=== PATIENT | female | born 1960 | race Caucasian/White ===

== ENCOUNTER → 2017-05-12 | Outpatient (CLI) | payer MEDICARE, OTHER ==
--- NOTE | 2017-05-12 16:13 | US ---
EXAMINATION TYPE: Ultrasound MSK left shoulder DATE OF EXAM: 05/12/2017 COMPARISON: No radiographic correlation available. CLINICAL HISTORY: 57-year-old female M25.512 PAIN IN LT SHOULDER,S46.002D INJURY MUSCLE,M54.2. ADDITIONAL HISTORY PROVIDED BY THE RESIDENTIAL COUNSELOR: left shoulder pain for years; patient fell on 01/16 a nd had xray at office--told she had humeral fracture and placed in sling. Patient unable to receive s teroid injections as is diabetic, limited ROM. TECHNIQUE: Multiple sonographic images of the left shoulder are obtained. FINDINGS: The soft tissues are heterogeneous and attenuating likely secondary to the patient's underlying arthr itis. There is marked thickening of the lung at biceps tendon at the junction of the intracapsular and extr acapsular portions with hypoechoic appearance. The heterogeneous appearance of the tendon limits asse ssment for any interstitial tear. Heterogeneity of the subscapularis tendon with the majority of the subscapularis tendon remaining int act. Mild degenerative joint space narrowing but with prominent capsular hypertrophy at the acromioclavicu lar joint. There is full-thickness retracted tear of the supraspinous tendon extending back to involve a signifi cant portion of the infraspinatus tendon as well. Some far posterior infraspinatus tendon fibers are visualized and intact. There is fluid and debris within the intervening gap with some fluid extending into the lateral delto id shell. The retracted stump is not identified with certainty. There appears to be moderate fatty infiltration of both supraspinatus and infraspinatus muscle bellie s. The posterior shoulder is very limited in assessment. IMPRESSION: 1. Findings suggest a near massive rotator cuff tear. Some far posterior infraspinatus tendon fibers appear to remain intact. 2. The majority of the subscapularis tendon appears intact. 3. Moderate fatty atrophy of both supraspinatus and infraspinatus muscle bellies. 4. Marked tendinosis of the long head biceps tendon.
== END | disposition home or self-care (01) ==
LOC: RADUSWWP 11:43
PROVIDERS: ATTEND Orthopaedic Surgery
DX: M62.512 Muscle wasting and atrophy, not elsewhere classified, left shoulder (principal); M67.814 Other specified disorders of tendon, left shoulder; M54.2 Cervicalgia

== ENCOUNTER 2018-02-09 18:46 | Inpatient (IN) | payer MEDICARE, OTHER ==
[2018-02-09] MEDS ORDERED: SODIUM CHLORIDE 0.9% 1,000 ML IV STA (19:13)
[2018-02-09 19:27] LABS: Basophils % (A) 0 %; Eosinophils # (A) 0.4 k/uL (0-0.7); Eosinophils % (A) 4 %; HGB 14.4 gm/dL (11.4-16.0); Lymphocytes # (A) 2.7 k/uL (1.0-4.8); Lymphocytes % (A) 28 %; MCH 26.9 pg (25.0-35.0); MCHC 33.6 g/dL (31.0-37.0); MCV 80.1 fL (80.0-100.0); Mean Platelet Volume 7.6; Monocytes # (A) 0.6 k/uL (0-1.0); Monocytes % (A) 6 %; Neutrophils # (A) 5.7 k/uL (1.3-7.7); Neutrophils % (A) 60 %; Platelet Count 299 k/uL (150-450); RBC 5.36 m/uL (3.80-5.40); RDW 15.9 % (11.5-15.5); WBC 9.6 k/uL (3.8-10.6)
[2018-02-09 19:38] LABS: Albumin 4.3 g/dL (3.5-5.0); Calcium 10.1 mg/dL (8.4-10.2); Magnesium 1.6 mg/dL (1.6-2.3); Potassium 4.6 mmol/L (3.5-5.1); Total Bilirubin 0.4 mg/dL (0.2-1.3)
[2018-02-09 19:42] LABS: Creatine Kinase 63 U/L (30-135)
--- NOTE | 2018-02-09 19:42 | XR ---
EXAMINATION TYPE: XR chest 2V DATE OF EXAM: 02/09/2018 COMPARISON: NONE HISTORY: Atrial fibrillation. Dysrhythmia. TECHNIQUE: Frontal and lateral views of the chest are obtained. FINDINGS: Heart and mediastinum are normal. Lungs are clear of infiltrate. There is no heart failure . There are chest leads. Diaphragm is normal. There is previous cardiac surgery. IMPRESSION: No active cardiopulmonary disease.
[2018-02-09 19:48] LABS: Partial Thromboplastin Time 22.2 sec (22.0-30.0); Prothrombin Time 9.6 sec (9.0-12.0)
[2018-02-09 19:54] LABS: Creatine Kinase MB 0.9 ng/mL (0.0-2.4); Troponin I <0.012 ng/mL (0.000-0.034)
--- NOTE | 2018-02-09 20:12 | ED ---
Chest Pain HPI - General Chief Complaint: Chest Pain Stated Complaint: Chest Pain-sent by closing agent Time Seen by Provider: 02/09/18 19:00 Source: patient, RN notes reviewed Mode of arrival: ambulatory Limitations: no limitations - History of Present Illness Initial Comments: This is a 58-year-old female history of atrial fibrillation was sent in today by her closing agent for admission she has been having recurrent of atrial fibrillation and has been symptomatic with shortness of breath dizziness palpitations intermittent elevation of the heart rate. She has been on medication for now failing to control it. She denies any overt chest tightness but she does have some palpitation symptoms. Of note she also has a history of a left breast lumpectomy for cancer. No fevers chills nausea vomiting sweats no cough no other modifying factors - Related Data Home Medications Medication Instructions Recorded Confirmed Acetaminophen-Codeine 300-30mg 1 tab PO Q6H PRN 02/09/18 02/09/18 [Tylenol #3] Albuterol Inhaler [Ventolin Hfa 2 puff INHALATION RT-Q6H PRN 02/09/18 02/09/18 Inhaler] Amiodarone HCl [Pacerone] 200 mg PO Q8H 02/09/18 02/09/18 Anastrozole [Arimidex] 1 mg PO DAILY 02/09/18 02/09/18 Aspirin EC [Ecotrin Low Dose] 81 mg PO DAILY 02/09/18 02/09/18 Atorvastatin [Lipitor] 80 mg PO HS 02/09/18 02/09/18 Carvedilol [Coreg] 25 mg PO BID 02/09/18 02/09/18 DULoxetine HCL [Cymbalta] 60 mg PO HS 02/09/18 02/09/18 Diltiazem Cd [Cardizem Cd] 240 mg PO BID 02/09/18 02/09/18 Doxepin [SINEquan] 10 mg PO HS 02/09/18 02/09/18 Insulin Aspart [NovoLOG 10 unit SQ AC-TID 02/09/18 02/09/18 (formulary)] Insulin Glargine,Hum.rec.anlog 70 units SQ HS 02/09/18 02/09/18 [Aiyana Saravia] Lisinopril [Prinivil] 10 mg PO DAILY 02/09/18 02/09/18 Nitroglycerin Sl Tabs [Nitrostat] 0.4 mg SUBLINGUAL Q5M PRN 02/09/18 02/09/18 Omeprazole 20 mg PO BID 02/09/18 02/09/18 Prochlorperazine [Compazine] 10 mg PO Q6H PRN 02/09/18 02/09/18 Rivaroxaban [Xarelto] 20 mg PO HS 02/09/18 02/09/18 Allergies Allergy/AdvReac Type Severity Reaction Status Date / Time ciprofloxacin [From Cipro] Allergy Anaphylaxis Verified 02/09/18 19:28 sulfamethoxazole Allergy Anaphylaxis Verified 02/09/18 19:28 [From Bactrim] trimethoprim [From Bactrim] Allergy Anaphylaxis Verified 02/09/18 19:28 gabapentin [From Neurontin] AdvReac Itching Verified 02/09/18 19:28 morphine [From MS Contin] AdvReac Hallucinati Verified 02/09/18 19:28 ons pegfilgrastim [From Neulasta] AdvReac Nausea & Verified 02/09/18 19:28 Vomiting Review of Systems ROS Statement: Those systems with pertinent positive or pertinent negative responses have been documented in the HPI. ROS Other: All systems not noted in ROS Statement are negative. EKG Findings - EKG Results: EKG: interpreted by STACEY (Atrial for ablation rate was 126 QRS 92 QT since QTC at 274/376 poor R-wave progression nonspecific ST configuration) Past Medical History Past Medical History: Atrial Fibrillation, Cancer, Chest Pain / Angina, Heart Failure, CVA/TIA, Diabetes Mellitus, Hyperlipidemia, Hypertension, Myocardial Infarction ([place]) History of Any Multi-Drug Resistant Organisms: C-DIFF, MRSA Date of last positivie culture/infection: 2012 MDRO Source:: MRSA in nose 2012 Past Surgical History: Coronary Bypass/CABG, Orthopedic Surgery Additional Past Surgical History / Comment(s): CABG 2008, stage 3 breast Ca, C- Diff in 2009 Past Psychological History: Depression Smoking Status: Former smoker Past Alcohol Use History: None Reported Past Drug Use History: Marijuana General Exam - General Exam Comments Initial Comments: Physical well-developed well-nourished awake alert oriented 3 female Limitations: no limitations General appearance: alert, in no apparent distress Head exam: Present: atraumatic, normocephalic, normal inspection Eye exam: Present: normal appearance, PERRL, EOMI. Absent: scleral icterus, conjunctival injection, periorbital swelling ENT exam: Present: normal exam, mucous membranes moist Neck exam: Present: normal inspection. Absent: tenderness, meningismus, lymphadenopathy Respiratory exam: Present: normal lung sounds bilaterally. Absent: respiratory distress, wheezes, rales, rhonchi, stridor Cardiovascular Exam: Present: tachycardia, irregular rhythm. Absent: systolic murmur, diastolic murmur, rubs, gallop, clicks GI/Abdominal exam: Present: soft, normal bowel sounds. Absent: distended, tenderness, guarding, rebound, rigid Extremities exam: Present: normal inspection, full ROM, normal capillary refill. Absent: tenderness, pedal edema, joint swelling, calf tenderness Back exam: Present: normal inspection Neurological exam: Present: alert, oriented X3, CN II-XII intact Psychiatric exam: Present: normal affect, normal mood Skin exam: Present: warm, dry, intact, normal color. Absent: rash Course Vital Signs 02/09/18 02/09/18 02/09/18 18:52 19:07 19:13 Temperature 98.7 F Pulse Rate 140 H 114 H Pulse Rate [ 117 H Chief Development Officer ] Respiratory 20 18 18 Rate Blood Pressure 122/88 150/90 O2 Sat by Pulse 95 97 Oximetry 02/09/18 02/09/18 02/09/18 19:20 20:33 21:06 Temperature Pulse Rate 101 H 109 H 92 Pulse Rate [ Chief Development Officer ] Respiratory 18 18 18 Rate Blood Pressure 170/74 144/71 137/82 O2 Sat by Pulse 98 96 96 Oximetry 02/09/18 02/09/18 21:44 23:03 Temperature 98.0 F Pulse Rate 100 102 H Pulse Rate [ Chief Development Officer ] Respiratory 18 18 Rate Blood Pressure 141/82 128/67 O2 Sat by Pulse 98 96 Oximetry Chest Pain MDM - MDM EKG shows atrial fibrillation is noted. X-rays are unremarkable. I did discuss findings the patient she'll be admitted patient was seen in the emergency department by Dr. Camara. He rates currently controlled. Disposition Clinical Impression: Rapid atrial fibrillation, Failure of outpatient treatment Disposition: ADMITTED IP TO THIS [facility] Condition: Stable Referrals: Channing Cronin MD [Primary Care Provider] - 1-2 days
[2018-02-09] MEDS ORDERED: KETOROLAC 30 MG/ML 1 ML VIAL IVP STA (21:01)
[2018-02-09] MEDS ORDERED: NITROGLYCERIN SL TABS 0.4 MG TAB SUBLINGUAL PRN (22:35)
[2018-02-09] MEDS ORDERED: PROCHLORPERAZINE 10 MG TAB PO PRN (22:35)
[2018-02-09] MEDS ORDERED: Acetaminophen-Codeine 300-30mg TAB PO PRN (22:35)
[2018-02-09] MEDS ORDERED: INSULIN DETEMIR 100 UNIT/ML 10 ML VIAL SQ SCH (22:45)
[2018-02-09] MEDS ORDERED: NALOXONE 0.4 MG/ML 1 ML VIAL IV PRN (23:07)
[2018-02-09] MEDS ORDERED: ALBUTEROL NEBULIZED 2.5 MG/3 ML INHALATION PRN (23:11)
[2018-02-09] MEDS ORDERED: SODIUM CHLORIDE 0.9% 1,000 ML IV SCH (23:15)
[2018-02-10 00:49] VITALS: BMI 32.5
[2018-02-10] MEDS: DULoxetine HCL 60 MG CAPSULE.DR PO SCH ×2 (00:51→20:17)
[2018-02-10] MEDS: AMIODARONE 200 MG TAB PO SCH ×4 (00:51→20:17)
[2018-02-10] MEDS: CARVEDILOL 12.5 MG TAB PO SCH ×3 (00:51→23:49)
[2018-02-10] MEDS: ATORVASTATIN 80 MG TAB PO SCH ×2 (00:51→20:17)
[2018-02-10] MEDS: DOXEPIN 10 MG CAP PO SCH ×2 (00:51→20:17)
[2018-02-10] MEDS: RIVAROXABAN 20 MG TAB PO SCH ×2 (00:52→20:17)
[2018-02-10] MEDS: PANTOPRAZOLE 40 MG TABLET PO SCH ×2 (00:52→06:20)
--- NOTE | 2018-02-10 03:10 | P.HPIM ---
History of Present Illness H&P Date: 02/09/18 Chief Complaint: Chest pain Patient is a 58-year-old female with known history of chronic atrial fibrillation, CVA/TIA, hypertension, diabetes type 2 and coronary artery disease with history of CABG, stage III breast cancer status post lumpectomy left and multiple other medical problems came to ER with complaints of chest discomfort and heart racing of fast. Patient has history of atrial fibrillation with difficult to control heart rate. Patient is currently on Coreg Cardizem and amiodarone. Patient has been having recurrent rapid ventricular rate. Patient supposed to follow with her marine resource economist for cardioversion. Today patient felt shortness breath dizziness and palpitations and heart racing of fast and has been asymptomatic which made her to come to the hospital. Patient was sent to Hospital by her marine resource economist. Otherwise no fever no chills. No nausea vomiting or diarrhea. EKG showed A. fib with RVR Blood sugar 383 Review of Systems Constitutional: Patient denies any fever or chills . No generalized weakness or weight loss. Abdomen: Patient denied nausea vomiting and diarrhea and abdominal pain. Cardiovascular: Patient denies any chest pain or short of breath . Patient does have palpitations. Respiratory: patient denied any cough is from production. No shortness of breath Neurologic: Patient denied any numbness or tingling headache. Musculoskeletal: Patient denies any complaints of joint swelling or deformity. Skin: Negative Psychiatric: Negative Endocrine: No heat or cold intolerance. No recent weight gain. Genitourinary: No dysuria or hematuria. All other 14 point ROS negative except the above Past Medical History Past Medical History: Atrial Fibrillation, Cancer, Chest Pain / Angina, Heart Failure, CVA/TIA, Diabetes Mellitus, Hyperlipidemia, Hypertension, Myocardial Infarction ([place]) History of Any Multi-Drug Resistant Organisms: C-DIFF, MRSA Date of last positivie culture/infection: 2012 MDRO Source:: MRSA in nose 2012 Past Surgical History: Coronary Bypass/CABG, Orthopedic Surgery Additional Past Surgical History / Comment(s): CABG 2008, stage 3 breast Ca, C- Diff in 2009 Past Psychological History: Depression Smoking Status: Former smoker Past Alcohol Use History: None Reported Past Drug Use History: Marijuana - Past Family History Father Family Medical History: Coronary Artery Disease (CAD), Diabetes Mellitus, Vascular Disorder Mother Family Medical History: Cancer, Diabetes Mellitus Medications and Allergies Home Medications Medication Instructions Recorded Confirmed Type Acetaminophen-Codeine 300-30mg 1 tab PO Q6H PRN 02/09/18 02/09/18 History [Tylenol #3] Albuterol Inhaler [Ventolin Hfa 2 puff INHALATION RT-Q6H PRN 02/09/18 02/09/18 History Inhaler] Amiodarone HCl [Pacerone] 200 mg PO Q8H 02/09/18 02/09/18 History Anastrozole [Arimidex] 1 mg PO DAILY 02/09/18 02/09/18 History Aspirin EC [Ecotrin Low Dose] 81 mg PO DAILY 02/09/18 02/09/18 History Atorvastatin [Lipitor] 80 mg PO HS 02/09/18 02/09/18 History Carvedilol [Coreg] 25 mg PO BID 02/09/18 02/09/18 History DULoxetine HCL [Cymbalta] 60 mg PO HS 02/09/18 02/09/18 History Diltiazem Cd [Cardizem Cd] 240 mg PO BID 02/09/18 02/09/18 History Doxepin [SINEquan] 10 mg PO HS 02/09/18 02/09/18 History Insulin Aspart [NovoLOG 10 unit SQ AC-TID 02/09/18 02/09/18 History (formulary)] Insulin Glargine,Hum.rec.anlog 70 units SQ HS 02/09/18 02/09/18 History [Toujeo Solostar] Lisinopril [Prinivil] 10 mg PO DAILY 02/09/18 02/09/18 History Nitroglycerin Sl Tabs [Nitrostat] 0.4 mg SUBLINGUAL Q5M PRN 02/09/18 02/09/18 History Omeprazole 20 mg PO BID 02/09/18 02/09/18 History Prochlorperazine [Compazine] 10 mg PO Q6H PRN 02/09/18 02/09/18 History Rivaroxaban [Xarelto] 20 mg PO HS 02/09/18 02/09/18 History Allergies Allergy/AdvReac Type Severity Reaction Status Date / Time ciprofloxacin [From Cipro] Allergy Anaphylaxis Verified 02/09/18 19:28 sulfamethoxazole Allergy Anaphylaxis Verified 02/09/18 19:28 [From Bactrim] trimethoprim [From Bactrim] Allergy Anaphylaxis Verified 02/09/18 19:28 gabapentin [From Neurontin] AdvReac Itching Verified 02/09/18 19:28 morphine [From MS Contin] AdvReac Hallucinati Verified 02/09/18 19:28 ons pegfilgrastim [From Neulasta] AdvReac Nausea & Verified 02/09/18 19:28 Vomiting Physical Exam Vitals: Vital Signs Temp Pulse Pulse Resp BP Pulse Ox 02/09/18 21:44 98.0 F 100 18 141/82 98 02/09/18 21:06 92 18 137/82 96 02/09/18 20:33 109 H 18 144/71 96 02/09/18 19:20 101 H 18 170/74 98 02/09/18 19:13 117 H 18 02/09/18 19:07 114 H 18 150/90 97 02/09/18 18:52 98.7 F 140 H 20 122/88 95 Intake and Output 02/09/18 02/09/18 02/09/18 06:59 14:59 22:59 Other: Weight 97.976 kg PHYSICAL EXAMINATION: Patient is lying in the bed comfortably, no acute distress, awake alert and oriented.. HEENT: Normocephalic. Neck is supple. Pupils reactive. Nostrils clear. Oral cavity is moist. Ears reveal no drainage. Neck reveals no JVD, carotid bruits, or thyromegaly. CHEST EXAMINATION: Trachea is central. Symmetrical expansion. Lung palma clear to auscultation and percussion. CARDIAC: Normal S1, S2 with no gallops. No murmurs . Irregularly irregular rhythm ABDOMEN: Soft. Bowel sounds normal. No organomegaly. No abdominal bruits. Extremities: reveal no edema. No clubbing or cyanosis Neurologically awake, alert, oriented x3 with well-coordinated movements. No focal deficits noted Skin: No rash or skin lesions. Psychiatric: Cooperative. Nonsuicidal Musculoskeletal: No joint swelling or deformity. Normal range of motion. Results CBC & Chem 7: 02/09/18 19:00 02/09/18 19:00 Labs: Abnormal Lab Results - Last 24 Hours (Table) 02/09/18 02/09/18 Range/Units 19:00 19:00 RDW 15.9 H (11.5-15.5) % Sodium 134 L (137-145) mmol/L BUN 18 H (7-17) mg/dL Glucose 383 H (74-99) mg/dL Assessment and Plan Assessment: Atrial fibrillation with rapid ventricular rate History of CVA/TIA, hypertension, diabetes type 2 coronary artery disease with history of CABG, stage III breast cancer status post lumpectomy left Hyperlipidemia History of [place] Anxiety and depression History of marijuana use Plan: Patient be started back on Coreg Cardizem and amiodarone. Continue with aspirin and statins. Cardiology has been consulted. Possible cardioversion tomorrow. We will continue the home medications and further recommendations based on the clinical course. Time with Patient: Greater than 30
[2018-02-10 06:11] LABS: Glucose,Whole Blood 171 mg/dL (75-99)
[2018-02-10] MEDS ORDERED: INSULIN DETEMIR 100 UNIT/ML 10 ML VIAL SQ SCH (06:13)
[2018-02-10] MEDS ORDERED: SODIUM CHLORIDE 0.9% 1,000 ML IV SCH (09:15)
[2018-02-10] MEDS: ASPIRIN 81 MG PO SCH (09:26)
[2018-02-10] MEDS: LISINOPRIL 10 MG TAB PO SCH (09:27)
[2018-02-10] MEDS: ANASTROZOLE 1 MG TAB PO SCH (09:27)
[2018-02-10] MEDS: DILTIAZEM CD 240 MG CAP.ER.24H PO SCH ×2 (09:27→23:52)
--- NOTE | 2018-02-10 09:29 | P.CRDCN ---
History of Present Illness Consult date: 02/10/18 Requesting physician: Vin Camara Consult reason: atrial fibrillation Chief complaint: Shortness of breath and palpitations History of present illness: This is a pleasant 58-year-old female with history of chronic persistent atrial fibrillation, prior ASD closure, coronary artery disease with prior bypass surgery and stent placements, hypertension, hyperlipidemia, history of blood clots for which she is on xarelto, she had been seen by Dr. Brunner in the office, has been placed on several medications and attempts to convert her from atrial fibrillation. She was actually scheduled on the of this month to undergo a JIMBO and elective cardioversion. Patient presents to the hospital on this occasion with symptoms of palpitations, dizziness, and shortness of breath. EKG on arrival here showed atrial fibrillation with a rapid ventricular response. Chest x-ray did not reveal any active cardiopulmonary disease. Blood pressure on arrival here 122/88 heart rate of 140, 95% on room air, temperature 98.7. White blood cell count 9.6, hemoglobin 14.4, platelet count 299. Sodium 134, potassium 4.6, BUN 18, creatinine 0.9. Mag level I.6, troponin 0.012. At the time of my examination this morning, patient denies any difficulty in breathing, no palpitations. She continues to be in atrial fibrillation heart rate in the 80s this morning. I did speak with Dr. Roberts this morning notified him patient was here, recommendation is to proceed with JIMBO and elective cardioversion today. 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 2012 Past Surgical History: Coronary Bypass/CABG, Orthopedic Surgery Additional Past Surgical History / Comment(s): CABG 2008, stage 3 breast Ca, C- Diff in 2009 Past Anesthesia/Blood Transfusion Reactions: No Reported Reaction Date of Last Stent Placement:: 2016 Past Psychological History: Depression Smoking Status: Former smoker Past Alcohol Use History: None Reported Past Drug Use History: Marijuana - Past Family History Father Family Medical History: Coronary Artery Disease (CAD), Diabetes Mellitus, Vascular Disorder Mother Family Medical History: Cancer, Diabetes Mellitus Medications and Allergies Home Medications Medication Instructions Recorded Confirmed Type Acetaminophen-Codeine 300-30mg 1 tab PO Q6H PRN 02/09/18 02/09/18 History [Tylenol #3] Albuterol Inhaler [Ventolin Hfa 2 puff INHALATION RT-Q6H PRN 02/09/18 02/09/18 History Inhaler] Amiodarone HCl [Pacerone] 200 mg PO Q8H 02/09/18 02/09/18 History Anastrozole [Arimidex] 1 mg PO DAILY 02/09/18 02/09/18 History Aspirin EC [Ecotrin Low Dose] 81 mg PO DAILY 02/09/18 02/09/18 History Atorvastatin [Lipitor] 80 mg PO HS 02/09/18 02/09/18 History Carvedilol [Coreg] 25 mg PO BID 02/09/18 02/09/18 History DULoxetine HCL [Cymbalta] 60 mg PO HS 02/09/18 02/09/18 History Diltiazem Cd [Cardizem Cd] 240 mg PO BID 02/09/18 02/09/18 History Doxepin [SINEquan] 10 mg PO HS 02/09/18 02/09/18 History Insulin Aspart [NovoLOG 10 unit SQ AC-TID 02/09/18 02/09/18 History (formulary)] Insulin Glargine,Hum.rec.anlog 70 units SQ HS 02/09/18 02/09/18 History [Touenriqueta Solostar] Lisinopril [Prinivil] 10 mg PO DAILY 02/09/18 02/09/18 History Nitroglycerin Sl Tabs [Nitrostat] 0.4 mg SUBLINGUAL Q5M PRN 02/09/18 02/09/18 History Omeprazole 20 mg PO BID 02/09/18 02/09/18 History Prochlorperazine [Compazine] 10 mg PO Q6H PRN 02/09/18 02/09/18 History Rivaroxaban [Xarelto] 20 mg PO HS 02/09/18 02/09/18 History Allergies Allergy/AdvReac Type Severity Reaction Status Date / Time ciprofloxacin [From Cipro] Allergy Anaphylaxis Verified 02/09/18 19:28 sulfamethoxazole Allergy Anaphylaxis Verified 02/09/18 19:28 [From Bactrim] trimethoprim [From Bactrim] Allergy Anaphylaxis Verified 02/09/18 19:28 gabapentin [From Neurontin] AdvReac Itching Verified 02/09/18 19:28 morphine [From MS Contin] AdvReac Hallucinati Verified 02/09/18 19:28 ons pegfilgrastim [From Neulasta] AdvReac Nausea & Verified 02/09/18 19:28 Vomiting Physical Exam Vitals: Vital Signs Temp Pulse Pulse Resp BP BP Pulse Ox 02/10/18 08:00 97.3 F L 103 H 16 137/74 95 02/10/18 04:00 95 18 111/68 92 L 02/09/18 23:31 98.0 F 02/09/18 23:30 97.3 F L 18 97 02/09/18 23:03 102 H 18 128/67 96 02/09/18 21:44 98.0 F 100 18 141/82 98 02/09/18 21:06 92 18 137/82 96 02/09/18 20:33 109 H 18 144/71 96 02/09/18 19:20 101 H 18 170/74 98 02/09/18 19:13 117 H 18 02/09/18 19:07 114 H 18 150/90 97 02/09/18 18:52 98.7 F 140 H 20 122/88 95 Intake and Output 02/09/18 02/10/18 02/10/18 22:59 06:59 14:59 Other: Voiding Method Toilet Toilet # Voids 1 Weight 97.976 kg 99.8 kg PHYSICAL EXAMINATION: HEENT: Head is atraumatic, normocephalic. Pupils equal, round. Neck is supple. There is no elevated jugular venous pressure. HEART EXAMINATION: Heart S1 and S2 irregularly irregular CHEST EXAMINATION: Lungs are clear to auscultation and precussion. No chest wall tenderness is noted on palpation or with deep breathing. ABDOMEN: Soft, nontender. Bowel sounds are heard. No organomegaly noted. EXTREMITIES: 2+ peripheral pulses with no evidence of peripheral edema and no calf tenderness noted. NEUROLOGIC patient is awake, alert and oriented -3. . Results 02/09/18 19:00 02/09/18 19:00 Cardiac Enzymes 02/09/18 02/09/18 Range/Units 19:00 19:00 AST 16 (14-36) U/L CK-MB (CK-2) 0.9 (0.0-2.4) ng/mL Troponin I <0.012 (0.000-0.034) ng/mL Coagulation 02/09/18 Range/Units 19:00 PT 9.6 (9.0-12.0) sec APTT 22.2 (22.0-30.0) sec CBC 02/09/18 Range/Units 19:00 WBC 9.6 (3.8-10.6) k/uL RBC 5.36 (3.80-5.40) m/uL Hgb 14.4 (11.4-16.0) gm/dL Hct 43.0 (34.0-46.0) % Plt Count 299 (150-450) k/uL Comprehensive Metabolic Panel 02/09/18 Range/Units 19:00 Sodium 134 L (137-145) mmol/L Potassium 4.6 (3.5-5.1) mmol/L Chloride 98 (98-107) mmol/L Carbon Dioxide 22 (22-30) mmol/L BUN 18 H (7-17) mg/dL Creatinine 0.96 (0.52-1.04) mg/dL Glucose 383 H (74-99) mg/dL Calcium 10.1 (8.4-10.2) mg/dL AST 16 (14-36) U/L ALT 19 (9-52) U/L Alkaline Phosphatase 93 (38-126) U/L Total Protein 7.0 (6.3-8.2) g/dL Albumin 4.3 (3.5-5.0) g/dL Current Medications Generic Name Dose Route Start Last Admin Trade Name Freq PRN Reason Stop Dose Admin Acetaminophen/Codeine Phosphate 1 each 02/09/18 22:35 Tylenol #3 PO Q6H PRN Pain Albuterol Sulfate 2.5 mg 02/09/18 23:11 Ventolin Nebulized INHALATION RT-Q6H PRN Shortness Of Breath Amiodarone HCl 200 mg 02/09/18 22:45 02/10/18 06:20 Cordarone PO 200 mg Q8H BRAD Administration Anastrozole 1 mg 02/10/18 09:00 Arimidex PO DAILY BRAD Aspirin 81 mg 02/10/18 09:00 Aspirin PO DAILY [facility] Atorvastatin Calcium 80 mg 02/09/18 22:45 02/10/18 00:51 Lipitor PO 80 mg HS [facility] Administration Carvedilol 25 mg 02/09/18 22:45 02/10/18 00:51 Coreg PO 25 mg BID BRAD Administration Diltiazem HCl 240 mg 02/10/18 09:00 Cardizem Cd PO BID [facility] Doxepin HCl 10 mg 02/09/18 22:45 02/10/18 00:51 Sinequan PO 10 mg HS [facility] Administration Duloxetine HCl 60 mg 02/09/18 22:45 02/10/18 00:51 Cymbalta PO 60 mg HS [facility] Administration Sodium Chloride 1,000 mls @ 50 mls/hr 02/09/18 19:13 02/09/18 19:20 Saline 0.9% IV 02/10/18 15:12 50 mls/hr .Q20H STA Administration Sodium Chloride 1,000 mls @ 20 mls/hr 02/10/18 09:15 Saline 0.9% IV .Q24H [facility] Insulin Aspart 10 unit 02/10/18 07:30 Novolog SQ AC-TID [facility] Insulin Detemir 70 unit 02/10/18 06:13 Levemir SQ [facility] Lisinopril 10 mg 02/10/18 09:00 Zestril PO DAILY [facility] Naloxone HCl 0.2 mg 02/09/18 23:07 Narcan IV Q2M PRN Opioid Reversal Nitroglycerin 0.4 mg 02/09/18 22:35 Nitrostat SUBLINGUAL Q5M PRN Chest Pain Pantoprazole Sodium 40 mg 02/09/18 22:45 02/10/18 06:20 Protonix PO 40 mg AC-BRKFST [facility] Administration Prochlorperazine Maleate 10 mg 02/09/18 22:35 Compazine PO Q6H PRN Nausea Rivaroxaban 20 mg 02/09/18 22:45 02/10/18 00:52 Xarelto PO 20 mg HS [facility] Administration Intake and Output 02/09/18 02/10/18 02/10/18 22:59 06:59 14:59 Other: Voiding Method Toilet Toilet # Voids 1 Weight 97.976 kg 99.8 kg 02/09/18 19:00 02/09/18 19:00 EKG Interpretations (text) EKG shows atrial fibrillation with rapid ventricular response Assessment and Plan Plan: Assessment and plan #1 atrial fibrillation with rapid ventricular response, chronic persistent. Patient was scheduled to undergo a JIMBO and cardioversion later this month. #2 history of percutaneous ASD closure #3 diabetes #4 hypertension #5 hyperlipidemia #6 diabetes #7 history of breast cancer #8 history of blood clots, on xarelto #9 prior TIA Plan We will keep the patient nothing by mouth at this time, the elective JIMBO and cardioversion which was scheduled later this month will be performed today. We will continue current medications including the Xarelto 20 mg daily. Replace magnesium. Further recommendations will be based on these findings and the patient's clinical course. DNP note has been reviewed, I agree with a documented findings and plan of care. Patient was seen and examined.
[2018-02-10] MEDS: MAGNESIUM SULFATE-D5W PMX 1 GM in DEXTROSE/WATER 1 100ML.BAG IVPB SCH ×2 (10:07→11:12)
[2018-02-10] MEDS: INSULIN ASPART 100 UNIT/ML 1 ML 10 ML VIAL SQ SCH ×3 (11:09→17:33)
[2018-02-10] MEDS ORDERED: PROPOFOL 10 MG/ML 20 ML VIAL IV ONE (11:45)
[2018-02-10] MEDS ORDERED: MIDAZOLAM 2 MG/2 ML VIAL ONE (11:45)
[2018-02-10] MEDS: BENZOCAINE SPRAY 1 CAN MUCOUS MEM ONE ×2 (11:45→11:48)
[2018-02-10] MEDS ORDERED: LACTATED RINGERS 1,000 ML IV ONE (11:50)
[2018-02-10] MEDS ORDERED: IV FLUID CONTINUATION 1,000 ML IV ONE ×2 (12:12)
--- NOTE | 2018-02-10 12:13 | P.PCN ---
Preoperative Diagnosis: Procedure Symptomatic atrial fibrillation, persistent History of ASD closure JIMBO performed by Dr. Lockwood. ASD closure device evaluated during the procedure. An intact fossa ovalis in the inferior aspect of the interatrial septum is noted and it is possible to pass at least an 8-Khmer sheath through this area without disturbing the ASD closure device Procedure Successful electrical cardioversion with a 360 J biphasic shock in the AP configuration to sinus rhythm Plan Continue anticoagulation Reduce amiodarone to 200 mg by mouth daily Reduce diltiazem to 240 mg once daily Twelve-lead ECG to evaluate the QT interval
--- NOTE | 2018-02-10 12:35 | ECHOT ---
TRANSESOPHAGEAL ECHOCARDIOGRAM This transesophageal echocardiogram was performed prior to cardioversion. Patient is status post ASD closure device. Patient was given intravenous sedation with propofol and Versed by nurse publishing specialist and transesophageal echocardiogram was performed without any complications. Left ventricular chamber is normal in size with normal left ventricular systolic function. Mitral and tricuspid valve morphology is normal. Left atrial appendage and left atrium there is a mild smoke but there is no definite evidence of any thrombus. Mild mitral regurgitation was noted. Interatrial septum is intact. Atrial septal closure device is in place. There is no evidence of a left-to- right shunt. Saline contrast study was done and there was no evidence of any [id number] shunt. FINAL IMPRESSION: 1. The atrial closure device is in place. 2. There is no evidence of any [id number] or [id number] shunt. 3. Mild smoke is noted in the left atrium and atrial appendage. There is no evidence of any thrombus. The left ventricular systolic function is normal. 4. Mild mitral regurgitation is noted. RECOMMENDATIONS: Proceed with the cardioversion. MMODL / IJN: [id number] /
[2018-02-10 13:15] LABS: Glucose,Whole Blood 166 mg/dL (75-99)
[2018-02-10 15:31] LABS: Hemoglobin A1C 10.5 % (4.0-6.0)
[2018-02-10 16:54] LABS: Glucose,Whole Blood 186 mg/dL (75-99)
[2018-02-10 21:29] LABS: Glucose,Whole Blood 290 mg/dL (75-99)
--- NOTE | 2018-02-10 21:51 | P.PN ---
Subjective Progress Note Date: 02/10/18 Principal diagnosis: A. fib with RVR status post cardioversion Patient is a 58-year-old female with known history of chronic atrial fibrillation, CVA/TIA, hypertension, diabetes type 2 and coronary artery disease with history of CABG, stage III breast cancer status post lumpectomy left and multiple other medical problems came to ER with complaints of chest discomfort and heart racing of fast. Patient has history of atrial fibrillation with difficult to control heart rate. Patient is currently on Coreg Cardizem and amiodarone. Patient has been having recurrent rapid ventricular rate. Patient supposed to follow with her pharmacists for cardioversion. Today patient felt shortness breath dizziness and palpitations and heart racing of fast and has been asymptomatic which made her to come to the hospital. Patient was sent to Hospital by her pharmacists. Otherwise no fever no chills. No nausea vomiting or diarrhea. EKG showed A. fib with RVR Blood sugar 383 02/10/2018 Patient underwent successful cardioversion and is currently in sinus rhythm. Patient says that she is feeling much better now. Denied any complaints of chest pain or worsening shortness of breath. No nausea vomiting or abdominal pain. No fever no chills. Reduced dose of Cardizem to 240 mg daily and amiodarone 200 mg daily. Continued on anticoagulation All other review of systems negative except the above Active Medications Generic Name Dose Route Start Last Admin Trade Name Freq PRN Reason Stop Dose Admin Acetaminophen/Codeine Phosphate 1 each 02/09/18 22:35 Tylenol #3 PO Q6H PRN Pain Albuterol Sulfate 2.5 mg 02/09/18 23:11 Ventolin Nebulized INHALATION RT-Q6H PRN Shortness Of Breath Amiodarone HCl 200 mg 02/09/18 22:45 02/10/18 20:17 Cordarone PO 200 mg Q8H BRAD Administration Anastrozole 1 mg 02/10/18 09:00 02/10/18 09:27 Arimidex PO 1 mg DAILY [facility] Administration Aspirin 81 mg 02/10/18 09:00 02/10/18 09:26 Aspirin PO 81 mg DAILY [facility] Administration Atorvastatin Calcium 80 mg 02/09/18 22:45 02/10/18 20:17 Lipitor PO 80 mg HS [facility]AD Administration Carvedilol 25 mg 02/09/18 22:45 02/10/18 09:27 Coreg PO 25 mg BID [facility] Administration Diltiazem HCl 240 mg 02/10/18 09:00 02/10/18 09:27 Cardizem Cd PO 240 mg BID [facility] Administration Doxepin HCl 10 mg 02/09/18 22:45 02/10/18 20:17 Sinequan PO 10 mg HS [facility] Administration Duloxetine HCl 60 mg 02/09/18 22:45 02/10/18 20:17 Cymbalta PO 60 mg HS [facility] Administration Sodium Chloride 1,000 mls @ 20 mls/hr 02/10/18 09:15 02/10/18 11:14 Saline 0.9% IV 20 mls/hr .Q24H [facility] Administration Insulin Aspart 10 unit 02/10/18 07:30 02/10/18 17:33 Novolog SQ 10 unit AC-TID [facility] Administration Insulin Detemir 70 unit 02/10/18 06:13 02/10/18 21:02 Levemir SQ 70 unit HS [facility] Administration Lisinopril 10 mg 02/10/18 09:00 02/10/18 09:27 Zestril PO 10 mg DAILY [facility] Administration Naloxone HCl 0.2 mg 02/09/18 23:07 Narcan IV Q2M PRN Opioid Reversal Nitroglycerin 0.4 mg 02/09/18 22:35 Nitrostat SUBLINGUAL Q5M PRN Chest Pain Pantoprazole Sodium 40 mg 02/09/18 22:45 02/10/18 06:20 Protonix PO 40 mg AC-BRKFST BRAD Administration Prochlorperazine Maleate 10 mg 02/09/18 22:35 Compazine PO Q6H PRN Nausea Rivaroxaban 20 mg 02/09/18 22:45 02/10/18 20:17 Xarelto PO 20 mg HS BRAD Administration Objective - Vital Signs Vital signs: Vital Signs Temp 97.6 F 02/10/18 15:15 Pulse 61 02/10/18 15:15 Resp 18 02/10/18 15:15 BP 98/50 02/10/18 15:15 Pulse Ox 95 02/10/18 15:15 Intake & Output 02/09/18 02/10/18 02/10/18 18:59 06:59 18:59 Intake Total 125 Balance 125 Weight 97.976 kg 99.8 kg 99.8 kg Intake: IV 125 Other: Voiding Method Toilet Toilet # Voids 1 1 - Exam PHYSICAL EXAMINATION: Patient is lying in the bed comfortably, no acute distress, awake alert and oriented.. HEENT: Normocephalic. Neck is supple. Pupils reactive. Nostrils clear. Oral cavity is moist. Ears reveal no drainage. Neck reveals no JVD, carotid bruits, or thyromegaly. CHEST EXAMINATION: Trachea is central. Symmetrical expansion. Lung palma clear to auscultation and percussion. CARDIAC: Normal S1, S2 with no gallops. No murmurs ABDOMEN: Soft. Bowel sounds normal. No organomegaly. No abdominal bruits. Extremities: reveal no edema. No clubbing or cyanosis Neurologically awake, alert, oriented x3 with well-coordinated movements. No focal deficits noted Skin: No rash or skin lesions. Psychiatric: Coperative. Nonsuicidal Musculoskeletal: No joint swelling or deformity. Normal range of motion. - Labs CBC & Chem 7: 02/09/18 19:00 02/09/18 19:00 Labs: Abnormal Lab Results - Last 24 Hours (Table) 02/09/18 02/09/18 02/09/18 Range/Units 19:00 19:00 19:00 RDW 15.9 H (11.5-15.5) % Sodium 134 L (137-145) mmol/L BUN 18 H (7-17) mg/dL Glucose 383 H (74-99) mg/dL POC Glucose (mg/dL) (75-99) mg/dL Hemoglobin A1c 10.5 H (4.0-6.0) % 02/10/18 02/10/18 02/10/18 Range/Units 06:10 12:55 16:37 RDW (11.5-15.5) % Sodium (137-145) mmol/L BUN (7-17) mg/dL Glucose (74-99) mg/dL POC Glucose (mg/dL) 171 H 166 H 186 H (75-99) mg/dL Hemoglobin A1c (4.0-6.0) % Assessment and Plan Assessment: Atrial fibrillation with rapid ventricular rate. Status post cardioversion. Currently in sinus rhythm History of CVA/TIA, hypertension, diabetes type 2 uncontrolled with HB A1c 10.5 coronary artery disease with history of CABG, stage III breast cancer status post lumpectomy left Hyperlipidemia History of [place] Anxiety and depression History of marijuana use Plan: Patient be started back on Coreg Cardizem and amiodarone. Continue with aspirin and statins. Cardiology has been consulted. Status post cardioversion on 02/10/2018. We will continue the home medications and further recommendations based on the clinical course. Time with Patient: Greater than 30
[2018-02-11 06:01] LABS: Basophils % (A) 0 %; Eosinophils # (A) 0.3 k/uL (0-0.7); Eosinophils % (A) 5 %; HCT 38.8 % (34.0-46.0); Lymphocytes # (A) 1.8 k/uL (1.0-4.8); Lymphocytes % (A) 33 %; MCH 26.4 pg (25.0-35.0); MCHC 33.5 g/dL (31.0-37.0); MCV 78.9 fL (80.0-100.0); Mean Platelet Volume 7.6; Microcytosis Slight; Monocytes # (A) 0.4 k/uL (0-1.0); Monocytes % (A) 7 %; Neutrophils # (A) 2.9 k/uL (1.3-7.7); Neutrophils % (A) 52 %; Platelet Count 224 k/uL (150-450); RBC 4.92 m/uL (3.80-5.40); RDW 15.4 % (11.5-15.5); WBC 5.6 k/uL (3.8-10.6)
[2018-02-11 06:10] LABS: Anion Gap 9 mmol/L; Blood Urea Nitrogen 16 mg/dL (7-17); Calcium 9.3 mg/dL (8.4-10.2); Carbon Dioxide 29 mmol/L (22-30); Chloride 104 mmol/L (98-107); Glucose 141 mg/dL (74-99); Potassium 4.1 mmol/L (3.5-5.1); Sodium 142 mmol/L (137-145)
[2018-02-11 06:24] LABS: Glucose,Whole Blood 141 mg/dL (75-99)
[2018-02-11] MEDS: PANTOPRAZOLE 40 MG TABLET PO SCH (06:27)
[2018-02-11] MEDS: INSULIN ASPART 100 UNIT/ML 1 ML 10 ML VIAL SQ SCH ×2 (07:24→12:32)
[2018-02-11] MEDS ORDERED: AMIODARONE 200 MG TAB PO SCH (09:00)
[2018-02-11] MEDS ORDERED: DILTIAZEM CD 240 MG CAP.ER.24H PO SCH (09:00)
[2018-02-11] MEDS: ANASTROZOLE 1 MG TAB PO SCH (09:31)
[2018-02-11] MEDS: ASPIRIN 81 MG PO SCH (09:32)
[2018-02-11] MEDS: CARVEDILOL 12.5 MG TAB PO SCH (09:32)
[2018-02-11] MEDS: LISINOPRIL 10 MG TAB PO SCH (09:32)
--- NOTE | 2018-02-11 11:11 | P.PN ---
Subjective Progress Note Date: 02/11/18 Principal diagnosis: Esau adamson This is a pleasant 58-year-old female with history of chronic persistent atrial fibrillation, prior ASD closure, coronary artery disease with prior bypass surgery and stent placements, hypertension, hyperlipidemia, history of blood clots for which she is on xarelto, she had been seen by Dr. Brunner in the office, has been placed on several medications and attempts to convert her from atrial fibrillation. She was actually scheduled on the of this month to undergo a JIMBO and elective cardioversion. Patient presents to the hospital on this occasion with symptoms of palpitations, dizziness, and shortness of breath. EKG on arrival here showed atrial fibrillation with a rapid ventricular response. Chest x-ray did not reveal any active cardiopulmonary disease. Blood pressure on arrival here 122/88 heart rate of 140, 95% on room air, temperature 98.7. White blood cell count 9.6, hemoglobin 14.4, platelet count 299. Sodium 134, potassium 4.6, BUN 18, creatinine 0.9. Mag level I.6, troponin 0.012. At the time of my examination this morning, patient denies any difficulty in breathing, no palpitations. She continues to be in atrial fibrillation heart rate in the 80s this morning. I did speak with Dr. Roberts this morning notified him patient was here, recommendation is to proceed with JIMBO and elective cardioversion today. 02/11/2018 Patient underwent a JIMBO with subsequent electrical cardioversion yesterday, remains in normal sinus rhythm today. She was seen and examined this morning, denies any shortness of breath, no palpitations, no chest discomfort. Blood pressure 138/70 with a heart rate in the 60's.Temperature 97.9, 98% Room air Objective - Vital Signs Vital signs: Vital Signs Temp 97.9 F 02/11/18 07:53 Pulse 59 L 02/11/18 07:53 Resp 16 02/11/18 07:53 BP 139/74 02/11/18 07:53 Pulse Ox 98 02/11/18 07:53 Intake & Output 02/10/18 02/11/18 02/11/18 18:59 06:59 18:59 Intake Total 365 20 240 Balance 365 20 240 Weight 99.8 kg 100.5 kg Intake: IV 125 20 .9 20 Oral 240 240 Other: Voiding Method Toilet # Voids 1 0 - Exam PHYSICAL EXAMINATION: HEENT: Head is atraumatic, normocephalic. Pupils equal, round. Neck is supple. There is no elevated jugular venous pressure. HEART EXAMINATION: Heart S1 and S2 normal. CHEST EXAMINATION: Lungs are clear to auscultation and precussion. No chest wall tenderness is noted on palpation or with deep breathing. ABDOMEN: Soft, nontender. Bowel sounds are heard. No organomegaly noted. EXTREMITIES: 2+ peripheral pulses with no evidence of peripheral edema and no calf tenderness noted. NEUROLOGIC patient is awake, alert and oriented -3. - Labs CBC & Chem 7: 02/11/18 05:44 02/11/18 05:44 Labs: Abnormal Lab Results - Last 24 Hours (Table) 02/09/18 02/10/18 02/10/18 Range/Units 19:00 12:55 16:37 MCV (80.0-100.0) fL Glucose (74-99) mg/dL POC Glucose (mg/dL) 166 H 186 H (75-99) mg/dL Hemoglobin A1c 10.5 H (4.0-6.0) % 02/10/18 02/11/18 02/11/18 Range/Units 21:16 05:44 05:44 MCV 78.9 L (80.0-100.0) fL Glucose 141 H (74-99) mg/dL POC Glucose (mg/dL) 290 H (75-99) mg/dL Hemoglobin A1c (4.0-6.0) % 02/11/18 Range/Units 06:20 MCV (80.0-100.0) fL Glucose (74-99) mg/dL POC Glucose (mg/dL) 141 H (75-99) mg/dL Hemoglobin A1c (4.0-6.0) % Assessment and Plan Plan: Assessment and plan #1 atrial fibrillation with rapid ventricular response, chronic persistent. Status post JIMBO and cardioversion of yesterday, remaining in normal sinus rhythm #2 history of percutaneous ASD closure #3 diabetes #4 hypertension #5 hyperlipidemia #6 diabetes #7 history of breast cancer #8 history of blood clots, on xarelto #9 prior TIA Plan Patient has been encouraged this morning to be up ambulating in the hallway as tolerated. She may be able to be discharged home today to follow-up with Dr. Roberts in the office post discharge. Amiodarone has been decreased to 200 mg daily, Cardizem CD decrease to 240 mg daily, we will continue Coreg 25 mg twice a day, Lipitor 80, aspirin 81 mg daily, lisinopril 10 mg daily, Xarelto 20 mg daily. DNP note has been reviewed, I agree with a documented findings and plan of care. Patient was seen and examined.
[2018-02-11 11:17] LABS: Glucose,Whole Blood 152 mg/dL (75-99)
[2018-02-11 12:09] VITALS: BP 108/58; PULSE 55; RESP 17; TEMP 98.1
--- NOTE | 2018-02-12 00:04 | P.DS ---
Providers Date of admission: 02/09/18 23:07 Expected date of discharge: 02/11/18 Attending physician: Vin Camara Consults: 02/09/18 23:10 Consult Physician Routine Consulting Provider: Iván Brunner Consult Reason/Comments: Rapid atrial fibrillation, failed outpatient treatment Do you want consulting provider notified?: Yes Primary care physician: Channing Cronin Hospital Course: Discharge diagnosis Atrial fibrillation with rapid ventricular rate. Status post cardioversion. Currently in sinus rhythm History of CVA/TIA, hypertension, diabetes type 2 uncontrolled with HB A1c 10.5 coronary artery disease with history of CABG, stage III breast cancer status post lumpectomy left Hyperlipidemia History of NM Anxiety and depression History of marijuana use Hospital course Patient is a 58-year-old female with known history of chronic atrial fibrillation, CVA/TIA, hypertension, diabetes type 2 and coronary artery disease with history of CABG, stage III breast cancer status post lumpectomy left and multiple other medical problems came to ER with complaints of chest discomfort and heart racing of fast. Patient has history of atrial fibrillation with difficult to control heart rate. Patient is currently on Coreg Cardizem and amiodarone. Patient has been having recurrent rapid ventricular rate. Patient supposed to follow with her furnace reliner for cardioversion. Today patient felt shortness breath dizziness and palpitations and heart racing of fast and has been asymptomatic which made her to come to the hospital. Patient was sent to Hospital by her furnace reliner. Otherwise no fever no chills. No nausea vomiting or diarrhea. EKG showed A. fib with RVR Blood sugar 383 02/10/2018 Patient underwent successful cardioversion and is currently in sinus rhythm. Patient says that she is feeling much better now. Denied any complaints of chest pain or worsening shortness of breath. No nausea vomiting or abdominal pain. No fever no chills. Reduced dose of Cardizem to 240 mg daily and amiodarone 200 mg daily. Continued on anticoagulation 2017 Patient denied any complaints of chest pain or shortness of breath area no palpitations. Patient remained on sinus rhythm. Blood pressure is fairly stable. Otherwise patient is being discharged home and follow with EP clinic. Cardizem and amiodarone dose has been decreased as per cardiac recommendations. Patient Condition at Discharge: Stable Plan - Discharge Summary Discharge Rx Participant: No New Discharge Prescriptions: New Amiodarone [Cordarone] 200 mg PO DAILY tab Diltiazem Cd [Cardizem CD] 240 mg PO DAILY cap.er.24h Continue Rivaroxaban [Xarelto] 20 mg PO HS Prochlorperazine [Compazine] 10 mg PO Q6H PRN PRN Reason: Nausea Omeprazole 20 mg PO BID Insulin Glargine,Hum.rec.anlog [Toujeo Solostar] 70 units SQ HS Nitroglycerin Sl Tabs [Nitrostat] 0.4 mg SUBLINGUAL Q5M PRN PRN Reason: Chest Pain Lisinopril [Prinivil] 10 mg PO DAILY Insulin Aspart [NovoLOG (formulary)] 10 unit SQ AC-TID Doxepin [SINEquan] 10 mg PO HS Carvedilol [Coreg] 25 mg PO BID Atorvastatin [Lipitor] 80 mg PO HS Aspirin EC [Ecotrin Low Dose] 81 mg PO DAILY Anastrozole [Arimidex] 1 mg PO DAILY Albuterol Inhaler [Ventolin Hfa Inhaler] 2 puff INHALATION RT-Q6H PRN PRN Reason: Shortness Of Breath DULoxetine HCL [Cymbalta] 60 mg PO HS Acetaminophen-Codeine 300-30mg [Tylenol w/codeine #3] 1 tab PO Q6H PRN PRN Reason: Pain Discontinued Diltiazem Cd [Cardizem Cd] 240 mg PO BID Amiodarone HCl [Pacerone] 200 mg PO Q8H Discharge Medication List Acetaminophen-Codeine 300-30mg [Tylenol w/codeine #3] 1 tab PO Q6H PRN 02/09/18 [History] Albuterol Inhaler [Ventolin Hfa Inhaler] 2 puff INHALATION RT-Q6H PRN 02/09/18 [ History] Anastrozole [Arimidex] 1 mg PO DAILY 02/09/18 [History] Aspirin EC [Ecotrin Low Dose] 81 mg PO DAILY 02/09/18 [History] Atorvastatin [Lipitor] 80 mg PO HS 02/09/18 [History] Carvedilol [Coreg] 25 mg PO BID 02/09/18 [History] DULoxetine HCL [Cymbalta] 60 mg PO HS 02/09/18 [History] Doxepin [SINEquan] 10 mg PO HS 02/09/18 [History] Insulin Aspart [NovoLOG (formulary)] 10 unit SQ AC-TID 02/09/18 [History] Insulin Glargine,Hum.rec.anlog [Toujeo Solostar] 70 units SQ HS 02/09/18 [ History] Lisinopril [Prinivil] 10 mg PO DAILY 02/09/18 [History] Nitroglycerin Sl Tabs [Nitrostat] 0.4 mg SUBLINGUAL Q5M PRN 02/09/18 [History] Omeprazole 20 mg PO BID 02/09/18 [History] Prochlorperazine [Compazine] 10 mg PO Q6H PRN 02/09/18 [History] Rivaroxaban [Xarelto] 20 mg PO HS 02/09/18 [History] Amiodarone [Cordarone] 200 mg PO DAILY tab 02/11/18 [Rx] Diltiazem Cd [Cardizem CD] 240 mg PO DAILY cap.er.24h 02/11/18 [Rx] Follow up Appointment(s)/Referral(s): Iván Brunner MD [STAFF PHYSICIAN] - 03/31/18 6:15 pm (Previously scheduled appointment) [facility], [NON-STAFF] - Channing Cronin MD [Primary Care Provider] - 02/16/18 11:45 am (Thursday) Patient Instructions/Handouts: A-fib (Atrial Fibrillation) (DC), Safe Use of Anticoagulants (DC), Cardioversion (DC) Discharge Disposition: HOME SELF-CARE
== END 2018-02-11 15:53 | disposition home or self-care (01) | DRG 310 ==
LOC: EC 18:46 → 6SEL 23:07
PROVIDERS: ADMIT Internal Medicine; ATTEND Internal Medicine
PROC: 5A2204Z Restoration of Cardiac Rhythm, Single (ICD-10-PCS; principal; 2018-02-09)
DX: I48.2 Chronic atrial fibrillation (principal); I11.0 Hypertensive heart disease with heart failure; E11.65 Type 2 diabetes mellitus with hyperglycemia; I50.9 Heart failure, unspecified; Z95.1 Presence of aortocoronary bypass graft; Z85.3 Personal history of malignant neoplasm of breast; E78.5 Hyperlipidemia, unspecified; F32.9 Major depressive disorder, single episode, unspecified; F41.9 Anxiety disorder, unspecified; I25.10 Atherosclerotic heart disease of native coronary artery without angina pectoris; I25.2 Old myocardial infarction; Z79.01 Long term (current) use of anticoagulants; Z79.4 Long term (current) use of insulin; Z79.811 Long term (current) use of aromatase inhibitors; Z79.82 Long term (current) use of aspirin; Z79.899 Other long term (current) drug therapy; Z82.49 Family history of ischemic heart disease and other diseases of the circulatory system; Z83.3 Family history of diabetes mellitus; Z86.718 Personal history of other venous thrombosis and embolism; Z86.73 Personal history of transient ischemic attack (TIA), and cerebral infarction without residual deficits; Z87.891 Personal history of nicotine dependence; Z95.5 Presence of coronary angioplasty implant and graft; Z86.14 Personal history of Methicillin resistant Staphylococcus aureus infection; Z88.1 Allergy status to other antibiotic agents; Z88.5 Allergy status to narcotic agent; Z88.2 Allergy status to sulfonamides; Z88.8 Allergy status to other drugs, medicaments and biological substances
CPT/HCPCS: 36415; 71046; 80048; 80053; 82550; 82553; 83036; 83735; 84484; 85025; 85610; 85730; 92960; 93005; 93312; 93320; 93325; 96374; 99285

== ENCOUNTER 2018-03-09 12:07 | Inpatient (IN) | payer MEDICARE, OTHER ==
[2018-03-09] MEDS ORDERED: DILTIAZEM 50 MG in SODIUM CHLORIDE 0.9% 40 ML IV ONE (12:12)
[2018-03-09] MEDS ORDERED: DILTIAZEM 5 MG/1 ML (25ML VIAL) IV STA ×2 (12:12→13:40)
[2018-03-09] MEDS ORDERED: SODIUM CHLORIDE 0.9% 500 ML IV ONE (12:23)
--- NOTE | 2018-03-09 12:23 | ED ---
General Adult HPI - General Stated complaint: Chest Pain Time Seen by Provider: 03/09/18 12:10 Source: RN notes reviewed - History of Present Illness Initial comments: This is a 58-year-old female who presents to the emergency department complaining of her heart racing. Patient states she has a past medical history significant for A. fib with rapid ventricular response. Patient states this morning she woke up with the feeling her heart was racing she woke up very sweaty and some tightness in her chest. She states this is more significant than her normal episodes of A. fib. Patient denies any nausea. Patient denies any recent fever chills or cough. Patient states she is scheduled for an ablation. Patient denies any abdominal pain patient denies nausea vomiting diarrhea. Patient denies lightheadedness or dizziness she received an aspirin by EMS - Related Data Home Medications Medication Instructions Recorded Confirmed Acetaminophen-Codeine 300-30mg 1 tab PO Q6H PRN 02/09/18 03/09/18 [Tylenol w/codeine #3] Albuterol Inhaler [Ventolin Hfa 2 puff INHALATION RT-Q6H PRN 02/09/18 03/09/18 Inhaler] Anastrozole [Arimidex] 1 mg PO DAILY 02/09/18 03/09/18 Aspirin EC [Ecotrin Low Dose] 81 mg PO DAILY 02/09/18 03/09/18 Atorvastatin [Lipitor] 80 mg PO HS 02/09/18 03/09/18 DULoxetine HCL [Cymbalta] 60 mg PO HS 02/09/18 03/09/18 Doxepin [SINEquan] 10 mg PO HS 02/09/18 03/09/18 Insulin Aspart [NovoLOG 10 unit SQ AC-TID 02/09/18 03/09/18 (formulary)] Insulin Glargine,Hum.rec.anlog 70 units SQ HS 02/09/18 03/09/18 [Aiyana Saravia] Lisinopril [Prinivil] 10 mg PO DAILY 02/09/18 03/09/18 Nitroglycerin Sl Tabs [Nitrostat] 0.4 mg SUBLINGUAL Q5M PRN 02/09/18 03/09/18 Omeprazole 20 mg PO BID 02/09/18 03/09/18 Prochlorperazine [Compazine] 10 mg PO Q6H PRN 02/09/18 03/09/18 Rivaroxaban [Xarelto] 20 mg PO HS 02/09/18 03/09/18 Labetalol HCl 100 mg PO TID 03/09/18 03/09/18 Previous Rx's Medication Instructions Recorded Amiodarone [Cordarone] 200 mg PO DAILY tab 02/11/18 Diltiazem Cd [Cardizem CD] 240 mg PO DAILY cap.er.24h 02/11/18 Allergies Allergy/AdvReac Type Severity Reaction Status Date / Time ciprofloxacin [From Cipro] Allergy Anaphylaxis Verified 03/09/18 13:04 sulfamethoxazole Allergy Anaphylaxis Verified 03/09/18 13:04 [From Bactrim] trimethoprim [From Bactrim] Allergy Anaphylaxis Verified 03/09/18 13:04 vortioxetine Allergy Unknown Verified 03/09/18 13:04 [From Brintellix] gabapentin [From Neurontin] AdvReac Itching Verified 03/09/18 13:04 morphine [From MS Contin] AdvReac Hallucinati Verified 03/09/18 13:04 ons pegfilgrastim [From Neulasta] AdvReac Nausea & Verified 03/09/18 13:04 Vomiting Review of Systems ROS Statement: Those systems with pertinent positive or pertinent negative responses have been documented in the HPI. ROS Other: All systems not noted in ROS Statement are negative. 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 Past Surgical History: Coronary Bypass/CABG, Orthopedic Surgery Additional Past Surgical History / Comment(s): CABG 2008, stage 3 breast Ca, C- Diff in 2009 Past Anesthesia/Blood Transfusion Reactions: No Reported Reaction Date of Last Stent Placement:: 2016 Past Psychological History: Depression Smoking Status: Former smoker Past Alcohol Use History: None Reported Past Drug Use History: Marijuana - Past Family History Father Family Medical History: Coronary Artery Disease (CAD), Diabetes Mellitus, Vascular Disorder Mother Family Medical History: Cancer, Diabetes Mellitus General Exam - General Exam Comments Initial Comments: GENERAL: Patient is well-developed and well-nourished. Patient is nontoxic and well- hydrated and is in mild distress. ENT: Neck is soft and supple. No significant lymphadenopathy is noted. Oropharynx is clear. Moist mucous membranes. Neck has full range of motion without eliciting any pain. EYES: The sclera were anicteric and conjunctiva were pink and moist. Extraocular movements were intact and pupils were equal round and reactive to light. Eyelids were unremarkable. PULMONARY: Unlabored respirations. Good breath sounds bilaterally. No audible rales rhonchi or wheezing was noted. CARDIOVASCULAR: Patient is tachycardic and has an irregular rate ABDOMEN: Soft and nontender with normal bowel sounds. No palpable organomegaly was noted. There is no palpable pulsatile mass. SKIN: Skin is clear with no lesions or rashes and otherwise unremarkable. NEUROLOGIC: Patient is alert and oriented x3. Cranial nerves II through XII are grossly intact. Motor and sensory are also intact. Normal speech, volume and content. Symmetrical smile. MUSCULOSKELETAL: Normal extremities with adequate strength and full range of motion. No lower extremity swelling or edema. No calf tenderness. LYMPHATICS: No significant lymphadenopathy is noted PSYCHIATRIC: Normal psychiatric evaluation. Course Vital Signs 03/09/18 03/09/18 03/09/18 12:09 12:24 12:42 Temperature 98.5 F Pulse Rate 137 H 122 H Pulse Rate [ 120 H Carbonator ] Respiratory 18 17 Rate Blood Pressure 162/112 155/78 O2 Sat by Pulse 98 97 Oximetry 03/09/18 13:15 Temperature Pulse Rate 119 H Pulse Rate [ Carbonator ] Respiratory 16 Rate Blood Pressure 164/73 O2 Sat by Pulse 98 Oximetry Medical Decision Making - Medical Decision Making EKG shows atrial fibrillation with rapid ventricular response at 137 bpm QRS is 82 QT interval 336 QTC is 507. Patient's EKG has some slight ST segment depression in leads V3 through V6. Patient is placed on Cardizem after 10 mg Cardizem bolus. Heart rate is starting to slow down. Patient is already on Xarelto. I spoke with Dr. Leblanc admitted the patient I wrote admitting orders I consult to cardiology in the The patient on Cardizem on the floor - Lab Data Result diagrams: 03/09/18 12:15 03/09/18 12:15 Lab Results 03/09/18 03/09/18 03/09/18 Range/Units 12:15 12:15 12:15 WBC 11.5 H (3.8-10.6) k/uL RBC 5.50 H (3.80-5.40) m/uL Hgb 14.7 (11.4-16.0) gm/dL Hct 44.3 (34.0-46.0) % MCV 80.6 (80.0-100.0) fL MCH 26.7 (25.0-35.0) pg MCHC 33.2 (31.0-37.0) g/dL RDW 15.6 H (11.5-15.5) % Plt Count 294 (150-450) k/uL Neutrophils % 76 % Lymphocytes % 16 % Monocytes % 5 % Eosinophils % 3 % Basophils % 0 % Neutrophils # 8.7 H (1.3-7.7) k/uL Lymphocytes # 1.8 (1.0-4.8) k/uL Monocytes # 0.5 (0-1.0) k/uL Eosinophils # 0.3 (0-0.7) k/uL Basophils # 0.0 (0-0.2) k/uL PT (9.0-12.0) sec INR (<1.2) APTT (22.0-30.0) sec Sodium 137 (137-145) mmol/L Potassium 5.1 (3.5-5.1) mmol/L Chloride 100 (98-107) mmol/L Carbon Dioxide 24 (22-30) mmol/L Anion Gap 13 mmol/L BUN 14 (7-17) mg/dL Creatinine 0.56 (0.52-1.04) mg/dL Est GFR (CKD-EPI)AfAm >90 (>60 ml/min/1.73 sqM) Est GFR (CKD-EPI)NonAf >90 (>60 ml/min/1.73 sqM) Glucose 288 H (74-99) mg/dL Calcium 9.3 (8.4-10.2) mg/dL Magnesium 1.2 L (1.6-2.3) mg/dL Total Bilirubin 0.8 (0.2-1.3) mg/dL AST 25 (14-36) U/L ALT 18 (9-52) U/L Alkaline Phosphatase 66 (38-126) U/L Total Creatine Kinase 101 (30-135) U/L CK-MB (CK-2) 1.9 (0.0-2.4) ng/mL CK-MB (CK-2) Rel Index 1.9 Troponin I 0.079 H* (0.000-0.034) ng/mL Total Protein 7.3 (6.3-8.2) g/dL Albumin 4.5 (3.5-5.0) g/dL 03/09/18 Range/Units 12:15 WBC (3.8-10.6) k/uL RBC (3.80-5.40) m/uL Hgb (11.4-16.0) gm/dL Hct (34.0-46.0) % MCV (80.0-100.0) fL MCH (25.0-35.0) pg MCHC (31.0-37.0) g/dL RDW (11.5-15.5) % Plt Count (150-450) k/uL Neutrophils % % Lymphocytes % % Monocytes % % Eosinophils % % Basophils % % Neutrophils # (1.3-7.7) k/uL Lymphocytes # (1.0-4.8) k/uL Monocytes # (0-1.0) k/uL Eosinophils # (0-0.7) k/uL Basophils # (0-0.2) k/uL PT 10.1 (9.0-12.0) sec INR 1.0 (<1.2) APTT 24.3 (22.0-30.0) sec Sodium (137-145) mmol/L Potassium (3.5-5.1) mmol/L Chloride (98-107) mmol/L Carbon Dioxide (22-30) mmol/L Anion Gap mmol/L BUN (7-17) mg/dL Creatinine (0.52-1.04) mg/dL Est GFR (CKD-EPI)AfAm (>60 ml/min/1.73 sqM) Est GFR (CKD-EPI)NonAf (>60 ml/min/1.73 sqM) Glucose (74-99) mg/dL Calcium (8.4-10.2) mg/dL Magnesium (1.6-2.3) mg/dL Total Bilirubin (0.2-1.3) mg/dL AST (14-36) U/L ALT (9-52) U/L Alkaline Phosphatase (38-126) U/L Total Creatine Kinase (30-135) U/L CK-MB (CK-2) (0.0-2.4) ng/mL CK-MB (CK-2) Rel Index Troponin I (0.000-0.034) ng/mL Total Protein (6.3-8.2) g/dL Albumin (3.5-5.0) g/dL Critical Care Time Critical Care Time: Yes Total Critical Care Time: 35 Disposition Clinical Impression: Atrial fibrillation with rapid ventricular response, Troponin level elevated Disposition: ADMITTED IP TO THIS HOSP Referrals: Channing Cronin MD [Primary Care Provider] - 1-2 days Time of Disposition: 13:37
[2018-03-09 12:34] LABS: Basophils % (A) 0 %; Eosinophils # (A) 0.3 k/uL (0-0.7); Eosinophils % (A) 3 %; HCT 44.3 % (34.0-46.0); HGB 14.7 gm/dL (11.4-16.0); Lymphocytes # (A) 1.8 k/uL (1.0-4.8); Lymphocytes % (A) 16 %; MCH 26.7 pg (25.0-35.0); MCHC 33.2 g/dL (31.0-37.0); MCV 80.6 fL (80.0-100.0); Mean Platelet Volume 8.3; Monocytes # (A) 0.5 k/uL (0-1.0); Monocytes % (A) 5 %; Neutrophils # (A) 8.7 k/uL (1.3-7.7); Neutrophils % (A) 76 %; Platelet Count 294 k/uL (150-450); RDW 15.6 % (11.5-15.5); WBC 11.5 k/uL (3.8-10.6)
--- NOTE | 2018-03-09 12:34 | XR ---
EXAMINATION TYPE: XR chest 2V DATE OF EXAM: 03/09/2018 COMPARISON: 02/09/2018 HISTORY: Chest pain TECHNIQUE: Frontal and lateral views of the chest are obtained. FINDINGS: There is no focal air space opacity. No evidence for pneumothorax. No pleural effusion. The cardiac silhouette size is within normal limits. The osseous structures are grossly intact. IMPRESSION: 1. No acute cardiopulmonary process.
[2018-03-09 12:45] LABS: ALT 18 U/L (9-52); AST 25 U/L (14-36); Albumin 4.5 g/dL (3.5-5.0); Alkaline Phosphatase 66 U/L (38-126); Anion Gap 13 mmol/L; Blood Urea Nitrogen 14 mg/dL (7-17); Calcium 9.3 mg/dL (8.4-10.2); Carbon Dioxide 24 mmol/L (22-30); Chloride 100 mmol/L (98-107); Glucose 288 mg/dL (74-99); Magnesium 1.2 mg/dL (1.6-2.3); Sodium 137 mmol/L (137-145); Total Bilirubin 0.8 mg/dL (0.2-1.3); Total Protein 7.3 g/dL (6.3-8.2)
[2018-03-09 12:51] LABS: Partial Thromboplastin Time 24.3 sec (22.0-30.0); Prothrombin Time 10.1 sec (9.0-12.0)
[2018-03-09 12:54] LABS: Potassium 5.1 mmol/L (3.5-5.1)
[2018-03-09 13:20] LABS: Creatine Kinase MB 1.9 ng/mL (0.0-2.4)
[2018-03-09] MEDS ORDERED: MAGNESIUM SULFATE-D5W PMX 1 GM in DEXTROSE/WATER 1 100ML.BAG IVPB ONE (13:20)
[2018-03-09 13:27] LABS: Troponin I 0.079 ng/mL (0.000-0.034)
[2018-03-09] MEDS ORDERED: NITROGLYCERIN SL TABS 0.4 MG TAB SUBLINGUAL PRN ×2 (13:38→20:21)
[2018-03-09 19:44] LABS: Creatine Kinase MB 1.9 ng/mL (0.0-2.4)
[2018-03-09 19:45] LABS: Troponin I 0.083 ng/mL (0.000-0.034)
[2018-03-09] MEDS ORDERED: PROCHLORPERAZINE 10 MG TAB PO PRN (20:21)
[2018-03-09] MEDS ORDERED: Acetaminophen-Codeine 300-30mg TAB PO PRN (20:21)
[2018-03-09] MEDS ORDERED: ALBUTEROL NEBULIZED 2.5 MG/3 ML INHALATION PRN (20:21)
[2018-03-09 20:52] LABS: Glucose,Whole Blood 240 mg/dL (75-99)
[2018-03-09] MEDS: PANTOPRAZOLE 40 MG TABLET PO SCH (21:50)
[2018-03-09] MEDS: DULoxetine HCL 60 MG CAPSULE.DR PO SCH (21:50)
[2018-03-09] MEDS: RIVAROXABAN 20 MG TAB PO SCH (21:50)
[2018-03-09] MEDS: LABETALOL 100 MG TAB PO SCH (21:50)
[2018-03-09] MEDS: INSULIN DETEMIR 100 UNIT/ML 10 ML VIAL SQ SCH (21:50)
[2018-03-09] MEDS: DOXEPIN 10 MG CAP PO SCH (21:51)
[2018-03-09] MEDS: ATORVASTATIN 80 MG TAB PO SCH (21:54)
--- NOTE | 2018-03-09 23:15 | HP ---
HISTORY AND PHYSICAL DATE OF ADMISSION: 03/09/2018 PRESENTING COMPLAINT: Heart racing. HISTORY OF PRESENTING COMPLAINT: This is a very pleasant 58-year-old patient of Dr. Cronin. Chronic stable medical conditions include hypertension, diabetes, GERD, coronary artery disease, anxiety, depression, osteoarthritis. The patient's last seizure was in 2014. The patient also follows with Dr. Maxwell for a foot ulcer that gets debrided every week. The patient has a known history of atrial fibrillation. He was cardioverted a few days ago and remained in sinus rhythm for about 9 days, then started having more symptoms. Patient actually did go and see Dr. Brunner just very recently and was due to come in for an EP study, but patient went back into atrial flutter with a rapid ventricular rate and became uncontrolled. Patient started feeling dizzy, lightheaded, fluttering in the chest. When EMS arrived, patient's heart rate was up to 160s. Patient was admitted for the same. Patient is already on amiodarone, was started on a Cardizem drip. Patient does take p.o. Cardizem at home. Also patient is on Xarelto. Cardiology was consulted. REVIEW OF SYSTEMS: CONSTITUTIONAL: Tired. HEENT: None. RESPIRATORY: As above. CARDIOVASCULAR: As above. GASTROINTESTINAL: Heartburn. GENITOURINARY: None. MUSCULOSKELETAL: Arthritic pain in the joints. DERMATOLOGICAL: Right foot second toe wound. HEMATOLOGICAL: None. LYMPHATICS: None. PSYCHIATRY: None. NEUROLOGICAL: None. PAST HISTORY: 1. Atrial fibrillation. 2. TIA. 3. Hypertension. 4. Diabetes. 5. GERD. 6. Coronary artery disease with a bypass. 7. Left breast lumpectomy; treated with chemo and radiation. 8. Anxiety. 9. Depression. 10.Hyperlipidemia. 11.Osteoarthritis. 12.PE. 13.Seizures, last one being in 2014. PAST SURGICAL HISTORY: 1. Appendectomy. 2. Left breast lumpectomy. 3. . 4. Cholecystectomy. 5. Coronary artery bypass. 6. Tonsillectomy. 7. Four-vessel bypass in 2008. 8. PFO surgery in 2010. 9. PCI with stent to graft sites. 10.Stage III breast cancer with lumpectomy and nodes removed. 11.Bilateral total hip arthroplasties. 12.C-sections x2. PSYCH HISTORY: Anxiety, depression. SOCIAL HISTORY: Patient lives with significant other. Uses a walker. Gets help to get things done. Patient smoked for about 41 years; stopped 3 months ago. No alcohol. FAMILY HISTORY: Coronary artery disease, diabetes. Father had melanoma and also peripheral artery disease. HOME MEDICATIONS: 1. Labetalol 100 mg p.o. t.i.d. 2. Xarelto 20 mg at bedtime. 3. Compazine 10 mg q.6 p.r.n. 4. Omeprazole 20 mg b.i.d. 5. Nitrostat 0.4 mg sublingually q.5 p.r.n. 6. Prinivil 10 mg p.o. daily. 7. NovoLog 10 units subcutaneously t.i.d. 8. Lantus 70 units subcutaneously at bedtime. 9. Sinequan 10 mg p.o. at bedtime. 10.Cardizem CD 240 mg a day. 11.Cymbalta 60 mg at bedtime. 12.Lipitor 80 mg at bedtime. 13.Aspirin 81 mg p.o. daily. 14.Arimidex 1 mg p.o. daily. 15.Cordarone 200 mg p.o. daily. 16.Ventolin HFA 2 puffs q.6 p.r.n. 17.Tylenol 3 one tablet q.6 p.r.n. PHYSICAL EXAMINATION: Temperature 98.5, pulse 137, respiration 18, blood pressure 162/112, pulse ox 98% on room air. GENERAL APPEARANCE: Well built; BMI 32.5. Sitting up, tired-appearing. EYES: Pupils equal. Conjunctivae normal. HEENT: External appearance of nose and ears normal. Oral cavity normal. NECK: JVD not raised. Mass not palpable. RESPIRATORY: Effort increased. LUNGS: Decreased breath sounds. Mild wheezing. CARDIOVASCULAR: Heart sounds irregular. No edema. ABDOMEN: Soft, nontender. Liver and spleen not palpable. LYMPHATIC: No lymph node palpable in neck or axillae. PSYCHIATRY: Alert and oriented x3. Mood and affect slightly anxious-appearing. NEUROLOGICAL: Pupils equal. Cranial nerves grossly intact. Power and sensation grossly intact. EXTREMITIES: Right second toe in a dressing. INVESTIGATIONS: White count 11.5, hemoglobin 14.7, potassium 5.1. BUN and creatinine are normal. Troponin 0.079, 0.083. EKG atrial fibrillation with rapid ventricular rate. ASSESSMENT: 1. Persistent atrial fibrillation. Patient failed recent DC cardioversion, was due to go for an EP study; now rate uncontrolled, symptomatic. 2. Essential hypertension. 3. Diabetes mellitus, type 2, chronically on insulin. 4. Gastroesophageal reflux disease. 5. Coronary artery disease with prior history of bypass. 6. Hyperlipidemia. 7. Anxiety, depression not otherwise specified. 8. Primary osteoarthritis. 9. Right toe wound, being followed by Dr. Maxwell. 10.Obesity; body mass index 32.5. PLAN: Patient was put on a Cardizem drip in the ER. Cardiology was consulted. Home medications will be resumed. Will also consult Dr. Brunner, to whom the patient is known. Care was discussed with the patient. Questions were answered. MMODL / IJN: [id number] /
[2018-03-09] MEDS ORDERED: DILTIAZEM 50 MG in SODIUM CHLORIDE 0.9% 40 ML IV SCH (23:30)
[2018-03-10 00:18] LABS: Creatine Kinase MB 1.6 ng/mL (0.0-2.4)
[2018-03-10 01:16] LABS: Troponin I 0.081 ng/mL (0.000-0.034)
[2018-03-10 06:18] LABS: Glucose,Whole Blood 159 mg/dL (75-99)
[2018-03-10 07:01] LABS: Magnesium 1.6 mg/dL (1.6-2.3)
[2018-03-10] MEDS: INSULIN ASPART 100 UNIT/ML 1 ML 10 ML VIAL SQ SCH ×3 (07:03→17:09)
[2018-03-10] MEDS: AMIODARONE 200 MG TAB PO SCH (08:07)
[2018-03-10] MEDS: LABETALOL 100 MG TAB PO SCH ×4 (08:07→21:50)
[2018-03-10] MEDS: LISINOPRIL 10 MG TAB PO SCH (08:07)
[2018-03-10] MEDS: ANASTROZOLE 1 MG TAB PO SCH (08:07)
[2018-03-10] MEDS: PANTOPRAZOLE 40 MG TABLET PO SCH ×2 (08:07→19:52)
[2018-03-10] MEDS ORDERED: DILTIAZEM CD 240 MG CAP.ER.24H PO SCH (09:00)
[2018-03-10] MEDS ORDERED: NON-FORMULARY DRUG (Aspirin Ec 81 MG) PO SCH (09:00)
[2018-03-10] MEDS ORDERED: ASPIRIN 325 MG TAB PO SCH (09:00)
--- NOTE | 2018-03-10 09:23 | P.CRDCN ---
History of Present Illness Consult date: 03/10/18 Requesting physician: Alvaro Leblanc Consult reason: atrial fibrillation Chief complaint: Palpitations History of present illness: This is a pleasant 58-year-old female who follows with Dr. Brunner in the office. She has history of paroxysmal atrial fibrillation with prior ASD closure, coronary artery disease with prior bypass surgery and stent placements , hypertension, hyperlipidemia, history of blood clots for which she is on xarelto, patient underwent a JIMBO on February 10 which revealed the atrial closure device to be in place, there was no evidence of any [id number] or right-to- left shunt, mild smoke was noted in the left atrium and atrial appendage. No evidence of any thrombus. Left ventricular systolic function was normal, mild mitral regurgitation was noted. According to the patient, she has just seen Dr. Brunner in the office on Thursday for follow-up to her Holter monitor, he told her she would be scheduled for atrial fibrillation ablation. Patient currently has a small ulcerated area on her third toe on the right foot, the visiting nurse was at her house, examined her, and noted that her heart rate was in the 170 range. Patient states she did feel palpitations and irregularity in her heartbeat, but did not realize it was going fast. EKG on presentation here showed atrial fibrillation with a rapid ventricular response, heart rate in the 130s. Chest x-ray does not show any acute process. The patient was given a Cardizem bolus and drip in the emergency room, she has since converted to normal sinus rhythm and remains in a normal sinus rhythm at this time. Blood pressure on arrival here 162/112, heart rate in the 130s to 140s range, 98% on room air. Temperature 98.5. Blood pressure this morning 132 /50 with a heart rate in the 60s. White blood cell count 11.5, hemoglobin 14.7 , platelet count 294. Sodium 137, potassium 5.1, BUN 14, creatinine 0.5. Troponin 0.079, 0.083, 0.01. At the time of my examination this morning, patient is currently in a normal sinus rhythm. Past Medical History Past Medical History: Atrial Fibrillation, Coronary Artery Disease (CAD), Cancer , Chest Pain / Angina, Heart Failure, CVA/TIA, Diabetes Mellitus, GERD/Reflux, Hyperlipidemia, Hypertension, Myocardial Infarction (DE), Osteoarthritis (OA), Pulmonary Embolus (PE), Seizure Disorder Additional Past Medical History / Comment(s): Pt recently admitted to [facility] with Afib RVR on 02/09/18. Other hx: Currently has sore on 3rd toe R foot and is receiving home wound care/pt states she would like Dr. Maxwell to be aware of her admission, pt is to have ablation-waiting to find out date/time, IDDM type II, L breast cancer with lumpectomy/radiation and chemo, pulmonary embolism after CABG, PFO with surgery, TIA 2010, last seizure 2014, DJD, DDD, L shoulder rotator cuff tear, syncope twice d/t bradycardia, 2012 MRSA in nose. Last Myocardial Infarction Date:: 2008 History of Any Multi-Drug Resistant Organisms: C-DIFF, MRSA Date of last positivie culture/infection: 2012 MDRO Source:: MRSA in nose 2012 Past Surgical History: Appendectomy, Breast Surgery, Section, Cholecystectomy, Coronary Bypass/CABG, Heart Catheterization, Joint Replacement , Orthopedic Surgery, Tonsillectomy Additional Past Surgical History / Comment(s): 02/10/18 JIMBO/cardioversion, 4 vessel CABG 2008, PFO surgery in 2010, PCI with 2 stents to graft sites, stage 3 breast Ca with lumpectomy/nodes removed, bilateral total hip arthroplasties, EGD/colonoscopy 2 months ago, 2 C-Sections. Past Anesthesia/Blood Transfusion Reactions: No Reported Reaction Additional Past Anesthesia/Blood Transfusion Reaction / Comment(s): Pt has received blood in past with CABG-no reaction. Date of Last Stent Placement:: 2016 Smoking Status: Former smoker - Past Family History Father Family Medical History: Coronary Artery Disease (CAD), Diabetes Mellitus, Vascular Disorder Additional Family Medical History / Comment(s): Father had melanoma. He at age 80yrs from PAD. Mother Family Medical History: Cancer, Rheumatoid Arthritis (RA) Additional Family Medical History / Comment(s): Mother had breast cancer. She is 79yrs old. Medications and Allergies Home Medications Medication Instructions Recorded Confirmed Type Acetaminophen-Codeine 300-30mg 1 tab PO Q6H PRN 02/09/18 03/09/18 History [Tylenol w/codeine #3] Albuterol Inhaler [Ventolin Hfa 2 puff INHALATION RT-Q6H PRN 02/09/18 03/09/18 History Inhaler] Anastrozole [Arimidex] 1 mg PO DAILY 02/09/18 03/09/18 History Aspirin EC [Ecotrin Low Dose] 81 mg PO DAILY 02/09/18 03/09/18 History Atorvastatin [Lipitor] 80 mg PO HS 02/09/18 03/09/18 History DULoxetine HCL [Cymbalta] 60 mg PO HS 02/09/18 03/09/18 History Doxepin [SINEquan] 10 mg PO HS 02/09/18 03/09/18 History Insulin Aspart [NovoLOG 10 unit SQ AC-TID 02/09/18 03/09/18 History (formulary)] Insulin Glargine,Hum.rec.anlog 70 units SQ HS 02/09/18 03/09/18 History [Toujeo Solostar] Lisinopril [Prinivil] 10 mg PO DAILY 02/09/18 03/09/18 History Nitroglycerin Sl Tabs [Nitrostat] 0.4 mg SUBLINGUAL Q5M PRN 02/09/18 03/09/18 History Omeprazole 20 mg PO BID 02/09/18 03/09/18 History Prochlorperazine [Compazine] 10 mg PO Q6H PRN 02/09/18 03/09/18 History Rivaroxaban [Xarelto] 20 mg PO HS 02/09/18 03/09/18 History Amiodarone [Cordarone] 200 mg PO DAILY tab 02/11/18 03/09/18 Rx Diltiazem Cd [Cardizem CD] 240 mg PO DAILY cap.er.24h 02/11/18 03/09/18 Rx Labetalol HCl 100 mg PO TID 03/09/18 03/09/18 History Allergies Allergy/AdvReac Type Severity Reaction Status Date / Time ciprofloxacin [From Cipro] Allergy Anaphylaxis Verified 03/09/18 13:04 sulfamethoxazole Allergy Anaphylaxis Verified 03/09/18 13:04 [From Bactrim] trimethoprim [From Bactrim] Allergy Anaphylaxis Verified 03/09/18 13:04 vortioxetine Allergy Unknown Verified 03/09/18 13:04 [From Brintellix] gabapentin [From Neurontin] AdvReac Itching Verified 03/09/18 13:04 morphine [From MS Contin] AdvReac Hallucinati Verified 03/09/18 13:04 ons pegfilgrastim [From Neulasta] AdvReac Nausea & Verified 03/09/18 13:04 Vomiting Physical Exam Vitals: Vital Signs Temp Pulse Pulse Pulse Resp BP BP 03/10/18 08:00 97.3 F L 66 16 132/56 03/10/18 07:53 66 16 03/10/18 04:00 64 16 121/77 03/10/18 00:00 97.8 F 62 16 98/47 03/09/18 20:00 97.8 F 78 16 117/82 03/09/18 17:55 98.5 F 127 H 16 151/98 03/09/18 17:14 119 H 18 132/56 03/09/18 16:11 98 F 127 H 18 137/71 03/09/18 15:19 110 H 18 137/83 03/09/18 14:36 110 H 18 141/77 03/09/18 13:47 122 H 18 03/09/18 13:15 119 H 16 164/73 03/09/18 12:42 122 H 17 155/78 03/09/18 12:24 120 H 03/09/18 12:09 98.5 F 137 H 18 162/112 Pulse Ox 03/10/18 08:00 03/10/18 07:53 03/10/18 04:00 96 03/10/18 00:00 95 03/09/18 20:00 96 03/09/18 17:55 95 03/09/18 17:14 99 03/09/18 16:11 98 03/09/18 15:19 99 03/09/18 14:36 99 03/09/18 13:47 98 03/09/18 13:15 98 03/09/18 12:42 97 03/09/18 12:24 03/09/18 12:09 98 Intake and Output 03/09/18 03/10/18 03/10/18 22:59 06:59 14:59 Intake Total 480 Balance 480 Intake: Oral 480 Other: Voiding Method Toilet Toilet Toilet # Voids 1 1 Weight 100.4 kg PHYSICAL EXAMINATION: HEENT: Head is atraumatic, normocephalic. Pupils equal, round. Neck is supple. There is no elevated jugular venous pressure. HEART EXAMINATION: Heart S1, S2 normal. No murmur or gallop heard. CHEST EXAMINATION: Lungs are clear to auscultation and precussion. No chest wall tenderness is noted on palpation or with deep breathing. ABDOMEN: Soft, nontender. Bowel sounds are heard. No organomegaly noted. EXTREMITIES: 2+ peripheral pulses with no evidence of peripheral edema and no calf tenderness noted. NEUROLOGIC patient is awake, alert and oriented -3. . Results 03/09/18 12:15 03/09/18 12:15 Cardiac Enzymes 03/09/18 03/09/18 03/09/18 Range/Units 12:15 12:15 18:43 AST 25 (14-36) U/L CK-MB (CK-2) 1.9 1.9 (0.0-2.4) ng/mL Troponin I 0.079 H* 0.083 H* (0.000-0.034) ng/mL 03/09/18 Range/Units 23:31 AST (14-36) U/L CK-MB (CK-2) 1.6 (0.0-2.4) ng/mL Troponin I 0.081 H* (0.000-0.034) ng/mL Coagulation 03/09/18 Range/Units 12:15 PT 10.1 (9.0-12.0) sec APTT 24.3 (22.0-30.0) sec Lipids 03/10/18 Range/Units 06:22 Triglycerides 428 H (<150) mg/dL Cholesterol 196 (<200) mg/dL HDL Cholesterol 45 (40-60) mg/dL CBC 03/09/18 Range/Units 12:15 WBC 11.5 H (3.8-10.6) k/uL RBC 5.50 H (3.80-5.40) m/uL Hgb 14.7 (11.4-16.0) gm/dL Hct 44.3 (34.0-46.0) % Plt Count 294 (150-450) k/uL Comprehensive Metabolic Panel 03/09/18 Range/Units 12:15 Sodium 137 (137-145) mmol/L Potassium 5.1 (3.5-5.1) mmol/L Chloride 100 (98-107) mmol/L Carbon Dioxide 24 (22-30) mmol/L BUN 14 (7-17) mg/dL Creatinine 0.56 (0.52-1.04) mg/dL Glucose 288 H (74-99) mg/dL Calcium 9.3 (8.4-10.2) mg/dL AST 25 (14-36) U/L ALT 18 (9-52) U/L Alkaline Phosphatase 66 (38-126) U/L Total Protein 7.3 (6.3-8.2) g/dL Albumin 4.5 (3.5-5.0) g/dL Current Medications Generic Name Dose Route Start Last Admin Trade Name Freq PRN Reason Stop Dose Admin Acetaminophen/Codeine Phosphate 1 each 03/09/18 20:21 Tylenol #3 PO Q6H PRN Pain Albuterol Sulfate 2.5 mg 03/09/18 20:21 Ventolin Nebulized INHALATION RT-Q6H PRN Shortness Of Breath Amiodarone HCl 200 mg 03/10/18 09:00 03/10/18 08:07 Cordarone PO 200 mg DAILY BRAD Administration Anastrozole 1 mg 03/10/18 09:00 03/10/18 08:07 Arimidex PO 1 mg DAILY BRAD Administration Aspirin 325 mg 03/10/18 09:00 03/10/18 08:07 Aspirin PO 325 mg DAILY BRAD Administration Atorvastatin Calcium 80 mg 03/09/18 21:00 03/09/18 21:54 Lipitor PO 80 mg HS BRAD Administration Doxepin HCl 10 mg 03/09/18 21:00 03/09/18 21:51 Sinequan PO 10 mg HS BRAD Administration Duloxetine HCl 60 mg 03/09/18 21:00 03/09/18 21:50 Cymbalta PO 60 mg HS BRAD Administration Diltiazem HCl 50 mg/ Sodium 50 mls @ 5 mls/hr 03/09/18 23:30 03/09/18 23:34 Chloride IV 5 mg/hr .Q10H BRAD 5 mls/hr 5 MG/HR Administration Insulin Aspart 10 unit 03/10/18 07:30 03/10/18 07:03 Novolog SQ 10 unit AC-TID BRAD Administration Insulin Detemir 70 unit 03/09/18 21:00 03/09/18 21:50 Levemir SQ 70 unit HS BRAD Administration Labetalol HCl 100 mg 03/09/18 22:00 03/10/18 08:07 Trandate PO 100 mg TID BRAD Administration Lisinopril 10 mg 03/10/18 09:00 03/10/18 08:07 Zestril PO 10 mg DAILY BRAD Administration Nitroglycerin 0.4 mg 03/09/18 20:21 Nitrostat SUBLINGUAL Q5M PRN Chest Pain Pantoprazole Sodium 40 mg 03/09/18 21:00 03/10/18 08:07 Protonix PO 40 mg BID BRAD Administration Prochlorperazine Maleate 10 mg 03/09/18 20:21 Compazine PO Q6H PRN Nausea Rivaroxaban 20 mg 03/09/18 21:00 03/09/18 21:50 Xarelto PO 20 mg HS BRAD Administration Intake and Output 03/09/18 03/10/18 03/10/18 22:59 06:59 14:59 Intake Total 480 Balance 480 Intake: Oral 480 Other: Voiding Method Toilet Toilet Toilet # Voids 1 1 Weight 100.4 kg 03/09/18 12:15 03/09/18 12:15 EKG Interpretations (text) Initial EKG shows atrial fibrillation with rapid ventricular response. Subsequent EKG shows a normal sinus rhythm. Assessment and Plan Plan: Assessment and plan #1 atrial fibrillation with rapid ventricular response, paroxysmal patient currently in normal sinus rhythm #2 history of paroxysmal atrial fibrillation, will be scheduled for outpatient ablation #3 history of percutaneous ASD closure #4 diabetes #5 hypertension #6 hyperlipidemia #7 history of breast cancer #8 history of blood clots on xarelto #9 prior TIA Plan Will obtain Dr. Kannan schofield from the office. Discontinue IV Cardizem as the patient is currently now in normal sinus rhythm. We will decrease aspirin to 80 mg daily, continue Lipitor, labetalol, Xarelto, amiodarone, by mouth Cardizem , and lisinopril. Further recommendations to follow. DNP note has been reviewed, I agree with a documented findings and plan of care. Patient was seen and examined.
[2018-03-10] MEDS: EZETIMIBE 10 MG TAB PO SCH (11:24)
[2018-03-10] MEDS: FENOFIBRATE 160 MG TAB PO SCH (11:24)
[2018-03-10 11:48] LABS: Glucose,Whole Blood 160 mg/dL (75-99)
[2018-03-10 13:22] LABS: Hemoglobin A1C 9.5 % (4.0-6.0)
[2018-03-10 14:58] VITALS: BMI 32.6
[2018-03-10 16:32] LABS: Glucose,Whole Blood 195 mg/dL (75-99)
[2018-03-10] MEDS: DULoxetine HCL 60 MG CAPSULE.DR PO SCH (19:51)
[2018-03-10] MEDS: RIVAROXABAN 20 MG TAB PO SCH (19:51)
[2018-03-10] MEDS: ATORVASTATIN 80 MG TAB PO SCH (19:51)
[2018-03-10] MEDS: DOXEPIN 10 MG CAP PO SCH (19:52)
[2018-03-10 20:38] LABS: Glucose,Whole Blood 204 mg/dL (75-99)
[2018-03-10] MEDS: INSULIN DETEMIR 100 UNIT/ML 10 ML VIAL SQ SCH (21:04)
--- NOTE | 2018-03-10 21:43 | PN ---
PROGRESS NOTE DATE OF SERVICE: 03/10/2018 PRESENTING COMPLAINT: Atrial fibrillation. INTERVAL HISTORY: The patient with multiple medical problems, presented for atrial fibrillation, was put on a Cardizem drip, then patient reverted to sinus rhythm this morning. The patient's symptoms are controlled, awaiting further input from Cardiology. REVIEW OF SYSTEMS: Done for constitutional, cardiovascular, GI, pulmonary; relevant findings as above. CURRENT MEDICATIONS: Reviewed that include: 1. Cordarone. 2. Aspirin. 3. Zetia. 4. Xarelto. EXAMINATION: Temperature 98.8, pulse 91, respirations 14, blood pressure 130/71, pulse ox 94% on room air. GENERAL APPEARANCE: Sitting on bed, comfortable. EYES: Pupils equal. Conjunctivae normal. HEENT: External nose and ears normal. Oral cavity normal. NECK: JVD not raised. Mass not palpable. RESPIRATORY: Effort normal. LUNGS: Decreased breath sounds. CARDIOVASCULAR: First and second sounds normal. No edema. ABDOMEN: Soft, nontender. Liver and spleen not palpable. PSYCHIATRY: Alert and oriented x3. Mood and affect normal. INVESTIGATIONS: Accu-Cheks are noted. ASSESSMENT: 1. Paroxysmal atrial fibrillation. The patient recently failed direct-current cardioversion, went back into atrial fibrillation, but is now back into sinus rhythm. 2. Essential hypertension. 3. Diabetes mellitus type 2, chronically on insulin. 4. Gastroesophageal reflux disease. 5. Coronary artery disease. Prior history of bypass. 6. Hyperlipidemia. 7. Anxiety, depression, not otherwise specified. 8. Primary osteoarthritis. 9. Right foot toe wound being followed by Dr. Maxwell. 10.Obesity; BMI 32.5. PLAN: Continue current medication and treatment plan. Await further input from Cardiology. Will go from there. MMODL / IJN: [id number] /
[2018-03-11 05:40] LABS: Glucose,Whole Blood 173 mg/dL (75-99)
[2018-03-11] MEDS: INSULIN ASPART 100 UNIT/ML 1 ML 10 ML VIAL SQ SCH ×2 (06:39→12:33)
[2018-03-11] MEDS: AMIODARONE 200 MG TAB PO SCH (08:30)
[2018-03-11] MEDS: ANASTROZOLE 1 MG TAB PO SCH (08:30)
[2018-03-11] MEDS: LISINOPRIL 10 MG TAB PO SCH (08:31)
[2018-03-11] MEDS: EZETIMIBE 10 MG TAB PO SCH (08:31)
[2018-03-11] MEDS: LABETALOL 100 MG TAB PO SCH (08:31)
[2018-03-11] MEDS: FENOFIBRATE 160 MG TAB PO SCH (08:31)
[2018-03-11] MEDS: PANTOPRAZOLE 40 MG TABLET PO SCH (08:31)
[2018-03-11 08:48] VITALS: RESP 18; TEMP 97.4
[2018-03-11] MEDS ORDERED: ASPIRIN 81 MG PO SCH (09:00)
[2018-03-11 11:33] LABS: Glucose,Whole Blood 195 mg/dL (75-99)
[2018-03-11 11:56] VITALS: BP 127/69; PULSE 60
--- NOTE | 2018-03-11 13:50 | P.PN ---
Subjective Progress Note Date: 03/11/18 This is a pleasant 58-year-old female who follows with Dr. Brunner in the office. She has history of paroxysmal atrial fibrillation with prior ASD closure, coronary artery disease with prior bypass surgery and stent placements , hypertension, hyperlipidemia, history of blood clots for which she is on xarelto, patient underwent a JIMBO on February 10 which revealed the atrial closure device to be in place, there was no evidence of any [id number] or right-to- left shunt, mild smoke was noted in the left atrium and atrial appendage. No evidence of any thrombus. Left ventricular systolic function was normal, mild mitral regurgitation was noted. According to the patient, she has just seen Dr. Brunner in the office on Thursday for follow-up to her Holter monitor, he told her she would be scheduled for atrial fibrillation ablation. Patient currently has a small ulcerated area on her third toe on the right foot, the visiting nurse was at her house, examined her, and noted that her heart rate was in the 170 range. Patient states she did feel palpitations and irregularity in her heartbeat, but did not realize it was going fast. EKG on presentation here showed atrial fibrillation with a rapid ventricular response, heart rate in the 130s. Chest x-ray does not show any acute process. The patient was given a Cardizem bolus and drip in the emergency room, she has since converted to normal sinus rhythm and remains in a normal sinus rhythm at this time. Blood pressure on arrival here 162/112, heart rate in the 130s to 140s range, 98% on room air. Temperature 98.5. Blood pressure this morning 132 /50 with a heart rate in the 60s. White blood cell count 11.5, hemoglobin 14.7 , platelet count 294. Sodium 137, potassium 5.1, BUN 14, creatinine 0.5. Troponin 0.079, 0.083, 0.01. At the time of my examination this morning, patient is currently in a normal sinus rhythm. 03/11/2018 Patient was seen and examined this morning, she is remaining in a normal sinus rhythm. Hemodynamically stable. Feels well overall, no complaints. Objective - Vital Signs Vital signs: Vital Signs Temp 97.4 F L 03/11/18 11:51 Pulse 60 03/11/18 11:51 Resp 18 03/11/18 11:51 BP 127/69 03/11/18 11:51 Pulse Ox 97 03/11/18 08:00 Intake & Output 03/10/18 03/11/18 03/11/18 18:59 06:59 18:59 Intake Total 960 720 Balance 960 720 Weight 100.4 kg 100.7 kg Intake: Oral 960 720 Other: Voiding Method Toilet Toilet Toilet # Voids 1 2 - Exam PHYSICAL EXAMINATION: HEENT: Head is atraumatic, normocephalic. Pupils equal, round. Neck is supple. There is no elevated jugular venous pressure. HEART EXAMINATION: Heart S1, S2 normal. No murmur or gallop heard. CHEST EXAMINATION: Lungs are clear to auscultation and precussion. No chest wall tenderness is noted on palpation or with deep breathing. ABDOMEN: Soft, nontender. Bowel sounds are heard. No organomegaly noted. EXTREMITIES: 2+ peripheral pulses with no evidence of peripheral edema and no calf tenderness noted. NEUROLOGIC patient is awake, alert and oriented -3. . - Labs CBC & Chem 7: 03/09/18 12:15 03/09/18 12:15 Labs: Abnormal Lab Results - Last 24 Hours (Table) 03/10/18 03/10/18 03/10/18 Range/Units 06:22 16:29 20:36 POC Glucose (mg/dL) 195 H 204 H (75-99) mg/dL Hemoglobin A1c 9.5 H (4.0-6.0) % 03/11/18 03/11/18 Range/Units 05:39 11:21 POC Glucose (mg/dL) 173 H 195 H (75-99) mg/dL Hemoglobin A1c (4.0-6.0) % Assessment and Plan Plan: Assessment and plan #1 atrial fibrillation with rapid ventricular response, paroxysmal patient currently in normal sinus rhythm #2 history of paroxysmal atrial fibrillation, will be scheduled for outpatient ablation #3 history of percutaneous ASD closure #4 diabetes #5 hypertension #6 hyperlipidemia #7 history of breast cancer #8 history of blood clots on xarelto #9 prior TIA Plan From cardiology's perspective, patient may be able to be discharged home today. She'll have a follow-up appointment with Dr. Roberts in the office. Outpatient ablation down the road. DNP note has been reviewed, I agree with a documented findings and plan of care. Patient was seen and examined.
--- NOTE | 2018-03-11 23:05 | DS ---
DISCHARGE SUMMARY DATE OF ADMISSION: 03/09/2018 DATE OF DISCHARGE: 03/11/2018 FINAL DIAGNOSES: 1. Paroxysmal atrial fibrillation with rapid ventricular rate on presentation, now back in sinus rhythm. 2. Essential hypertension. 3. Diabetes mellitus type 2, chronically on insulin. 4. Gastroesophageal reflux disease. 5. Coronary artery disease with prior history of coronary bypass. 6. Hyperlipidemia. 7. Anxiety and depression, not otherwise specified. 8. Primary osteoarthritis. 9. Right foot toe wound being followed by Dr. Maxwell. 10.Obesity; BMI 32.5. CONSULTATION: Dr. Miranda Lockwood. HOSPITAL COURSE: This patient with known atrial fibrillation who was recently DC cardioverted did go back into atrial fibrillation. Saw Dr. Brunner just 2 days prior to admission and went back into atrial fibrillation. The patient was put on a Cardizem drip. Did revert back to sinus rhythm. The patient is seen by Dr. Miranda Lockwood. I talked to him today. The patient can be discharged home on Cardizem. The patient to be discharged home . Cardizem is to be discontinued. Care was discussed with the patient. On exam, lungs slightly decreased breath sounds. CARDIOVASCULAR: First and second sounds normal. The patient remains in sinus rhythm. DISCHARGE MEDICATIONS: 1. Tylenol 3 one tab q.6h p.r.n. 2. Ventolin HFA 2 puffs q.6h p.r.n. 3. Arimidex 1 mg p.o. daily. 4. Aspirin 81 mg p.o. daily. 5. Lipitor 80 mg q.h.s. 6. Cymbalta 60 mg q.h.s. 7. Sinequan 10 mg q.h.s. 8. NovoLog 10 units subcu a.c. t.i.d. 9. Lantus 70 units q.h.s. 10.Prinivil 10 mg p.o. daily. 11.Nitrostat 0.4 sublingual q.5 p.r.n. 12.Omeprazole 20 mg p.o. b.i.d. 13.Compazine 10 mg q.6h p.r.n. 14.Xarelto 20 mg q.h.s. 15.Cordarone 200 mg p.o. daily. 16.Labetalol 100 mg p.o. t.i.d. 17. 10 mg p.o. daily. 18. 60 mg p.o. daily. FOLLOWUP: Follow up with Dr. Brunner on 03/09/2018. Follow up with Dr. Cronin on 03/18/2018. Discharge planning more than 35 minutes. MMMARYL / IJN: [id number] /
== END 2018-03-11 15:20 | disposition home or self-care (01) | DRG 310 ==
LOC: EC 12:07 → 6SEL 13:38
PROVIDERS: ADMIT Hospitalist; ATTEND Hospitalist
DX: I48.0 Paroxysmal atrial fibrillation (principal); I10 Essential (primary) hypertension; E78.5 Hyperlipidemia, unspecified; K21.9 Gastro-esophageal reflux disease without esophagitis; E66.9 Obesity, unspecified; F41.9 Anxiety disorder, unspecified; F32.9 Major depressive disorder, single episode, unspecified; M19.91 Primary osteoarthritis, unspecified site; Z96.643 Presence of artificial hip joint, bilateral; I25.10 Atherosclerotic heart disease of native coronary artery without angina pectoris; E11.621 Type 2 diabetes mellitus with foot ulcer; I48.92 Unspecified atrial flutter; L97.519 Non-pressure chronic ulcer of other part of right foot with unspecified severity; G40.909 Epilepsy, unspecified, not intractable, without status epilepticus; Z68.32 Body mass index [BMI] 32.0-32.9, adult; Z79.4 Long term (current) use of insulin; Z95.1 Presence of aortocoronary bypass graft; Z92.21 Personal history of antineoplastic chemotherapy; Z92.3 Personal history of irradiation; Z85.3 Personal history of malignant neoplasm of breast; Z86.711 Personal history of pulmonary embolism; Z90.49 Acquired absence of other specified parts of digestive tract; Z82.49 Family history of ischemic heart disease and other diseases of the circulatory system; Z87.891 Personal history of nicotine dependence; Z79.82 Long term (current) use of aspirin; Z79.01 Long term (current) use of anticoagulants; Z95.5 Presence of coronary angioplasty implant and graft; Z86.73 Personal history of transient ischemic attack (TIA), and cerebral infarction without residual deficits; Z86.14 Personal history of Methicillin resistant Staphylococcus aureus infection; I25.2 Old myocardial infarction; Z79.811 Long term (current) use of aromatase inhibitors; Z79.899 Other long term (current) drug therapy; Z80.3 Family history of malignant neoplasm of breast; Z80.8 Family history of malignant neoplasm of other organs or systems; Z83.3 Family history of diabetes mellitus; Z86.718 Personal history of other venous thrombosis and embolism; Z87.74 Personal history of (corrected) congenital malformations of heart and circulatory system
CPT/HCPCS: 36415; 71046; 80053; 80061; 82550; 82553; 83036; 83735; 84484; 85025; 85610; 85730; 93005; 96365; 96366; 96368; 96376; 99291

== ENCOUNTER 2018-03-22 15:23 | Inpatient (IN) | payer MEDICARE, OTHER ==
[2018-03-22] MEDS ORDERED: ACETAMINOPHEN IV (For NPO) 1,000 MG in EMPTY BAG 1 BAG IVPB STA (16:01)
[2018-03-22 16:13] LABS: Basophils % (A) 0 %; Eosinophils # (A) 0.4 k/uL (0-0.7); Eosinophils % (A) 3 %; HCT 43.3 % (34.0-46.0); HGB 14.3 gm/dL (11.4-16.0); Lymphocytes # (A) 2.2 k/uL (1.0-4.8); Lymphocytes % (A) 21 %; MCH 27.2 pg (25.0-35.0); MCHC 33.1 g/dL (31.0-37.0); MCV 82.3 fL (80.0-100.0); Mean Platelet Volume 8.1; Monocytes # (A) 0.8 k/uL (0-1.0); Monocytes % (A) 7 %; Neutrophils # (A) 6.9 k/uL (1.3-7.7); Neutrophils % (A) 66 %; Platelet Count 296 k/uL (150-450); RBC 5.26 m/uL (3.80-5.40); RDW 15.6 % (11.5-15.5); WBC 10.4 k/uL (3.8-10.6)
[2018-03-22 16:25] LABS: ALT 28 U/L (9-52); AST 20 U/L (14-36); Albumin 4.6 g/dL (3.5-5.0); Alkaline Phosphatase 47 U/L (38-126); Anion Gap 15 mmol/L; Blood Urea Nitrogen 13 mg/dL (7-17); Carbon Dioxide 25 mmol/L (22-30); Chloride 102 mmol/L (98-107); Glucose 192 mg/dL (74-99); Magnesium 1.7 mg/dL (1.6-2.3); Potassium 4.3 mmol/L (3.5-5.1); Sodium 142 mmol/L (137-145); Total Bilirubin 0.4 mg/dL (0.2-1.3); Total Protein 7.1 g/dL (6.3-8.2)
--- NOTE | 2018-03-22 16:28 | ED ---
General Adult HPI - General Chief complaint: Syncope Stated complaint: Syncope/chest pain Time Seen by Provider: 03/22/18 15:51 Source: patient, EMS, RN notes reviewed, old records reviewed Mode of arrival: EMS Limitations: no limitations - History of Present Illness Initial comments: 58-year-old female presenting for evaluation of syncopal episode. Patient states she has been dealing with some blood pressure issues over the past several days. She was admitted to this institution with atrial fibrillation and RVR, medications were adjusted. She is currently on metoprolol, amiodarone , and lisinopril. She was cleaning her bathroom, she remembers leaving the bathroom and then remembers being awoken on the floor outside of the bathroom. She did have chest pain when she woke. Pain is currently nearly resolved. Patient has significant cardiac history including open heart surgery with bypass grafting, and multiple stents including 2 in the past 6 months. Patient is currently on Xarelto. Patient denied chest pain preceding the fall. She denied palpitations. She denied nausea vomiting or diarrhea. Denied fever or chills. She did receive aspirin and nitroglycerin by EMS prior to arrival. She does have a headache which she attributes to the nitroglycerin although she is uncertain if she hit her head when she fell. - Related Data Home Medications Medication Instructions Recorded Confirmed Acetaminophen-Codeine 300-30mg 1 tab PO Q6H PRN 02/09/18 03/22/18 [Tylenol w/codeine #3] Albuterol Inhaler [Ventolin Hfa 2 puff INHALATION RT-Q6H PRN 02/09/18 03/22/18 Inhaler] Anastrozole [Arimidex] 1 mg PO DAILY 02/09/18 03/22/18 Aspirin EC [Ecotrin Low Dose] 81 mg PO DAILY 02/09/18 03/22/18 Atorvastatin [Lipitor] 80 mg PO HS 02/09/18 03/22/18 DULoxetine HCL [Cymbalta] 60 mg PO HS 02/09/18 03/22/18 Doxepin [SINEquan] 10 mg PO HS 02/09/18 03/22/18 Insulin Aspart [NovoLOG 10 unit SQ AC-TID 02/09/18 03/22/18 (formulary)] Insulin Glargine,Hum.rec.anlog 70 units SQ HS 02/09/18 03/22/18 [Aiyana Saravia] Lisinopril [Prinivil] 10 mg PO DAILY 02/09/18 03/22/18 Nitroglycerin Sl Tabs [Nitrostat] 0.4 mg SUBLINGUAL Q5M PRN 02/09/18 03/22/18 Omeprazole 20 mg PO BID 02/09/18 03/22/18 Prochlorperazine [Compazine] 10 mg PO Q6H PRN 02/09/18 03/22/18 Rivaroxaban [Xarelto] 20 mg PO HS 02/09/18 03/22/18 Metoprolol Tartrate [Lopressor] 100 mg PO BID 03/22/18 03/22/18 Previous Rx's Medication Instructions Recorded Amiodarone [Cordarone] 200 mg PO DAILY tab 02/11/18 Ezetimibe [Zetia] 10 mg PO DAILY #30 tab 03/11/18 Fenofibrate [Lofibra] 160 mg PO DAILY #30 tab 03/11/18 Allergies Allergy/AdvReac Type Severity Reaction Status Date / Time ciprofloxacin [From Cipro] Allergy Anaphylaxis Verified 03/22/18 16:30 sulfamethoxazole Allergy Anaphylaxis Verified 03/22/18 16:30 [From Bactrim] trimethoprim [From Bactrim] Allergy Anaphylaxis Verified 03/22/18 16:30 vortioxetine Allergy Unknown Verified 03/22/18 16:30 [From Brintellix] gabapentin [From Neurontin] AdvReac Itching Verified 03/22/18 16:30 morphine [From MS Contin] AdvReac Hallucinati Verified 03/22/18 16:30 ons pegfilgrastim [From Neulasta] AdvReac Nausea & Verified 03/22/18 16:30 Vomiting Review of Systems ROS Statement: Those systems with pertinent positive or pertinent negative responses have been documented in the HPI. ROS Other: All systems not noted in ROS Statement are negative. Past Medical History Past Medical History: Atrial Fibrillation, Coronary Artery Disease (CAD), Cancer , Chest Pain / Angina, Heart Failure, CVA/TIA, Diabetes Mellitus, GERD/Reflux, Hyperlipidemia, Hypertension, Myocardial Infarction (TN), Osteoarthritis (OA), Pulmonary Embolus (PE), Seizure Disorder Additional Past Medical History / Comment(s): Pt recently admitted to [facility] with Afib RVR on 02/09/18. Other hx: Currently has sore on 3rd toe R foot and is receiving home wound care/pt states she would like Dr. Maxwell to be aware of her admission, pt is to have ablation-waiting to find out date/time, IDDM type II, L breast cancer with lumpectomy/radiation and chemo, pulmonary embolism after CABG, PFO with surgery, TIA 2010, last seizure 2014, DJD, DDD, L shoulder rotator cuff tear, syncope twice d/t bradycardia, 2013 MRSA in nose. Last Myocardial Infarction Date:: 2008 History of Any Multi-Drug Resistant Organisms: C-DIFF, MRSA Date of last positivie culture/infection: 2012 MDRO Source:: MRSA in nose 2012 Past Surgical History: Appendectomy, Breast Surgery, Section, Cholecystectomy, Coronary Bypass/CABG, Heart Catheterization, Joint Replacement , Orthopedic Surgery, Tonsillectomy Additional Past Surgical History / Comment(s): 02/10/18 JIMBO/cardioversion, 4 vessel CABG 2008, PFO surgery in 2010, PCI with 2 stents to graft sites, stage 3 breast Ca with lumpectomy/nodes removed, bilateral total hip arthroplasties, EGD/colonoscopy 2 months ago, 2 C-Sections. Past Anesthesia/Blood Transfusion Reactions: No Reported Reaction Additional Past Anesthesia/Blood Transfusion Reaction / Comment(s): Pt has received blood in past with CABG-no reaction. Date of Last Stent Placement:: 2016 Past Psychological History: Anxiety, Depression Smoking Status: Former smoker Past Alcohol Use History: None Reported Past Drug Use History: Marijuana - Past Family History Father Family Medical History: Coronary Artery Disease (CAD), Diabetes Mellitus, Vascular Disorder Additional Family Medical History / Comment(s): Father had melanoma. He at age 80yrs from PAD. Mother Family Medical History: Cancer, Rheumatoid Arthritis (RA) Additional Family Medical History / Comment(s): Mother had breast cancer. She is 79yrs old. General Exam Limitations: no limitations General appearance: alert, in no apparent distress Head exam: Present: atraumatic, normocephalic Eye exam: Present: normal appearance, PERRL ENT exam: Present: normal exam Neck exam: Present: normal inspection. Absent: tenderness, meningismus Respiratory exam: Present: normal lung sounds bilaterally. Absent: respiratory distress Cardiovascular Exam: Present: regular rate, normal rhythm GI/Abdominal exam: Present: soft. Absent: distended, tenderness, guarding Extremities exam: Present: normal inspection, full ROM. Absent: tenderness Neurological exam: Present: alert, oriented X3, CN II-XII intact. Absent: motor sensory deficit Psychiatric exam: Present: normal affect, normal mood Skin exam: Present: warm, dry, intact. Absent: cyanosis, diaphoretic Course Vital Signs 03/22/18 15:25 Temperature 98.4 F Pulse Rate 58 L Respiratory 16 Rate Blood Pressure 192/84 O2 Sat by Pulse 96 Oximetry EKG Findings - EKG Comments: EKG Findings:: EKG: Normal sinus rhythm, ventricular rate of 60, ID interval 144 , QRS duration 84, QTC prolonged at 500. There is T-wave inversion in lead V2 which is new from previous EKG. No ST segment elevation. Medical Decision Making - Medical Decision Making [age] female presenting with syncopal episode followed by chest pain. EKG does show prolonged QT, there is concern the patient's syncopal episode may have been secondary to arrhythmia. Workup reveals normal white blood cell count, stable hemoglobin. CMP is unremarkable. Troponin is negative. Chest x-ray shows no acute cardiopulmonary process. Head CT which is obtained secondary to possible head injury and anticoagulation is negative for intracranial hemorrhage. On reevaluation, patient's blood pressure is significantly elevated, she does have some continued chest pain as well. She will be admitted for further blood pressure control, and cardiology consultation regarding syncopal episode, hypertension, and chest pain. - Lab Data Result diagrams: 03/22/18 15:47 03/22/18 15:47 Lab Results 03/22/18 03/22/18 03/22/18 Range/Units 15:47 15:47 15:47 WBC 10.4 (3.8-10.6) k/uL RBC 5.26 (3.80-5.40) m/uL Hgb 14.3 (11.4-16.0) gm/dL Hct 43.3 (34.0-46.0) % MCV 82.3 (80.0-100.0) fL MCH 27.2 (25.0-35.0) pg MCHC 33.1 (31.0-37.0) g/dL RDW 15.6 H (11.5-15.5) % Plt Count 296 (150-450) k/uL Neutrophils % 66 % Lymphocytes % 21 % Monocytes % 7 % Eosinophils % 3 % Basophils % 0 % Neutrophils # 6.9 (1.3-7.7) k/uL Lymphocytes # 2.2 (1.0-4.8) k/uL Monocytes # 0.8 (0-1.0) k/uL Eosinophils # 0.4 (0-0.7) k/uL Basophils # 0.0 (0-0.2) k/uL PT (9.0-12.0) sec INR (<1.2) APTT (22.0-30.0) sec Sodium 142 (137-145) mmol/L Potassium 4.3 (3.5-5.1) mmol/L Chloride 102 (98-107) mmol/L Carbon Dioxide 25 (22-30) mmol/L Anion Gap 15 mmol/L BUN 13 (7-17) mg/dL Creatinine 0.80 (0.52-1.04) mg/dL Est GFR (CKD-EPI)AfAm >90 (>60 ml/min/1.73 sqM) Est GFR (CKD-EPI)NonAf 82 (>60 ml/min/1.73 sqM) Glucose 192 H (74-99) mg/dL Calcium 10.0 (8.4-10.2) mg/dL Magnesium 1.7 (1.6-2.3) mg/dL Total Bilirubin 0.4 (0.2-1.3) mg/dL AST 20 (14-36) U/L ALT 28 (9-52) U/L Alkaline Phosphatase 47 (38-126) U/L Total Creatine Kinase 104 (30-135) U/L CK-MB (CK-2) 1.0 (0.0-2.4) ng/mL CK-MB (CK-2) Rel Index 1.0 Troponin I <0.012 (0.000-0.034) ng/mL Total Protein 7.1 (6.3-8.2) g/dL Albumin 4.6 (3.5-5.0) g/dL 03/22/18 Range/Units 15:47 WBC (3.8-10.6) k/uL RBC (3.80-5.40) m/uL Hgb (11.4-16.0) gm/dL Hct (34.0-46.0) % MCV (80.0-100.0) fL MCH (25.0-35.0) pg MCHC (31.0-37.0) g/dL RDW (11.5-15.5) % Plt Count (150-450) k/uL Neutrophils % % Lymphocytes % % Monocytes % % Eosinophils % % Basophils % % Neutrophils # (1.3-7.7) k/uL Lymphocytes # (1.0-4.8) k/uL Monocytes # (0-1.0) k/uL Eosinophils # (0-0.7) k/uL Basophils # (0-0.2) k/uL PT 10.3 (9.0-12.0) sec INR 1.1 (<1.2) APTT 23.0 (22.0-30.0) sec Sodium (137-145) mmol/L Potassium (3.5-5.1) mmol/L Chloride (98-107) mmol/L Carbon Dioxide (22-30) mmol/L Anion Gap mmol/L BUN (7-17) mg/dL Creatinine (0.52-1.04) mg/dL Est GFR (CKD-EPI)AfAm (>60 ml/min/1.73 sqM) Est GFR (CKD-EPI)NonAf (>60 ml/min/1.73 sqM) Glucose (74-99) mg/dL Calcium (8.4-10.2) mg/dL Magnesium (1.6-2.3) mg/dL Total Bilirubin (0.2-1.3) mg/dL AST (14-36) U/L ALT (9-52) U/L Alkaline Phosphatase (38-126) U/L Total Creatine Kinase (30-135) U/L CK-MB (CK-2) (0.0-2.4) ng/mL CK-MB (CK-2) Rel Index Troponin I (0.000-0.034) ng/mL Total Protein (6.3-8.2) g/dL Albumin (3.5-5.0) g/dL Disposition Clinical Impression: Syncope and collapse, Hypertensive urgency, Chest pain Disposition: ADMITTED IP TO THIS HOSP Condition: Stable Is patient prescribed a controlled substance at d/c from ED?: No Referrals: Channing Cronin MD [Primary Care Provider] - 1-2 days Decision to Admit Reason: Admit from EC Decision Date: 03/22/18 Decision Time: 16:56
--- NOTE | 2018-03-22 16:30 | XR ---
EXAMINATION TYPE: XR chest 2V DATE OF EXAM: 03/22/2018 COMPARISON: 03/09/2018 HISTORY: Shortness of breath TECHNIQUE: Frontal and lateral views of the chest are obtained. FINDINGS: Scattered senescent parenchymal changes noted. No evidence for infiltrate. No evidence for atelectasis. Heart size is stable. Mediastinal structures are stable and grossly unremarkable. No evidence for hilar prominence. Degenerative changes dorsal spine. IMPRESSION: 1. No evidence for acute pulmonary disease.
[2018-03-22 16:32] LABS: INR 1.1 (<1.2); Prothrombin Time 10.3 sec (9.0-12.0)
[2018-03-22 16:34] LABS: Creatine Kinase 104 U/L (30-135)
--- NOTE | 2018-03-22 16:35 | CT ---
EXAMINATION TYPE: CT brain wo con DATE OF EXAM: 03/22/2018 COMPARISON: NONE HISTORY: Syncope and headache. CT DLP: 1135 mGycm Automated exposure control for dose reduction was used. FINDINGS: Ventricles and sulci appear normal. There is no mass effect nor midline shift. There is no sign of in tracranial hemorrhage. Calvarium appears normal. IMPRESSION: NORMAL HEAD CT SCAN.
[2018-03-22 16:46] LABS: Troponin I <0.012 ng/mL (0.000-0.034)
[2018-03-22] MEDS ORDERED: MORPHINE SULFATE 4 MG/ML SYRINGE IVP STA (16:52)
[2018-03-22] MEDS ORDERED: hydrALAZINE HCL 20 MG/ML 1 ML VIAL IVP STA ×2 (16:52→18:43)
[2018-03-22] MEDS ORDERED: NALOXONE 0.4 MG/ML 1 ML VIAL IV PRN (16:56)
[2018-03-22] MEDS: INSULIN ASPART 100 UNIT/ML 1 ML 10 ML VIAL SQ SCH (18:35)
[2018-03-22 18:40] LABS: Glucose,Whole Blood 127 mg/dL (75-99)
[2018-03-22] MEDS: ATORVASTATIN 80 MG TAB PO SCH (20:24)
[2018-03-22] MEDS: RIVAROXABAN 20 MG TAB PO SCH (20:24)
[2018-03-22] MEDS: METOPROLOL TARTRATE 50 MG TAB PO SCH (20:24)
[2018-03-22] MEDS: INSULIN DETEMIR 100 UNIT/ML 10 ML VIAL SQ SCH (20:37)
[2018-03-22 20:44] LABS: Glucose,Whole Blood 177 mg/dL (75-99)
[2018-03-22 22:03] LABS: Creatine Kinase 112 U/L (30-135)
[2018-03-22 22:16] LABS: Troponin I <0.012 ng/mL (0.000-0.034)
[2018-03-23] MEDS: PANTOPRAZOLE 40 MG TABLET PO SCH ×3 (00:52→20:59)
[2018-03-23] MEDS: DULoxetine HCL 60 MG CAPSULE.DR PO SCH ×2 (00:53→20:59)
[2018-03-23] MEDS: DOXEPIN 10 MG CAP PO SCH ×2 (00:53→21:00)
[2018-03-23] MEDS: Acetaminophen-Codeine 300-30mg TAB PO PRN ×3 (00:53→18:51)
[2018-03-23 03:59] LABS: Creatine Kinase 152 U/L (30-135)
[2018-03-23 04:13] LABS: Creatine Kinase MB 1.2 ng/mL (0.0-2.4); Troponin I <0.012 ng/mL (0.000-0.034)
[2018-03-23 06:20] LABS: Glucose,Whole Blood 102 mg/dL (75-99)
[2018-03-23] MEDS: INSULIN ASPART 100 UNIT/ML 1 ML 10 ML VIAL SQ SCH ×3 (07:56→18:47)
[2018-03-23] MEDS: LISINOPRIL 10 MG TAB PO SCH (08:00)
[2018-03-23] MEDS: EZETIMIBE 10 MG TAB PO SCH (08:00)
[2018-03-23] MEDS: AMIODARONE 200 MG TAB PO SCH (08:00)
[2018-03-23] MEDS: METOPROLOL TARTRATE 50 MG TAB PO SCH ×2 (08:01→21:00)
[2018-03-23] MEDS: ASPIRIN 81 MG PO SCH (08:01)
[2018-03-23] MEDS: FENOFIBRATE 160 MG TAB PO SCH (08:01)
[2018-03-23] MEDS: ANASTROZOLE 1 MG TAB PO SCH (08:01)
[2018-03-23 11:21] LABS: Glucose,Whole Blood 149 mg/dL (75-99)
[2018-03-23] MEDS ORDERED: NALOXONE 0.4 MG/ML 1 ML VIAL IV PRN (17:22)
[2018-03-23] MEDS ORDERED: MAGNESIUM HYDROXIDE 2,400 MG/10 ML CUP PO PRN (17:22)
[2018-03-23] MEDS ORDERED: LACTULOSE 20 GM/30 ML CUP PO PRN (17:22)
[2018-03-23] MEDS ORDERED: CALCIUM CARBONATE 500 MG CHEWABLE PO PRN (17:22)
[2018-03-23] MEDS ORDERED: ACETAMINOPHEN TAB 325 MG TAB PO PRN (17:22)
[2018-03-23] MEDS ORDERED: ALPRAZolam 0.25 MG TAB PO PRN (17:22)
[2018-03-23] MEDS ORDERED: MELATONIN 3 MG TABLET PO PRN (17:22)
[2018-03-23] MEDS ORDERED: ONDANSETRON 4 MG/2 ML VIAL IVP PRN (17:22)
[2018-03-23 17:40] LABS: Glucose,Whole Blood 204 mg/dL (75-99)
--- NOTE | 2018-03-23 18:23 | HP ---
HISTORY AND PHYSICAL DATE OF ADMISSION: 03/22/2018 DATE OF SERVICE: 03/23/2018 PRESENTING COMPLAINT: Passed out. HISTORY OF PRESENTING COMPLAINT: This is a pleasant 58-year-old patient who was in the hospital not too long ago. She follows with Dr. Cronin. Chronic stable medical conditions include diabetes, GERD, coronary artery disease, anxiety, depression, osteoarthritis. Also a history of seizures, the last one being in 2014. Patient has known atrial fibrillation and was cardioverted last month and remained in sinus rhythm for about 9 days, then became symptomatic. The patient had gone to see Dr. Brunner, and patient was scheduled for EP study. Patient went back into atrial flutter with a rapid ventricular rate. Patient was here in the hospital and discharged on 03/11/2018 and did go back into sinus rhythm. Patient was discharged on labetalol 100 mg p.o. t.i.d. Patient was due for an EP study. Patient has telehealth and patient's blood pressure zoomed up to 220/110. The patient developed a headache and developed some chest pain, became sweaty, started getting dizzy. As symptoms were coming on, patient went to clean the bathroom and then actually patient passed out. Patient decided to come down to the ER feeling tired and rundown. In the ER the patient was in sinus rhythm with a heart rate of 60. The chest pain was going across, felt pressure-like, going a bit to the neck, a bit waxing and waning. REVIEW OF SYSTEMS: CONSTITUTIONAL: Tired. HEENT: None. RESPIRATORY: As above. CARDIOVASCULAR: As above. GASTROINTESTINAL: Heartburn. GENITOURINARY: None. MUSCULOSKELETAL: Arthritic pain in the joints. DERMATOLOGICAL: Wound on the right second toe. HEMATOLOGICAL: None. LYMPHATICS: None. PSYCHIATRY: None. NEUROLOGICAL: None. PAST MEDICAL HISTORY: 1. Atrial fibrillation. 2. TIA. 3. Hypertension. 4. Diabetes. 5. GERD. 6. Coronary artery disease with bypass. 7. Left breast lumpectomy treated with chemotherapy and radiation treatment. 8. Anxiety. 9. Depression. 10.Hyperlipidemia. 11.Osteoarthritis. 12.PE. 13.Last seizure was in 2014. PAST SURGICAL HISTORY: 1. Appendectomy. 2. Left breast lumpectomy. 3. . 4. Cholecystectomy. 5. Coronary artery bypass. 6. Tonsillectomy. 7. Four-vessel bypass in 2008. 8. PFO surgery in 2010. 9. PCI with stent to graft site. 10.Stage III breast cancer; lumpectomy and nodes removed. 11.Bilateral total hip arthroplasty. 12.. PSYCH HISTORY: Anxiety, depression. SOCIAL HISTORY: Patient lives with significant other. Uses a walker. Gets help to get things done. The patient smoked for about 41 years, stopped 3 months ago. No alcohol. FAMILY HISTORY: Coronary artery disease, diabetes. Father had melanoma and also peripheral artery disease. HOME MEDICATIONS: 1. Xarelto 20 mg at bedtime. 2. Compazine 10 mg q.6 p.r.n. 3. Lopressor 100 mg p.o. b.i.d. 4. Insulin Lantus 70 units subcutaneously at bedtime. 5. Doxepin 10 mg at bedtime. 6. Cymbalta 60 mg at bedtime. 7. Lipitor 80 mg at bedtime. 8. Ventolin HFA 2 puffs q.6 p.r.n. 9. Tylenol #3 one tablet q.6 p.r.n. 10.Omeprazole 20 mg b.i.d. 11.Nitrostat 0.4 sublingually q.5 p.r.n. 12.Prinivil 10 mg p.o. daily. 13.NovoLog 10 units subcutaneously before meals t.i.d. 14.Lofibra 160 mg p.o. daily. 15.Zetia 10 mg p.o. daily. 16.Aspirin 81 mg p.o. daily. 17.Arimidex 1 mg p.o. daily. 18.Cordarone 200 mg p.o. daily. ALLERGIES: 1. CIPRO. 2. BACTRIM. 3. BRINTELLIX. 4. NEURONTIN. 5. MS CONTIN. 6. NEULASTA. PHYSICAL EXAMINATION: VITAL SIGNS ON PRESENTATION: Temperature 98.4, pulse 58, respiration 16, blood pressure 192/84, pulse ox 96% on room air. GENERAL APPEARANCE: Well built; BMI of 32. Lying in bed, awake. Tired-appearing. EYES: Pupils equal. Conjunctivae normal. HEENT: External appearance of nose and ears normal. Oral cavity normal. NECK: JVD not raised. Mass not palpable. RESPIRATORY: Effort normal. LUNGS: Decreased breath sounds. CARDIOVASCULAR: First and second sounds normal. No edema. ABDOMEN: Soft, non-tender. Liver and spleen not palpable. LYMPHATIC: No lymph node palpable in neck or axillae. PSYCHIATRY: Alert and oriented x3. Mood and affect slightly anxious. NEUROLOGICAL: Pupils equal.. Cranial nerves grossly intact. Power and sensation grossly intact. EXTREMITIES: Right second toe has a wound. INVESTIGATIONS: White count 10.4, hemoglobin 14.3, potassium 4.3, BUN 13, creatinine 0.8. ASSESSMENT: 1. Unstable angina in a patient with known coronary artery disease with uncontrolled blood pressure. 2. Paroxysmal atrial fibrillation. Patient has been in and out of atrial fibrillation. Being followed by Dr. Brunner and is due for an EP study as an outpatient. 3. Essential hypertension, uncontrolled. 4. Diabetes mellitus, type 2, chronically on insulin. 5. Gastroesophageal reflux disease. 6. Coronary artery disease with prior history of coronary artery bypass. 7. Hyperlipidemia. 8. Anxiety, depression not otherwise specified. 9. Primary osteoarthritis. 10.Right foot toe wound, being followed by Dr. Maxwell. 11.Obesity; body mass index 32.5. PLAN: Home medications are resumed. Accu-Cheks will be followed. Cardiology was consulted. Care was discussed. Patient is already on Xarelto for anticoagulation. Care was discussed with the patient. Await input from Cardiology. MMODL / IJN: [id number] /
[2018-03-23 18:58] LABS: Hemoglobin A1C 9.2 % (4.0-6.0)
[2018-03-23 20:55] LABS: Glucose,Whole Blood 189 mg/dL (75-99)
[2018-03-23] MEDS: ATORVASTATIN 80 MG TAB PO SCH (20:59)
[2018-03-23] MEDS: RIVAROXABAN 20 MG TAB PO SCH (20:59)
[2018-03-23] MEDS: INSULIN DETEMIR 100 UNIT/ML 10 ML VIAL SQ SCH (21:05)
[2018-03-24 06:12] LABS: Glucose,Whole Blood 142 mg/dL (75-99)
[2018-03-24] MEDS: INSULIN ASPART 100 UNIT/ML 1 ML 10 ML VIAL SQ SCH ×3 (08:07→16:48)
[2018-03-24] MEDS: AMIODARONE 200 MG TAB PO SCH (08:08)
[2018-03-24] MEDS: METOPROLOL TARTRATE 50 MG TAB PO SCH ×2 (08:09→20:24)
[2018-03-24] MEDS: PANTOPRAZOLE 40 MG TABLET PO SCH ×2 (08:09→20:24)
[2018-03-24] MEDS: ASPIRIN 81 MG PO SCH (08:10)
[2018-03-24] MEDS: LISINOPRIL 10 MG TAB PO SCH (08:10)
[2018-03-24] MEDS: FENOFIBRATE 160 MG TAB PO SCH (08:10)
[2018-03-24] MEDS: ANASTROZOLE 1 MG TAB PO SCH (08:10)
[2018-03-24] MEDS: EZETIMIBE 10 MG TAB PO SCH (08:10)
[2018-03-24] MEDS ORDERED: REGADENOSON 0.4 MG/5 ML SYRINGE IV ONE (10:55)
[2018-03-24] MEDS ORDERED: AMINOPHYLLINE 500 MG/20 ML VIAL IV PRN (10:55)
--- NOTE | 2018-03-24 10:58 | P.CRDCN ---
History of Present Illness Consult date: 03/24/18 Requesting physician: Alvaro Leblanc Consult reason: sycope Chief complaint: Syncope, hypertension History of present illness: 6 is a pleasant 58-year-old female who follows regularly with Dr. Brunner in the office. She has known history of paroxysmal atrial fibrillation with prior ASD closure, coronary artery disease or bypass surgery and stent placements, hypertension, hyperlipidemia, history of blood clots for which she is on xarelto, patient underwent a JIMBO on February 10 which revealed the atrial closure device to be in place and there was no evidence of bbup-ww-tpdor or utkoe-pp-anvl shunt, mild smoke was noted in the left atrium and atrial appendage. No evidence of thrombus. Left ventricular systolic function was normal, mild mitral regurgitation was noted. Patient is scheduled to undergo an atrial fibrillation ablation on May 04, she's also scheduled for an outpatient stress test in April. She presents to the hospital on this occasion following a syncopal episode. According to the patient, all weekend long her blood pressure has been extremely high at home, and she states that her heart rate is been in the 50 range. She recently did see Dr. Brunner in the office on Thursday who decreased her metoprolol to a twice a day dose because of bradycardia. Patient did mention to him at that time that she has been having intermittent chest discomfort, and for this reason a stress test had been ordered in April. Patient states that Thursday morning she had gotten out of the shower, she was bent over to wipe up the floor and the next thing she recalls is her calling her to wake her, she didn't lose consciousness. Patient did not lose bowel or bladder function. She denies any chest discomfort prior to passing out. But did state she had chest discomfort upon wakening. She just states that everything initially went black prior to this episode. The pressure on arrival here 192/80 with a heart rate in the 50s, 96% on room air. Blood pressure this morning 164/80 with a heart rate of 50, 98% on room air. White blood cell count 10.4, hemoglobin 14.3, platelet count 296. Troponins are negative 3. Magnesium 1.7. Past Medical History Past Medical History: Atrial Fibrillation, Coronary Artery Disease (CAD), Cancer , Chest Pain / Angina, Heart Failure, CVA/TIA, Diabetes Mellitus, GERD/Reflux, Hyperlipidemia, Hypertension, Myocardial Infarction ([place]), Osteoarthritis (OA), Pulmonary Embolus (PE), Seizure Disorder Additional Past Medical History / Comment(s): Pt recently admitted to [facility] with Afib RVR on 02/09/18. Other hx: Currently has sore on 3rd toe R foot and is receiving home wound care/pt states she would like Dr. Maxwell to be aware of her admission, pt is to have ablation-waiting to find out date/time, IDDM type II, L breast cancer with lumpectomy/radiation and chemo, pulmonary embolism after CABG, PFO with surgery, TIA 2010, last seizure 2014, DJD, DDD, L shoulder rotator cuff tear, syncope twice d/t bradycardia, 2013 MRSA in nose. Last Myocardial Infarction Date:: 2008 History of Any Multi-Drug Resistant Organisms: C-DIFF, MRSA Date of last positivie culture/infection: 2012 MDRO Source:: MRSA in nose 2012 Past Surgical History: Appendectomy, Breast Surgery, Section, Cholecystectomy, Coronary Bypass/CABG, Heart Catheterization, Joint Replacement , Orthopedic Surgery, Tonsillectomy Additional Past Surgical History / Comment(s): 02/10/18 JIMBO/cardioversion, 4 vessel CABG 2008, PFO surgery in 2010, PCI with 2 stents to graft sites, stage 3 breast Ca with lumpectomy/nodes removed, bilateral total hip arthroplasties, EGD/colonoscopy 2 months ago, 2 C-Sections. Past Anesthesia/Blood Transfusion Reactions: No Reported Reaction Additional Past Anesthesia/Blood Transfusion Reaction / Comment(s): Pt has received blood in past with CABG-no reaction. Date of Last Stent Placement:: 2016 Past Psychological History: Anxiety, Depression Additional Psychological History / Comment(s): Pt resides with her significant other in an apartment. She uses a walker if going long distances. She no longer drives, she has friends who give her rides. She has home care for her R foot toe wound. No stairs. Smoking Status: Former smoker Past Alcohol Use History: None Reported Additional Past Alcohol Use History / Comment(s): Pt started smoking in 1976 and quit November 2017. Past Drug Use History: Marijuana Additional Drug Use History / Comment(s): Pt uses edibles/oils on a daily basis. - Past Family History Father Family Medical History: Coronary Artery Disease (CAD), Diabetes Mellitus, Vascular Disorder Additional Family Medical History / Comment(s): Father had melanoma. He at age 80yrs from PAD. Mother Family Medical History: Cancer, Rheumatoid Arthritis (RA) Additional Family Medical History / Comment(s): Mother had breast cancer. She is 79yrs old. Medications and Allergies Home Medications Medication Instructions Recorded Confirmed Type Acetaminophen-Codeine 300-30mg 1 tab PO Q6H PRN 02/09/18 03/22/18 History [Tylenol w/codeine #3] Albuterol Inhaler [Ventolin Hfa 2 puff INHALATION RT-Q6H PRN 02/09/18 03/22/18 History Inhaler] Anastrozole [Arimidex] 1 mg PO DAILY 02/09/18 03/22/18 History Aspirin EC [Ecotrin Low Dose] 81 mg PO DAILY 02/09/18 03/22/18 History Atorvastatin [Lipitor] 80 mg PO HS 02/09/18 03/22/18 History DULoxetine HCL [Cymbalta] 60 mg PO HS 02/09/18 03/22/18 History Doxepin [SINEquan] 10 mg PO HS 02/09/18 03/22/18 History Insulin Aspart [NovoLOG 10 unit SQ AC-TID 02/09/18 03/22/18 History (formulary)] Insulin Glargine,Hum.rec.anlog 70 units SQ HS 02/09/18 03/22/18 History [Toujeo Solostar] Lisinopril [Prinivil] 10 mg PO DAILY 02/09/18 03/22/18 History Nitroglycerin Sl Tabs [Nitrostat] 0.4 mg SUBLINGUAL Q5M PRN 02/09/18 03/22/18 History Omeprazole 20 mg PO BID 02/09/18 03/22/18 History Prochlorperazine [Compazine] 10 mg PO Q6H PRN 02/09/18 03/22/18 History Rivaroxaban [Xarelto] 20 mg PO HS 02/09/18 03/22/18 History Amiodarone [Cordarone] 200 mg PO DAILY tab 02/11/18 03/22/18 Rx Ezetimibe [Zetia] 10 mg PO DAILY #30 tab 03/11/18 03/22/18 Rx Fenofibrate [Lofibra] 160 mg PO DAILY #30 tab 03/11/18 03/22/18 Rx Metoprolol Tartrate [Lopressor] 100 mg PO BID 03/22/18 03/22/18 History Allergies Allergy/AdvReac Type Severity Reaction Status Date / Time ciprofloxacin [From Cipro] Allergy Anaphylaxis Verified 03/22/18 16:30 sulfamethoxazole Allergy Anaphylaxis Verified 03/22/18 16:30 [From Bactrim] trimethoprim [From Bactrim] Allergy Anaphylaxis Verified 03/22/18 16:30 vortioxetine Allergy Unknown Verified 03/22/18 16:30 [From Brintellix] gabapentin [From Neurontin] AdvReac Itching Verified 03/22/18 16:30 morphine [From MS Contin] AdvReac Hallucinati Verified 03/22/18 16:30 ons pegfilgrastim [From Neulasta] AdvReac Nausea & Verified 03/22/18 16:30 Vomiting Physical Exam Vitals: Vital Signs Temp Pulse Resp BP Pulse Ox 03/24/18 04:00 97.2 F L 50 L 16 164/87 98 03/24/18 00:00 97.2 F L 53 L 16 145/75 94 L 03/23/18 20:00 97.0 F L 53 L 16 153/73 96 03/23/18 15:36 55 L 20 159/72 96 03/23/18 11:30 46 L 20 148/62 91 L Intake and Output 03/23/18 03/24/18 03/24/18 22:59 06:59 14:59 Output Total 400 Balance -400 Output: Urine 400 Other: # Voids 1 1 Weight 98.2 kg PHYSICAL EXAMINATION: HEENT: Head is atraumatic, normocephalic. Pupils equal, round. Neck is supple. There is no elevated jugular venous pressure. HEART EXAMINATION: Heart S1, S2 normal. No murmur or gallop heard. CHEST EXAMINATION: Lungs are clear to auscultation and precussion. No chest wall tenderness is noted on palpation or with deep breathing. ABDOMEN: Soft, nontender. Bowel sounds are heard. No organomegaly noted. EXTREMITIES: 2+ peripheral pulses with no evidence of peripheral edema and no calf tenderness noted. NEUROLOGIC patient is awake, alert and oriented -3. . Results 03/22/18 15:47 03/22/18 15:47 Current Medications Generic Name Dose Route Start Last Admin Trade Name Freq PRN Reason Stop Dose Admin Acetaminophen 650 mg 03/23/18 17:22 Tylenol Tab PO Q6HR PRN Mild Pain or Fever > 100.5 Acetaminophen/Codeine Phosphate 1 each 03/22/18 23:49 03/23/18 18:51 Tylenol #3 PO 1 each Q6H PRN Administration Moderate Pain Alprazolam 0.25 mg 03/23/18 17:22 Xanax PO Q6HR PRN Anxiety Amiodarone HCl 200 mg 03/23/18 09:00 03/24/18 08:08 Cordarone PO 200 mg DAILY BRAD Administration Anastrozole 1 mg 03/23/18 09:00 03/24/18 08:10 Arimidex PO 1 mg DAILY BRAD Administration Aspirin 81 mg 03/23/18 09:00 03/24/18 08:10 Aspirin PO 81 mg DAILY BRAD Administration Atorvastatin Calcium 80 mg 03/22/18 21:00 03/23/18 20:59 Lipitor PO 80 mg HS BRAD Administration Calcium Carbonate/Glycine 1,000 mg 03/23/18 17:22 Tums PO Q4HR PRN Dyspepsia Doxepin HCl 10 mg 03/22/18 23:45 03/23/18 21:00 Sinequan PO 10 mg HS BRAD Administration Duloxetine HCl 60 mg 03/22/18 23:45 03/23/18 20:59 Cymbalta PO 60 mg HS BRAD Administration Ezetimibe 10 mg 03/23/18 09:00 03/24/18 08:10 Zetia PO Not Given DAILY BRAD Fenofibrate 160 mg 03/23/18 09:00 03/24/18 08:10 Lofibra PO 160 mg DAILY BRAD Administration Insulin Aspart 10 unit 03/22/18 17:30 03/24/18 08:07 Novolog SQ Not Given AC-TID BRAD Insulin Detemir 70 unit 03/22/18 21:00 03/23/18 21:05 Levemir SQ 70 unit HS BRAD Administration Lactulose 20 gm 03/23/18 17:22 Cephulac PO DAILY PRN Constipation Lisinopril 10 mg 03/23/18 09:00 03/24/18 08:10 Zestril PO 10 mg DAILY BRAD Administration Magnesium Hydroxide 2,400 mg 03/23/18 17:22 Milk Of Magnesia PO DAILY PRN Constipation Melatonin 3 mg 03/23/18 17:22 Melatonin PO HS PRN Insomnia Metoprolol Tartrate 100 mg 03/22/18 21:00 03/24/18 08:09 Lopressor PO 100 mg BID BRAD Administration Naloxone HCl 0.2 mg 03/22/18 16:56 Narcan IV Q2M PRN Opioid Reversal Naloxone HCl 0.2 mg 03/23/18 17:22 Narcan IV Q2M PRN Opioid Reversal Ondansetron HCl 4 mg 03/23/18 17:22 Zofran IVP Q8HR PRN Nausea And Vomiting Pantoprazole Sodium 40 mg 03/22/18 23:45 03/24/18 08:09 Protonix PO 40 mg BID BRAD Administration Rivaroxaban 20 mg 03/22/18 21:00 03/23/18 20:59 Xarelto PO 20 mg HS BRAD Administration Intake and Output 03/23/18 03/24/18 03/24/18 22:59 06:59 14:59 Output Total 400 Balance -400 Output: Urine 400 Other: # Voids 1 1 Weight 98.2 kg 03/22/18 15:47 03/22/18 15:47 EKG Interpretations (text) EKG on arrival here showed normal sinus rhythm with nonspecific ST-T wave changes. Assessment and Plan Plan: Assessment and plan #1 syncope, rule out cardiac causes #2 uncontrolled hypertension #3 paroxysmal atrial fibrillation, scheduled for atrial fibrillation ablation in May #4 history of ASD closure, most recent JIMBO was performed in January which revealed the atrial closure device to be in place, no evidence of jtci-[id number] or qbvad-bz-ufhq shunt. #5 hypertension history #6 hyperlipidemia #7 history of PE #8 history of coronary artery disease with prior bypass surgery and stent placements #9 diabetes #10 chest discomfort, troponins negative 3. EKG shows normal sinus rhythm with no acute distress. Plan We will check orthostatic heart rate and blood pressure every shift, continue to monitor for any tachycardia or bradycardia arrhythmias. We will also add hydralazine to the patient's medication regime. Patient has been recommended to undergo a Lexiscan stress test today. We would also recommend a possible event monitor on discharge. Further recommendations to follow. DNP note has been reviewed, I agree with a documented findings and plan of care. Patient was seen and examined.
[2018-03-24 11:05] VITALS: BMI 31.9
[2018-03-24 11:31] LABS: Glucose,Whole Blood 111 mg/dL (75-99)
--- NOTE | 2018-03-24 13:26 | NM ---
EXAMINATION TYPE: NM stress lexiscan cardiolite DATE OF EXAM: 03/24/2018 COMPARISON: NONE HISTORY: Precordial chest pain and abnormal EKG TECHNIQUE: After the intravenous administration of 10.06 mCi Tc 99m Sestamibi - Cardiolite resting S PECT images acquired 45 minutes post injection. The patient received 0.4mg Lexiscan, 25 mCi Tc 99m Sestamibi - Stress images obtained 30 minutes post injection FINDINGS: Review of stress and rest SPECT images demonstrates no distinct perfusion abnormality. Gated analysi s shows normal wall motion with an estimated left ventricular ejection fraction of 54 %. IMPRESSION: No scintigraphic evidence for reversible ischemia.
[2018-03-24] MEDS: Acetaminophen-Codeine 300-30mg TAB PO PRN ×2 (13:42→20:24)
[2018-03-24] MEDS: hydrALAZINE HCL 50 MG TAB PO SCH ×2 (13:42→20:25)
[2018-03-24 16:55] VITALS: RESP 16
[2018-03-24 17:00] LABS: Glucose,Whole Blood 293 mg/dL (75-99)
--- NOTE | 2018-03-24 18:13 | PN ---
PROGRESS NOTE DATE OF SERVICE: 03/24/2018. PRESENTING COMPLAINT: Passed out. INTERVAL HISTORY: This is a patient with atrial fibrillation, being followed by Dr. Brunner, presented with some chest pain and uncontrolled blood pressure. This morning patient went for a stress test. No further chest pain, otherwise comfortable. REVIEW OF SYSTEMS: Done for constitutional, cardiovascular, GI, pulmonary; relevant findings as above. CURRENT MEDICATIONS: Reviewed, that include Lopressor 100 mg b.i.d. PHYSICAL EXAMINATION: Temperature 98.2, pulse 52, respirations 14, blood pressure 140/72, pulse ox 97% room appearance. GENERAL APPEARANCE: Lying in bed comfortable. EYES: Pupils equal. Conjunctivae normal. HEENT: External nose and ears normal. Oral cavity normal. NECK: JVD not raised. Mass not palpable. Respiratory effort normal. LUNGS: Decreased breath sounds. CARDIOVASCULAR: 1st and 2nd heart sounds. No edema. ABDOMEN: Soft, nontender. Liver and spleen not palpable. PSYCHIATRY: Alert and oriented x3. Mood and affect is normal. INVESTIGATIONS: Accu-Cheks are noted. ASSESSMENT: 1. Possible unstable angina in a patient with known coronary artery disease. The patient is going for a stress test this morning. 2. Paroxysmal atrial fibrillation. The patient has been in and out of atrial fibrillation, pending EP study by Dr. Brunner. 3. Essential hypertension, uncontrolled on presentation. 4. Diabetes mellitus type 2, chronically on insulin. 5. Gastroesophageal reflux disease. 6. Coronary artery disease, prior history of coronary artery bypass. 7. Hyperlipidemia. 8. Anxiety and depression, not otherwise specified. 9. Primary osteoarthritis. 10.Right foot toe wound, being followed by Dr. Maxwell. 11.Obesity; BMI 32.5. PLAN: Continue medication and treatment plan. The patient this morning was ordered a stress test by Cardiology. Follow up with them. MMODL / IJN: [id number] /
[2018-03-24] MEDS: INSULIN DETEMIR 100 UNIT/ML 10 ML VIAL SQ SCH (20:24)
[2018-03-24] MEDS: ATORVASTATIN 80 MG TAB PO SCH (20:24)
[2018-03-24] MEDS: DOXEPIN 10 MG CAP PO SCH (20:24)
[2018-03-24] MEDS: DULoxetine HCL 60 MG CAPSULE.DR PO SCH (20:24)
[2018-03-24] MEDS: RIVAROXABAN 20 MG TAB PO SCH (20:25)
[2018-03-24 21:03] LABS: Glucose,Whole Blood 249 mg/dL (75-99)
[2018-03-25 05:53] LABS: Glucose,Whole Blood 106 mg/dL (75-99)
[2018-03-25] MEDS: INSULIN ASPART 100 UNIT/ML 1 ML 10 ML VIAL SQ SCH ×2 (08:51→12:22)
[2018-03-25] MEDS: ASPIRIN 81 MG PO SCH (08:56)
[2018-03-25] MEDS: EZETIMIBE 10 MG TAB PO SCH (08:56)
[2018-03-25] MEDS: AMIODARONE 200 MG TAB PO SCH (08:56)
[2018-03-25] MEDS: ANASTROZOLE 1 MG TAB PO SCH (08:56)
[2018-03-25] MEDS: hydrALAZINE HCL 50 MG TAB PO SCH (08:57)
[2018-03-25] MEDS: LISINOPRIL 10 MG TAB PO SCH (08:57)
[2018-03-25] MEDS: PANTOPRAZOLE 40 MG TABLET PO SCH (08:57)
[2018-03-25] MEDS: METOPROLOL TARTRATE 50 MG TAB PO SCH (08:57)
[2018-03-25] MEDS: FENOFIBRATE 160 MG TAB PO SCH (08:58)
[2018-03-25 12:01] LABS: Glucose,Whole Blood 176 mg/dL (75-99)
--- NOTE | 2018-03-25 12:52 | P.PN ---
Subjective Progress Note Date: 03/25/18 This is a pleasant 58-year-old female who follows regularly with Dr. Brunner in the office. She has known history of paroxysmal atrial fibrillation with prior ASD closure, coronary artery disease or bypass surgery and stent placements, hypertension, hyperlipidemia, history of blood clots for which she is on xarelto, patient underwent a JIMBO on February 10 which revealed the atrial closure device to be in place and there was no evidence of unve-rv-bzctm or jomhm-dy-hina shunt, mild smoke was noted in the left atrium and atrial appendage. No evidence of thrombus. Left ventricular systolic function was normal, mild mitral regurgitation was noted. Patient is scheduled to undergo an atrial fibrillation ablation on May 04, she's also scheduled for an outpatient stress test in April. She presents to the hospital on this occasion following a syncopal episode. According to the patient, all weekend long her blood pressure has been extremely high at home, and she states that her heart rate is been in the 50 range. She recently did see Dr. Brunner in the office on Thursday who decreased her metoprolol to a twice a day dose because of bradycardia. Patient did mention to him at that time that she has been having intermittent chest discomfort, and for this reason a stress test had been ordered in April. Patient states that Thursday morning she had gotten out of the shower, she was bent over to wipe up the floor and the next thing she recalls is her calling her to wake her, she didn't lose consciousness. Patient did not lose bowel or bladder function. She denies any chest discomfort prior to passing out. But did state she had chest discomfort upon wakening. She just states that everything initially went black prior to this episode. The pressure on arrival here 192/80 with a heart rate in the 50s, 96% on room air. Blood pressure this morning 164/80 with a heart rate of 50, 98% on room air. White blood cell count 10.4, hemoglobin 14.3, platelet count 296. Troponins are negative 3. Magnesium 1.7. 03/25/2018 Patient underwent Lexiscan stress test yesterday that was negative for any reversible ischemia. Blood pressure 140/70 with a heart rate in the 40s to 50s , 95% on room air. Patient was seen and examined this morning, denies any dizziness or lightheadedness, no palpitations. From our perspective she should be able to be discharged home. We recommend that the patient have a 30 day event monitor prior to discharge or the office will mail her one to her home. Follow up appointment in the office post discharge. Objective - Vital Signs Vital signs: Vital Signs Temp 98 F 03/25/18 08:00 Pulse 56 L 03/25/18 08:00 Resp 16 03/25/18 08:00 BP 144/71 03/25/18 08:00 Pulse Ox 95 03/25/18 08:00 Intake & Output 03/24/18 03/25/18 03/25/18 18:59 06:59 18:59 Intake Total 680 360 Balance 680 360 Weight 98.2 kg 98.8 kg Intake: Oral 680 360 Other: # Voids 1 - Exam PHYSICAL EXAMINATION: HEENT: Head is atraumatic, normocephalic. Pupils equal, round. Neck is supple. There is no elevated jugular venous pressure. HEART EXAMINATION: Heart S1, S2 normal. No murmur or gallop heard. CHEST EXAMINATION: Lungs are clear to auscultation and precussion. No chest wall tenderness is noted on palpation or with deep breathing. ABDOMEN: Soft, nontender. Bowel sounds are heard. No organomegaly noted. EXTREMITIES: 2+ peripheral pulses with no evidence of peripheral edema and no calf tenderness noted. NEUROLOGIC patient is awake, alert and oriented -3. - Labs CBC & Chem 7: 03/22/18 15:47 03/22/18 15:47 Labs: Abnormal Lab Results - Last 24 Hours (Table) 03/24/18 03/24/18 03/25/18 Range/Units 16:42 21:00 05:51 POC Glucose (mg/dL) 293 H 249 H 106 H (75-99) mg/dL 03/25/18 Range/Units 11:41 POC Glucose (mg/dL) 176 H (75-99) mg/dL Assessment and Plan Plan: Assessment and plan #1 syncope, rule out cardiac causes #2 uncontrolled hypertension #3 paroxysmal atrial fibrillation, scheduled for atrial fibrillation ablation in May #4 history of ASD closure, most recent JIMBO was performed in January which revealed the atrial closure device to be in place, no evidence of zbsl-an-iztnv or nyicd-xl-elhu shunt. #5 hypertension history #6 hyperlipidemia #7 history of PE #8 history of coronary artery disease with prior bypass surgery and stent placements #9 diabetes #10 chest discomfort, troponins negative 3. EKG shows normal sinus rhythm with no acute distress. Plan Lexiscan stress test negative for any reversible ischemia. From cardiology's perspective, patient may be able to be discharged home. We will order a 30 day event monitor for her to wear upon discharge. Follow-up appointment in the office. DNP note has been reviewed, I agree with a documented findings and plan of care. Patient was seen and examined. DNP note has been reviewed, I agree with a documented findings and plan of care. Patient was seen and examined.
--- NOTE | 2018-03-25 15:23 | EST ---
EXERCISE STRESS AGE: 58 SEX: F HT: 5'9" WT: 212 PROTOCOL: Lexiscan Cardiolite Stress Test HEART RATE REST: 44 BLOOD PRESSURE REST: 110/67 MAXIMUM HEART RATE ACHIEVED: 58 MAXIMUM BLOOD PRESSURE: 155/60 85% MPHR: 139 100% MPHR: 163 CLINICAL INFORMATION: STRESS DATA: Pretesting physical examination showed a heart rate of 44, pressure is 110/67 mmHg. Baseline EKG showed sinus mechanism. A 0.4 mg of Lexiscan was given to the patient over 15 seconds per protocol. Max heart rate was a 58 beats per minute and maximum pressure was 155/60 mmHg. Clinically, the patient did not have any symptoms and the EKG did not show any significant ST or T-wave abnormalities consistent with ischemia. CONCLUSION: 1. Nondiagnostic electrocardiogram stress testing in response to Lexiscan. 2. Please follow up on the Cardiolite portion on separate report from the Radiology Department. MMODL / IJN: [id number] /
[2018-03-25 15:57] VITALS: BP 135/74; PULSE 48; TEMP 97.8
--- NOTE | 2018-03-25 22:35 | DS ---
DISCHARGE SUMMARY DATE OF ADMISSION: 03/22/2018 DATE OF DISCHARGE: 03/25/2018 FINAL DIAGNOSES: 1. Possible angina in a patient with known coronary artery disease. 2. Paroxysmal atrial fibrillation, being followed by Dr. Brunner. 3. Essential hypertension, uncontrolled on presentation. 4. Diabetes mellitus, type 2, chronically on insulin. 5. Gastroesophageal reflux disease. 6. Coronary artery disease with prior history of coronary artery bypass. 7. Hyperlipidemia. 8. Anxiety and depression not otherwise specified. 9. Primary osteoarthritis. 10.Right foot toe wound being followed by Dr. Maxwell. 11.Obesity; body mass index 32.5. HOSPITAL COURSE: This pleasant lady, being followed by Dr. Brunner, has been in and out of atrial flutter/fibrillation; due for an EP study next week. She was recently at Dr. Brunner's office. Heart rate was running low. Blood pressure medication was scaled back. At home patient's blood pressure really went up and the patient passed out. Patient was admitted with chest pain. She did undergo a nuclear stress test that did not show any ischemia. She was seen by Dr. Felipe, who okayed the patient to be discharged. The patient will have an event monitor picked up at [facility]. Otherwise patient is doing well. On examination, lungs reveal fair air entry, slightly decreased breath sounds. CARDIOVASCULAR: First and second sounds normal. DISCHARGE MEDICATIONS: 1. Tylenol 3 one tablet q.6 p.r.n. 2. Ventolin HFA 2 puffs q.6 p.r.n. 3. Arimidex 1 mg p.o. daily. 4. Aspirin 81 mg p.o. daily. 5. Lipitor 80 mg at bedtime. 6. Cymbalta 60 mg at bedtime. 7. Sinequan 10 mg p.o. at bedtime. 8. NovoLog 10 units before meals t.i.d. 9. Insulin Lantus 70 units subcutaneously at bedtime. 10.Prinivil 10 mg p.o. daily. 11.Nitrostat 0.4 sublingually q.5 p.r.n. 12.Omeprazole 20 mg b.i.d. 13.Compazine 10 mg q.6 p.r.n. 14.Xarelto 20 mg at bedtime. 15.Cordarone 200 mg p.o. daily. 16.Zetia 10 mg p.o. daily. 17.Lofibra 160 mg p.o. daily. 18.Lopressor 100 mg p.o. b.i.d. 19.Hydralazine 50 mg p.o. b.i.d. 20.Follow up with Dr. Brunner. Keep appointment. 21.Follow up with Dr. Cronin on March 26, 2018. 22.Patient to sweet pickle maker event monitor from [facility]. MMMARYL / IJN: [id number] /
== END 2018-03-25 16:03 | disposition home health service (06) | DRG 309 ==
LOC: EC 15:23 → 6SEL 16:56
PROVIDERS: ADMIT Hospitalist; ATTEND Hospitalist
DX: I48.0 Paroxysmal atrial fibrillation (principal); I25.110 Atherosclerotic heart disease of native coronary artery with unstable angina pectoris; I48.92 Unspecified atrial flutter; E11.9 Type 2 diabetes mellitus without complications; E66.9 Obesity, unspecified; E78.5 Hyperlipidemia, unspecified; F32.9 Major depressive disorder, single episode, unspecified; F41.9 Anxiety disorder, unspecified; G40.909 Epilepsy, unspecified, not intractable, without status epilepticus; I11.0 Hypertensive heart disease with heart failure; I16.0 Hypertensive urgency; I25.2 Old myocardial infarction; I34.0 Nonrheumatic mitral (valve) insufficiency; I50.9 Heart failure, unspecified; K21.9 Gastro-esophageal reflux disease without esophagitis; M19.91 Primary osteoarthritis, unspecified site; Z68.32 Body mass index [BMI] 32.0-32.9, adult; Z79.01 Long term (current) use of anticoagulants; Z79.4 Long term (current) use of insulin; Z79.811 Long term (current) use of aromatase inhibitors; Z79.82 Long term (current) use of aspirin; Z79.899 Other long term (current) drug therapy; Z80.3 Family history of malignant neoplasm of breast; Z80.8 Family history of malignant neoplasm of other organs or systems; Z82.49 Family history of ischemic heart disease and other diseases of the circulatory system; Z83.3 Family history of diabetes mellitus; Z85.3 Personal history of malignant neoplasm of breast; Z86.711 Personal history of pulmonary embolism; Z86.718 Personal history of other venous thrombosis and embolism; Z86.73 Personal history of transient ischemic attack (TIA), and cerebral infarction without residual deficits; Z87.74 Personal history of (corrected) congenital malformations of heart and circulatory system; Z87.891 Personal history of nicotine dependence; Z92.21 Personal history of antineoplastic chemotherapy; Z92.3 Personal history of irradiation; Z95.1 Presence of aortocoronary bypass graft; Z95.5 Presence of coronary angioplasty implant and graft; Z96.643 Presence of artificial hip joint, bilateral; Z90.49 Acquired absence of other specified parts of digestive tract; Z88.1 Allergy status to other antibiotic agents; Z88.5 Allergy status to narcotic agent; Z88.2 Allergy status to sulfonamides; Z88.8 Allergy status to other drugs, medicaments and biological substances; S91.109A Unspecified open wound of unspecified toe(s) without damage to nail, initial encounter
CPT/HCPCS: 36415; 70450; 71046; 78452; 80053; 82550; 82553; 83036; 83735; 84484; 85025; 85610; 85730; 93005; 93017; 96374; 96375; 96376; 99285

== ENCOUNTER 2018-04-20 11:54 | Inpatient (IN) | payer MEDICARE, OTHER ==
[2018-04-20] MEDS ORDERED: SODIUM CHLORIDE 0.9% 500 ML IV STA (12:39)
--- NOTE | 2018-04-20 12:42 | ED ---
General Adult HPI - General Chief complaint: Recheck/Abnormal Lab/Rx Stated complaint: Vomiting Blood/Bradycardia Time Seen by Provider: 04/20/18 12:31 Source: patient, RN notes reviewed Mode of arrival: ambulatory Limitations: no limitations - History of Present Illness Initial comments: Patient is a pleasant 58-year-old female presenting to the emergency department with hematemesis. Patient has had 4 episodes of vomiting today. First episode did have bright red blood. Second episode had just a small amount of blood. Patient states the third and fourth episode or just bile. Patient has had persistent chest discomfort for over a week now. Patient states this is fairly common for her associated with atrial fibrillation. Patient is on Xarelto secondary to history of PE and DVT and atrial fibrillation. - Related Data Home Medications Medication Instructions Recorded Confirmed Atorvastatin [Lipitor] 80 mg PO HS 02/09/18 04/20/18 DULoxetine HCL [Cymbalta] 60 mg PO HS 02/09/18 04/20/18 Insulin Aspart [NovoLOG 10 unit SQ AC-TID 02/09/18 04/20/18 (formulary)] Nitroglycerin Sl Tabs [Nitrostat] 0.4 mg SUBLINGUAL Q5M PRN 02/09/18 04/20/18 Rivaroxaban [Xarelto] 20 mg PO HS 02/09/18 04/20/18 Acetaminophen with Codeine 2 tab PO Q4HR PRN 04/20/18 04/20/18 [Tylenol w/codeine #4] Insulin Glargine,Hum.rec.anlog 70 unit SQ HS 04/20/18 04/20/18 [Toniagldenise Britt U-100] Metoprolol Succinate [Toprol Xl] 100 mg PO BID 04/20/18 04/20/18 Ranitidine HCl 150 mg PO BID 04/20/18 04/20/18 metFORMIN HCL 1,000 mg PO BID 04/20/18 04/20/18 Previous Rx's Medication Instructions Recorded Amiodarone [Cordarone] 200 mg PO DAILY tab 02/11/18 Ezetimibe [Zetia] 10 mg PO DAILY #30 tab 03/11/18 Fenofibrate [Lofibra] 160 mg PO DAILY #30 tab 03/11/18 hydrALAZINE HCL [Apresoline] 50 mg PO BID #60 tab 03/25/18 Allergies Allergy/AdvReac Type Severity Reaction Status Date / Time ciprofloxacin [From Cipro] Allergy Anaphylaxis Verified 04/20/18 12:50 sulfamethoxazole Allergy Anaphylaxis Verified 04/20/18 12:50 [From Bactrim] trimethoprim [From Bactrim] Allergy Anaphylaxis Verified 04/20/18 12:50 vortioxetine Allergy Unknown Verified 04/20/18 12:50 [From Brintellix] gabapentin [From Neurontin] AdvReac Itching Verified 04/20/18 12:50 morphine [From MS Contin] AdvReac Hallucinati Verified 04/20/18 12:50 ons pegfilgrastim [From Neulasta] AdvReac Nausea & Verified 04/20/18 12:50 Vomiting Review of Systems ROS Statement: Those systems with pertinent positive or pertinent negative responses have been documented in the HPI. ROS Other: All systems not noted in ROS Statement are negative. Constitutional: Denies: fever Eyes: Denies: eye pain ENT: Denies: ear pain Respiratory: Denies: cough Cardiovascular: Reports: chest pain Gastrointestinal: Reports: vomiting, hematemesis Genitourinary: Denies: dysuria Musculoskeletal: Denies: back pain Skin: Denies: rash Neurological: Denies: weakness Past Medical History Past Medical History: Atrial Fibrillation, Coronary Artery Disease (CAD), Cancer , Chest Pain / Angina, Heart Failure, CVA/TIA, Diabetes Mellitus, GERD/Reflux, Hyperlipidemia, Hypertension, Myocardial Infarction ([place]), Osteoarthritis (OA), Pulmonary Embolus (PE), Seizure Disorder Additional Past Medical History / Comment(s): Other hx: Currently has sore on 3rd toe R foot and is receiving home wound care, pt is to have ablation,IDDM type II, L breast cancer with lumpectomy/radiation and chemo, pulmonary embolism after CABG, PFO with surgery, TIA 2010, last seizure 2014, DJD, DDD, L shoulder rotator cuff tear, syncope twice d/t bradycardia, 2012 MRSA in nose. Last Myocardial Infarction Date:: 2008 History of Any Multi-Drug Resistant Organisms: C-DIFF, MRSA Date of last positivie culture/infection: 2012 MDRO Source:: MRSA in nose 2012 Past Surgical History: Appendectomy, Breast Surgery, Section, Cholecystectomy, Coronary Bypass/CABG, Heart Catheterization, Joint Replacement , Orthopedic Surgery, Tonsillectomy Additional Past Surgical History / Comment(s): 02/10/18 JIMBO/cardioversion, 4 vessel CABG 2008, PFO surgery in 2010, PCI with 2 stents to graft sites, stage 3 breast Ca with lumpectomy/nodes removed, bilateral total hip arthroplasties, EGD/colonoscopy 2 months ago, 2 C-Sections. Past Anesthesia/Blood Transfusion Reactions: No Reported Reaction Additional Past Anesthesia/Blood Transfusion Reaction / Comment(s): Pt has received blood in past with CABG-no reaction. Date of Last Stent Placement:: 2016 Past Psychological History: Anxiety, Depression Smoking Status: Former smoker Past Alcohol Use History: None Reported Past Drug Use History: Marijuana - Past Family History Father Family Medical History: Coronary Artery Disease (CAD), Diabetes Mellitus, Vascular Disorder Additional Family Medical History / Comment(s): Father had melanoma. He at age 80yrs from PAD. Mother Family Medical History: Cancer, Rheumatoid Arthritis (RA) Additional Family Medical History / Comment(s): Mother had breast cancer. She is 79yrs old. General Exam Limitations: no limitations General appearance: alert, in no apparent distress Head exam: Present: atraumatic Eye exam: Present: normal appearance, PERRL ENT exam: Present: normal oropharynx Neck exam: Present: normal inspection Respiratory exam: Present: normal lung sounds bilaterally Cardiovascular Exam: Present: bradycardia GI/Abdominal exam: Present: soft. Absent: tenderness Extremities exam: Present: normal inspection. Absent: pedal edema, calf tenderness Neurological exam: Present: alert Psychiatric exam: Present: normal affect, normal mood Skin exam: Present: normal color Course Vital Signs 04/20/18 04/20/18 04/20/18 12:10 12:50 14:05 Temperature 98.3 F Pulse Rate 50 L 67 45 L Respiratory 18 16 16 Rate Blood Pressure 91/53 129/79 104/56 O2 Sat by Pulse 97 100 98 Oximetry EKG Findings - EKG Comments: EKG Findings:: Sinus bradycardia 43. MN 158. QRS 84. QTC 576. QTc 486. Normal axis. Normal QRS. Somewhat prominent T waves. Medical Decision Making - Medical Decision Making Patient reevaluated and updated. Case was discussed with Dr. Lucas, covering for Dr. tidwell, who will admit who covers for Dr. Moreno. - Lab Data Result diagrams: 04/20/18 12:46 06/19/18 12:46 Lab Results 04/20/18 04/20/18 04/20/18 Range/Units 12:46 12:46 12:46 WBC 8.3 (3.8-10.6) k/uL RBC 5.03 (3.80-5.40) m/uL Hgb 13.9 (11.4-16.0) gm/dL Hct 41.1 (34.0-46.0) % MCV 81.6 (80.0-100.0) fL MCH 27.6 (25.0-35.0) pg MCHC 33.8 (31.0-37.0) g/dL RDW 15.0 (11.5-15.5) % Plt Count 247 (150-450) k/uL Neutrophils % 60 % Lymphocytes % 27 % Monocytes % 6 % Eosinophils % 4 % Basophils % 0 % Neutrophils # 5.0 (1.3-7.7) k/uL Lymphocytes # 2.3 (1.0-4.8) k/uL Monocytes # 0.5 (0-1.0) k/uL Eosinophils # 0.4 (0-0.7) k/uL Basophils # 0.0 (0-0.2) k/uL PT 11.1 (9.0-12.0) sec INR 1.1 (<1.2) APTT 24.6 (22.0-30.0) sec Sodium (137-145) mmol/L Potassium (3.5-5.1) mmol/L Chloride (98-107) mmol/L Carbon Dioxide (22-30) mmol/L Anion Gap mmol/L BUN (7-17) mg/dL Creatinine (0.52-1.04) mg/dL Est GFR (CKD-EPI)AfAm (>60 ml/min/1.73 sqM) Est GFR (CKD-EPI)NonAf (>60 ml/min/1.73 sqM) Glucose (74-99) mg/dL Calcium (8.4-10.2) mg/dL Total Bilirubin (0.2-1.3) mg/dL AST (14-36) U/L ALT (9-52) U/L Alkaline Phosphatase (38-126) U/L Total Creatine Kinase 121 (30-135) U/L CK-MB (CK-2) 1.8 (0.0-2.4) ng/mL CK-MB (CK-2) Rel Index 1.5 Troponin I <0.012 (0.000-0.034) ng/mL Total Protein (6.3-8.2) g/dL Albumin (3.5-5.0) g/dL Blood Type Blood Type Confirm Blood Type Recheck Antibody Screen Spec Expiration Date 04/20/18 04/20/18 04/20/18 Range/Units 12:46 12:46 13:46 WBC (3.8-10.6) k/uL RBC (3.80-5.40) m/uL Hgb (11.4-16.0) gm/dL Hct (34.0-46.0) % MCV (80.0-100.0) fL MCH (25.0-35.0) pg MCHC (31.0-37.0) g/dL RDW (11.5-15.5) % Plt Count (150-450) k/uL Neutrophils % % Lymphocytes % % Monocytes % % Eosinophils % % Basophils % % Neutrophils # (1.3-7.7) k/uL Lymphocytes # (1.0-4.8) k/uL Monocytes # (0-1.0) k/uL Eosinophils # (0-0.7) k/uL Basophils # (0-0.2) k/uL PT (9.0-12.0) sec INR (<1.2) APTT (22.0-30.0) sec Sodium 139 (137-145) mmol/L Potassium 4.5 (3.5-5.1) mmol/L Chloride 100 (98-107) mmol/L Carbon Dioxide 25 (22-30) mmol/L Anion Gap 14 mmol/L BUN 15 (7-17) mg/dL Creatinine 0.86 (0.52-1.04) mg/dL Est GFR (CKD-EPI)AfAm 87 (>60 ml/min/1.73 sqM) Est GFR (CKD-EPI)NonAf 76 (>60 ml/min/1.73 sqM) Glucose 140 H (74-99) mg/dL Calcium 9.5 (8.4-10.2) mg/dL Total Bilirubin 0.6 (0.2-1.3) mg/dL AST 29 (14-36) U/L ALT 41 (9-52) U/L Alkaline Phosphatase 43 (38-126) U/L Total Creatine Kinase (30-135) U/L CK-MB (CK-2) (0.0-2.4) ng/mL CK-MB (CK-2) Rel Index Troponin I (0.000-0.034) ng/mL Total Protein 7.0 (6.3-8.2) g/dL Albumin 4.6 (3.5-5.0) g/dL Blood Type B Negative Blood Type Confirm B Negative Blood Type Recheck CABO Indicated Antibody Screen NEGATIVE Spec Expiration Date 04/23/2018 - 2346 - Radiology Data Radiology results: image reviewed (Chest x-ray shows chronic changes without acute abnormality) Disposition Clinical Impression: Bradycardia, Upper GI hemorrhage Disposition: ADMITTED IP TO THIS HOSP Is patient prescribed a controlled substance at d/c from ED?: No Referrals: Channing Cronin MD [Primary Care Provider] - 1-2 days Decision Time: 14:54
[2018-04-20 12:54] LABS: Basophils % (A) 0 %; Eosinophils # (A) 0.4 k/uL (0-0.7); Eosinophils % (A) 4 %; HCT 41.1 % (34.0-46.0); HGB 13.9 gm/dL (11.4-16.0); Lymphocytes # (A) 2.3 k/uL (1.0-4.8); Lymphocytes % (A) 27 %; MCH 27.6 pg (25.0-35.0); MCHC 33.8 g/dL (31.0-37.0); MCV 81.6 fL (80.0-100.0); Mean Platelet Volume 8.2; Monocytes # (A) 0.5 k/uL (0-1.0); Monocytes % (A) 6 %; Neutrophils % (A) 60 %; Platelet Count 247 k/uL (150-450); RBC 5.03 m/uL (3.80-5.40); WBC 8.3 k/uL (3.8-10.6)
[2018-04-20 13:08] LABS: Albumin 4.6 g/dL (3.5-5.0); Calcium 9.5 mg/dL (8.4-10.2); Potassium 4.5 mmol/L (3.5-5.1); Total Bilirubin 0.6 mg/dL (0.2-1.3)
--- NOTE | 2018-04-20 13:11 | XR ---
EXAMINATION TYPE: XR chest 2V DATE OF EXAM: 04/20/2018 COMPARISON: Chest x-ray March 22, 2018 HISTORY: Chest pain and shortness of breath TECHNIQUE: Frontal and lateral views of the chest are obtained. FINDINGS: Mediastinal clips and overlying sternal plate are redemonstrated. There is suspected metall ic septal closure device. There is no focal air space opacity, pleural effusion, or pneumothorax seen . The cardiac silhouette size is within normal limits. The osseous structures are intact. Diminish ed size of left breast shadow with clip suggests lumpectomy changes unchanged from prior. IMPRESSION: Chronic changes without acute pulmonary process. No significant change from most recent x-ray.
[2018-04-20 13:14] LABS: Creatine Kinase 121 U/L (30-135)
[2018-04-20 13:16] LABS: INR 1.1 (<1.2); Partial Thromboplastin Time 24.6 sec (22.0-30.0); Prothrombin Time 11.1 sec (9.0-12.0)
[2018-04-20 13:26] LABS: Creatine Kinase MB 1.8 ng/mL (0.0-2.4); Troponin I <0.012 ng/mL (0.000-0.034)
[2018-04-20] MEDS ORDERED: PANTOPRAZOLE 40 MG/10 ML VIAL IVP STA (14:54)
[2018-04-20] MEDS ORDERED: NALOXONE 0.4 MG/ML 1 ML VIAL IV PRN (14:55)
[2018-04-20 17:24] VITALS: BMI 32.8
[2018-04-20] MEDS ORDERED: HYDROcodone/APAP 5-325MG 1 EACH TAB PO PRN (17:26)
[2018-04-20] MEDS ORDERED: MORPHINE ORAL SOLN 10 MG/5 ML CUP PO PRN (17:26)
[2018-04-20] MEDS ORDERED: ONDANSETRON 4 MG/2 ML VIAL IVP PRN (17:26)
[2018-04-20] MEDS ORDERED: ACETAMINOPHEN TAB 325 MG TAB PO PRN (17:26)
[2018-04-20] MEDS ORDERED: ACETAMINOPHEN WITH CODEINE PO PRN (17:40)
[2018-04-20] MEDS ORDERED: NITROGLYCERIN SL TABS 0.4 MG TAB SUBLINGUAL PRN (17:40)
--- NOTE | 2018-04-20 17:50 | P.HPIM ---
History of Present Illness H&P Date: 04/20/18 Chief Complaint: hematemesis Patient is a 58-year-old female with a past medical history of A. fib , coronary artery disease, angina, congestive heart failure who presented to the emergency department with complaints of vomiting 42 with bright red blood. In the ER she underwent an extensive evaluation. On arrival she was found to have bradycardia with a heart rate of 50 and a blood pressure of 91/53. Initial laboratory analysis was unremarkable other than a blood sugar of 140. Chest x-ray revealed chronic changes without acute pulmonary process. EKG revealed sinus bradycardia with a prolonged QTC of 486. In the ER she was given a 500 mL bolus of normal saline and a dose of Protonix. Arrangements were made for admission to the selective care unit. Of note patient has had multiple recent hospitalizations. A thorough record review was performed of her hospitalizations from 02/09/2018, 03/09/2018, and made 2017. All of them revolved around A. fib with rapid ventricular response. She has had medication changes made by Dr. Armenta. She states that over the weekend her heart rate was low in the 40s and blood pressures in the low 100s which is unusual for her. She is participating in a telemetry health program for vital sign monitoring. She reports increased dizziness over the weekend. She reports that when she after waking up today she had 4 episodes of vomiting. The first one was a large amount of bright red blood followed by another 1 with a small amount of bright red blood, and then 2 episodes with nothing but bile. Patient has not ate anything today. She reports having an EGD and colonoscopy in September 2017 which were unremarkable other than diverticulosis. She reports no history of gastric ulcers. She feels the and this started approximately 2 days ago but is not having any overt abdominal pain. She is on Xarelto for her A. fib. She has also noted increased sweating over the last 2 days. She's not had any fevers at home. She denies any diarrhea. She does have chronic chest pain, shortness of breath, and a cough all of which are unchanged and she attributes them to her atrial fibrillation. She is scheduled to have an ablation with Dr. Ward in May. She describes her chest pain as an ache that was in the center of her chest without radiation and describes it as a 6 out of 10. She believes it is rather consistently. Of note her hemoglobin A1c was checked 522017 and was 9.2. Her triglycerides are also elevated at 428 and therefore not able to calculate LDL. Review of Systems Positive: + Hematemesis, + wheezy, + chronic shortness of breath/chest pains Lasch cough Insert my ROS Past Medical History Past Medical History: Atrial Fibrillation, Coronary Artery Disease (CAD), Cancer , Chest Pain / Angina, Heart Failure, CVA/TIA, Diabetes Mellitus, GERD/Reflux, Hyperlipidemia, Hypertension, Myocardial Infarction ([place]), Osteoarthritis (OA), Pulmonary Embolus (PE), Seizure Disorder Additional Past Medical History / Comment(s): Other hx: Currently has sore on 3rd toe R foot and is receiving home wound care, pt is to have ablation on may,IDDM type II, L breast cancer with lumpectomy/radiation and chemo, pulmonary embolism after CABG, PFO with surgery, TIA 2010, last seizure 2014, DJD, DDD, L shoulder rotator cuff tear, syncope twice d/t bradycardia, 2012 MRSA in nose. EGD/colonoscopy September 2017 at [facility] Last Myocardial Infarction Date:: 2008 History of Any Multi-Drug Resistant Organisms: C-DIFF, MRSA Date of last positivie culture/infection: 2012 MDRO Source:: MRSA in nose 2012 Past Surgical History: Appendectomy, Breast Surgery, Section, Cholecystectomy, Coronary Bypass/CABG, Heart Catheterization, Joint Replacement , Orthopedic Surgery, Tonsillectomy Additional Past Surgical History / Comment(s): 02/10/18 JIMBO/cardioversion, 4 vessel CABG 2008, PFO surgery in 2010, PCI with 2 stents to graft sites, stage 3 breast Ca with lumpectomy/nodes removed, bilateral total hip arthroplasties, EGD/colonoscopy 2 months ago, 2 C-Sections. Past Anesthesia/Blood Transfusion Reactions: No Reported Reaction Additional Past Anesthesia/Blood Transfusion Reaction / Comment(s): Pt has received blood in past with CABG-no reaction. Date of Last Stent Placement:: 2016 Past Psychological History: Anxiety, Depression Additional Psychological History / Comment(s): Pt resides with her significant other in an apartment. She uses a walker if going long distances. She no longer drives, she has friends who give her rides. She has home care for her R foot toe wound. No stairs. Smoking Status: Former smoker Past Alcohol Use History: None Reported Additional Past Alcohol Use History / Comment(s): Pt started smoking in 1976 and quit November 2017. Past Drug Use History: Marijuana Additional Drug Use History / Comment(s): Pt uses edibles/oils on a daily basis. Additional History: Lives with her significant other, no assistive devices, does use telehealth - Past Family History Father Family Medical History: Coronary Artery Disease (CAD), Diabetes Mellitus, Vascular Disorder Additional Family Medical History / Comment(s): Father had melanoma. He at age 80yrs from PAD. Mother Family Medical History: Cancer, Rheumatoid Arthritis (RA) Additional Family Medical History / Comment(s): Mother had breast cancer. She is 79yrs old. Medications and Allergies Home Medications Medication Instructions Recorded Confirmed Type Atorvastatin [Lipitor] 80 mg PO HS 02/09/18 04/20/18 History DULoxetine HCL [Cymbalta] 60 mg PO HS 02/09/18 04/20/18 History Insulin Aspart [NovoLOG 10 unit SQ AC-TID 02/09/18 04/20/18 History (formulary)] Nitroglycerin Sl Tabs [Nitrostat] 0.4 mg SUBLINGUAL Q5M PRN 02/09/18 04/20/18 History Rivaroxaban [Xarelto] 20 mg PO HS 02/09/18 04/20/18 History Amiodarone [Cordarone] 200 mg PO DAILY tab 02/11/18 04/20/18 Rx Ezetimibe [Zetia] 10 mg PO DAILY #30 tab 03/11/18 04/20/18 Rx Fenofibrate [Lofibra] 160 mg PO DAILY #30 tab 03/11/18 04/20/18 Rx hydrALAZINE HCL [Apresoline] 50 mg PO BID #60 tab 03/25/18 04/20/18 Rx Acetaminophen with Codeine 2 tab PO Q4HR PRN 04/20/18 04/20/18 History [Tylenol w/codeine #4] Insulin Glargine,Hum.rec.anlog 70 unit SQ HS 04/20/18 04/20/18 History [Basaglar Kwikpen U-100] Lisinopril [Zestril] 10 mg PO BID 04/20/18 04/20/18 History Metoprolol Succinate [Toprol Xl] 100 mg PO BID 04/20/18 04/20/18 History Ranitidine HCl 150 mg PO BID 04/20/18 04/20/18 History metFORMIN HCL 1,000 mg PO BID 04/20/18 04/20/18 History Allergies Allergy/AdvReac Type Severity Reaction Status Date / Time ciprofloxacin [From Cipro] Allergy Anaphylaxis Verified 04/20/18 12:50 sulfamethoxazole Allergy Anaphylaxis Verified 04/20/18 12:50 [From Bactrim] trimethoprim [From Bactrim] Allergy Anaphylaxis Verified 04/20/18 12:50 vortioxetine Allergy Unknown Verified 04/20/18 12:50 [From Brintellix] gabapentin [From Neurontin] AdvReac Itching Verified 04/20/18 12:50 morphine [From MS Contin] AdvReac Hallucinati Verified 04/20/18 12:50 ons pegfilgrastim [From Neulasta] AdvReac Nausea & Verified 04/20/18 12:50 Vomiting Physical Exam Osteopathic Statement: *. No significant issues noted on an osteopathic structural exam other than those noted in the History and Physical/Consult. Vitals: Vital Signs Temp Pulse Resp BP Pulse Ox 04/20/18 16:15 43 L 16 113/56 96 04/20/18 14:05 45 L 16 104/56 98 04/20/18 12:50 67 16 129/79 100 04/20/18 12:10 98.3 F 50 L 18 91/53 97 Intake and Output 04/20/18 04/20/18 04/20/18 06:59 14:59 22:59 Other: Weight 100.652 kg 100.652 kg General: non toxic, no distress, appears at stated age, normal weight Derm: no unusual rashes/lesions no unusual ecchymoses, warm, dry Head: atraumatic, normocephalic, symmetric Eyes: EOMI, no lid lag, anicteric sclera, pupils equal round reactive to light ENT: Nose and ears atraumatic, no thrush, no pharyngeal erythema Neck: No thyromegaly, no cervical lymphadenopathy, trachea midline, supple Mouth: no lip lesion, mucus membranes moist Cardiovascular: S1S2 reg, no murmur, positive posterior tibial pulse bilateral, no edema, capillary refill less than 2 seconds Lungs: CTA bilateral, no rhonchi, no rales , no accessory muscle use Abdominal: soft, + tenderness to palpation epigastric, no guarding, no appreciable organomegaly, normal bowel sounds Ext: no gross muscle atrophy, muscle strength 5 out of 5 in all 4 extremities grossly, no contractures, Neuro: CN II-XI grossly intact, light touch intact all 4 extremities, finger to nose within normal limits, Psych: Alert, oriented, appropriate affect Results CBC & Chem 7: 04/20/18 12:46 04/20/18 12:46 Labs: Abnormal Lab Results - Last 24 Hours (Table) 04/20/18 Range/Units 12:46 Glucose 140 H (74-99) mg/dL Comments: EKG-sinus bradycardia at 43 with a SC of 58, QRS 84, QTC 486, no significant ST- T wave changes. Thrombosis Risk Factor Assmnt - DVT/VTE Prophylaxis DVT/VTE Prophylaxis: Mechanical Prophylaxis ordered, Contraindicated - See note (GI bleed with hematemesis) - Choose All That Apply Any of the Below Risk Factors Present?: Yes Each Factor Represents 1 point: Age 41-60 years, Obesity (BMI >25) Other Risk Factors: No Other congenital or acquired thrombophilia - If yes, enter type in comment: No Thrombosis Risk Factor Assessment Total Risk Factor Score: 2 Thrombosis Risk Factor Assessment Level: Low Risk Assessment and Plan Assessment: GI bleed, normal hemoglobin, likely upper hematemesis -On Xarelto -Follow CBC -PPI -GI consultation -Nothing by mouth status line-maintain chronic H2 le -DVT prophylaxis with SCD Sinus bradycardia with history of A. fib with RVR -Continue amiodarone -Add parameters to metoprolol -Telemetry -Cardiology consultation -On Xarelto Hypertension with borderline hypotension -Hold lisinopril -Parameters added hydralazine and metoprolol -Follow blood pressures Diabetes mellitus type 2 -Continue with 3 times a day NovoLog add sliding scale -Change Lantus to Levemir decreased to 40 units of nothing by mouth status -Hold metoprolol Coronary artery disease -Not on chronic to antiplatelet therapy -On beta le -On statin Chronic: Dyslipidemia TIA GERD Angina Surrogate decision-maker: Significant other-Tru Pascual CODE STATUS: Full DVT prophylaxis: SCDs Discussed with: Patient Anticipated discharge: 48-[address]: home A total of 65 minutes was spent on the care of this complex patient more than 50 % of the time was spent in counseling and care coordination.
[2018-04-20] MEDS: SODIUM CHLORIDE 0.9% 1,000 ML IV SCH ×2 (18:50→22:20)
[2018-04-20] MEDS: INSULIN ASPART 100 UNIT/ML 1 ML 10 ML VIAL SQ SCH ×2 (18:50→21:14)
[2018-04-20] MEDS ORDERED: INSULIN DETEMIR 100 UNIT/ML 10 ML VIAL SQ SCH (21:00)
[2018-04-20] MEDS: ATORVASTATIN 80 MG TAB PO SCH (21:04)
[2018-04-20] MEDS: DULoxetine HCL 60 MG CAPSULE.DR PO SCH (21:04)
[2018-04-20] MEDS: hydrALAZINE HCL 50 MG TAB PO SCH (21:04)
[2018-04-20] MEDS: FAMOTIDINE 20 MG TAB PO SCH (21:04)
[2018-04-20] MEDS: METOPROLOL SUCCINATE (ER) 100 MG TAB.ER.24H PO SCH (21:07)
[2018-04-20 21:12] LABS: Glucose,Whole Blood 227 mg/dL (75-99)
[2018-04-20] MEDS: PANTOPRAZOLE 40 MG/10 ML VIAL IV SCH (22:18)
[2018-04-20] MEDS: ZOLPIDEM 5 MG TAB PO PRN (22:19)
[2018-04-21 00:32] LABS: Basophils % (A) 0 %; Eosinophils # (A) 0.3 k/uL (0-0.7); Eosinophils % (A) 5 %; HCT 35.1 % (34.0-46.0); HGB 11.6 gm/dL (11.4-16.0); Lymphocytes % (A) 35 %; MCHC 33.1 g/dL (31.0-37.0); MCV 81.6 fL (80.0-100.0); Mean Platelet Volume 8.1; Monocytes # (A) 0.4 k/uL (0-1.0); Monocytes % (A) 6 %; Neutrophils % (A) 52 %; Platelet Count 181 k/uL (150-450); RDW 15.2 % (11.5-15.5); WBC 5.8 k/uL (3.8-10.6)
[2018-04-21] MEDS: METOPROLOL SUCCINATE (ER) 100 MG TAB.ER.24H PO SCH (01:48)
[2018-04-21] MEDS: INSULIN ASPART 100 UNIT/ML 1 ML 10 ML VIAL SQ SCH ×7 (05:57→22:02)
[2018-04-21] MEDS: SODIUM CHLORIDE 0.9% 1,000 ML IV SCH ×2 (05:58→18:54)
[2018-04-21 06:17] LABS: Glucose,Whole Blood 149 mg/dL (75-99)
[2018-04-21 06:35] LABS: Basophils % (A) 0 %; Eosinophils # (A) 0.3 k/uL (0-0.7); Eosinophils % (A) 5 %; HCT 35.8 % (34.0-46.0); HGB 11.7 gm/dL (11.4-16.0); Lymphocytes # (A) 2.2 k/uL (1.0-4.8); Lymphocytes % (A) 45 %; MCH 27.1 pg (25.0-35.0); MCHC 32.7 g/dL (31.0-37.0); MCV 82.9 fL (80.0-100.0); Mean Platelet Volume 7.9; Monocytes # (A) 0.4 k/uL (0-1.0); Monocytes % (A) 7 %; Neutrophils % (A) 40 %; Platelet Count 182 k/uL (150-450); RBC 4.32 m/uL (3.80-5.40); RDW 15.4 % (11.5-15.5); WBC 4.9 k/uL (3.8-10.6)
--- NOTE | 2018-04-21 07:42 | P.CONS ---
History of Present Illness - Reason for Consult Consult date: 04/21/18 Hematemesis Requesting physician: Kayleen Mcnally - History of Present Illness 58-year-old female with a past medical history of CHF, A. fib maintained on baby aspirin Xarelto admitted with acute hematemesis 2 yesterday. Patient reported increased nausea followed by 2 gross bloody emesis and additional 2 nonbloody bile tinged emesis. No history of upper GI bleed or peptic ulcer disease. No alcohol. She took a tablet of Motrin 800 mg on Thursday but nothing more. Mild midepigastric discomfort. No recurrent hematemesis since admission. Additionally patient has had decreased heart rate in the high 30s low 40s. Receiving intravenous Protonix. Cardiology consulted. She has a history of A. fib with RVR requiring hospitalizations for the last few months. Intermittent lightheadedness dizziness over the weekend. Last dose of XARELTO was 04/19. Reports EGD colonoscopy September 2017 no evidence of peptic ulcer disease colonic diverticulosis. Hemoglobin on admission 13.9 presently 11.7. MCV 81. Platelet 181. INR 1.1. BUN 15. Creatinine 0.8. Troponin less than 0.012. Review of Systems Constitutional: Denies fever, chills, sweats, weight gain, or loss. Lightheadedness dizziness preceding admission. HEENT: Negative for migraines, blurred vision or loss, earaches, drainage, tinnitus, oral mucosal lesions, dysphagia, or odynophagia. CARDIAC: History of atrial fibrillation. Negative for chest pain, arrhythmias, or palpitation. RESPIRATORY: Negative for shortness of breath, hemoptysis, cough, or sputum production. GI: See HPI for pertinent findings. : Negative for hematuria, urgency, frequency, polyuria, or dysuria. GYNc: Denies possibility of . Negative vaginal discharge. MUSCULOSKELETAL: Negative for muscle aches, swelling, arthritis, and arthralgias. NEUROLOGIC: Negative for stroke or TIA. ENDOCRINE: Negative for thyroid problems. SKIN: Negative for rash or itching. PSYCHIATRIC: Negative history for depression and anxiety Past Medical History Past Medical History: Atrial Fibrillation, Coronary Artery Disease (CAD), Cancer , Chest Pain / Angina, Heart Failure, CVA/TIA, Diabetes Mellitus, GERD/Reflux, Hyperlipidemia, Hypertension, Myocardial Infarction (TN), Osteoarthritis (OA), Pulmonary Embolus (PE), Seizure Disorder Additional Past Medical History / Comment(s): Other hx: Currently has sore on 3rd toe R foot and is receiving home wound care, pt is to have ablation on may,IDDM type II, L breast cancer with lumpectomy/radiation and chemo, pulmonary embolism after CABG, PFO with surgery, TIA 2010, last seizure 2014, DJD, DDD, L shoulder rotator cuff tear, syncope twice d/t bradycardia, 2012 MRSA in nose. EGD/colonoscopy September 2017 at [facility] Last Myocardial Infarction Date:: 2008 History of Any Multi-Drug Resistant Organisms: C-DIFF, MRSA Year Discovered:: 2012 MDRO Source:: MRSA in nose 2012 Past Surgical History: Appendectomy, Breast Surgery, Section, Cholecystectomy, Coronary Bypass/CABG, Heart Catheterization, Joint Replacement , Orthopedic Surgery, Tonsillectomy Additional Past Surgical History / Comment(s): 02/10/18 JIMBO/cardioversion, 4 vessel CABG 2008, PFO surgery in 2010, PCI with 2 stents to graft sites, stage 3 breast Ca with lumpectomy/nodes removed, bilateral total hip arthroplasties, EGD/colonoscopy 2 months ago, 2 C-Sections. Past Anesthesia/Blood Transfusion Reactions: No Reported Reaction Additional Past Anesthesia/Blood Transfusion Reaction / Comm: Pt has received blood in past with CABG-no reaction. Date of Last Stent Placement:: 2016 Past Psychological History: Anxiety, Depression Additional Psychological History / Comment(s): Pt resides with her significant other in an apartment. She uses a walker if going long distances. She no longer drives, she has friends who give her rides. She has home care for her R foot toe wound. No stairs. Smoking Status: Former smoker Past Alcohol Use History: None Reported Additional Past Alcohol Use History / Comment(s): Pt started smoking in 1976 and quit November 2017. Past Drug Use History: Marijuana Additional Drug Use History / Comment(s): Pt uses edibles/oils on a daily basis. - Past Family History Father Family Medical History: Coronary Artery Disease (CAD), Diabetes Mellitus, Vascular Disorder Additional Family Medical History / Comment(s): Father had melanoma. He at age 80yrs from PAD. Mother Family Medical History: Cancer, Rheumatoid Arthritis (RA) Additional Family Medical History / Comment(s): Mother had breast cancer. She is 79yrs old. Medications and Allergies Home Medications Medication Instructions Recorded Confirmed Type Atorvastatin [Lipitor] 80 mg PO HS 02/09/18 04/20/18 History DULoxetine HCL [Cymbalta] 60 mg PO HS 02/09/18 04/20/18 History Insulin Aspart [NovoLOG 10 unit SQ AC-TID 02/09/18 04/20/18 History (formulary)] Nitroglycerin Sl Tabs [Nitrostat] 0.4 mg SUBLINGUAL Q5M PRN 02/09/18 04/20/18 History Rivaroxaban [Xarelto] 20 mg PO HS 02/09/18 04/20/18 History Amiodarone [Cordarone] 200 mg PO DAILY tab 02/11/18 04/20/18 Rx Ezetimibe [Zetia] 10 mg PO DAILY #30 tab 03/11/18 04/20/18 Rx Fenofibrate [Lofibra] 160 mg PO DAILY #30 tab 03/11/18 04/20/18 Rx hydrALAZINE HCL [Apresoline] 50 mg PO BID #60 tab 03/25/18 04/20/18 Rx Acetaminophen with Codeine 2 tab PO Q4HR PRN 04/20/18 04/20/18 History [Tylenol w/codeine #4] Insulin Glargine,Hum.rec.anlog 70 unit SQ HS 04/20/18 04/20/18 History [Basaglar Kwikpen U-100] Lisinopril [Zestril] 10 mg PO BID 04/20/18 04/20/18 History Metoprolol Succinate [Toprol Xl] 100 mg PO BID 04/20/18 04/20/18 History Ranitidine HCl 150 mg PO BID 04/20/18 04/20/18 History metFORMIN HCL 1,000 mg PO BID 04/20/18 04/20/18 History Allergies Allergy/AdvReac Type Severity Reaction Status Date / Time ciprofloxacin [From Cipro] Allergy Anaphylaxis Verified 04/20/18 12:50 sulfamethoxazole Allergy Anaphylaxis Verified 04/20/18 12:50 [From Bactrim] trimethoprim [From Bactrim] Allergy Anaphylaxis Verified 04/20/18 12:50 vortioxetine Allergy Unknown Verified 04/20/18 12:50 [From Brintellix] gabapentin [From Neurontin] AdvReac Itching Verified 04/20/18 12:50 morphine [From MS Contin] AdvReac Hallucinati Verified 04/20/18 12:50 ons pegfilgrastim [From Neulasta] AdvReac Nausea & Verified 04/20/18 12:50 Vomiting Physical Exam Vitals: Vital Signs Temp Pulse Pulse Resp BP BP Pulse Ox 04/21/18 03:56 97.2 F L 45 L 18 118/56 96 04/21/18 02:20 102/51 04/21/18 00:00 97.8 F 49 L 18 157/68 97 04/20/18 20:00 99 F 48 L 18 123/66 96 04/20/18 18:57 98.2 F 44 L 18 117/58 95 04/20/18 16:15 43 L 16 113/56 96 04/20/18 14:05 45 L 16 104/56 98 04/20/18 12:50 67 16 129/79 100 04/20/18 12:10 98.3 F 50 L 18 91/53 97 Intake and Output 04/20/18 04/21/18 04/21/18 22:59 06:59 14:59 Intake Total 1240 1000 0 Output Total 0 Balance 1240 1000 0 Intake: IV 1000 1000 Sodium Chloride 0.9% 1, 1000 1000 000 ml @ 125 mls/hr IV . Q8H [facility] Rx#:[id number] Oral 240 0 Output: Urine 0 Other: # Voids 2 Weight 100.652 kg 102.3 kg General appearance: The patient is alert, oriented, in no acute distress. HET: Head is normocephalic and atraumatic. Pupils are equal and reactive. Oropharynx is clear without lesions. Neck: Supple without lymphadenopathy. Trachea midline. Heart: S1 S2. Regular rate and rhythm. Lungs: No crackles or wheezes are heard. Abdomen: Soft, nontender, nondistended with bowel sounds. No peritoneal signs. No palpable organomegaly or masses. Extremities: Normal skin color and turgor. No cyanosis, rash, ulceration, clubbing, or edema. Radial and pedal pulses are 2/4 bilaterally. Neurological: No focal deficits. Strength and sensation are grossly intact. Results CBC & Chem 7: 04/21/18 06:14 04/20/18 12:46 Labs: Abnormal Lab Results - Last 24 Hours (Table) 04/20/18 04/20/18 04/21/18 Range/Units 12:46 21:11 06:15 Glucose 140 H (74-99) mg/dL POC Glucose (mg/dL) 227 H 149 H (75-99) mg/dL Assessment and Plan (1) Hematemesis Narrative/Plan: Acute hematemesis 2 red in color possible Radha Abdi exacerbated by anticoagulation possible peptic ulcer disease. Current Visit: Yes Status: Acute Code(s): K92.0 - HEMATEMESIS SNOMED Code( s): 7650171 (2) Bradycardia Current Visit: Yes Status: Acute Code(s): R00.1 - BRADYCARDIA, UNSPECIFIED SNOMED Code(s): 21374365 (3) Upper GI hemorrhage Current Visit: Yes Status: Acute Code(s): K92.2 - GASTROINTESTINAL HEMORRHAGE, UNSPECIFIED SNOMED Code(s): 53074574 (4) Atrial fibrillation Narrative/Plan: History of atrial fibrillation RVR Current Visit: Yes Status: Acute Code(s): I48.91 - UNSPECIFIED ATRIAL FIBRILLATION SNOMED Code(s): 21599777 Plan: 1. Protonix 40 mg BID. Xarelto on hold. 2. CBC monitoring. 3. NPO except meds until seen by cardiology for possible EGD evaluation. Requested cardiology clearance before proceeding with endoscopy possible later today/tomorrow. The commissions analyst has discussed the risks, benefits and alternative therapies for the above-mentioned procedure and for both sedation/analgesia as well as necessary blood product administration, if indicated, as they pertain to this patient. The patient has indicated understanding and acceptance of the risks and procedures discussed. Thank you for this kind referral and the opportunity to participate in the care of your patient. This consultation was discussed with Dr. Sousa. The impression and plan of care have been directed as dictated.
[2018-04-21] MEDS: PANTOPRAZOLE 40 MG/10 ML VIAL IV SCH ×2 (08:29→20:21)
[2018-04-21] MEDS ORDERED: PANTOPRAZOLE 40 MG/10 ML VIAL IV SCH (09:00)
[2018-04-21] MEDS: METOPROLOL SUCCINATE (ER) 50 MG TAB.ER.24H PO SCH ×2 (09:01→20:29)
[2018-04-21] MEDS: FENOFIBRATE 160 MG TAB PO SCH (09:02)
[2018-04-21] MEDS: hydrALAZINE HCL 50 MG TAB PO SCH ×2 (09:02→20:21)
[2018-04-21] MEDS: FAMOTIDINE 20 MG TAB PO SCH ×2 (09:03→20:21)
[2018-04-21] MEDS: EZETIMIBE 10 MG TAB PO SCH (09:03)
[2018-04-21] MEDS: AMIODARONE 200 MG TAB PO SCH ×2 (09:04→10:32)
--- NOTE | 2018-04-21 09:11 | P.PN ---
Progress Note - Text Progress Note Date: 04/21/[address] Greta Sargent DNP cardiac clearance provided for EGD today.
--- NOTE | 2018-04-21 10:02 | P.PN ---
Subjective Progress Note Date: 04/21/18 Principal diagnosis: vomiting Patient is a 58-year-old female with a past medical history of A. fib , coronary artery disease, angina, congestive heart failure who presented to the emergency department with complaints of vomiting 4, 2 episodes with bright red blood. In the ER she underwent an extensive evaluation. On arrival she was found to have bradycardia with a heart rate of 50 and a blood pressure of 91 /53. Initial laboratory analysis was unremarkable other than a blood sugar of 140. Chest x-ray revealed chronic changes without acute pulmonary process. EKG revealed sinus bradycardia with a prolonged QTC of 486. In the ER she was given a 500 mL bolus of normal saline and a dose of Protonix. Arrangements were made for admission to the selective care unit. Of note patient has had multiple recent hospitalizations due to A fib with RVR. Serial CBCs were followed. She was maintained on IV Protonix. She was seen by GI who plans on EGD once cleared by cardiology. She was seen by cardiology who plans permanent pacemaker on May 11 instead of ablation. Patient seen and examined at bedside. She continues to have her chronic shortness of breath and chest pain which is unchanged in nature. She denies any nausea or vomiting. She has not had a bowel movement since admission and she is not having any abdominal pain. Objective - Vital Signs Vital signs: Vital Signs Temp 97.4 F L 04/21/18 08:00 Pulse 42 L 04/21/18 08:00 Resp 16 04/21/18 08:00 BP 135/68 04/21/18 08:00 Pulse Ox 95 04/21/18 08:00 Intake & Output 04/20/18 04/21/18 04/21/18 18:59 06:59 18:59 Intake Total 240 2000 0 Output Total 0 Balance 240 2000 0 Weight 100.652 kg 102.3 kg Intake: IV 2000 Sodium Chloride 0.9% 1, 1999 000 ml @ 125 mls/hr IV . Q8H [facility] Rx#:[id number] Oral 240 0 Output: Urine 0 Other: # Voids 2 - Exam General: non toxic, no distress, appears at stated age, obese Derm: warm, dry Head: atraumatic, normocephalic, symmetric Eyes: EOMI, no lid lag, anicteric sclera Mouth: no lip lesion, mucus membranes moist Cardiovascular: S1-S2 irregular, no murmur, positive posterior tibial pulse bilateral, Lungs: Decreased breath sounds bilateral bases, no rhonchi, no rales , no accessory muscle use Abdominal: soft, nontender to palpation, no guarding, no appreciable organomegaly Ext: no gross muscle atrophy, no edema, no contractures Neuro: CN II-XI grossly intact, no focal neuro deficits Psych: Alert, oriented, appropriate affect - Labs CBC & Chem 7: 04/21/18 06:14 04/20/18 12:46 Labs: Abnormal Lab Results - Last 24 Hours (Table) 04/20/18 04/20/18 04/21/18 Range/Units 12:46 21:11 06:15 Glucose 140 H (74-99) mg/dL POC Glucose (mg/dL) 227 H 149 H (75-99) mg/dL Assessment and Plan Assessment: GI bleed, likely upper -Continue to hold Xarelto -Follow CBC -PPI -GI plans for EGD today -Nothing by mouth status line-maintain chronic H2 le -DVT prophylaxis with SCD Sinus bradycardia with history of A. fib with RVR -Continue amiodarone -parameters added to metoprolol -Telemetry -Cardiology recs pending, per nursing has been cleared for EGD -Xarelto on hold Hypertension - lisinopril restarted -Parameters added hydralazine and metoprolol -Follow blood pressures Diabetes mellitus type 2 -Continue with 3 times a day NovoLog add sliding scale -Change Lantus to Levemir decreased to 40 units of nothing by mouth status, if started on diet will increase back to 70 -Hold metformin - recent A1C 03/29/18 9.2 Coronary artery disease -Not on chronic to antiplatelet therapy -On beta le -On statin Chronic: Dyslipidemia TIA GERD Angina DVT prophylaxis: SCDs Discussed with: Patient Anticipated discharge: 24-[address]: home A total of 65 minutes was spent on the care of this complex patient more than 50 % of the time was spent in counseling and care coordination.
--- NOTE | 2018-04-21 10:09 | CONS ---
CONSULTATION Laura Glass is a 58-year-old female patient who follows with me in the office. She has atrial fibrillation with RVR persistent and is currently on amiodarone, metoprolol, when she goes into atrial fibrillation. She goes extremely fast. She was admitted with hematemesis. She vomited blood and she is sure that she did not cough it up. She came to the hospital. She denies any chest discomfort, dizziness, lightheadedness, palpitations. She is currently in sinus bradycardia in the 40s. She is on metoprolol 100 mg twice daily and amiodarone. 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 She also has diabetes and hypertension. ALLERGIES: Allergies are listed include CIPROFLOXACIN, SULFAMETHOXAZOLE, TRIMETHOPRIM. MEDICATIONS: The medication list was reviewed and includes amiodarone 200 mg daily, atorvastatin, Zetia, fenofibrate, hydralazine, insulin, metoprolol 100 mg twice daily. PHYSICAL EXAMINATION: On examination, her vitals, she is afebrile 97.4 degrees Fahrenheit, pulse rate is in the 40s, blood pressure 135/68 mmHg. Head and neck examination is normal. Heart sounds S1, S2 are normal. Breath sounds are clear. No rhonchi, no crackles. Abdomen is soft, nontender. Extremities are warm. No edema. IMPRESSION: 1. Upper gastrointestinal bleeding and hematemesis. 2. History of tachy-oh syndrome, currently sinus bradycardia in the 40s on amiodarone and metoprolol. 3. Atrial fibrillation with rapid ventricular response in the past, persistent, status post cardioversion. 4. Atrial septal defect closure with a very small remnant of fossa ovalis. 5. Diabetes type 2, on insulin. 6. Hypertension. 7. Obesity. SUGGEST: GI workup for now. Obviously, anticoagulation is now on hold. I would hold off on atrial fibrillation ablation, which was scheduled in the next few weeks since anticoagulation now being on hold. In addition, I have spoken to the patient that a permanent pacemaker implantation, possibly with AV junction modification may be a more appropriate strategy for her since she has an ASD closure with very small fossa ovalis remnant. Now with GI bleeding, I will hold off on crossing the fossa ovalis. If in the future there is consideration for a left atrial appendage occlusion device, I would use the very small space in the fossa ovalis for this procedure rather than atrial fibrillation ablation. Anticoagulation is on hold. I will reduce the dose of metoprolol to 50 mg twice daily. She can proceed with GI workup. Amiodarone 200 mg daily will continue. We will also check a TSH. KIANA / JULIETAN: [id number] /
[2018-04-21 11:42] LABS: Glucose,Whole Blood 108 mg/dL (75-99)
[2018-04-21] MEDS ORDERED: LIDOCAINE 1% INJ 10MG/ML (20 ML MDV) ONE (16:30)
[2018-04-21] MEDS ORDERED: PROPOFOL 10 MG/ML 20 ML VIAL IV ONE (16:30)
[2018-04-21] MEDS ORDERED: MIDAZOLAM 2 MG/2 ML VIAL ONE (16:30)
[2018-04-21] MEDS ORDERED: IV FLUID CONTINUATION 1,000 ML IV ONE (16:52)
--- NOTE | 2018-04-21 17:09 | P.PCN ---
Date of Procedure: 04/21/18 Procedure(s) Performed: Procedure: Esophagogastroduodenoscopy. Preoperative diagnosis: Hematemesis. Postoperative diagnosis: Small sliding hiatal hernia and distal esophagitis but no ulcers or active bleeding at the time of this exam. Preparation and sedation: Was provided by anesthesia. Brief clinical history: The patient is a 58-year-old female with a past medical history of CHF, A. fib maintained on baby aspirin and Xarelto was admitted with acute hematemesis 2. Patient reported increased nausea followed by 2 gross bloody emesis and additional 2 nonbloody bile tinged emesis. No history of upper GI bleed or peptic ulcer disease. No alcohol. She took a tablet of Motrin 800 mg 4 days prior but nothing more. Mild midepigastric discomfort. No recurrent hematemesis since admission. Additionally patient has had decreased heart rate in the high 30s low 40s. Receiving intravenous Protonix. Cardiology consulted. She has a history of A. fib with RVR requiring hospitalizations for the last few months. Intermittent lightheadedness dizziness over the weekend. Last dose of XARELTO was 04/19. Reports having had EGD and colonoscopy September 2017 with no evidence of peptic ulcer disease. Had colonic diverticulosis. Hemoglobin on admission 13.9 dropped to 11.7. MCV 81. Platelet 181. INR 1.1. BUN 15. Creatinine 0.8. Troponin less than 0.012. Other details are summarized in the history and physical and dictated consultations and progress notes. This evaluation is to assess for peptic ulcer disease, mucosal tear or other pathology. Procedure: With the patient on her left lateral decubitus position and after informed consent and adequate sedation, I passed the Olympus-GIF 160 video upper endoscope through the cricopharyngeus down the esophagus. GE junction was around 40 cm from the incisors and there was a small less than 1 cm sliding hiatal hernia. The distal esophagus showed 2 short erosions covered with white exudate consistent with distal esophagitis. There was no evidence of bleeding or mucosal tear or ulcers. The endoscope was then passed into the stomach which was insufflated with air and inspected in detail including the retroflex view in the cardia. No abnormalities were seen in the stomach or any evidence of bleeding. Pyloric channel, duodenal bulb, post bulbar area and descending duodenum appeared within normal limits. No biopsies were indicated that the endoscope was withdrawn. The patient tolerated the procedure well. Plan: The patient was reassured. It is likely that the distal esophagitis is secondary to her vomiting and regurgitation of stomach contents and unlikely to be the primary etiology for her symptoms. The patient is not showing any evidence of bleeding at this time. I see no contraindication to resuming her antiplatelet medications if indicated and continuing with acid suppressive treatment alongside that. Further plans can be made based on her course. Will continue to follow with you with interest.
[2018-04-21] MEDS ORDERED: INSULIN DETEMIR 100 UNIT/ML 10 ML VIAL SQ SCH (17:14)
[2018-04-21 17:30] LABS: Glucose,Whole Blood 87 mg/dL (75-99)
[2018-04-21 19:31] LABS: HCT 37.8 % (34.0-46.0); HGB 12.5 gm/dL (11.4-16.0); MCH 27.5 pg (25.0-35.0); MCV 83.4 fL (80.0-100.0); Mean Platelet Volume 8.2; Platelet Count 191 k/uL (150-450); RBC 4.53 m/uL (3.80-5.40); RDW 15.2 % (11.5-15.5); WBC 6.1 k/uL (3.8-10.6)
[2018-04-21] MEDS: ATORVASTATIN 80 MG TAB PO SCH (20:20)
[2018-04-21] MEDS: DULoxetine HCL 60 MG CAPSULE.DR PO SCH (20:20)
[2018-04-21] MEDS: ZOLPIDEM 5 MG TAB PO PRN (20:24)
[2018-04-21] MEDS: LISINOPRIL 10 MG TAB PO SCH (20:25)
[2018-04-21 21:15] LABS: Glucose,Whole Blood 265 mg/dL (75-99)
[2018-04-22] MEDS: SODIUM CHLORIDE 0.9% 1,000 ML IV SCH ×2 (02:14→06:48)
[2018-04-22 06:04] LABS: HCT 35.5 % (34.0-46.0); HGB 11.5 gm/dL (11.4-16.0); MCH 27.1 pg (25.0-35.0); MCHC 32.3 g/dL (31.0-37.0); MCV 83.8 fL (80.0-100.0); Platelet Count 176 k/uL (150-450); RBC 4.24 m/uL (3.80-5.40); RDW 15.3 % (11.5-15.5); WBC 4.4 k/uL (3.8-10.6)
[2018-04-22 06:21] LABS: Anion Gap 8 mmol/L; Blood Urea Nitrogen 8 mg/dL (7-17); Calcium 8.5 mg/dL (8.4-10.2); Carbon Dioxide 24 mmol/L (22-30); Chloride 110 mmol/L (98-107); Glucose 166 mg/dL (74-99); Sodium 142 mmol/L (137-145)
[2018-04-22 06:39] LABS: Glucose,Whole Blood 157 mg/dL (75-99)
[2018-04-22] MEDS: INSULIN ASPART 100 UNIT/ML 1 ML 10 ML VIAL SQ SCH ×2 (07:03)
[2018-04-22] MEDS ORDERED: PANTOPRAZOLE 40 MG TABLET PO SCH (07:45)
[2018-04-22] MEDS: METOPROLOL SUCCINATE (ER) 50 MG TAB.ER.24H PO SCH (08:33)
[2018-04-22] MEDS: EZETIMIBE 10 MG TAB PO SCH (08:33)
[2018-04-22] MEDS: hydrALAZINE HCL 50 MG TAB PO SCH (08:34)
[2018-04-22] MEDS: AMIODARONE 200 MG TAB PO SCH (08:34)
[2018-04-22] MEDS: FENOFIBRATE 160 MG TAB PO SCH (08:34)
[2018-04-22] MEDS: LISINOPRIL 10 MG TAB PO SCH (08:34)
[2018-04-22] MEDS: FAMOTIDINE 20 MG TAB PO SCH (08:34)
[2018-04-22 08:50] VITALS: BP 162/76; PULSE 56; RESP 18; TEMP 97.8
--- NOTE | 2018-04-22 10:09 | P.PN ---
Subjective Progress Note Date: 04/22/18 Principal diagnosis: Hematemesis Status post EGD no evidence of peptic ulcer disease distal esophagitis hiatal hernia. Feels well. Anticipate discharge. No recurrent hematemesis. Denies abdominal pain. Afebrile. Objective - Vital Signs Vital signs: Vital Signs Temp 97.8 F 04/22/18 08:00 Pulse 56 L 04/22/18 08:00 Resp 18 04/22/18 08:00 BP 162/76 04/22/18 08:00 Pulse Ox 99 04/22/18 08:00 Intake & Output 04/21/18 04/22/18 04/22/18 18:59 06:59 18:59 Intake Total 1100 1725 Balance 1100 1725 Weight 103.3 kg Intake: IV 100 1375 Sodium Chloride 0.9% 1, 1375 000 ml @ 125 mls/hr IV . Q8H [facility] Rx#:[id number] Intake, IV Titration 1000 Amount Sodium Chloride 0.9% 1, 1000 000 ml @ 125 mls/hr IV . Q8H [facility] Rx#:[id number] Oral 0 350 Other: # Voids 2 - Exam General appearance: The patient is alert, oriented, in no acute distress. HET: Head is normocephalic and atraumatic. Pupils are equal and reactive. Oropharynx is clear without lesions. Neck: Supple without lymphadenopathy. Trachea midline. Heart: S1 S2. Regular rate and rhythm. Lungs: No crackles or wheezes are heard. Abdomen: Soft, nontender, nondistended with bowel sounds. No peritoneal signs. No palpable organomegaly or masses. Extremities: Normal skin color and turgor. No cyanosis, rash, ulceration, clubbing, or edema. Radial and pedal pulses are 2/4 bilaterally. Neurological: No focal deficits. Strength and sensation are grossly intact. - Labs CBC & Chem 7: 04/22/18 05:38 04/22/18 05:38 Labs: Abnormal Lab Results - Last 24 Hours (Table) 04/21/18 04/21/18 04/22/18 Range/Units 11:40 21:03 05:38 Chloride 110 H (98-107) mmol/L Glucose 166 H (74-99) mg/dL POC Glucose (mg/dL) 108 H 265 H (75-99) mg/dL 06/21/18 Range/Units 06:37 Chloride (98-107) mmol/L Glucose (74-99) mg/dL POC Glucose (mg/dL) 157 H (75-99) mg/dL Assessment and Plan (1) Hematemesis Narrative/Plan: Status post EGD distal esophagitis hiatal hernia. No evidence of peptic ulcer disease. Current Visit: Yes Status: Acute Code(s): K92.0 - HEMATEMESIS SNOMED Code( s): 3693655 (2) Bradycardia Current Visit: Yes Status: Acute Code(s): R00.1 - BRADYCARDIA, UNSPECIFIED SNOMED Code(s): 65141221 (3) Upper GI hemorrhage Current Visit: Yes Status: Acute Code(s): K92.2 - GASTROINTESTINAL HEMORRHAGE, UNSPECIFIED SNOMED Code(s): 19305562 (4) Atrial fibrillation Narrative/Plan: History of atrial fibrillation RVR Current Visit: Yes Status: Acute Code(s): I48.91 - UNSPECIFIED ATRIAL FIBRILLATION SNOMED Code(s): 52772360 Plan: 1. Protonix 40 mg daily on discharge return to office in 3-4 weeks. May restart anticoagulation. Discharge per medicine. Assessment and plan a care discussed with Dr. Sousa
--- NOTE | 2018-04-22 10:56 | P.DS ---
Providers Date of admission: 04/21/18 08:38 Expected date of discharge: 04/22/18 Attending physician: Piter Lucas MD Consults: 04/20/18 14:56 Consult Physician Urgent Consulting Provider: Iván Brunner Consult Reason/Comments: bradycardia Do you want consulting provider notified?: Yes Primary care physician: Channing Cronin - Discharge Diagnosis(es) (1) Hematemesis Current Visit: Yes Status: Acute (2) Atrial fibrillation Current Visit: Yes Status: Acute (3) Bradycardia Current Visit: Yes Status: Acute (4) Sick sinus syndrome Current Visit: Yes Status: Acute (5) Esophagitis Current Visit: Yes Status: Acute Hospital Course: Patient is a 58-year-old female with a past medical history of A. fib , coronary artery disease, angina, congestive heart failure who presented to the emergency department with complaints of vomiting 4, 2 episodes with bright red blood. In the ER she underwent an extensive evaluation and was admitted for hematemesis with workup and concern for upper GI bleed. She was maintained on IV Protonix, and her hemoglobin remained stable. GI was consulted and EGD was performed that showed a hiatal hernia and distal esophagitis but no ulcers or active bleeding. On arrival she was found to have bradycardia with a heart rate of 50 and a blood pressure of 91/53. Initial laboratory analysis was unremarkable other than a blood sugar of 140. Chest x-ray revealed chronic changes without acute pulmonary process. EKG revealed sinus bradycardia with a prolonged QTC of 486. Of note patient has had multiple recent hospitalizations due to A fib with RVR and was on anticoagulation with Xarelto which was subsequently held. She was seen by GI who plans on EGD once cleared by cardiology. She was seen by cardiology who plans permanent pacemaker on May 11 instead of ablation, her dosage of metoprolol was decreased to 50 mg by mouth twice a day and her dose of amiodarone was continued at 200 mg by mouth daily. She was subsequently discharged home in stable condition instructed to follow-up with cardiology Dr. Brunner tomorrow 04/23/18. She was discharged home in stable condition discharge and instructed to restart her Xarelto, this discharge process took approximately 35 minutes. Prescriptions at discharge Protonix 40 mg by mouth daily Patient Condition at Discharge: Good Plan - Discharge Summary Discharge Rx Participant: No New Discharge Prescriptions: New Pantoprazole [Protonix] 40 mg PO AC-BRKFST #60 tablet.dr Continue Rivaroxaban [Xarelto] 20 mg PO HS Nitroglycerin Sl Tabs [Nitrostat] 0.4 mg SUBLINGUAL Q5M PRN PRN Reason: Chest Pain Insulin Aspart [NovoLOG (formulary)] 10 unit SQ AC-TID Atorvastatin [Lipitor] 80 mg PO HS DULoxetine HCL [Cymbalta] 60 mg PO HS Amiodarone [Cordarone] 200 mg PO DAILY tab Ezetimibe [Zetia] 10 mg PO DAILY #30 tab Fenofibrate [Lofibra] 160 mg PO DAILY #30 tab hydrALAZINE HCL [Apresoline] 50 mg PO BID #60 tab metFORMIN HCL 1,000 mg PO BID Metoprolol Succinate [Toprol Xl] 100 mg PO BID Acetaminophen with Codeine [Tylenol w/codeine #4] 2 tab PO Q4HR PRN PRN Reason: Pain Insulin Glargine,Hum.rec.anlog [Basaglar Kwikpen U-100] 70 unit SQ HS Lisinopril [Zestril] 10 mg PO BID Discontinued Ranitidine HCl 150 mg PO BID Discharge Medication List Atorvastatin [Lipitor] 80 mg PO HS 02/09/18 [History] DULoxetine HCL [Cymbalta] 60 mg PO HS 02/09/18 [History] Insulin Aspart [NovoLOG (formulary)] 10 unit SQ AC-TID 02/09/18 [History] Nitroglycerin Sl Tabs [Nitrostat] 0.4 mg SUBLINGUAL Q5M PRN 02/09/18 [History] Rivaroxaban [Xarelto] 20 mg PO HS 02/09/18 [History] Amiodarone [Cordarone] 200 mg PO DAILY tab 02/11/18 [Rx] Ezetimibe [Zetia] 10 mg PO DAILY #30 tab 03/11/18 [Rx] Fenofibrate [Lofibra] 160 mg PO DAILY #30 tab 03/11/18 [Rx] hydrALAZINE HCL [Apresoline] 50 mg PO BID #60 tab 03/25/18 [Rx] Acetaminophen with Codeine [Tylenol w/codeine #4] 2 tab PO Q4HR PRN 04/20/18 [ History] Insulin Glargine,Hum.rec.anlog [Basaglar Kwikpen U-100] 70 unit SQ HS 04/20/18 [ History] Lisinopril [Zestril] 10 mg PO BID 04/20/18 [History] Metoprolol Succinate [Toprol Xl] 100 mg PO BID 04/20/18 [History] metFORMIN HCL 1,000 mg PO BID 04/20/18 [History] Pantoprazole [Protonix] 40 mg PO KIP-IMAN #60 tablet. 04/22/18 [Rx] Follow up Appointment(s)/Referral(s): Iván Brunner MD [STAFF PHYSICIAN] - 04/23/18 Joaquin Sousa MD [STAFF PHYSICIAN] - 05/12/18 5:00 pm [facility], [NON-STAFF] - Channing Cronin MD [Primary Care Provider] - 04/28/18 2:00 pm (Thursday) Patient Instructions/Handouts: Anemia (DC)
--- NOTE | 2018-04-22 11:47 | P.PN ---
Subjective Progress Note Date: 04/22/18 6 is a pleasant 58-year-old female who follows with Dr. Roberts in the office. She has known persistent atrial fibrillation and is currently on amiodarone, metoprolol. Patient was admitted to the hospital with hematocrit emesis, she vomited blood and came to the hospital. was quite bradycardic on admission, was on 100 mg of metoprolol daily at home along with amiodarone. Patient has history of ASD closure in the past, also has diabetes, hyperlipidemia and hypertension. Patient underwent an EGD yesterday which revealed a small sliding hiatal hernia and distal esophagitis but no ulcers or active bleeding. We will resume her xarelto today. She has an appointment and rescheduled in the office with Dr. Roberts tomorrow which she has been advised to keep. Objective - Vital Signs Vital signs: Vital Signs Temp 97.8 F 04/22/18 08:00 Pulse 56 L 04/22/18 08:00 Resp 18 04/22/18 08:00 BP 162/76 04/22/18 08:00 Pulse Ox 99 04/22/18 08:00 Intake & Output 04/21/18 04/22/18 04/22/18 18:59 06:59 18:59 Intake Total 1100 1725 Balance 1100 1725 Weight 103.3 kg Intake: IV 100 1375 Sodium Chloride 0.9% 1, 1375 000 ml @ 125 mls/hr IV . Q8H BRAD Rx#:[id number] Intake, IV Titration 1000 Amount Sodium Chloride 0.9% 1, 1000 000 ml @ 125 mls/hr IV . Q8H BRAD Rx#:[id number] Oral 0 350 Other: # Voids 2 - Exam PHYSICAL EXAMINATION: GENERAL: 58-year-old female in no apparent distress at the time of my examination. HEENT: Head is atraumatic, normocephalic. Pupils equal, round. Sclera anicteric. Conjunctiva are clear. Mucous membranes of the mouth are moist. Neck is supple. There is no elevated jugular venous pressure.] bruit is heard. HEART EXAMINATION: Heart S1, S2 irregularly irregular. No murmur or gallop heard. CHEST EXAMINATION: Lungs are clear to auscultation and precussion. No chest wall tenderness is noted on palpation or with deep breathing. ABDOMEN: Soft, nontender. Bowel sounds are heard. No organomegaly noted. EXTREMITIES: 2+ peripheral pulses with no evidence of peripheral edema and no calf tenderness noted. NEUROLOGIC patient is awake, alert and oriented -3. . - Labs CBC & Chem 7: 04/22/18 05:38 04/22/18 05:38 Labs: Abnormal Lab Results - Last 24 Hours (Table) 04/21/18 04/21/18 04/22/18 Range/Units 11:40 21:03 05:38 Chloride 110 H (98-107) mmol/L Glucose 166 H (74-99) mg/dL POC Glucose (mg/dL) 108 H 265 H (75-99) mg/dL 04/22/18 Range/Units 06:37 Chloride (98-107) mmol/L Glucose (74-99) mg/dL POC Glucose (mg/dL) 157 H (75-99) mg/dL Assessment and Plan Plan: Assessment and plan #1 GI bleed, status post EGD of yesterday which revealed a small sliding hiatal hernia and distal esophagitis with no ulcers or active bleeding. #2 bradycardia #3 hypertension #4 diabetes Number 5 hyperlipidemia #6 TIA #7 persistent atrial fibrillation #8 history of ASD closure Plan We will resume the patient's xarelto. Continue amiodarone 200 mg daily, Lipitor 80 mg daily, Thursday at 10 mg daily, Zestril 10 mg twice a day, and 50 mg twice a day of metoprolol. The patient does have a scheduled appointment with Dr. Roberts tomorrow which she has been advised to keep. DNP note has been reviewed, I agree with a documented findings and plan of care. Patient was seen and examined.
[2018-04-22] MEDS ORDERED: RIVAROXABAN 20 MG TAB PO SCH (17:30)
== END 2018-04-22 11:31 | disposition home or self-care (01) | DRG 378 ==
LOC: EC 11:54 → 6SEL 14:55 → OBSVTOIN 04-21 08:38
PROVIDERS: ADMIT Family Medicine; ATTEND Family Medicine
PROC: 0DJ08ZZ Inspection of Upper Intestinal Tract, Via Natural or Artificial Opening Endoscopic (ICD-10-PCS; principal; 2018-04-21 09:15)
DX: K92.0 Hematemesis (principal); I48.1 Persistent atrial fibrillation; E78.5 Hyperlipidemia, unspecified; I25.2 Old myocardial infarction; I49.5 Sick sinus syndrome; I25.119 Atherosclerotic heart disease of native coronary artery with unspecified angina pectoris; I50.9 Heart failure, unspecified; I11.0 Hypertensive heart disease with heart failure; K21.0 Gastro-esophageal reflux disease with esophagitis; M19.90 Unspecified osteoarthritis, unspecified site; K57.30 Diverticulosis of large intestine without perforation or abscess without bleeding; F41.9 Anxiety disorder, unspecified; F32.9 Major depressive disorder, single episode, unspecified; E66.9 Obesity, unspecified; G89.29 Other chronic pain; E11.9 Type 2 diabetes mellitus without complications; G40.909 Epilepsy, unspecified, not intractable, without status epilepticus; I45.81 Long QT syndrome; R05 Cough; R06.02 Shortness of breath; R07.9 Chest pain, unspecified; K44.9 Diaphragmatic hernia without obstruction or gangrene; Z85.3 Personal history of malignant neoplasm of breast; Z86.711 Personal history of pulmonary embolism; Z83.3 Family history of diabetes mellitus; Z87.74 Personal history of (corrected) congenital malformations of heart and circulatory system; Z80.3 Family history of malignant neoplasm of breast; Z79.01 Long term (current) use of anticoagulants; Z79.4 Long term (current) use of insulin; Z79.899 Other long term (current) drug therapy; Z82.49 Family history of ischemic heart disease and other diseases of the circulatory system; Z95.1 Presence of aortocoronary bypass graft; Z96.643 Presence of artificial hip joint, bilateral; Z80.8 Family history of malignant neoplasm of other organs or systems; Z87.891 Personal history of nicotine dependence; Z86.73 Personal history of transient ischemic attack (TIA), and cerebral infarction without residual deficits; Z68.33 Body mass index [BMI] 33.0-33.9, adult; Z88.1 Allergy status to other antibiotic agents; Z88.5 Allergy status to narcotic agent; Z88.2 Allergy status to sulfonamides; Z88.8 Allergy status to other drugs, medicaments and biological substances; Z82.61 Family history of arthritis; Z92.21 Personal history of antineoplastic chemotherapy; Z92.3 Personal history of irradiation; Z86.14 Personal history of Methicillin resistant Staphylococcus aureus infection; Z90.10 Acquired absence of unspecified breast and nipple; Z95.5 Presence of coronary angioplasty implant and graft; Z90.49 Acquired absence of other specified parts of digestive tract
CPT/HCPCS: 36415; 43235; 71046; 80048; 80053; 82550; 82553; 84484; 85025; 85027; 85610; 85730; 86850; 86900; 86901; 93005; 96360; 99285

== ENCOUNTER 2018-05-11 09:04 | Day surgery (SDC) | payer MEDICARE, OTHER ==
[2018-05-10 10:14] VITALS: BMI 32.3
[~2018-05-11 09:04] MED LIST: CLINDAMYCIN 600 MG in SODIUM CHLORIDE 0.9% IRRIGATIO 250 ML IRRIGATION ONE
[2018-05-11 10:12] LABS: Glucose,Whole Blood 94 mg/dL (75-99)
[2018-05-11] MEDS ORDERED: LIDOCAINE 1% INJ 10MG/ML (20 ML MDV) SQ ONE ×3 (10:32→13:25)
[2018-05-11] MEDS ORDERED: SODIUM CHLORIDE 0.9% 250 ML IV ONE (10:38)
[2018-05-11] MEDS ORDERED: fentaNYL (PF) 50 MCG/ML 2 ML AMP ONE (10:38)
[2018-05-11] MEDS ORDERED: MIDAZOLAM 2 MG/2 ML VIAL ONE (10:38)
[2018-05-11] MEDS ORDERED: diphenhydrAMINE 50 MG/ML 1 ML VIAL ONE (10:38)
[2018-05-11] MEDS ORDERED: SODIUM CHLORIDE 0.9% 500 ML IV ONE (10:38)
[2018-05-11] MEDS ORDERED: PROPOFOL 10 MG/ML 20 ML VIAL IV ONE (10:38)
[2018-05-11] MEDS ORDERED: LIDOCAINE 1% INJ 10MG/ML (20 ML MDV) ONE ×2 (10:44→11:17)
[2018-05-11] MEDS ORDERED: IOPAMIDOL-250 50ML BTL IV ONE (10:56)
[2018-05-11] MEDS: CLINDAMYCIN 900 MG in DEXTROSE 5% IN WATER 50 ML IVPB ONE ×4 (10:59→11:26)
[2018-05-11] MEDS ORDERED: HEPARIN SODIUM 1,000 UN/ML (10ML VL) ONE (11:17)
[2018-05-11] MEDS ORDERED: LIDOCAINE 1% INJ 10MG/ML (20 ML MDV) IM ONE ×2 (12:10)
[2018-05-11] MEDS ORDERED: ACETAMINOPHEN IV (For NPO) 1,000 MG in EMPTY BAG 1 BAG IVPB ONE (15:17)
[2018-05-11] MEDS ORDERED: ACETAMINOPHEN TAB 325 MG TAB PO PRN (15:17)
[2018-05-11] MEDS: LACTATED RINGERS 1,000 ML IV SCH (16:15)
[2018-05-11] MEDS: SODIUM CHLORIDE 0.9% 1,000 ML IV SCH ×2 (16:15)
[2018-05-11 17:36] LABS: Glucose,Whole Blood 171 mg/dL (75-99)
[2018-05-11] MEDS: CLINDAMYCIN 900 MG in DEXTROSE 5% IN WATER 50 ML IVPB SCH ×4 (17:38→22:44)
[2018-05-11] MEDS: INSULIN ASPART 100 UNIT/ML 1 ML 10 ML VIAL SQ SCH (17:49)
[2018-05-11] MEDS: metFORMIN 500 MG TAB PO SCH (17:49)
--- NOTE | 2018-05-11 18:55 | CE ---
CARDIAC ELECTROPHYSIOLOGY REPORT Laura Glass is a 38-year-old female with a history of atrial fibrillation with RVR, persistent, and very symptomatic. She has undergone electrical cardioversion. She is now on amiodarone 200 mg p.o. daily. She has had breakthrough episodes of atrial fibrillation, and atrial fibrillation ablation was not recommended because she has an ASD closure device that has been implanted as well as an IVC filter for history of pulmonary embolism. A biventricular pacing system was recommended with physiologic septal pacing as well as atrial and ventricular pacing because she also has underlying sick sinus syndrome. In view of her sick sinus syndrome and inability to tolerate higher doses of beta blockers for rate control of atrial fibrillation during breakthrough episodes and need for anti-arrhythmic drug therapy, a biventricular pacing system was recommended with an eye towards AV junction modification in the future, which would avoid 100% RV pacing. Patient was brought to the EP lab in a fasting state. Written informed consent was obtained prior to the procedure. IV antibiotics were administered. A venous sheath was placed in the right femoral vein. Via this, His bundle catheter was placed in the His bundle area and the His bundle was mapped. The AH interval and HV interval were measured and documented. The HV interval was 56 to 58 milliseconds. Next the left pectoral area was prepped and draped as per protocol. Lidocaine 1% was used for local anesthesia. A 4 cm incision was made parallel to the deltopectoral groove. This was carried down to the level of the pectoralis muscle. A subfascial pocket was made. Hemostasis was assured. Axillary vein access was obtained. Three leads were positioned in the right heart. The atrial lead was a [employer] screw-in lead. Patient was in sinus rhythm/sinus bradycardia. P-waves were 3.2 mV. Pacing impedance 611 ohms. Pacing threshold 1.4 V at 0.5 milliseconds. Ten-volt test was negative. The RV lead was a meme lead. It was positioned in the RV apex. R-waves were 11 mV. Pacing impedance 1854 ohms. Pacing threshold 0.5 V at 0.5 milliseconds. Ten-volt test was negative. The third lead was used for His bundle pacing/physiologic septal pacing. Appropriate sheath was used and mapping was performed and the lead was screwed in the appropriate position. His bundle current of injury was noted. Pacing, non-selective capture followed by selective capture was noted as the amplitude was decremented. At the end of the procedure, non-selective pacing was noted at a paced cycle length of 1 millisecond up to 3.5 mV. Around 3.25 mV at 1 millisecond selective pacing of patient's bundle was noted with loss of capture of the His bundle at 1.25 V at 1 millisecond. The right atrial lead was a Medtronic model number 5076, 45 cm in length and serial number [id number], which was implanted in the biventricular pacemaker right atrial port. The right ventricular lead was a Medtronic model number 4074, 58 cm in length and serial number [id number]. That was connected to the RV port to the biventricular pacemaker. The third lead was positioned in the LV port and the lead and the generator were then placed in the subfascial pocket and the wound was closed in 3 layers and dressed per protocol. RESULT: Successful biventricular pacemaker implantation for management of sick sinus syndrome, persistent atrial fibrillation with breakthrough episodes despite oral amiodarone and beta blockers. Patient unable to tolerate higher dose of beta blockers for rate control. A biventricular pacing system was implanted which included physiologic septal pacing with a plan to proceed with AV junction modification in the future. The right femoral venous catheter and sheath were then removed at the end of the procedure. Hemostasis was assured. The third lead was a Medtronic model number 3830, 69 in length and serial number [id number]. MMODL / IJN: [id number] /
[2018-05-11 19:42] VITALS: RESP 16
[2018-05-11] MEDS: HYDROcodone/APAP 5-325MG 1 EACH TAB PO PRN (20:23)
[2018-05-11] MEDS: METOPROLOL SUCCINATE (ER) 50 MG TAB.ER.24H PO SCH (20:25)
[2018-05-11] MEDS: LISINOPRIL 10 MG TAB PO SCH (20:25)
[2018-05-11 20:34] LABS: Glucose,Whole Blood 176 mg/dL (75-99)
[2018-05-11] MEDS ORDERED: DULoxetine HCL 60 MG CAPSULE.DR PO SCH (21:00)
[2018-05-11] MEDS ORDERED: ATORVASTATIN 80 MG TAB PO SCH (21:00)
[2018-05-11] MEDS ORDERED: METOPROLOL SUCCINATE (ER) 100 MG TAB.ER.24H PO SCH (21:00)
[2018-05-11] MEDS ORDERED: hydrALAZINE HCL 50 MG TAB PO SCH (21:00)
[2018-05-11] MEDS ORDERED: INSULIN DETEMIR 100 UNIT/ML 10 ML VIAL SQ SCH (21:00)
[2018-05-11] MEDS ORDERED: RIVAROXABAN 20 MG TAB PO SCH (21:00)
[2018-05-12] MEDS ORDERED: HYDROcodone/APAP 5-325MG 1 EACH TAB ONE (01:40)
[2018-05-12] MEDS: SODIUM CHLORIDE 0.9% 1,000 ML IV SCH ×2 (04:48)
[2018-05-12] MEDS: LACTATED RINGERS 1,000 ML IV SCH (04:56)
[2018-05-12] MEDS: CLINDAMYCIN 900 MG in DEXTROSE 5% IN WATER 50 ML IVPB SCH ×4 (05:14→11:28)
[2018-05-12 06:46] LABS: Glucose,Whole Blood 112 mg/dL (75-99)
[2018-05-12] MEDS ORDERED: INSULIN DETEMIR 100 UNIT/ML 10 ML VIAL SQ SCH (06:57)
--- NOTE | 2018-05-12 07:26 | XR ---
EXAMINATION TYPE: XR chest 2V DATE OF EXAM: 05/12/2018 COMPARISON: 04/20/2018 HISTORY: 58-year-old female lead placement check TECHNIQUE: Frontal and lateral views FINDINGS: Left anterior chest wall pacemaker generator with 2 right atrial and a single right ventricular pacer lead. Prior sternal fixation is demonstrated. Heart normal size. Aorta and pulmonary vasculature wit hin normal limits. There is some focal patchy posterior basilar opacity seen on the lateral view. IMPRESSION: 1. Left-sided pacemaker generator with 2 right atrial and one left ventricular lead. 2. Trace left effusion seen on the lateral view.
[2018-05-12] MEDS ORDERED: PANTOPRAZOLE 40 MG TABLET PO SCH (07:30)
[2018-05-12 08:09] LABS: ALT 29 U/L (9-52); AST 22 U/L (14-36); Albumin 4.1 g/dL (3.5-5.0); Alkaline Phosphatase 41 U/L (38-126); Anion Gap 10 mmol/L; Blood Urea Nitrogen 16 mg/dL (7-17); Calcium 9.4 mg/dL (8.4-10.2); Carbon Dioxide 28 mmol/L (22-30); Chloride 104 mmol/L (98-107); Cholesterol 197 mg/dL (<200); Glucose 97 mg/dL (74-99); HDL Cholesterol 58 mg/dL (40-60); LDL Cholesterol,Calculated 76 mg/dL (0-99); Potassium 4.4 mmol/L (3.5-5.1); Sodium 142 mmol/L (137-145); Total Bilirubin 0.9 mg/dL (0.2-1.3); Total Protein 6.6 g/dL (6.3-8.2); Triglycerides 316 mg/dL (<150)
[2018-05-12] MEDS: INSULIN ASPART 100 UNIT/ML 1 ML 10 ML VIAL SQ SCH (08:22)
[2018-05-12] MEDS: metFORMIN 500 MG TAB PO SCH (08:28)
[2018-05-12] MEDS: METOPROLOL SUCCINATE (ER) 50 MG TAB.ER.24H PO SCH (08:28)
[2018-05-12] MEDS: LISINOPRIL 10 MG TAB PO SCH (08:29)
[2018-05-12] MEDS: HYDROcodone/APAP 5-325MG 1 EACH TAB PO PRN (08:29)
[2018-05-12] MEDS ORDERED: FENOFIBRATE 160 MG TAB PO SCH (09:00)
[2018-05-12] MEDS ORDERED: AMIODARONE 200 MG TAB PO SCH (09:00)
[2018-05-12] MEDS ORDERED: EZETIMIBE 10 MG TAB PO SCH (09:00)
[2018-05-12] MEDS ORDERED: TRIAMTERENE-HCTZ 37.5-25MG 1 EACH CAP PO SCH (09:00)
[2018-05-12 11:27] VITALS: BP 150/74; PULSE 50; TEMP 98.5
--- NOTE | 2018-05-12 12:23 | P.DS ---
Providers Attending physician: Iván Brunner [facility] Patient is doing well. She has minimal swelling, mild pain in the incision site area. No dizziness lightheadedness no shortness of breath. Overall she is doing very well. Vitals stable blood pressure 150/70 400 of his mercury afebrile pulse rate in the 50s and neck examination is normal. No JVD therapeutic or bruits. Heart sounds S1 is normal S2 is normal no murmurs Breath sounds are clear no rhonchi no crackles in entry is equal bilaterally Abdomen soft nontender Extended is warm no edema Basic site is healed well Impression Sick sinus syndrome status post biventricular pacemaker/physiologic septal pacing Persistent atrial fibrillation with RVR, recurrent now on 200 mg of amiodarone Awaiting AV junction modification in the future Hypertension History of DVT pulmonary embolus and and IVC filter History of percutaneous ASD closure Suggest Discharge home after completion of IV antibiotics. Pacemaker was interrogated and is functioning normally Increase metoprolol succinate to 150 g twice daily and hold off on hydralazine Continue all other medications as before Chest x-ray was reviewed Patient Condition at Discharge: Stable Plan - Discharge Summary New Discharge Prescriptions: No Action Rivaroxaban [Xarelto] 20 mg PO HS Nitroglycerin Sl Tabs [Nitrostat] 0.4 mg SUBLINGUAL Q5M PRN PRN Reason: Chest Pain Insulin Aspart [NovoLOG (formulary)] 10 unit SQ AC-TID Atorvastatin [Lipitor] 80 mg PO HS DULoxetine HCL [Cymbalta] 60 mg PO HS Amiodarone [Cordarone] 200 mg PO DAILY tab Ezetimibe [Zetia] 10 mg PO DAILY #30 tab Fenofibrate [Lofibra] 160 mg PO DAILY #30 tab metFORMIN HCL 1,000 mg PO BID Acetaminophen with Codeine [Tylenol w/codeine #4] 1 - 2 tab PO Q4HR PRN PRN Reason: Pain Insulin Glargine,Hum.rec.anlog [Basaglar Kwikpen U-100] 70 unit SQ HS Lisinopril [Zestril] 10 mg PO BID Pantoprazole [Protonix] 40 mg PO AC-BRKFST #60 tablet. Triamterene/Hydrochlorothiazid [Dyazide 37.5-25 Capsule] 1 cap PO DAILY Metoprolol Succinate [Toprol XL] 150 mg PO BID #180 tab.er.24h Discharge Medication List Atorvastatin [Lipitor] 80 mg PO HS 02/09/18 [History] DULoxetine HCL [Cymbalta] 60 mg PO HS 02/09/18 [History] Insulin Aspart [NovoLOG (formulary)] 10 unit SQ AC-TID 02/09/18 [History] Nitroglycerin Sl Tabs [Nitrostat] 0.4 mg SUBLINGUAL Q5M PRN 02/09/18 [History] Rivaroxaban [Xarelto] 20 mg PO HS 02/09/18 [History] Amiodarone [Cordarone] 200 mg PO DAILY tab 02/11/18 [Rx] Ezetimibe [Zetia] 10 mg PO DAILY #30 tab 03/11/18 [Rx] Fenofibrate [Lofibra] 160 mg PO DAILY #30 tab 03/11/18 [Rx] Acetaminophen with Codeine [Tylenol w/codeine #4] 1 - 2 tab PO Q4HR PRN [History] Insulin Glargine,Hum.rec.anlog [Basaglar Kwikpen U-100] 70 unit SQ HS 04/20/18 [ History] Lisinopril [Zestril] 10 mg PO BID 04/20/18 [History] metFORMIN HCL 1,000 mg PO BID 04/20/18 [History] Pantoprazole [Protonix] 40 mg PO AC-BRKFST #60 tablet.dr 04/22/18 [Rx] Triamterene/Hydrochlorothiazid [Dyazide 37.5-25 Capsule] 1 cap PO DAILY [History] Metoprolol Succinate [Toprol XL] 150 mg PO BID #180 tab.er.24h 05/11/18 [Rx] Follow up Appointment(s)/Referral(s): Iván Brunner MD [STAFF PHYSICIAN] - 1 Week
[2018-05-12 12:34] LABS: Glucose,Whole Blood 133 mg/dL (75-99)
[2018-05-12 15:01] LABS: Hemoglobin A1C 8.8 % (4.0-6.0)
== END 2018-05-12 14:08 | disposition home or self-care (01) ==
LOC: CATHEP 09:04 → 3OBS 14:25 → CATHEP 05-12 14:08
PROVIDERS: ATTEND Internal Medicine Clinical Cardiac Electrophysiology
DX: I48.1 Persistent atrial fibrillation (principal); I49.5 Sick sinus syndrome; I25.10 Atherosclerotic heart disease of native coronary artery without angina pectoris; I11.0 Hypertensive heart disease with heart failure; I50.9 Heart failure, unspecified; E11.9 Type 2 diabetes mellitus without complications; E78.1 Pure hyperglyceridemia; E66.9 Obesity, unspecified; Z68.32 Body mass index [BMI] 32.0-32.9, adult; K21.9 Gastro-esophageal reflux disease without esophagitis; F17.210 Nicotine dependence, cigarettes, uncomplicated; Z95.818 Presence of other cardiac implants and grafts; Z95.1 Presence of aortocoronary bypass graft; Z95.5 Presence of coronary angioplasty implant and graft; Z86.711 Personal history of pulmonary embolism; Z86.718 Personal history of other venous thrombosis and embolism; Z87.19 Personal history of other diseases of the digestive system; Z82.49 Family history of ischemic heart disease and other diseases of the circulatory system; Z79.01 Long term (current) use of anticoagulants; Z79.899 Other long term (current) drug therapy; Z79.82 Long term (current) use of aspirin; Z79.4 Long term (current) use of insulin; Z88.1 Allergy status to other antibiotic agents; Z88.5 Allergy status to narcotic agent; Z88.2 Allergy status to sulfonamides; Z88.8 Allergy status to other drugs, medicaments and biological substances
CPT/HCPCS: 33225; 33208; 80061; 80053; 83036; 71046; C1769 ×5; C1894; C1892; C1730 ×2; C1898; C2621; J2250; J1200; J2001; J3010; J0131; J2704; Q9966

== ENCOUNTER 2018-07-16 15:37 | Inpatient (IN) | payer MEDICARE, OTHER ==
[2018-07-16] MEDS ORDERED: HYDROmorphone 0.5 MG/0.5 ML SYRINGE IVP STA (16:00)
[2018-07-16] MEDS ORDERED: ONDANSETRON 4 MG/2 ML VIAL IVP STA (16:00)
[2018-07-16] MEDS ORDERED: SODIUM CHLORIDE 0.9% 1,000 ML IV STA ×3 (16:00→19:44)
--- NOTE | 2018-07-16 16:06 | ED ---
General Adult HPI - General Chief complaint: Recheck/Abnormal Lab/Rx Stated complaint: Abnormal labs Time Seen by Provider: 07/16/18 15:52 Source: patient, RN notes reviewed, old records reviewed Mode of arrival: ambulatory Limitations: no limitations - History of Present Illness Initial comments: 58-year-old female presents for evaluation of abnormal outpatient laboratory studies. Patient was having labs drawn prior to computed tomography scan. She has history of left-sided breast cancer and follows with oncology. She has developed a lesion on her right breast which is in the process of being worked up as an outpatient. She had her labs drawn yesterday and her BUN and creatinine were significantly elevated. Patient states over the past 4 days she 's had nausea vomiting and diarrhea. She denies any blood in her vomit or diarrhea. She has also complained of some dysuria and low back pain. Patient denies any history of kidney disease in the past. She is a diabetic. - Related Data Home Medications Medication Instructions Recorded Confirmed DULoxetine HCL [Cymbalta] 60 mg PO HS 02/09/18 07/16/18 Insulin Aspart [NovoLOG 10 unit SQ AC-TID 02/09/18 07/16/18 (formulary)] Nitroglycerin Sl Tabs [Nitrostat] 0.4 mg SUBLINGUAL Q5M PRN 02/09/18 07/16/18 Rivaroxaban [Xarelto] 20 mg PO HS 02/09/18 07/16/18 Lisinopril [Zestril] 20 mg PO BID 04/20/18 07/16/18 metFORMIN HCL 1,000 mg PO BID 04/20/18 07/16/18 Triamterene/Hydrochlorothiazid 1 cap PO DAILY 05/10/18 07/16/18 [Dyazide 37.5-25 Capsule] Cephalexin [Keflex] 500 mg PO Q6HR 07/16/18 07/16/18 Clopidogrel [Plavix] 75 mg PO DAILY 07/16/18 07/16/18 DULoxetine HCL [Cymbalta] 30 mg PO DAILY 07/16/18 07/16/18 Insulin Degludec [Tresiba 50 unit SQ DAILY 07/16/18 07/16/18 Flextouch U-100] Metoprolol Succinate [Toprol XL] 200 mg PO BID 07/16/18 07/16/18 Ranitidine HCl 150 mg PO BID 07/16/18 07/16/18 amLODIPine [Norvasc] 5 mg PO DAILY 07/16/18 07/16/18 Previous Rx's Medication Instructions Recorded Amiodarone [Cordarone] 200 mg PO DAILY tab 02/11/18 Ezetimibe [Zetia] 10 mg PO DAILY #30 tab 03/11/18 Pantoprazole [Protonix] 40 mg PO AC-BRKFST #60 tablet. 04/22/18 Allergies Allergy/AdvReac Type Severity Reaction Status Date / Time ciprofloxacin [From Cipro] Allergy Anaphylaxis Verified 07/16/18 16:56 sulfamethoxazole Allergy Anaphylaxis Verified 07/16/18 16:56 [From Bactrim] trimethoprim [From Bactrim] Allergy Anaphylaxis Verified 07/16/18 16:56 vortioxetine Allergy LOW HEART Verified 07/16/18 16:56 [From Brintellix] RATE gabapentin [From Neurontin] AdvReac Itching Verified 07/16/18 16:56 morphine [From MS Contin] AdvReac Hallucinati Verified 07/16/18 16:56 ons pegfilgrastim [From Neulasta] AdvReac Nausea & Verified 07/16/18 16:56 Vomiting Review of Systems ROS Statement: Those systems with pertinent positive or pertinent negative responses have been documented in the HPI. ROS Other: All systems not noted in ROS Statement are negative. Past Medical History Past Medical History: Atrial Fibrillation, Coronary Artery Disease (CAD), Cancer , Chest Pain / Angina, Heart Failure, CVA/TIA, Diabetes Mellitus, GERD/Reflux, Hyperlipidemia, Hypertension, Myocardial Infarction (MD), Osteoarthritis (OA), Pulmonary Embolus (PE), Seizure Disorder Additional Past Medical History / Comment(s): Other hx: Currently has sore on 3rd toe R foot and is receiving home wound care, pt is to have ablation on may,IDDM type II, L breast cancer with lumpectomy/radiation and chemo, pulmonary embolism after CABG, PFO with surgery, TIA 2010, last seizure 2014, DJD, DDD, L shoulder rotator cuff tear, syncope twice d/t bradycardia, 2012 MRSA in nose. EGD/colonoscopy September 2017 at [facility] Last Myocardial Infarction Date:: 2008 History of Any Multi-Drug Resistant Organisms: C-DIFF, MRSA Date of last positivie culture/infection: 2012 MDRO Source:: MRSA in nose 2012 Past Surgical History: Appendectomy, Breast Surgery, Section, Cholecystectomy, Coronary Bypass/CABG, Heart Catheterization, Joint Replacement , Orthopedic Surgery, Tonsillectomy Additional Past Surgical History / Comment(s): 02/10/18 JIMBO/cardioversion, 4 vessel CABG 2008, PFO surgery in 2010, PCI with 2 stents to graft sites, stage 3 breast Ca with lumpectomy/nodes removed, bilateral total hip arthroplasties, EGD/colonoscopy 2 months ago, 2 C-Sections. Past Anesthesia/Blood Transfusion Reactions: No Reported Reaction Additional Past Anesthesia/Blood Transfusion Reaction / Comment(s): Pt has received blood in past with CABG-no reaction. Date of Last Stent Placement:: 2016 Past Psychological History: Anxiety, Depression Smoking Status: Former smoker Past Alcohol Use History: None Reported Past Drug Use History: Marijuana - Past Family History Father Family Medical History: Cancer, Vascular Disorder Additional Family Medical History / Comment(s): MELENOMA Mother Family Medical History: Cancer, Rheumatoid Arthritis (RA) Additional Family Medical History / Comment(s): Mother had breast cancer. General Exam Limitations: no limitations General appearance: alert, in no apparent distress Head exam: Present: atraumatic, normocephalic Eye exam: Present: normal appearance, PERRL, EOMI ENT exam: Present: mucous membranes dry Neck exam: Present: normal inspection. Absent: tenderness, meningismus Respiratory exam: Present: normal lung sounds bilaterally. Absent: respiratory distress, wheezes Cardiovascular Exam: Present: regular rate, normal rhythm GI/Abdominal exam: Present: soft. Absent: distended, tenderness Extremities exam: Present: normal inspection, normal capillary refill. Absent: pedal edema Back exam: Present: normal inspection, full ROM Neurological exam: Present: alert, oriented X3, CN II-XII intact. Absent: motor sensory deficit Psychiatric exam: Present: normal affect, normal mood Skin exam: Present: warm, dry, other (Erythematous lesion, right breast, approximately 3 cm, tender to palpation.) Course Vital Signs 07/16/18 07/16/18 15:48 17:28 Temperature 98.2 F Pulse Rate 66 57 L Respiratory 18 16 Rate Blood Pressure 139/80 130/65 O2 Sat by Pulse 98 95 Oximetry Medical Decision Making - Medical Decision Making 58-year-old female presenting with outpatient laboratory studies representing elevated BUN and creatinine. She has had 34 days of nausea vomiting and diarrhea. Clinically appears dehydrated. Laboratory studies reveal mildly elevated white blood cell count, stable hemoglobin, magnesium is 1.4 and is replaced. BUN/creatinine are mildly elevated. This treated with IV hydration. There is lactic acidosis of 2.8, no signs of infection, this is likely related to dehydration. Patient will be admitted for continued IV hydration and electronically replacement. Case discussed with Dr. Scott who will accept admission. - Lab Data Result diagrams: 07/16/18 16:07 07/16/18 16:07 Lab Results 07/16/18 07/16/18 07/16/18 Range/Units 16:04 16:07 16:07 WBC 11.3 H (3.8-10.6) k/uL RBC 5.31 (3.80-5.40) m/uL Hgb 14.9 (11.4-16.0) gm/dL Hct 45.9 (34.0-46.0) % MCV 86.5 (80.0-100.0) fL MCH 28.1 (25.0-35.0) pg MCHC 32.5 (31.0-37.0) g/dL RDW 14.5 (11.5-15.5) % Plt Count 314 (150-450) k/uL Neutrophils % 61 % Lymphocytes % 26 % Monocytes % 8 % Eosinophils % 3 % Basophils % 1 % Neutrophils # 6.8 (1.3-7.7) k/uL Lymphocytes # 3.0 (1.0-4.8) k/uL Monocytes # 0.8 (0-1.0) k/uL Eosinophils # 0.3 (0-0.7) k/uL Basophils # 0.1 (0-0.2) k/uL Sodium 136 L (137-145) mmol/L Potassium 5.0 (3.5-5.1) mmol/L Chloride 102 (98-107) mmol/L Carbon Dioxide 19 L (22-30) mmol/L Anion Gap 15 mmol/L BUN 40 H (7-17) mg/dL Creatinine 1.23 H (0.52-1.04) mg/dL Est GFR (CKD-EPI)AfAm 57 (>60 ml/min/1.73 sqM) Est GFR (CKD-EPI)NonAf 49 (>60 ml/min/1.73 sqM) Glucose 207 H (74-99) mg/dL Lactic Ac Sepsis Rflx Plasma Lactic Acid Avery 2.8 H* (0.7-2.0) mmol/L Calcium 10.9 H (8.4-10.2) mg/dL Magnesium 1.4 L (1.6-2.3) mg/dL Total Bilirubin 0.8 (0.2-1.3) mg/dL AST 25 (14-36) U/L ALT 20 (9-52) U/L Alkaline Phosphatase 56 (38-126) U/L Total Protein 8.5 H (6.3-8.2) g/dL Albumin 5.3 H (3.5-5.0) g/dL Lipase 190 (23-300) U/L Urine Color Urine Appearance (Clear) Urine pH (5.0-8.0) Ur Specific [place] (1.001-1.035) Urine Protein (Negative) Urine Glucose (UA) (Negative) Urine Ketones (Negative) Urine Blood (Negative) Urine Nitrite (Negative) Urine Bilirubin (Negative) Urine Urobilinogen (<2.0) mg/dL Ur Leukocyte Esterase (Negative) Urine RBC (0-5) /hpf Urine WBC (0-5) /hpf Ur Squamous Epith Cells (0-4) /hpf Hyaline Casts (0-2) /lpf Urine Mucus (None) /hpf 07/16/18 07/16/18 Range/Units 16:34 18:40 WBC (3.8-10.6) k/uL RBC (3.80-5.40) m/uL Hgb (11.4-16.0) gm/dL Hct (34.0-46.0) % MCV (80.0-100.0) fL MCH (25.0-35.0) pg MCHC (31.0-37.0) g/dL RDW (11.5-15.5) % Plt Count (150-450) k/uL Neutrophils % % Lymphocytes % % Monocytes % % Eosinophils % % Basophils % % Neutrophils # (1.3-7.7) k/uL Lymphocytes # (1.0-4.8) k/uL Monocytes # (0-1.0) k/uL Eosinophils # (0-0.7) k/uL Basophils # (0-0.2) k/uL Sodium (137-145) mmol/L Potassium (3.5-5.1) mmol/L Chloride (98-107) mmol/L Carbon Dioxide (22-30) mmol/L Anion Gap mmol/L BUN (7-17) mg/dL Creatinine (0.52-1.04) mg/dL Est GFR (CKD-EPI)AfAm (>60 ml/min/1.73 sqM) Est GFR (CKD-EPI)NonAf (>60 ml/min/1.73 sqM) Glucose (74-99) mg/dL Lactic Ac Sepsis Rflx Y Plasma Lactic Acid Avery (0.7-2.0) mmol/L Calcium (8.4-10.2) mg/dL Magnesium (1.6-2.3) mg/dL Total Bilirubin (0.2-1.3) mg/dL AST (14-36) U/L ALT (9-52) U/L Alkaline Phosphatase (38-126) U/L Total Protein (6.3-8.2) g/dL Albumin (3.5-5.0) g/dL Lipase (23-300) U/L Urine Color Yellow Urine Appearance Cloudy H (Clear) Urine pH 5.0 (5.0-8.0) Ur Specific [place] 1.016 (1.001-1.035) Urine Protein Negative (Negative) Urine Glucose (UA) Negative (Negative) Urine Ketones Negative (Negative) Urine Blood Negative (Negative) Urine Nitrite Negative (Negative) Urine Bilirubin Negative (Negative) Urine Urobilinogen <2.0 (<2.0) mg/dL Ur Leukocyte Esterase Negative (Negative) Urine RBC 1 (0-5) /hpf Urine WBC 2 (0-5) /hpf Ur Squamous Epith Cells 5 H (0-4) /hpf Hyaline Casts 49 H (0-2) /lpf Urine Mucus Rare H (None) /hpf Disposition Clinical Impression: Hypomagnesemia, Dehydration, CASSIDY (acute kidney injury) Disposition: ADMITTED IP TO THIS [facility] Condition: Stable Is patient prescribed a controlled substance at d/c from ED?: No Referrals: Channing Cronin MD [Primary Care Provider] - 1-2 days Decision to Admit Reason: Admit from EC Decision Date: 07/16/18 Decision Time: 18:20
[2018-07-16 16:22] LABS: Basophils # (A) 0.1 k/uL (0-0.2); Basophils % (A) 1 %; Eosinophils # (A) 0.3 k/uL (0-0.7); Eosinophils % (A) 3 %; HCT 45.9 % (34.0-46.0); HGB 14.9 gm/dL (11.4-16.0); Lymphocytes % (A) 26 %; MCH 28.1 pg (25.0-35.0); MCHC 32.5 g/dL (31.0-37.0); MCV 86.5 fL (80.0-100.0); Mean Platelet Volume 7.2; Monocytes # (A) 0.8 k/uL (0-1.0); Monocytes % (A) 8 %; Neutrophils # (A) 6.8 k/uL (1.3-7.7); Neutrophils % (A) 61 %; Platelet Count 314 k/uL (150-450); RBC 5.31 m/uL (3.80-5.40); RDW 14.5 % (11.5-15.5); WBC 11.3 k/uL (3.8-10.6)
[2018-07-16 16:29] LABS: Albumin 5.3 g/dL (3.5-5.0); Calcium 10.9 mg/dL (8.4-10.2); Magnesium 1.4 mg/dL (1.6-2.3); Total Bilirubin 0.8 mg/dL (0.2-1.3); Total Protein 8.5 g/dL (6.3-8.2)
[2018-07-16] MEDS ORDERED: MAGNESIUM SULFATE-D5W PMX 1 GM in DEXTROSE/WATER 1 100ML.BAG IVPB ONE (18:09)
[2018-07-16] MEDS ORDERED: ACETAMINOPHEN TAB 325 MG TAB PO PRN (18:46)
[2018-07-16] MEDS ORDERED: NALOXONE 0.4 MG/ML 1 ML VIAL IV PRN (18:46)
[2018-07-16 18:54] LABS: Appearance,Urine Cloudy (Clear); Bilirubin,Urine Negative (Negative); Blood,Urine Negative (Negative); Color,Urine Yellow; Glucose,Urine (UA) Negative (Negative); Hyaline Casts,Urine 49 /lpf (0-2); Ketones,Urine Negative (Negative); Leukocyte Esterase,Urine Negative (Negative); Mucus,Urine Rare /hpf; Nitrite,Urine Negative (Negative); Protein,Urine Negative (Negative); RBC,Urine 1 /hpf (0-5); Specific Gravity,Urine 1.016 (1.001-1.035); Squamous Epithelial Cell,Urine 5 /hpf (0-4); Urobilinogen,Urine <2.0 mg/dL (<2.0); WBC,Urine 2 /hpf (0-5)
[2018-07-16] MEDS ORDERED: NITROGLYCERIN SL TABS 0.4 MG TAB SUBLINGUAL PRN (19:38)
[2018-07-16] MEDS: HYDROmorphone 1 MG/ML 1 ML SYRINGE IVP PRN (20:12)
--- NOTE | 2018-07-16 20:27 | HP ---
HISTORY AND PHYSICAL CHIEF COMPLAINT: Renal failure. HISTORY OF PRESENT ILLNESS: This 58-year-old woman with a past medical history atrial ablation, CAD, chest pain, CHF, CVA, diabetes mellitus type 2, GERD, hypertension, hyperlipidemia, history of myocardial infarction, history of pulmonary embolism, being followed by Dr. Escalante recently for the right breast nodule, also having diarrhea, vomiting for the past several days. The patient had increasing creatinine up to 1.8. The patient was complaining of tiredness, weakness and patient came to [facility] Emergency Room and was admitted for further evaluation and treatment. There is no history of any fever, rigors. No history of headache, loss of consciousness, seizures. Patient also had apparently GI bleed. Endoscopies also done previously. There is no history of any fever, rigors. No history of headache, loss of consciousness, seizures at this time. Evaluation showed elevated white count and creatinine is 1.3. Patient reports diarrhea for the last several days which is consistent with some abdominal cramping, also. No other family members are involved. Plasma lactic acid elevated up to 2.8. Magnesium is 1.4. Calcium is 10.9. PAST MEDICAL HISTORY: History of breast cancer, history of atrial fibrillation, CAD, history of CHF, CVA, TIA, diabetes mellitus type 2, GERD, hypertension, hyperlipidemia, myocardial infarction, pulmonary embolus, seizure disorder. MEDICATIONS PRIOR TO PRIOR TO ADMISSION: Include home medications are: 1. Insulin Tresiba 50 units subcu daily. 2. Plavix 75 mg p.o. 3. Norvasc 5 mg p.o. daily. 4. Ranitidine 150 mg p.o. b.i.d. 5. Cymbalta 30 mg p.o. daily. 6. Keflex 500 mg every 6 hours p.r.n. 7. Metformin 1000 mg p.o. b.i.d. 8. Dyazide 1 capsule daily. 9. Xarelto 20 mg q.h.s. 10.Protonix 40 mg at breakfast. 11.Nitrostat 0.4 sublingual p.r.n. 12.Toprol-XL 200 mg p.o. b.i.d. 13.Zestril 20 mg p.o. b.i.d. 14.NovoLog 10 units subcu a.c. t.i.d. 15.Zetia 10 mg p.o. daily. 16.Cymbalta 60 mg q.h.s. 17.Cordarone 200 mg p.o. daily. ALLERGIES: Cipro, Bactrim, Neurontin, MS Contin, Neulasta. FAMILY HISTORY: History of cancer, vascular disorder, melanoma. SOCIAL HISTORY: Previous history of smoking. No history of current smoking or alcohol intake. REVIEW OF SYSTEMS: ENT: Diminished hearing, diminished vision. CARDIOVASCULAR: As mentioned earlier RESPIRATORY: As mentioned earlier. GI: No nausea, vomiting. : No dysuria. NERVOUS: No numbness or weakness. ALLERGY/IMMUNOLOGY: No asthma or hay fever. MUSCULOSKELETAL: As mentioned earlier. HEMATOLOGY/ONCOLOGY: As mentioned earlier. ENDOCRINE: No history of diabetes, hypothyroidism. CONSTITUTIONAL: As mentioned earlier. DERMATOLOGY: Negative. RHEUMATOLOGY: Negative. PSYCHIATRY: As mentioned earlier. PHYSICAL EXAM: Alert oriented x3. Pulse is 57, blood pressure 130/64, respirations 16, temperature 98.2, pulse ox 98% on room air. HEENT: Conjunctivae normal. Oral mucosa moist. NECK: No jugular venous distention. No carotid bruits. No lymph node enlargement. CARDIOVASCULAR: S1, S2 muffled. No S3, S4.. RESPIRATORY: Breath sounds diminished in the bases. A few scattered rhonchi. No crackles. ABDOMEN: Soft, nontender. No mass palpable. No hepatosplenomegaly. No ascites. LEGS: No edema. No swelling. NERVOUS SYSTEM: Higher functions as mentioned earlier. Moves all 4 limbs. No focal motor or sensory deficits. LYMPHATIC: No lymphadenopathy in neck or axillae. JOINTS: No active arthropathy. SKIN: No ulcer, rash or bleeding. LABS: WBC 7.3, hemoglobin is 14.9. Sodium 136, creatinine is 1.23, plasma lactic acid is 2.8. ASSESSMENT: 1. Dehydration with acute renal failure. 2. Possibly acute tubular necrosis or prerenal factors. 3. Hyponatremia. 4. Increased WBC. 5. Elevated plasma lactic acid. 6. Hypomagnesemia. 7. Diarrhea, subacute. 8. History of atrial fibrillation. 9. History of coronary artery disease. 10.History of chest pain. 11.History of congestive heart failure. 12.History of cerebrovascular accident, transient ischemic attack. 13.Diabetes mellitus type 2. 14.Gastroesophageal reflux disease. 15.Hypertension. 16.Hyperlipidemia. 17.Myocardial infarction. 18.History of degenerative joint disease. 19.History of pulmonary embolism. 20.History of seizure disorder. 21.History of coronary artery disease, coronary artery bypass graft. 22.History of patent foramen ovale. 23.History of methicillin-resistant Staphylococcus aureus. 24.History of anxiety, depression. 25.Remote history of nicotine dependence. 26.History of THC. RECOMMENDATIONS AND DISCUSSION: In this 58-year-old woman who presented with multiple complex medical issues, we will monitor the patient closely. Continue the current medications. I would recommend gentle hydration at this time. Otherwise, will continue current medications and a JIMBO done earlier this year by Cardiology showed no evidence of any shunt. The prognosis is guarded because of multiple complex medical issues. See orders for further details. Avoid nephrotoxic medications. MMODL / IJN: [id number] / NEISHA
[2018-07-17] MEDS: HYDROmorphone 1 MG/ML 1 ML SYRINGE IVP PRN ×8 (00:10→23:20)
[2018-07-17] MEDS: metroNIDAZOLE-NS PMX 500 MG in SALINE 1 100ML.BAG IVPB SCH ×4 (00:19→23:00)
[2018-07-17] MEDS: INSULIN ASPART 100 UNIT/ML 1 ML 10 ML VIAL SQ SCH ×8 (00:22→20:42)
[2018-07-17] MEDS: METOPROLOL SUCCINATE (ER) 100 MG TAB.ER.24H PO SCH ×3 (00:22→20:23)
[2018-07-17] MEDS: DULoxetine HCL 60 MG CAPSULE.DR PO SCH ×2 (00:22→20:23)
[2018-07-17] MEDS: FAMOTIDINE 20 MG TAB PO SCH ×3 (00:22→20:23)
[2018-07-17 00:24] LABS: Glucose,Whole Blood 132 mg/dL (75-99)
[2018-07-17 04:10] LABS: Hemoglobin A1C 8.8 % (4.0-6.0)
[2018-07-17] MEDS: hydrALAZINE HCL 20 MG/ML 1 ML VIAL IVP PRN (04:55)
[2018-07-17 06:08] LABS: Glucose,Whole Blood 145 mg/dL (75-99)
[2018-07-17] MEDS: ONDANSETRON 4 MG/2 ML VIAL IVP PRN ×2 (06:10→13:49)
[2018-07-17 06:55] LABS: Basophils % (A) 1 %; Eosinophils # (A) 0.3 k/uL (0-0.7); Eosinophils % (A) 5 %; HCT 39.9 % (34.0-46.0); HGB 12.8 gm/dL (11.4-16.0); Lymphocytes # (A) 1.9 k/uL (1.0-4.8); Lymphocytes % (A) 30 %; MCH 28.1 pg (25.0-35.0); MCV 87.7 fL (80.0-100.0); Mean Platelet Volume 7.2; Monocytes # (A) 0.5 k/uL (0-1.0); Monocytes % (A) 8 %; Neutrophils # (A) 3.4 k/uL (1.3-7.7); Neutrophils % (A) 54 %; Platelet Count 232 k/uL (150-450); RBC 4.55 m/uL (3.80-5.40); RDW 14.4 % (11.5-15.5); WBC 6.4 k/uL (3.8-10.6)
[2018-07-17 07:14] LABS: Calcium 9.2 mg/dL (8.4-10.2); Magnesium 1.5 mg/dL (1.6-2.3); Potassium 4.6 mmol/L (3.5-5.1)
[2018-07-17] MEDS: DULoxetine HCL 30 MG CAPSULE.DR PO SCH (07:30)
[2018-07-17] MEDS ORDERED: PANTOPRAZOLE 40 MG TABLET PO SCH (07:30)
[2018-07-17] MEDS: amLODIPine 5 MG TAB PO SCH (07:30)
[2018-07-17] MEDS: CLOPIDOGREL 75 MG TAB PO SCH (07:30)
[2018-07-17] MEDS: AMIODARONE 200 MG TAB PO SCH (07:30)
[2018-07-17] MEDS: EZETIMIBE 10 MG TAB PO SCH (07:31)
[2018-07-17] MEDS: INSULIN DETEMIR 100 UNIT/ML 10 ML VIAL SQ SCH (07:35)
--- NOTE | 2018-07-17 09:41 | P.CONS ---
History of Present Illness - Reason for Consult Consult date: 07/17/18 Right breast lesion. History of breast cancer - History of Present Illness The patient is a 58-year-old white female, well known to our service. She is followed by Dr. Escalante in the outpatient setting. The patient had a history of stage III breast cancer on the left, diagnosed in 12/15. She had a lumpectomy by Dr. Cyr, followed by adjuvant chemotherapy, and radiation. As her cancer was hormone receptor positive, she was then placed on hormonal manipulation with Arimidex on which she continues. About 5 weeks ago, the patient noted a reddish nodule on the upper outer quadrant of her right breast. She states that this was somewhat warm and painful. She initially thought that this was a boil, but sought attention when it did not improve. She noted some mild increase in size as well as increasing discomfort. She was seen in the office, and CT scans were ordered for restaging. She was also referred back to Dr. Cyr but had not seen him yet. Her last mammogram was in 04/18. She was unable to have one this year on schedule, as she had had a pacemaker placed and was advised to wait about 6 months before having a mammogram. The patient developed diarrhea about 3-4 days prior to admission. He states that his stools are mostly watery with very small amounts of solid material. She has had multiple episodes every day, accompanied with abdominal cramping and some back pain. She denied any sick contacts. No history of any fevers, chills, blood or mucus in the stool. She was developing some increasing weakness due to progressive diarrhea and was therefore sent in to the emergency room. Creatinine was noted to be elevated from baseline. She was therefore admitted for further management Review of Systems Constitutional: Reports fatigue, Reports weakness Eyes: denies blurred vision, denies pain Ears: deny: decreased hearing, ear discharge, earache, tinnitus Ears, nose, mouth and throat: Denies headache, Denies sore throat Breasts: right: as per HPI, skin changes Cardiovascular: Denies chest pain, Denies shortness of breath Respiratory: Denies cough Gastrointestinal: Reports abdominal pain, Reports diarrhea Genitourinary: Denies dysuria, Denies hematuria Menstruation: Reports postmenopausal Musculoskeletal: Reports low back pain, Denies myalgias Integumentary: Reports as per HPI Neurological: Reports weakness, Denies numbness Psychiatric: Denies anxiety, Denies depression Endocrine: Reports fatigue, Denies weight change Hematologic/Lymphatic: Reports as per HPI Past Medical History Past Medical History: Atrial Fibrillation, Coronary Artery Disease (CAD), Cancer , Chest Pain / Angina, Heart Failure, CVA/TIA, Diabetes Mellitus, Deep Vein Thrombosis (DVT), GERD/Reflux, GI Bleed, Hyperlipidemia, Hypertension, Myocardial Infarction ([place]), Osteoarthritis (OA), Pulmonary Embolus (PE), Seizure Disorder Additional Past Medical History / Comment(s): Other hx: Currently has sore on 3rd toe R foot and is receiving home wound care, pt is to have ablation on may,IDDM type II, L breast cancer with lumpectomy/radiation and chemo, pulmonary embolism after CABG, PFO with surgery, TIA 2010, last seizure 2014, DJD, DDD, L shoulder rotator cuff tear, syncope twice d/t bradycardia, 2013 MRSA sore in nostril . EGD/colonoscopy September 2017 at [facility] Last Myocardial Infarction Date:: 2008 History of Any Multi-Drug Resistant Organisms: MRSA Year Discovered:: 2012 MDRO Source:: MRSA sore in nostril 2012 Past Surgical History: Appendectomy, Breast Surgery, Section, Cholecystectomy, Coronary Bypass/CABG, Heart Catheterization, Joint Replacement , Orthopedic Surgery, Pacemaker, Tonsillectomy Additional Past Surgical History / Comment(s): 02/10/18 JIMBO/cardioversion, 4 vessel CABG 2008, PFO surgery in 2010, PCI with 2 stents to graft sites, stage 3 breast Ca with lumpectomy/nodes removed, bilateral total hip arthroplasties, EGD/colonoscopy 2 months ago, 2 C-Sections.ivc filter Past Anesthesia/Blood Transfusion Reactions: No Reported Reaction Additional Past Anesthesia/Blood Transfusion Reaction / Comm: Pt has received blood in past with CABG-no reaction. Date of Last Stent Placement:: 2016 Type of Cardiac Device: Permanent Pacemaker Device Placement Date:: 05/11/18 Smoking Status: Current every day smoker - Past Family History Father Family Medical History: Cancer, Vascular Disorder Additional Family Medical History / Comment(s): MELENOMA Mother Family Medical History: Cancer, Rheumatoid Arthritis (RA) Additional Family Medical History / Comment(s): Mother had breast cancer. Medications and Allergies Home Medications Medication Instructions Recorded Confirmed Type DULoxetine HCL [Cymbalta] 60 mg PO HS 02/09/18 07/16/18 History Insulin Aspart [NovoLOG 10 unit SQ AC-TID 02/09/18 07/16/18 History (formulary)] Nitroglycerin Sl Tabs [Nitrostat] 0.4 mg SUBLINGUAL Q5M PRN 02/09/18 07/16/18 History Rivaroxaban [Xarelto] 20 mg PO HS 02/09/18 07/16/18 History Amiodarone [Cordarone] 200 mg PO DAILY tab 02/11/18 07/16/18 Rx Ezetimibe [Zetia] 10 mg PO DAILY #30 tab 03/11/18 07/16/18 Rx Lisinopril [Zestril] 20 mg PO BID 04/20/18 07/16/18 History metFORMIN HCL 1,000 mg PO BID 04/20/18 07/16/18 History Pantoprazole [Protonix] 40 mg PO AC-BRKFST #60 tablet. 04/22/18 07/16/18 Rx Triamterene/Hydrochlorothiazid 1 cap PO DAILY 05/10/18 07/16/18 History [Dyazide 37.5-25 Capsule] Cephalexin [Keflex] 500 mg PO Q6HR 07/16/18 07/16/18 History Clopidogrel [Plavix] 75 mg PO DAILY 07/16/18 07/16/18 History DULoxetine HCL [Cymbalta] 30 mg PO DAILY 07/16/18 07/16/18 History Insulin Degludec [Tresiba 50 unit SQ DAILY 07/16/18 07/16/18 History Flextouch U-100] Metoprolol Succinate [Toprol XL] 200 mg PO BID 07/16/18 07/16/18 History Ranitidine HCl 150 mg PO BID 07/16/18 07/16/18 History amLODIPine [Norvasc] 5 mg PO DAILY 07/16/18 07/16/18 History Allergies Allergy/AdvReac Type Severity Reaction Status Date / Time ciprofloxacin [From Cipro] Allergy Anaphylaxis Verified 07/16/18 16:56 sulfamethoxazole Allergy Anaphylaxis Verified 07/16/18 16:56 [From Bactrim] trimethoprim [From Bactrim] Allergy Anaphylaxis Verified 07/16/18 16:56 vortioxetine Allergy LOW HEART Verified 07/16/18 16:56 [From Brintellix] RATE gabapentin [From Neurontin] AdvReac Itching Verified 07/16/18 16:56 morphine [From MS Contin] AdvReac Hallucinati Verified 07/16/18 16:56 ons pegfilgrastim [From Neulasta] AdvReac Nausea & Verified 07/16/18 16:56 Vomiting Physical Exam Vitals: Vital Signs Temp Pulse Pulse Resp BP BP Pulse Ox 07/17/18 07:52 98.3 F 74 18 140/78 94 L 07/17/18 05:16 113/58 07/17/18 04:00 97.2 F L 76 18 167/84 95 07/17/18 03:52 59 L 18 07/17/18 00:00 97.0 F L 59 L 18 156/74 97 07/16/18 23:41 97.7 F 68 18 149/64 96 07/16/18 20:18 98 F 07/16/18 20:14 63 16 148/67 96 07/16/18 17:28 57 L 16 130/65 95 07/16/18 15:48 98.2 F 66 18 139/80 98 Intake and Output 07/16/18 07/17/18 07/17/18 22:59 06:59 14:59 Intake Total 240 Balance 240 Intake: Oral 240 Other: Voiding Method Toilet # Voids 1 Weight 99.79 kg 97.7 kg - Constitutional General appearance: no acute distress - EENT Eyes: EOMI, PERRLA ENT: hearing grossly normal, normal oropharynx - Neck Neck: no lymphadenopathy Thyroid: bilateral: normal size - Respiratory Respiratory: bilateral: CTA - Cardiovascular Rhythm: regular Heart sounds: normal: S1, S2 - Gastrointestinal General gastrointestinal: normal bowel sounds, soft Localized gastrointestinal: tender: diffuse (Mild, nonspecific) - Integumentary 1.5-2 cm lesion on right upper chest wall/upper outer quadrant of right breast. Margins somewhat irregular with mild desquamation. Lesion is reddish, slightly warm to touch and tender. It appears to involve only the cutaneous tissue and does not seem to extend subdermally. - Neurologic Neurologic: CNII-XII intact - Musculoskeletal Musculoskeletal: generalized weakness, strength equal bilaterally - Psychiatric Psychiatric: A&O x's 3, intact judgment & insight Results CBC & Chem 7: 07/17/18 06:34 07/17/18 06:34 Labs: Abnormal Lab Results - Last 24 Hours (Table) 07/16/18 07/16/18 07/16/18 Range/Units 16:04 16:07 16:07 WBC 11.3 H (3.8-10.6) k/uL Sodium 136 L (137-145) mmol/L Chloride (98-107) mmol/L Carbon Dioxide 19 L (22-30) mmol/L BUN 40 H (7-17) mg/dL Creatinine 1.23 H (0.52-1.04) mg/dL Glucose 207 H (74-99) mg/dL POC Glucose (mg/dL) (75-99) mg/dL Hemoglobin A1c (4.0-6.0) % Plasma Lactic Acid Avery 2.8 H* (0.7-2.0) mmol/L Calcium 10.9 H (8.4-10.2) mg/dL Magnesium 1.4 L (1.6-2.3) mg/dL Total Protein 8.5 H (6.3-8.2) g/dL Albumin 5.3 H (3.5-5.0) g/dL Urine Appearance (Clear) Ur Squamous Epith Cells (0-4) /hpf Hyaline Casts (0-2) /lpf Urine Mucus (None) /hpf 07/16/18 07/16/18 07/17/18 Range/Units 16:07 18:40 00:21 WBC (3.8-10.6) k/uL Sodium (137-145) mmol/L Chloride (98-107) mmol/L Carbon Dioxide (22-30) mmol/L BUN (7-17) mg/dL Creatinine (0.52-1.04) mg/dL Glucose (74-99) mg/dL POC Glucose (mg/dL) 132 H (75-99) mg/dL Hemoglobin A1c 8.8 H (4.0-6.0) % Plasma Lactic Acid Avery (0.7-2.0) mmol/L Calcium (8.4-10.2) mg/dL Magnesium (1.6-2.3) mg/dL Total Protein (6.3-8.2) g/dL Albumin (3.5-5.0) g/dL Urine Appearance Cloudy H (Clear) Ur Squamous Epith Cells 5 H (0-4) /hpf Hyaline Casts 49 H (0-2) /lpf Urine Mucus Rare H (None) /hpf 07/17/18 07/17/18 Range/Units 06:06 06:34 WBC (3.8-10.6) k/uL Sodium (137-145) mmol/L Chloride 108 H (98-107) mmol/L Carbon Dioxide (22-30) mmol/L BUN 26 H (7-17) mg/dL Creatinine (0.52-1.04) mg/dL Glucose 148 H (74-99) mg/dL POC Glucose (mg/dL) 145 H (75-99) mg/dL Hemoglobin A1c (4.0-6.0) % Plasma Lactic Acid Avery (0.7-2.0) mmol/L Calcium (8.4-10.2) mg/dL Magnesium 1.5 L (1.6-2.3) mg/dL Total Protein (6.3-8.2) g/dL Albumin (3.5-5.0) g/dL Urine Appearance (Clear) Ur Squamous Epith Cells (0-4) /hpf Hyaline Casts (0-2) /lpf Urine Mucus (None) /hpf Microbiology - Last 24 Hours (Table) 07/16/18 18:40 Urine Culture - Preliminary Urine,Voided Assessment and Plan (1) CASSIDY (acute kidney injury) Narrative/Plan: The patient has a known history of diabetes and CAD stage III. Acute drop in renal function is most likely due to dehydration from diarrhea. The patient is being hydrated. Follow kidney function with the same Current Visit: Yes Status: Acute Code(s): N17.9 - ACUTE KIDNEY FAILURE, UNSPECIFIED SNOMED Code(s): 53823874 (2) Breast nodule Narrative/Plan: The patient had just started evaluation for the right breast nodule, in the office. On exam, this appears to be involving essentially the skin superficially with no extension into the subdermal tissues. Therefore infection /inflammation is a possibility. She has just been started on antibiotics on . Malignant etiology cannot be totally ruled out. - Check ultrasound of the right breast - Surgical consult Dr. Dr. Cyr - Computed tomography scan of the chest abdomen and pelvis have been recommended for restaging. We will hold off on low-dose to in her kidney function recover sufficiently for her to receive IV dye, as contrast-enhanced CT would be much more desirable for restaging purposes. Current Visit: Yes Status: Acute Code(s): N63.0 - UNSPECIFIED LUMP IN UNSPECIFIED BREAST SNOMED Code(s): 97177854 (3) Diarrhea Narrative/Plan: Etiology of this is unclear. This may be antibiotic related. Stool studies are in progress. As noted the plan is for imaging, including CT of the abdomen and pelvis once creatinine is improved Current Visit: Yes Status: Acute Code(s): R19.7 - DIARRHEA, UNSPECIFIED SNOMED Code(s): 90313050
[2018-07-17 10:15] VITALS: BMI 31.8
[2018-07-17] MEDS: IOPAMIDOL-300 CONTRAST 30 ML VIAL (ORAL USE) PO PRN ×2 (11:00→11:52)
[2018-07-17 11:48] LABS: Glucose,Whole Blood 150 mg/dL (75-99)
--- NOTE | 2018-07-17 13:04 | USB ---
EXAMINATION TYPE: US breast limited RT DATE OF EXAM: 07/17/2018 COMPARISON: NONE CLINICAL HISTORY: Right breast nodule. History of left breast cancer. Right breast palpable painful area with redness on skin in upper outer quadrant, history of left breast CA Right breast: superficial 2.0 x 0.7 x 2.0cm hypoechoic vascular lesion seen in upper outer quadrant a t 10:00 4cm from nipple IMPRESSION: SUPERFICIAL, HYPERVASCULAR SOLID MASS IN THE UPPER OUTER QUADRANT OF THE RIGHT BREAST. BIOPSY WOULD L IKELY BE INDICATED.
--- NOTE | 2018-07-17 13:12 | CT ---
EXAMINATION TYPE: CT ChestAbdPelvis w con DATE OF EXAM: 07/17/2018 COMPARISON: NONE HISTORY: New Breast nodule. History of breast cancer CT DLP: 1962.2 mGycm Automated exposure control for dose reduction was used. TECHNIQUE: Helical acquisition through the abdomen and pelvis was obtained without oral contrast but following the intravenous administration of 100 mL of Isovue 300. The data was formatted in the axia l, coronal and sagittal projections. FINDINGS: The lungs are clear. There is no significant axillary, internal mammary, mediastinal or hil ar adenopathy. There is no pleural or pericardial fluid. The heart is not enlarged. Within the abdomen, the gallbladder is been removed. There is a 1.6 cm low attenuating lesion in the lateral segment of the left lobe of the liver. No other definite lesions are seen. The spleen is unre markable. There is a 1 cm splenule in the anterior tip of the spleen. Both adrenal glands are normal. Both kidneys demonstrate function and appear morphologically normal. The pancreas is unremarkable. There is a [employer] inferior vena cava filter in place. There is no significant retroperitoneal, iliac or inguinal adenopathy. There is significant streak artifact in the pelvis secondary to 2 prosthetic hips. The bladder is not well identified. The uterus and ovaries are unremarkable. There is no significant diverticular change and there is no radiographic evidence of diverticulitis. The appendix is not visualized with certainty. Small bowel loops are within normal limits. There is no free fluid and no free air identified. There is facet arthropathy in the lower lumbar spine. There is mild hypertrophic spondylosis in the m id dorsal spine. There has been a midline sternotomy. No bony destructive lesion is seen. IMPRESSION: 1. 1.6 CM LOW ATTENUATING LESION WITHIN THE LATERAL SEGMENT OF THE LEFT LOBE OF THE LIVER. 2. MILD DEGENERATIVE CHANGE WITHIN THE SPINE.
--- NOTE | 2018-07-17 14:23 | P.GSCN ---
History of Present Illness Consult date: 07/17/18 Reason for Consult: History of breast cancer Requesting physician: Amador Nam History of present illness: HISTORY OF PRESENT ILLNESS: The patient is a 58-year-old female with past history of breast cancer on the left breast, stage III with lumpectomy including chemotherapy. She reports not seeing Dr. Cyr in the past. She has been seeing Dr Escalante as outpatient her oncologist. She reports for 5 weeks having a suspected abscess of the right upper outer breast. She had been on Keflex for a suspected abscess and questionable mass of the right breast for more than a few days. Now she presents for further evaluation for possible new breast cancer of the right breast versus abscess. Has been admitted for abnormal kidney function PAST MEDICAL HISTORY: See list. PAST SURGICAL HISTORY: See list. MEDICATIONS: See list. ALLERGIES: See list. SOCIAL HISTORY: No illicit drug use FAMILY HISTORY: No reports of Crohn's disease or inflammatory bowel disease REVIEW OF ORGAN SYSTEMS: CONSTITUTIONAL: No fevers or chills HEENT: No troubles with vision or hearing. No reports of dysphagia. ENDOCRINE: No reports of thyroid disorders. Has diabetes. CARDIOVASCULAR: No recent heart attack. No recent chest pain. RESPIRATORY: No shortness of breath or pneumonia. GASTROINTESTINAL: No reports of recent blood in stools. NEURO: No reports of stroke or seizure disorders. PSYCH: Has depression. No suicidal ideation HEMATOLOGIC: History of blood thinners. LYMPHATIC: History of stage III breast cancer. GENITOURINARY: Some normal kidney function upon admission MUSCULOSKELETAL: Has back pain, stiffness or joint arthritis. SKIN: No skin cancer or rash per PHYSICAL EXAM: VITAL SIGNS: Currently stable. GENERAL: Well-developed in no acute distress. HEENT: No sclera icterus. Extraocular movements grossly intact. Moist buccal mucosa. Head is atraumatic, normocephalic. Hears conversational speech. No nasal drainage. NECK: Supple without lymphadenopathy. CHEST: Non-labored respirations and equal bilateral excursions. CARDIOVASCULAR: Regular rate with regular rhythm. Palpable 2+ radial pulses. ABDOMEN: Soft. Nondistended. No peritonitis. Minimal diffuse tenderness MUSCULOSKELETAL: No clubbing, cyanosis or edema. NEUROLOGIC: No focal or lateralizing signs. Cranial nerves II through XII grossly intact. PSYCH: Appropriate affect. Alert and oriented to person, place and time. SKIN: Well perfused. Good skin turgor. 3-cm induration along the right upper outer breast without drainage. No adenopathy of the axilla. LABS: Reviewed ASSESSMENT: 1. History of left breast cancer, stage 3 2. History of new right breast abscess versus malignancy PLAN: 1. Clinically, area appears more infectious etiology; however, core needle biopsy may be of benefit of the right breast 2. Continue antibiotics 3. Monitor kidney function for acute kidney injury Thank you for this kind consultation. Past Medical History Past Medical History: Atrial Fibrillation, Coronary Artery Disease (CAD), Cancer , Chest Pain / Angina, Heart Failure, CVA/TIA, Diabetes Mellitus, Deep Vein Thrombosis (DVT), GERD/Reflux, GI Bleed, Hyperlipidemia, Hypertension, Myocardial Infarction ([place]), Osteoarthritis (OA), Pulmonary Embolus (PE), Seizure Disorder Additional Past Medical History / Comment(s): Other hx: Currently has sore on 3rd toe R foot and is receiving home wound care, pt is to have ablation on may,IDDM type II, L breast cancer with lumpectomy/radiation and chemo, pulmonary embolism after CABG, PFO with surgery, TIA 2010, last seizure 2014, DJD, DDD, L shoulder rotator cuff tear, syncope twice d/t bradycardia, 2012 MRSA sore in nostril . EGD/colonoscopy September [address] [facility] Last Myocardial Infarction Date:: 2008 History of Any Multi-Drug Resistant Organisms: MRSA Year Discovered:: 2012 MDRO Source:: MRSA sore in nostril 2012 Past Surgical History: Appendectomy, Breast Surgery, Section, Cholecystectomy, Coronary Bypass/CABG, Heart Catheterization, Joint Replacement , Orthopedic Surgery, Pacemaker, Tonsillectomy Additional Past Surgical History / Comment(s): 02/10/18 JIMBO/cardioversion, 4 vessel CABG 2008, PFO surgery in 2010, PCI with 2 stents to graft sites, stage 3 breast Ca with lumpectomy/nodes removed, bilateral total hip arthroplasties, EGD/colonoscopy 2 months ago, 2 C-Sections.ivc filter Past Anesthesia/Blood Transfusion Reactions: No Reported Reaction Additional Past Anesthesia/Blood Transfusion Reaction / Comm: Pt has received blood in past with CABG-no reaction. Date of Last Stent Placement:: 2016 Type of Cardiac Device: Permanent Pacemaker Device Placement Date:: 05/11/18 Smoking Status: Current every day smoker - Past Family History Father Family Medical History: Cancer, Vascular Disorder Additional Family Medical History / Comment(s): MELENOMA Mother Family Medical History: Cancer, Rheumatoid Arthritis (RA) Additional Family Medical History / Comment(s): Mother had breast cancer. Medications and Allergies Home Medications Medication Instructions Recorded Confirmed Type DULoxetine HCL [Cymbalta] 60 mg PO HS 02/09/18 07/16/18 History Insulin Aspart [NovoLOG 10 unit SQ AC-TID 02/09/18 07/16/18 History (formulary)] Nitroglycerin Sl Tabs [Nitrostat] 0.4 mg SUBLINGUAL Q5M PRN 02/09/18 07/16/18 History Rivaroxaban [Xarelto] 20 mg PO HS 02/09/18 07/16/18 History Amiodarone [Cordarone] 200 mg PO DAILY tab 02/11/18 07/16/18 Rx Ezetimibe [Zetia] 10 mg PO DAILY #30 tab 03/11/18 07/16/18 Rx Lisinopril [Zestril] 20 mg PO BID 04/20/18 07/16/18 History metFORMIN HCL 1,000 mg PO BID 04/20/18 07/16/18 History Pantoprazole [Protonix] 40 mg PO AC-BRKFST #60 tablet.dr 04/22/18 07/16/18 Rx Triamterene/Hydrochlorothiazid 1 cap PO DAILY 05/10/18 07/16/18 History [Dyazide 37.5-25 Capsule] Cephalexin [Keflex] 500 mg PO Q6HR 07/16/18 07/16/18 History Clopidogrel [Plavix] 75 mg PO DAILY 07/16/18 07/16/18 History DULoxetine HCL [Cymbalta] 30 mg PO DAILY 07/16/18 07/16/18 History Insulin Degludec [Tresiba 50 unit SQ DAILY 07/16/18 07/16/18 History Flextouch U-100] Metoprolol Succinate [Toprol XL] 200 mg PO BID 07/16/18 07/16/18 History Ranitidine HCl 150 mg PO BID 07/16/18 07/16/18 History amLODIPine [Norvasc] 5 mg PO DAILY 07/16/18 07/16/18 History Allergies Allergy/AdvReac Type Severity Reaction Status Date / Time ciprofloxacin [From Cipro] Allergy Anaphylaxis Verified 07/16/18 16:56 sulfamethoxazole Allergy Anaphylaxis Verified 07/16/18 16:56 [From Bactrim] trimethoprim [From Bactrim] Allergy Anaphylaxis Verified 07/16/18 16:56 vortioxetine Allergy LOW HEART Verified 07/16/18 16:56 [From Brintellix] RATE gabapentin [From Neurontin] AdvReac Itching Verified 07/16/18 16:56 morphine [From MS Contin] AdvReac Hallucinati Verified 07/16/18 16:56 ons pegfilgrastim [From Neulasta] AdvReac Nausea & Verified 07/16/18 16:56 Vomiting Surgical - Exam Vital Signs Temp Pulse Resp BP Pulse Ox 98.2 F 66 18 139/80 98 07/16/18 15:48 07/16/18 15:48 07/16/18 15:48 07/16/18 15:48 07/16/18 15:48 Results - Labs 07/17/18 06:34 07/17/18 06:34 Abnormal Lab Results - Last 24 Hours (Table) 07/16/18 07/16/18 07/16/18 Range/Units 16:04 16:07 16:07 WBC 11.3 H (3.8-10.6) k/uL Sodium 136 L (137-145) mmol/L Chloride (98-107) mmol/L Carbon Dioxide 19 L (22-30) mmol/L BUN 40 H (7-17) mg/dL Creatinine 1.23 H (0.52-1.04) mg/dL Glucose 207 H (74-99) mg/dL POC Glucose (mg/dL) (75-99) mg/dL Hemoglobin A1c (4.0-6.0) % Plasma Lactic Acid Avery 2.8 H* (0.7-2.0) mmol/L Calcium 10.9 H (8.4-10.2) mg/dL Magnesium 1.4 L (1.6-2.3) mg/dL Total Protein 8.5 H (6.3-8.2) g/dL Albumin 5.3 H (3.5-5.0) g/dL Urine Appearance (Clear) Ur Squamous Epith Cells (0-4) /hpf Hyaline Casts (0-2) /lpf Urine Mucus (None) /hpf 07/16/18 07/16/18 07/17/18 Range/Units 16:07 18:40 00:21 WBC (3.8-10.6) k/uL Sodium (137-145) mmol/L Chloride (98-107) mmol/L Carbon Dioxide (22-30) mmol/L BUN (7-17) mg/dL Creatinine (0.52-1.04) mg/dL Glucose (74-99) mg/dL POC Glucose (mg/dL) 132 H (75-99) mg/dL Hemoglobin A1c 8.8 H (4.0-6.0) % Plasma Lactic Acid Avery (0.7-2.0) mmol/L Calcium (8.4-10.2) mg/dL Magnesium (1.6-2.3) mg/dL Total Protein (6.3-8.2) g/dL Albumin (3.5-5.0) g/dL Urine Appearance Cloudy H (Clear) Ur Squamous Epith Cells 5 H (0-4) /hpf Hyaline Casts 49 H (0-2) /lpf Urine Mucus Rare H (None) /hpf 07/17/18 07/17/18 07/17/18 Range/Units 06:06 06:34 11:40 WBC (3.8-10.6) k/uL Sodium (137-145) mmol/L Chloride 108 H (98-107) mmol/L Carbon Dioxide (22-30) mmol/L BUN 26 H (7-17) mg/dL Creatinine (0.52-1.04) mg/dL Glucose 148 H (74-99) mg/dL POC Glucose (mg/dL) 145 H 150 H (75-99) mg/dL Hemoglobin A1c (4.0-6.0) % Plasma Lactic Acid Avery (0.7-2.0) mmol/L Calcium (8.4-10.2) mg/dL Magnesium 1.5 L (1.6-2.3) mg/dL Total Protein (6.3-8.2) g/dL Albumin (3.5-5.0) g/dL Urine Appearance (Clear) Ur Squamous Epith Cells (0-4) /hpf Hyaline Casts (0-2) /lpf Urine Mucus (None) /hpf Microbiology - Last 24 Hours (Table) 07/16/18 18:40 Urine Culture - Preliminary Urine,Voided Diabetes panel 07/16/18 07/16/18 07/17/18 Range/Units 16:07 16:07 06:34 Sodium 136 L 138 (137-145) mmol/L Potassium 5.0 4.6 (3.5-5.1) mmol/L Chloride 102 108 H (98-107) mmol/L Carbon Dioxide 19 L 23 (22-30) mmol/L BUN 40 H 26 H (7-17) mg/dL Creatinine 1.23 H 0.89 (0.52-1.04) mg/dL Glucose 207 H 148 H (74-99) mg/dL Hemoglobin A1c 8.8 H (4.0-6.0) % Calcium 10.9 H 9.2 (8.4-10.2) mg/dL AST 25 (14-36) U/L ALT 20 (9-52) U/L Alkaline Phosphatase 56 (38-126) U/L Total Protein 8.5 H (6.3-8.2) g/dL Albumin 5.3 H (3.5-5.0) g/dL Calcium panel 07/16/18 07/17/18 Range/Units 16:07 06:34 Calcium 10.9 H 9.2 (8.4-10.2) mg/dL Albumin 5.3 H (3.5-5.0) g/dL Pituitary panel 07/16/18 07/17/18 Range/Units 16:07 06:34 Sodium 136 L 138 (137-145) mmol/L Potassium 5.0 4.6 (3.5-5.1) mmol/L Chloride 102 108 H (98-107) mmol/L Carbon Dioxide 19 L 23 (22-30) mmol/L BUN 40 H 26 H (7-17) mg/dL Creatinine 1.23 H 0.89 (0.52-1.04) mg/dL Glucose 207 H 148 H (74-99) mg/dL Calcium 10.9 H 9.2 (8.4-10.2) mg/dL Adrenal panel 07/16/18 07/17/18 Range/Units 16:07 06:34 Sodium 136 L 138 (137-145) mmol/L Potassium 5.0 4.6 (3.5-5.1) mmol/L Chloride 102 108 H (98-107) mmol/L Carbon Dioxide 19 L 23 (22-30) mmol/L BUN 40 H 26 H (7-17) mg/dL Creatinine 1.23 H 0.89 (0.52-1.04) mg/dL Glucose 207 H 148 H (74-99) mg/dL Calcium 10.9 H 9.2 (8.4-10.2) mg/dL Total Bilirubin 0.8 (0.2-1.3) mg/dL AST 25 (14-36) U/L ALT 20 (9-52) U/L Alkaline Phosphatase 56 (38-126) U/L Total Protein 8.5 H (6.3-8.2) g/dL Albumin 5.3 H (3.5-5.0) g/dL - Imaging CT scan - abdomen: report reviewed, image reviewed CT scan - chest: report reviewed, image reviewed CT scan - pelvis: report reviewed, image reviewed Additional studies: US breast shows over 2 cm lesion of the right breast. Assessment and Plan (1) Cancer of left breast, stage 3 Current Visit: Yes Status: Acute Code(s): C50.912 - MALIGNANT NEOPLASM OF UNSPECIFIED SITE OF LEFT FEMALE BREAST SNOMED Code(s): 887677928 (2) CASSIDY (acute kidney injury) Current Visit: Yes Status: Acute Code(s): N17.9 - ACUTE KIDNEY FAILURE, UNSPECIFIED SNOMED Code(s): 41710265 (3) Breast nodule Current Visit: Yes Status: Acute Code(s): N63.0 - UNSPECIFIED LUMP IN UNSPECIFIED BREAST SNOMED Code(s): 03473173 (4) Dehydration Current Visit: Yes Status: Acute Code(s): E86.0 - DEHYDRATION SNOMED Code( s): 58507632
--- NOTE | 2018-07-17 16:22 | PN ---
PROGRESS NOTE DATE OF SERVICE: 07/17/2018 This 58-year-old woman was admitted with dehydration, possible acute tubular necrosis with prerenal factors, had creatinine 1.3 and today it is 0.8. The patient is still complaining of some nausea and magnesium is also low. The patient was also seen by Dr. Nam. The patient also had a CT scan of the abdomen and pelvis also which showed 1.6 mm low-density lesion in the lateral segment of the left lobe of the liver and mild DJD was also noted. Patient closely monitored. PAST MEDICAL HISTORY: Reviewed. REVIEW OF SYSTEMS: CARDIOVASCULAR: No angina. RESPIRATORY: As mentioned. GI: As mentioned earlier. : No dysuria, retention, otherwise mentioned earlier. HEMATOLOGY: As mentioned earlier. CURRENT MEDICATIONS: Reviewed and include: 1. Tylenol 650 q.4 hours. 2. Xanax 0.5 t.i.d. 3. Cordarone 200 mg daily. 4. Norvasc 5 mg. 5. Plavix 75 mg. 6. Cymbalta 60 mg q.h.s. 8. Zetia 10 mg daily. 9. Pepcid 20 mg b.i.d. 10.Apresoline 10 mg q.4h. 11.Dilaudid p.r.n. 12.NovoLog a.c. and at bedtime. 13.NovoLog 10 units a.c. t.i.d. 14.Levemir 50 units subcu daily. 15.Magnesium daily. 16.Flagyl 500 mg IV q.8h. 17.Zofran. 18.Protonix. PHYSICAL EXAM: Patient is alert, oriented x3. Pulse 74, blood pressure 140/78, respiration 18, temperature 98.2, pulse ox 94 percent on room air. HEENT: Conjunctivae normal. Oral mucosa moist. NECK: No jugular venous distention. No carotid bruit. No lymph node enlargement. CARDIOVASCULAR: S1, S2. RESPIRATORY: Breath sounds diminished in the bases. A few scattered rhonchi. No crackles. ABDOMEN: Soft, nontender. No mass palpable. LEGS: No edema, no swelling. NERVOUS SYSTEM: Higher function as mentioned. Moves all 4 limbs. No focal motor sensory deficits. LYMPHATICS: No lymphadenopathy in the neck, axillae, groin. SKIN: No ulcer, rash, bleeding. JOINTS: No active deforming arthropathy. LABS: WBC 6.2, hemoglobin 12.2, sodium 130, potassium 4.6, glucose 148, magnesium 1.5. ASSESSMENT: 1. Dehydration with acute renal failure. 2. Nausea, possible acute gastritis. 3. Possible acute tubular necrosis with prerenal factors. 4. Hyponatremia. 5. Increased WBC. 6. Elevated plasma lactic acid. 7. Hypomagnesemia. 8. Diarrhea subacute. 9. History of atrial fibrillation. 10.History of coronary artery disease. 11.History of chest pain. 12.History of congestive heart failure. 13.History of cerebrovascular accident, transient ischemic attack. 14.Diabetes mellitus type 2. 15.Gastroesophageal reflux disease. 16.Hypertension. 17.Hyperlipidemia. 18.History of myocardial infarction. 19.History of degenerative joint disease. 20.History of pulmonary embolus. 21.History of seizure disorder. 22.History of coronary artery disease, CABG. 23.History of patent foramen ovale. 24.History of MRSA. 25.History of anxiety, depression. 26.Remote history of nicotine dependence. 27.History of THC. RECOMMENDATIONS AND DISCUSSION: I recommend to continue current medications, monitoring and symptomatic treatment. Otherwise at this time, I recommend to continue the current medication, continue symptomatic treatment. Continue with IV fluids, repeat labs, magnesium supplementation. Follow the CT scans. Guarded prognosis because of multiple complex medical issues. Further recommendations to follow. MMMARYL / JULIETAN: [id number] / [email or web address]
[2018-07-17] MEDS: MAGNESIUM SULFATE-D5W PMX 1 GM in DEXTROSE/WATER 1 100ML.BAG IVPB SCH ×2 (16:45→17:51)
[2018-07-17 17:09] LABS: Glucose,Whole Blood 93 mg/dL (75-99)
[2018-07-17] MEDS: PANTOPRAZOLE 40 MG/10 ML VIAL IVP SCH (20:24)
[2018-07-17 20:38] LABS: Glucose,Whole Blood 200 mg/dL (75-99)
[2018-07-18] MEDS: ONDANSETRON 4 MG/2 ML VIAL IVP PRN ×2 (04:24→17:02)
[2018-07-18] MEDS: HYDROmorphone 1 MG/ML 1 ML SYRINGE IVP PRN ×6 (04:24→23:23)
[2018-07-18 06:06] LABS: Basophils # (A) 0.1 k/uL (0-0.2); Basophils % (A) 1 %; Eosinophils # (A) 0.3 k/uL (0-0.7); Eosinophils % (A) 6 %; HCT 39.6 % (34.0-46.0); HGB 12.4 gm/dL (11.4-16.0); Lymphocytes # (A) 1.6 k/uL (1.0-4.8); Lymphocytes % (A) 29 %; MCH 27.8 pg (25.0-35.0); MCHC 31.4 g/dL (31.0-37.0); MCV 88.3 fL (80.0-100.0); Mean Platelet Volume 7.3; Monocytes # (A) 0.4 k/uL (0-1.0); Monocytes % (A) 8 %; Neutrophils # (A) 2.9 k/uL (1.3-7.7); Neutrophils % (A) 54 %; Platelet Count 218 k/uL (150-450); RBC 4.48 m/uL (3.80-5.40); RDW 14.3 % (11.5-15.5); WBC 5.4 k/uL (3.8-10.6)
[2018-07-18 06:12] LABS: Glucose,Whole Blood 162 mg/dL (75-99)
[2018-07-18 06:19] LABS: Calcium 9.2 mg/dL (8.4-10.2)
[2018-07-18] MEDS: INSULIN ASPART 100 UNIT/ML 1 ML 10 ML VIAL SQ SCH ×7 (06:27→21:29)
[2018-07-18] MEDS: metroNIDAZOLE-NS PMX 500 MG in SALINE 1 100ML.BAG IVPB SCH ×3 (07:45→23:02)
[2018-07-18] MEDS: METOPROLOL SUCCINATE (ER) 100 MG TAB.ER.24H PO SCH ×2 (07:46→20:41)
[2018-07-18] MEDS: EZETIMIBE 10 MG TAB PO SCH (07:46)
[2018-07-18] MEDS: DULoxetine HCL 30 MG CAPSULE.DR PO SCH (07:46)
[2018-07-18] MEDS: AMIODARONE 200 MG TAB PO SCH (07:46)
[2018-07-18] MEDS: amLODIPine 5 MG TAB PO SCH (07:46)
[2018-07-18] MEDS: FAMOTIDINE 20 MG TAB PO SCH ×2 (07:46→20:41)
[2018-07-18] MEDS: CLOPIDOGREL 75 MG TAB PO SCH (07:46)
[2018-07-18] MEDS: PANTOPRAZOLE 40 MG/10 ML VIAL IVP SCH ×2 (07:47→20:41)
[2018-07-18] MEDS: INSULIN DETEMIR 100 UNIT/ML 10 ML VIAL SQ SCH (08:12)
--- NOTE | 2018-07-18 10:11 | P.PN ---
Subjective Progress Note Date: 07/18/18 The patient overall feels better. Diarrhea appears to have improved significantly. She denies significant abdominal pain, nausea or vomiting. She is reporting discharge from the breast lesion. Objective - Vital Signs Vital signs: Vital Signs Temp 97.6 F 07/18/18 07:53 Pulse 54 L 07/18/18 07:53 Resp 18 07/18/18 07:53 BP 134/76 07/18/18 07:53 Pulse Ox 97 07/18/18 07:53 Intake & Output 07/17/18 07/18/18 07/18/18 18:59 06:59 18:59 Intake Total 680 800 360 Balance 680 800 360 Weight 97.7 kg 98.9 kg Intake: Intake, IV Titration 800 Amount Sodium Chloride 0.9% 1, 800 000 ml @ 50 mls/hr IV . Q20H STA Rx#:[id number] Oral 680 360 Other: Voiding Method Toilet # Voids 1 - Constitutional General appearance: Present: no acute distress - EENT Eyes: Present: EOMI ENT: Present: hearing grossly normal, normal oropharynx - Respiratory Respiratory: bilateral: CTA - Cardiovascular Rhythm: regular Heart sounds: normal: S1, S2 - Gastrointestinal General gastrointestinal: Present: normal bowel sounds, soft - Neurologic Neurologic: Present: CNII-XII intact - Musculoskeletal Musculoskeletal: Present: strength equal bilaterally - Psychiatric Psychiatric: Present: A&O x's 3, appropriate affect - Labs CBC & Chem 7: 07/18/18 05:47 07/18/18 05:47 Labs: Abnormal Lab Results - Last 24 Hours (Table) 07/17/18 07/17/18 07/18/18 Range/Units 11:40 20:37 05:47 Glucose 145 H (74-99) mg/dL POC Glucose (mg/dL) 150 H 200 H (75-99) mg/dL 07/18/18 Range/Units 06:10 Glucose (74-99) mg/dL POC Glucose (mg/dL) 162 H (75-99) mg/dL Microbiology - Last 24 Hours (Table) 07/16/18 18:40 Urine Culture - Final Urine,Voided 07/16/18 16:04 Blood Culture - Preliminary Blood No Growth after 24 hours Assessment and Plan (1) CASSIDY (acute kidney injury) Narrative/Plan: This has resolved with hydration. This was due to dehydration from diarrhea. Diarrhea has improved significantly. Current Visit: Yes Status: Acute Code(s): N17.9 - ACUTE KIDNEY FAILURE, UNSPECIFIED SNOMED Code(s): 99132886 (2) Breast nodule Narrative/Plan: The patient has been assessed by surgery, and an infectious etiology is favored but biopsy is recommended. Continue antibiotics. The CT of the chest abdomen and pelvis did not show any definite evidence of metastatic disease Current Visit: Yes Status: Acute Code(s): N63.0 - UNSPECIFIED LUMP IN UNSPECIFIED BREAST SNOMED Code(s): 31860010 (3) Diarrhea Current Visit: Yes Status: Acute Code(s): R19.7 - DIARRHEA, UNSPECIFIED SNOMED Code(s): 38811710
--- NOTE | 2018-07-18 11:54 | P.PN ---
Subjective Progress Note Date: 07/18/18 CHIEF COMPLAINT: History of right breast lesion HISTORY OF PRESENT ILLNESS: The patient is a 58-year-old female who presents with right breasts lesion highly suspicious for cellulitis however in the background of breast cancer, inflammatory breast disease cannot be excluded. General surgery has been consulted as result. Since yesterday, now she has new drainage from the breast. Multiple studies including ultrasound and CT abdomen has been obtained. No reports of fevers or chills. PHYSICAL EXAM: GENERAL: Well-developed in no distress. HEENT: No scleral icterus. Extraocular movements grossly intact. Hears conversational speech. No nasal drainage. NECK: Supple without lymphadenopathy. CHEST: Nonlabored respirations with equal bilateral excursions. CARDIOVASCULAR: Regular rate and regular rhythm. Distal 2+ pulses. ABDOMEN: Soft, nontender, nondistended MUSCULOSKELETAL: No clubbing, cyanosis NEURO: No focal or lateralizing signs. Cranial nerves 2 through 12 grossly within normal limits. PSYCH: Appropriate affect. Alert and oriented to person, place and time. SKIN: Good skin turgor. Well perfused. BREAST: A right breast abscess of 3.5 cm right upper outer quadrant of the breast. Minimal drainage noted. Tender to touch. ASSESSMENT: 1. Right breast lesion/abscess/cellulitis 2. History of left breast cancer PLAN: 1. Recommend warm compresses to right breast 3 times daily 2. Biopsy deferred to Dr. Cyr Objective - Vital Signs Vital signs: Vital Signs Temp 97.8 F 07/18/18 11:39 Pulse 53 L 07/18/18 11:39 Resp 18 07/18/18 11:39 BP 153/80 07/18/18 11:39 Pulse Ox 96 07/18/18 11:39 Intake & Output 07/17/18 07/18/18 07/18/18 18:59 06:59 18:59 Intake Total 680 800 360 Balance 680 800 360 Weight 97.7 kg 98.9 kg Intake: Intake, IV Titration 800 Amount Sodium Chloride 0.9% 1, 800 000 ml @ 50 mls/hr IV . Q20H STA Rx#:[id number] Oral 680 360 Other: Voiding Method Toilet # Voids 1 - Labs CBC & Chem 7: 07/18/18 05:47 07/18/18 05:47 Labs: Abnormal Lab Results - Last 24 Hours (Table) 07/17/18 07/18/18 07/18/18 Range/Units 20:37 05:47 06:10 Glucose 145 H (74-99) mg/dL POC Glucose (mg/dL) 200 H 162 H (75-99) mg/dL Microbiology - Last 24 Hours (Table) 07/16/18 18:40 Urine Culture - Final Urine,Voided 07/16/18 16:04 Blood Culture - Preliminary Blood No Growth after 24 hours Assessment and Plan (1) Cancer of left breast, stage 3 Current Visit: Yes Status: Acute Code(s): C50.912 - MALIGNANT NEOPLASM OF UNSPECIFIED SITE OF LEFT FEMALE BREAST SNOMED Code(s): 366472358 (2) CASSIDY (acute kidney injury) Current Visit: Yes Status: Acute Code(s): N17.9 - ACUTE KIDNEY FAILURE, UNSPECIFIED SNOMED Code(s): 87529627 (3) Breast nodule Current Visit: Yes Status: Acute Code(s): N63.0 - UNSPECIFIED LUMP IN UNSPECIFIED BREAST SNOMED Code(s): 05645893 (4) Dehydration Current Visit: Yes Status: Acute Code(s): E86.0 - DEHYDRATION SNOMED Code( s): 36357793 (5) Abscess of right breast Current Visit: Yes Status: Acute Code(s): N61.1 - ABSCESS OF THE BREAST AND NIPPLE SNOMED Code(s): 28635348 (6) Cellulitis of right breast Current Visit: Yes Status: Acute Code(s): N61.0 - MASTITIS WITHOUT ABSCESS SNOMED Code(s): 11030842
[2018-07-18 11:58] LABS: Glucose,Whole Blood 171 mg/dL (75-99)
[2018-07-18] MEDS: ALPRAZolam 0.25 MG TAB PO PRN ×2 (13:06→20:57)
[2018-07-18] MEDS: hydrALAZINE HCL 20 MG/ML 1 ML VIAL IVP PRN (16:53)
[2018-07-18 17:07] LABS: Glucose,Whole Blood 145 mg/dL (75-99)
--- NOTE | 2018-07-18 20:31 | XR ---
EXAMINATION TYPE: XR lumbosacral spine min 4V DATE OF EXAM: 07/18/2018 COMPARISON: NONE HISTORY: Back pain TECHNIQUE: 5 views FINDINGS: Vertebra have fairly normal spacing and alignment. Posterior elements are intact. There is inferior vena cava filter noted. Abdominal aorta is atheromatous. There is oral contrast in the bowel that obscures the vertebra to some extent. Sacroiliac joints appear normal. IMPRESSION: Negative lumbar spine exam.
[2018-07-18] MEDS: DULoxetine HCL 60 MG CAPSULE.DR PO SCH (20:40)
[2018-07-18 21:20] LABS: Glucose,Whole Blood 205 mg/dL (75-99)
--- NOTE | 2018-07-18 21:44 | PN ---
PROGRESS NOTE DATE OF SERVICE: 07/18/2018 This 58-year-old woman was admitted with dehydration, possible acute renal failure is being closely monitored. Patient also had some discharge from the right breast today. No chest pain. No palpitations. No fever. PHYSICAL EXAM: Alert and oriented x3. Pulse is 79. Blood pressure 160/90, respiration 18, temperature 97.2, pulse ox 97% on room air. HEENT: Conjunctivae normal. Oral mucosa moist. Neck is no jugular venous distention. No carotid bruit. No lymph node enlargement. Cardiovascular: S1, S2. RESPIRATORY: Breath sounds diminished in the bases. A few rhonchi and crackles. ABDOMEN: Soft, nontender. No mass palpable. Legs are no edema. No swelling. Central nervous system: No focal deficits. LABS: CBC within normal limits. Glucose 145. ASSESSMENT: 1. Dehydration with acute renal failure. 2. Nausea, possible acute gastritis. 3. Possible acute tubular necrosis with prerenal factors and hyponatremia. 4. Increased WBC. 5. Elevated plasma lactic acid. 6. Hypomagnesemia. 7. Diarrhea subacute. 8. History of atrial fibrillation. 9. History of coronary artery disease. 10.History of chest pain. 11.History of congestive heart failure. 12.History of cerebrovascular accident, transient ischemic attack. 13.Diabetes type 2. 14.History of gastroesophageal reflux disease. 15.Hypertension. 16.Hyperlipidemia. 17.History of myocardial infarction. 18.History of degenerative joint disease. 19.History of pulmonary embolism. 20.History of seizure disorder. 21.History of coronary artery disease, coronary artery bypass grafting. 22.History of patent foramen ovale. 23.History of Methicillin-resistant Staphylococcus aureus. 24.History of anxiety, depression. 25.Remote history of nicotine dependence. 26.History of THC. RECOMMENDATIONS AND DISCUSSION: Recommend to continue current medications and continue with monitoring and symptomatic treatment. Otherwise, at this time, I recommend continue the IV fluids. Closely monitor. Further recommendations to follow. MMODL / IJN: [id number] /
[2018-07-19] MEDS: HYDROmorphone 1 MG/ML 1 ML SYRINGE IVP PRN ×6 (03:36→21:58)
[2018-07-19 05:59] LABS: Glucose,Whole Blood 119 mg/dL (75-99)
[2018-07-19] MEDS: INSULIN ASPART 100 UNIT/ML 1 ML 10 ML VIAL SQ SCH ×7 (06:55→21:33)
[2018-07-19 07:09] LABS: Basophils % (A) 1 %; Eosinophils # (A) 0.3 k/uL (0-0.7); Eosinophils % (A) 7 %; HCT 39.5 % (34.0-46.0); HGB 12.6 gm/dL (11.4-16.0); Lymphocytes # (A) 1.8 k/uL (1.0-4.8); Lymphocytes % (A) 35 %; MCH 28.1 pg (25.0-35.0); MCV 87.8 fL (80.0-100.0); Monocytes # (A) 0.4 k/uL (0-1.0); Monocytes % (A) 7 %; Neutrophils # (A) 2.5 k/uL (1.3-7.7); Neutrophils % (A) 49 %; Platelet Count 219 k/uL (150-450); RDW 14.2 % (11.5-15.5); WBC 5.1 k/uL (3.8-10.6)
[2018-07-19] MEDS: metroNIDAZOLE-NS PMX 500 MG in SALINE 1 100ML.BAG IVPB SCH (08:07)
[2018-07-19] MEDS: EZETIMIBE 10 MG TAB PO SCH (08:08)
[2018-07-19] MEDS: amLODIPine 5 MG TAB PO SCH (08:08)
[2018-07-19] MEDS: CLOPIDOGREL 75 MG TAB PO SCH (08:08)
[2018-07-19] MEDS: DULoxetine HCL 30 MG CAPSULE.DR PO SCH (08:08)
[2018-07-19] MEDS: FAMOTIDINE 20 MG TAB PO SCH ×2 (08:08→21:43)
[2018-07-19] MEDS: AMIODARONE 200 MG TAB PO SCH (08:08)
[2018-07-19] MEDS: METOPROLOL SUCCINATE (ER) 100 MG TAB.ER.24H PO SCH ×2 (08:08→21:43)
[2018-07-19] MEDS: INSULIN DETEMIR 100 UNIT/ML 10 ML VIAL SQ SCH (08:09)
[2018-07-19] MEDS: PANTOPRAZOLE 40 MG/10 ML VIAL IVP SCH ×2 (08:09→22:30)
[2018-07-19] MEDS: ONDANSETRON 4 MG/2 ML VIAL IVP PRN (08:10)
[2018-07-19 10:01] LABS: Anion Gap 7 mmol/L; Blood Urea Nitrogen 13 mg/dL (7-17); Calcium 9.1 mg/dL (8.4-10.2); Carbon Dioxide 25 mmol/L (22-30); Chloride 107 mmol/L (98-107); Glucose 115 mg/dL (74-99); Magnesium 1.4 mg/dL (1.6-2.3); Potassium 4.5 mmol/L (3.5-5.1); Sodium 139 mmol/L (137-145)
[2018-07-19] MEDS ORDERED: Magnesium Replacement Protocol 1 EACH MISC MISCELLANE PRN (10:37)
[2018-07-19 11:33] LABS: Glucose,Whole Blood 175 mg/dL (75-99)
[2018-07-19] MEDS: MAGNESIUM SULFATE-D5W PMX 1 GM in DEXTROSE/WATER 1 100ML.BAG IVPB SCH ×3 (12:01→15:37)
[2018-07-19] MEDS: ALPRAZolam 0.25 MG TAB PO PRN ×2 (13:12→21:43)
[2018-07-19] MEDS: metroNIDAZOLE 500 MG TAB PO SCH ×2 (15:38→21:43)
[2018-07-19] MEDS ORDERED: LIDOCAINE 1% INJ 10MG/ML (20 ML MDV) SQ ONE (15:59)
--- NOTE | 2018-07-19 16:03 | P.PN ---
Subjective Progress Note Date: 07/19/18 Principal diagnosis: Right breast lesion 58-year-old female with history of stage III left breast cancer underwent previous lumpectomy and radiation therapy followed by chemotherapy and subsequent hormonal therapy. This treatment began at 2012. Over the last 5 weeks the patient noticed a redness and tender spot in the right breast outer quadrants. Over the last several days she has noticed some pus-looking drainage from that area. Ultrasound showed a superficial solid lesion measuring 2 cm. CAT scan was performed which showed no definite abnormalities. Apparently she was told she could not have a mammogram because of a recent pacemaker placement. She currently is on Plavix but normally is on Coumadin or Xarelto. Objective - Vital Signs Vital signs: Vital Signs Temp 98.1 F 07/19/18 15:32 Pulse 57 L 07/19/18 15:52 Resp 16 07/19/18 15:32 BP 134/73 07/19/18 15:32 Pulse Ox 98 07/19/18 15:32 Intake & Output 07/18/18 07/19/18 07/19/18 18:59 06:59 18:59 Intake Total 780 580 Output Total 0 Balance 780 580 Weight 99.8 kg Intake: Oral 780 580 Output: Urine 0 Other: Voiding Method Toilet # Voids 1 - Exam Right breast with a 2.5 x 2.5 cm area of erythema, mildly tender, appears quite superficial without underlying mass, small amount of purulent fluid coming from a wound measuring only a few millimeters in size centrally, no adenopathy, no additional abnormalities - Labs CBC & Chem 7: 07/19/18 06:27 07/19/18 06:27 Labs: Abnormal Lab Results - Last 24 Hours (Table) 07/18/18 07/18/18 07/19/18 Range/Units 16:57 21:18 05:58 Glucose (74-99) mg/dL POC Glucose (mg/dL) 145 H 205 H 119 H (75-99) mg/dL Magnesium (1.6-2.3) mg/dL 07/19/18 07/19/18 Range/Units 06:27 11:32 Glucose 115 H (74-99) mg/dL POC Glucose (mg/dL) 175 H (75-99) mg/dL Magnesium 1.4 L (1.6-2.3) mg/dL Microbiology - Last 24 Hours (Table) 07/16/18 16:04 Blood Culture - Preliminary Blood No Growth after 48 hours Assessment and Plan (1) Breast nodule Narrative/Plan: [age] female with area of erythema right breast. Suspect infection more likely than inflammatory malignancy. We'll proceed with biopsy/incision and drainage of the area with planned excision of both skin and superficial subcutaneous tissues. I discussed with the patient that this may need to be left open. Locations including bleeding, infection, scarring, pain were reviewed. She understands and wishes to proceed. Current Visit: Yes Status: Acute Code(s): N63.0 - UNSPECIFIED LUMP IN UNSPECIFIED BREAST SNOMED Code(s): 48851165
--- NOTE | 2018-07-19 16:48 | P.PCN ---
Date of Procedure: 07/19/18 Procedure(s) Performed: PREOPERATIVE DIAGNOSIS: Right breast skin lesion POSTOPERATIVE DIAGNOSIS: Same PROCEDURE: Incisional biopsy right breast skin lesion SURGEON: Klarissa EBL: 1 mL ANESTHESIA: Lidocaine COMPLICATIONS: None OPERATIVE PROCEDURE: Patient kept a room for the procedure. The skin was prepped with ChloraPrep. The skin was localized with lidocaine. An elliptical incision was made encompassing the small wound that it formed in the central aspect. Dissection into the subcutaneous tissues took place sharply. A portion of subcutaneous tissues along with the skin was removed. This was 1 cm in length 1 cm in depth and about 5 mm in width. There was no abscess cavity encountered. The specimen was sent in formalin to pathology. A single 4-0 nylon stitch was used to reapproximate the skin. No significant bleeding was seen. A sterile dressing was applied. DISPOSITION: Stable to recovery room
[2018-07-19 16:56] LABS: Glucose,Whole Blood 175 mg/dL (75-99)
--- NOTE | 2018-07-19 17:20 | PN ---
PROGRESS NOTE DATE OF SERVICE: 07/19/2018. HISTORY OF PRESENT ILLNESS: This 58-year-old woman who was admitted acute renal failure also had acute tubular necrosis. The patient was referred from Dr. Escalante's office because evaluation of the right breast lesion by Dr. Cyr. Dr. Cyr's evaluation in progress at this time. The patient also had a CT scan of chest, abdomen and pelvis which showed 1.6 cm lesion in the lateral segment of the left lobe of the liver and degenerative joint disease of spine. Breast ultrasound was done which showed a hypervascular solid mass in the upper quadrant of the right breast and the lumbar spine x-ray was also done for the back pain which showed no acute abnormality. PAST MEDICAL HISTORY: Reviewed. REVIEW OF SYSTEMS: Cardiovascular: No angina or palpations. Respiration: As mentioned earlier. GI as mentioned. : No dysuria. CONSTITUTIONAL: As mentioned earlier. NEUROLOGICAL: No numbness or weakness. CURRENT MEDICATIONS: 1. Tylenol 650 q.6h. 2. Xanax 0.25 t.i.d. 3. Cordarone 200 mg. 4. Norvasc 5 mg. 5. Plavix 75 mg. 6. Cymbalta 60 mg p.o. q.h.s. and 30 mg. 7. Zetia 10 mg. 8. Pepcid 20 mg b.i.d. 9. Alprazolam 10 mg IV q.4h. 10.Dilaudid 0.5 q.3h p.r.n. 11.NovoLog scale. 12.Levemir 15 units subcu daily. 13.Toprol-XL 200 mg p.o. b.i.d. 14.Flagyl 500 mg p.o. t.i.d. 15.Naloxone. 16.Narcan p.r.n. 17.Nitrostat 0.4 mg p.r.n. 18.Zofran. 19.Protonix. PHYSICAL EXAMINATION: The patient is alert and oriented x3. Pulse 58, blood pressure 159/77, respirations 17, temperature 97.2, pulse ox 93% on room air. HEENT: Conjunctivae normal. Oral mucosa moist. Neck is no jugular venous distention. No thyroid enlargement. No carotid bruit. No lymph node enlargement. Cardiovascular system: S1, S2. Respiratory: Breath sounds diminished in the bases. No rhonchi. No crackles. ABDOMEN: Soft, nontender. No mass. Legs no edema and no swelling. Central system: Higher functions as mentioned earlier. Moves all four extremities. No focal motor or sensory deficits. Lymphatics: No lymph nodes palpable in the neck, axillae or groin. Skin: No ulcer, rash or bleeding. LABS: CBC noted. Accu-Cheks 115, 175. Magnesium 1.4. ASSESSMENT: 1. Dehydration with acute renal failure, present on admission. 2. Nausea, possible acute gastritis. 3. Possible acute tubular necrosis with prerenal factors and hyponatremia. 4. Possible right breast mass. 5. Hypomagnesemia. 6. Increased WBC. 7. Increased elevated plasma lactic acid. 8. Hypomagnesemia. 9. Diarrhea subacute. 10.History atrial fibrillation. 11.History of coronary artery disease. 12.History of chest pain. 13.History of congestive heart failure. 14.History of cerebrovascular accident, transient ischemic attack. 15.Diabetes mellitus type 2. 16.History of gastroesophageal reflux disease. 17.Hypertension. 18.Hyperlipidemia. 19.History of myocardial infarction. 20.History of degenerative joint disease. 21.History of pulmonary embolus. 22.History of seizure disorder. 23.History of coronary artery disease/coronary artery bypass grafting. 24.History of patent foramen ovale. 25.History of Methicillin-resistant Staphylococcus aureus. 26.History of anxiety, depression. 27.Remote history of nicotine dependence. 28.History of THC. RECOMMENDATIONS AND DISCUSSION: This 58-year-old woman who presented with multiple complex medical issues, we will monitor the patient closely. Continue the current medications, management and symptomatic treatment. Otherwise, I recommend monitor lytes closely. Continue the rest of medications. Evaluation by Dr. Cyr and Hematology/Oncology. Prognosis guarded because of multiple complex medical issues. Further recommendations to follow. MMODL / IJN: [id number] / MTDD
[2018-07-19 21:24] LABS: Glucose,Whole Blood 78 mg/dL (75-99)
[2018-07-19] MEDS: DULoxetine HCL 60 MG CAPSULE.DR PO SCH (21:43)
[2018-07-20] MEDS: HYDROmorphone 1 MG/ML 1 ML SYRINGE IVP PRN ×4 (01:36→11:36)
[2018-07-20 02:10] LABS: Glucose,Whole Blood 167 mg/dL (75-99)
[2018-07-20] MEDS: ONDANSETRON 4 MG/2 ML VIAL IVP PRN ×2 (05:23→11:36)
[2018-07-20 07:06] LABS: Glucose,Whole Blood 144 mg/dL (75-99)
[2018-07-20 08:04] LABS: Basophils % (A) 1 %; Eosinophils # (A) 0.3 k/uL (0-0.7); Eosinophils % (A) 6 %; HCT 38.1 % (34.0-46.0); HGB 12.5 gm/dL (11.4-16.0); Lymphocytes # (A) 1.7 k/uL (1.0-4.8); Lymphocytes % (A) 32 %; MCH 28.6 pg (25.0-35.0); MCHC 32.7 g/dL (31.0-37.0); MCV 87.3 fL (80.0-100.0); Mean Platelet Volume 7.8; Monocytes # (A) 0.4 k/uL (0-1.0); Monocytes % (A) 8 %; Neutrophils # (A) 2.6 k/uL (1.3-7.7); Neutrophils % (A) 51 %; Platelet Count 228 k/uL (150-450); RBC 4.37 m/uL (3.80-5.40); RDW 14.3 % (11.5-15.5); WBC 5.1 k/uL (3.8-10.6)
[2018-07-20] MEDS: INSULIN ASPART 100 UNIT/ML 1 ML 10 ML VIAL SQ SCH ×7 (08:11→20:31)
[2018-07-20] MEDS: INSULIN DETEMIR 100 UNIT/ML 10 ML VIAL SQ SCH (08:12)
[2018-07-20] MEDS: METOPROLOL SUCCINATE (ER) 100 MG TAB.ER.24H PO SCH ×2 (08:12→20:30)
[2018-07-20] MEDS: EZETIMIBE 10 MG TAB PO SCH (08:13)
[2018-07-20] MEDS: AMIODARONE 200 MG TAB PO SCH (08:13)
[2018-07-20] MEDS: amLODIPine 5 MG TAB PO SCH (08:13)
[2018-07-20] MEDS: CLOPIDOGREL 75 MG TAB PO SCH (08:13)
[2018-07-20] MEDS: FAMOTIDINE 20 MG TAB PO SCH ×2 (08:13→20:30)
[2018-07-20] MEDS: metroNIDAZOLE 500 MG TAB PO SCH ×3 (08:13→20:30)
[2018-07-20] MEDS: PANTOPRAZOLE 40 MG/10 ML VIAL IVP SCH ×2 (08:13→20:27)
[2018-07-20] MEDS: DULoxetine HCL 30 MG CAPSULE.DR PO SCH (08:16)
[2018-07-20 08:22] LABS: Anion Gap 8 mmol/L; Blood Urea Nitrogen 12 mg/dL (7-17); Calcium 9.1 mg/dL (8.4-10.2); Carbon Dioxide 24 mmol/L (22-30); Chloride 108 mmol/L (98-107); Glucose 134 mg/dL (74-99); Magnesium 1.7 mg/dL (1.6-2.3); Sodium 140 mmol/L (137-145)
[2018-07-20] MEDS: MAGNESIUM SULFATE-D5W PMX 1 GM in DEXTROSE/WATER 1 100ML.BAG IVPB SCH ×2 (09:02→10:22)
[2018-07-20] MEDS: ALPRAZolam 0.25 MG TAB PO PRN ×2 (10:26→20:28)
[2018-07-20 11:32] LABS: Glucose,Whole Blood 224 mg/dL (75-99)
[2018-07-20] MEDS: HYDROcodone/APAP 10-325MG 1 EACH TAB PO PRN ×2 (14:44→20:28)
--- NOTE | 2018-07-20 15:12 | P.PN ---
<Daniela Miller - Last Filed: 07/20/18 15:05> Subjective Progress Note Date: 07/20/18 58-year-old seen at the bedside. Surgical dressing from the incisional biopsy right side intact no redness noted patient states it's slightly tender. Patient is postop July 19 incisional biopsy right breast skin lesion Objective - Vital Signs Vital signs: Vital Signs Temp 97.8 F 07/20/18 06:11 Pulse 60 07/20/18 08:00 Resp 16 07/20/18 08:00 BP 113/65 07/20/18 08:00 Pulse Ox 96 07/20/18 08:00 Intake & Output 07/19/18 07/20/18 07/20/18 18:59 06:59 18:59 Intake Total 580 250 240 Output Total 0 Balance 580 250 240 Intake: Oral 580 250 240 Output: Urine 0 Other: Voiding Method Toilet Toilet # Voids 1 # Bowel Movements 1 1 - Exam Physical exam Right breast surgical dressing dry slight tenderness no redness noted no drainage on the dressing no odor. Patient states less tender - Labs CBC & Chem 7: 07/20/18 07:21 07/20/18 07:21 Labs: Abnormal Lab Results - Last 24 Hours (Table) 07/19/18 07/20/18 07/20/18 Range/Units 16:54 02:09 07:04 Chloride (98-107) mmol/L Glucose (74-99) mg/dL POC Glucose (mg/dL) 175 H 167 H 144 H (75-99) mg/dL 07/20/18 07/20/18 Range/Units 07:21 11:31 Chloride 108 H (98-107) mmol/L Glucose 134 H (74-99) mg/dL POC Glucose (mg/dL) 224 H (75-99) mg/dL Microbiology - Last 24 Hours (Table) 07/16/18 16:04 Blood Culture - Preliminary Blood No Growth after 72 hours Assessment and Plan Assessment: Impression Postop July 19 incisional biopsy right breast skin lesion. History of stage III left breast cancer underwent a prior lumpectomy and radiation treatment computed tomography scan of the chest and pelvis did not show any definitive evidence of metastatic disease right breast redness and tender with possible looking drainage from the area prior to admission Ultrasound of the right breast showed 2 x 5 x 2.5 erythremia tenderness superficial without underlying mass small amount appearing fluid from the wound noted Plan Continue postop surgical care Continue Flagyl 500 by mouth 3 times a day Follow-up on the path report pending Pain control DVT and GI prophylaxis Will follow with you Further surgical recommendations pending The above impression and plan of care have been discussed and directed by signing physician. Daniela Miller nurse practitioner acting as scribe for signing physician. <Renan Cyr - Last Filed: 07/20/18 15:42> Objective - Vital Signs Vital signs: Vital Signs Temp 97.8 F 07/20/18 06:11 Pulse 60 07/20/18 08:00 Resp 16 07/20/18 08:00 BP 113/65 07/20/18 08:00 Pulse Ox 96 07/20/18 08:00 Intake & Output 07/19/18 07/20/18 07/20/18 18:59 06:59 18:59 Intake Total 580 250 240 Output Total 0 Balance 580 250 240 Intake: Oral 580 250 240 Output: Urine 0 Other: Voiding Method Toilet Toilet # Voids 1 # Bowel Movements 1 1 - Labs CBC & Chem 7: 07/20/18 07:21 07/20/18 07:21 Labs: Abnormal Lab Results - Last 24 Hours (Table) 07/19/18 07/20/18 07/20/18 Range/Units 16:54 02:09 07:04 Chloride (98-107) mmol/L Glucose (74-99) mg/dL POC Glucose (mg/dL) 175 H 167 H 144 H (75-99) mg/dL 07/20/18 07/20/18 Range/Units 07:21 11:31 Chloride 108 H (98-107) mmol/L Glucose 134 H (74-99) mg/dL POC Glucose (mg/dL) 224 H (75-99) mg/dL Microbiology - Last 24 Hours (Table) 07/16/18 16:04 Blood Culture - Preliminary Blood No Growth after 72 hours Assessment and Plan Assessment: As above. Pathology remains pending. Follow-up in the office post discharge. (1) Breast nodule Current Visit: Yes Status: Acute Code(s): N63.0 - UNSPECIFIED LUMP IN UNSPECIFIED BREAST SNOMED Code(s): 46179219
[2018-07-20] MEDS: CYCLOBENZAPRINE 10 MG TAB PO PRN (15:39)
[2018-07-20 17:23] LABS: Glucose,Whole Blood 138 mg/dL (75-99)
--- NOTE | 2018-07-20 19:04 | P.PN ---
Subjective Progress Note Date: 07/20/18 Principal diagnosis: history of breast cancer Patient seen today in follow-up. She is status post breast biopsy, pathology pending. The breast is c d still operator, red, warm to the touch, some drainage noted. Patient denies fevers, unintentional weight loss, night sweats, lymph nodes in the neck or the armpit, other changes in the breast that were visible, she is current on her follow-up, she has no other complaints today. She was questioning her Xarelto which she takes for PFO, she also has not been receiving her Arimidex. Objective - Vital Signs Vital signs: Vital Signs Temp 98.1 F 07/20/18 14:25 Pulse 61 07/20/18 14:25 Resp 20 07/20/18 14:25 BP 133/69 07/20/18 14:25 Pulse Ox 97 07/20/18 14:25 Intake & Output 07/19/18 07/20/18 07/20/18 18:59 06:59 18:59 Intake Total 580 250 240 Output Total 0 Balance 580 250 240 Intake: Oral 580 250 240 Output: Urine 0 Other: Voiding Method Toilet Toilet # Voids 1 4 # Bowel Movements 1 1 - Constitutional General appearance: Present: average body habitus, cooperative, no acute distress - Neck Neck: Present: normal ROM. Absent: lymphadenopathy - Respiratory Respiratory: bilateral: CTA - Cardiovascular Heart sounds: normal: S1, S2 - Gastrointestinal General gastrointestinal: Present: normal bowel sounds, soft - Integumentary Integumentary Comment(s): Right breast, 9 o'clock position, 4 cm area of redness, warm to touch, small amount of serosanguineous drainage on the dressing, the mass feels subcutaneous , not deep in the tissue - Neurologic Neurologic: Present: CNII-XII intact - Musculoskeletal Musculoskeletal: Present: strength equal bilaterally - Psychiatric Psychiatric: Present: A&O x's 3, appropriate affect, intact judgment & insight - Labs CBC & Chem 7: 07/20/18 07:21 07/20/18 07:21 Labs: Abnormal Lab Results - Last 24 Hours (Table) 07/20/18 07/20/18 07/20/18 Range/Units 02:09 07:04 07:21 Chloride 108 H (98-107) mmol/L Glucose 134 H (74-99) mg/dL POC Glucose (mg/dL) 167 H 144 H (75-99) mg/dL 07/20/18 07/20/18 Range/Units 11:31 17:22 Chloride (98-107) mmol/L Glucose (74-99) mg/dL POC Glucose (mg/dL) 224 H 138 H (75-99) mg/dL Microbiology - Last 24 Hours (Table) 07/16/18 16:04 Blood Culture - Preliminary Blood No Growth after 96 hours 07/20/18 11:22 Stool Culture - Preliminary Stool Assessment and Plan (1) Cancer of left breast, stage 3 Narrative/Plan: Pt has stage is IIB breast cancer. Arimidex has been reordered. Patient will continue on Arimidex at this time. Pending right breast biopsy. Current Visit: Yes Status: Chronic Priority: High Code(s): C50.912 - MALIGNANT NEOPLASM OF UNSPECIFIED SITE OF LEFT FEMALE BREAST SNOMED Code(s): 181697690 Plan: Patient states being on Xarelto for PFO, she is status post biopsy, do not anticipate any other upcoming invasive procedures at this time, plan to resume Xarelto tomorrow with dinner.
[2018-07-20 20:19] LABS: Glucose,Whole Blood 160 mg/dL (75-99)
[2018-07-20] MEDS: DULoxetine HCL 60 MG CAPSULE.DR PO SCH (20:30)
[2018-07-21] MEDS: HYDROcodone/APAP 10-325MG 1 EACH TAB PO PRN (04:48)
[2018-07-21] MEDS: CYCLOBENZAPRINE 10 MG TAB PO PRN (04:48)
[2018-07-21 06:56] LABS: Glucose,Whole Blood 147 mg/dL (75-99)
[2018-07-21 08:28] VITALS: TEMP 98.2
[2018-07-21] MEDS ORDERED: ANASTROZOLE 1 MG TAB PO SCH (09:00)
[2018-07-21] MEDS: AMIODARONE 200 MG TAB PO SCH (09:07)
[2018-07-21] MEDS: amLODIPine 5 MG TAB PO SCH (09:08)
[2018-07-21] MEDS: FAMOTIDINE 20 MG TAB PO SCH (09:10)
[2018-07-21] MEDS: CLOPIDOGREL 75 MG TAB PO SCH (09:10)
[2018-07-21] MEDS: EZETIMIBE 10 MG TAB PO SCH (09:10)
[2018-07-21] MEDS: DULoxetine HCL 30 MG CAPSULE.DR PO SCH (09:11)
[2018-07-21] MEDS: ALPRAZolam 0.25 MG TAB PO PRN (09:13)
[2018-07-21] MEDS: INSULIN DETEMIR 100 UNIT/ML 10 ML VIAL SQ SCH (09:14)
[2018-07-21] MEDS: INSULIN ASPART 100 UNIT/ML 1 ML 10 ML VIAL SQ SCH ×4 (09:15→12:34)
[2018-07-21] MEDS: METOPROLOL SUCCINATE (ER) 100 MG TAB.ER.24H PO SCH (09:19)
[2018-07-21] MEDS: metroNIDAZOLE 500 MG TAB PO SCH (09:21)
[2018-07-21] MEDS: PANTOPRAZOLE 40 MG/10 ML VIAL IVP SCH (09:22)
[2018-07-21 10:00] LABS: Basophils % (A) 1 %; Eosinophils # (A) 0.3 k/uL (0-0.7); Eosinophils % (A) 7 %; HCT 37.9 % (34.0-46.0); HGB 12.3 gm/dL (11.4-16.0); Lymphocytes # (A) 1.6 k/uL (1.0-4.8); Lymphocytes % (A) 35 %; MCH 28.6 pg (25.0-35.0); MCHC 32.3 g/dL (31.0-37.0); MCV 88.4 fL (80.0-100.0); Monocytes # (A) 0.3 k/uL (0-1.0); Monocytes % (A) 6 %; Neutrophils # (A) 2.3 k/uL (1.3-7.7); Neutrophils % (A) 51 %; Platelet Count 238 k/uL (150-450); RBC 4.29 m/uL (3.80-5.40); RDW 14.3 % (11.5-15.5); WBC 4.6 k/uL (3.8-10.6)
[2018-07-21 10:17] LABS: Calcium 8.8 mg/dL (8.4-10.2); Magnesium 1.5 mg/dL (1.6-2.3); Potassium 4.8 mmol/L (3.5-5.1)
--- NOTE | 2018-07-21 10:25 | P.PN ---
Subjective Progress Note Date: 07/20/18 Principal diagnosis: Acute kidney injury Pain management Right breast mass status post biopsy Patient is a 58-year-old female admitted to the hospital with acute kidney injury and possible ATN. Patient was referred to Dr. Escalante's office because of evaluation of right breast lesion by Dr. Cabello. Patient had a computed tomography scan of the chest abdomen and pelvis which showed 1.6 cm lesion in the lateral segment of the left lobe of the liver and degenerative joint disease of the spine. Last ultrasound was done which showed hypervascular solid mass in the upper quadrant of the right breast and lumbar spine x-ray was also done for back pain which showed no acute abnormality. Patient had breast biopsy done on 07/19/2018 07/20/2018 Patient had biopsy yesterday. Patient today still complaining of nausea and also having diarrhea. Patient also having generalized body pains. Patient was requested into started back on her home medications for pain including Reserve and Flexeril. IV pain medication will be discontinued. Otherwise patient denied any fever or chills. No chest pain or shortness of breath. Anticipate discharge tomorrow with pain control and improvement of symptoms symptoms. All other review of systems negative except the above Current medications reviewed. Objective - Vital Signs Vital signs: Vital Signs Temp 97.8 F 07/20/18 06:11 Pulse 60 07/20/18 08:00 Resp 16 07/20/18 08:00 BP 113/65 07/20/18 08:00 Pulse Ox 96 07/20/18 08:00 Intake & Output 07/19/18 07/20/18 07/20/18 18:59 06:59 18:59 Intake Total 580 250 240 Output Total 0 Balance 580 250 240 Intake: Oral 580 250 240 Output: Urine 0 Other: Voiding Method Toilet Toilet # Voids 1 # Bowel Movements 1 1 - Exam PHYSICAL EXAMINATION: Patient is lying in the bed comfortably, no acute distress, awake alert and oriented.. HEENT: Normocephalic. Neck is supple. Pupils reactive. Nostrils clear. Oral cavity is moist. Ears reveal no drainage. Neck reveals no JVD, carotid bruits, or thyromegaly. CHEST EXAMINATION: Trachea is central. Symmetrical expansion. Lung palma clear to auscultation and percussion. CARDIAC: Normal S1, S2 with no gallops. No murmurs ABDOMEN: Soft. Bowel sounds normal. No organomegaly. No abdominal bruits. Extremities: reveal no edema. No clubbing or cyanosis Neurologically awake, alert, oriented x3 with well-coordinated movements. No focal deficits noted Skin: No rash or skin lesions. Psychiatric: Coperative. Nonsuicidal Musculoskeletal: No joint swelling or deformity. Normal range of motion. - Labs CBC & Chem 7: 07/21/18 09:31 07/21/18 09:31 Labs: Abnormal Lab Results - Last 24 Hours (Table) 07/19/18 07/20/18 07/20/18 Range/Units 16:54 02:09 07:04 Chloride (98-107) mmol/L Glucose (74-99) mg/dL POC Glucose (mg/dL) 175 H 167 H 144 H (75-99) mg/dL 07/20/18 07/20/18 Range/Units 07:21 11:31 Chloride 108 H (98-107) mmol/L Glucose 134 H (74-99) mg/dL POC Glucose (mg/dL) 224 H (75-99) mg/dL Microbiology - Last 24 Hours (Table) 07/16/18 16:04 Blood Culture - Preliminary Blood No Growth after 72 hours Assessment and Plan Assessment: Acute kidney injury likely prerenal improved. Possible ATN Acute gastroenteritis. Diarrhea improving Right breast mass status post biopsy on 07/19/[address] Cyr Left breast cancer stage IIIB. Arimidex has been reordered. Hypomagnesemia History of atrial fibrillation History of coronary artery disease and CABG Chronic CHF with ejection fraction unknown History of CVA/TIA Diabetes type 2 GERD Hypertension and hyperlipidemia History of [place] joint disease History of PE Seizure disorder Anxiety/depression History of patent foramen ovale History of nicotine dependence Plan: Patient will be continued on pain management with Reserve and Flexeril to be restarted. Replace lites. Continue to monitor renal function. Follow biopsy report. Anticipate discharge next 24 hours once pain is better controlled and follow with Dr. Cyr for the biopsy report and primary care physician. Oncology on board. Time with Patient: Greater than 30
[2018-07-21 11:37] LABS: Glucose,Whole Blood 201 mg/dL (75-99)
[2018-07-21 11:46] VITALS: BP 116/60; PULSE 94; RESP 18
--- NOTE | 2018-07-21 13:29 | P.PN ---
Subjective Progress Note Date: 07/21/18 Principal diagnosis: Right breast lesion Patient doing well today. Her pain is much improved. She is being discharged today. She is afebrile. Objective - Vital Signs Vital signs: Vital Signs Temp 98.2 F 07/21/18 11:44 Pulse 94 07/21/18 11:44 Resp 18 07/21/18 11:44 BP 116/60 07/21/18 11:44 Pulse Ox 95 07/21/18 08:26 Intake & Output 07/20/18 07/21/18 07/21/18 18:59 06:59 18:59 Intake Total 240 Balance 240 Weight 90.5 kg Intake: Oral 240 Other: Voiding Method Toilet Toilet Toilet # Voids 4 2 # Bowel Movements 1 - Exam Right breast incision site with decreased erythema, minimal tenderness - Labs CBC & Chem 7: 07/21/18 09:31 07/21/18 09:31 Labs: Abnormal Lab Results - Last 24 Hours (Table) 07/20/18 07/20/18 07/20/18 Range/Units 11:22 17:22 20:18 Glucose (74-99) mg/dL POC Glucose (mg/dL) 138 H 160 H (75-99) mg/dL Magnesium (1.6-2.3) mg/dL Stool Lactoferrin POSITIVE H (NEGATIVE) 07/21/18 07/21/18 07/21/18 Range/Units 06:52 09:31 11:35 Glucose 318 H (74-99) mg/dL POC Glucose (mg/dL) 147 H 201 H (75-99) mg/dL Magnesium 1.5 L (1.6-2.3) mg/dL Stool Lactoferrin (NEGATIVE) Microbiology - Last 24 Hours (Table) 07/16/18 16:04 Blood Culture - Preliminary Blood No Growth after 96 hours 07/20/18 11:22 Stool Culture - Preliminary Stool Assessment and Plan (1) Breast nodule Narrative/Plan: Continue antibiotics. Await final path. Follow-up in office. Current Visit: Yes Status: Acute Code(s): N63.0 - UNSPECIFIED LUMP IN UNSPECIFIED BREAST SNOMED Code(s): 07250328
[2018-07-21] MEDS ORDERED: PANTOPRAZOLE 40 MG TABLET PO SCH (17:30)
[2018-07-21] MEDS ORDERED: RIVAROXABAN 20 MG TAB PO SCH (17:30)
--- NOTE | 2018-07-21 17:32 | P.PN ---
Subjective Progress Note Date: 07/21/18 Principal diagnosis: history of breast cancer, right breast lesion Pt seen in follow up. She states her right breast is feeling much better, less pain, redness and nearly no drainage. Denies fevers, no other c/o on a 10 point ROS. Objective - Vital Signs Vital signs: Vital Signs Temp 98.2 F 07/21/18 11:44 Pulse 94 07/21/18 11:44 Resp 18 07/21/18 11:44 BP 116/60 07/21/18 11:44 Pulse Ox 95 07/21/18 08:26 Intake & Output 07/20/18 07/21/18 07/21/18 18:59 06:59 18:59 Intake Total 240 Balance 240 Weight 90.5 kg Intake: Oral 240 Other: Voiding Method Toilet Toilet Toilet # Voids 4 2 3 # Bowel Movements 1 - Constitutional General appearance: Present: average body habitus, cooperative, no acute distress - EENT Eyes: Present: anicteric sclerae - Respiratory Respiratory: bilateral: CTA - Cardiovascular Rhythm: regular Heart sounds: normal: S1, S2 - Gastrointestinal General gastrointestinal: Present: normal bowel sounds, soft - Integumentary Integumentary Comment(s): right breast biopsy site is significantly less red, not as warm or tender to touch - Neurologic Neurologic: Present: CNII-XII intact - Musculoskeletal Musculoskeletal: Present: strength equal bilaterally - Psychiatric Psychiatric: Present: A&O x's 3, appropriate affect, intact judgment & insight - Labs CBC & Chem 7: 07/21/18 09:31 07/21/18 09:31 Labs: Abnormal Lab Results - Last 24 Hours (Table) 07/20/18 07/20/18 07/21/18 Range/Units 11:22 20:18 06:52 Glucose (74-99) mg/dL POC Glucose (mg/dL) 160 H 147 H (75-99) mg/dL Magnesium (1.6-2.3) mg/dL Stool Lactoferrin POSITIVE H (NEGATIVE) 07/21/18 07/21/18 Range/Units 09:31 11:35 Glucose 318 H (74-99) mg/dL POC Glucose (mg/dL) 201 H (75-99) mg/dL Magnesium 1.5 L (1.6-2.3) mg/dL Stool Lactoferrin (NEGATIVE) Microbiology - Last 24 Hours (Table) 07/16/18 16:04 Blood Culture - Preliminary Blood No Growth after 96 hours 07/20/18 11:22 Stool Culture - Preliminary Stool Assessment and Plan (1) Cancer of left breast, stage 3 Narrative/Plan: Pt has history of stage IIB breast cancer. Continue on Arimidex. Pending right breast biopsy. Status: Chronic Priority: High Code(s): C50.912 - MALIGNANT NEOPLASM OF UNSPECIFIED SITE OF LEFT FEMALE BREAST SNOMED Code(s): 964767605 Plan: F/U sched with Dr. Escalante
--- NOTE | 2018-07-22 13:28 | CDI ---
Last Revision, October 2017 Documentation Clarification Form Date: 07/22/18 From: Estephania Sterling Alessia Bloom, [employer] Specialist Hours-8:30 am & 5 pm Edward Admit Date: 07/16/2018 6:49:00 PM Patient Name: Laura Glass Visit Number: [id number] Discharge Date: 07/21/18 ATTENTION: The Clinical Documentation Specialists (CDI) and [facility] Coding Staff appreciate your assistance in clarifying documentation. Please respond to the clarification below the line at the bottom and electronically sign. The CDI & [facility] Coding staff will review the response and follow-up if needed. Please note: Queries are made part of the Legal Health Record. If you have any questions, please contact the author of this message via ITS. Vin Gamez MD Atrial fibrillation is documented in the ED note, H&P, both consults and PNs , 07/18, 07/19 & 07/20. History/Risk Factors: dehydration, ATN, DM, HTN w heart failure EKG/telemetry: none Treatment: Xarelto In your professional opinion, can you please clarify the type of atrial fibrillation, if known? Chronic/Permanent Paroxysmal Persistent Other, please specify Unable to determine Please continue to document in your progress notes and discharge summary in order to capture severity of illness and risk of mortality. Include clinical findings that support your diagnosis. MTDD
[2018-07-25 12:34] LABS: Cryptosporidium parvum Not detected (Not detected); Isospora belli Not detected (Not detected); Microsporidium Not detected (Not detected); Routine Ova and Parasites Not detected; White Cells Not detected (Not detected)
== END 2018-07-21 15:08 | disposition home or self-care (01) | DRG 628 ==
LOC: EC 15:37 → 6SEL 18:49 → 5MS5E 07-19 20:42
PROVIDERS: ADMIT Hospitalist; ATTEND Hospitalist
PROC: 0HBT0ZX Excision of Right Breast, Open Approach, Diagnostic (ICD-10-PCS; principal; 2018-07-19)
DX: E86.0 Dehydration (principal); N17.0 Acute kidney failure with tubular necrosis; E87.2 Acidosis; E87.1 Hypo-osmolality and hyponatremia; E11.621 Type 2 diabetes mellitus with foot ulcer; I11.0 Hypertensive heart disease with heart failure; I50.9 Heart failure, unspecified; L97.519 Non-pressure chronic ulcer of other part of right foot with unspecified severity; E83.42 Hypomagnesemia; K52.9 Noninfective gastroenteritis and colitis, unspecified; N63.10 Unspecified lump in the right breast, unspecified quadrant; I25.10 Atherosclerotic heart disease of native coronary artery without angina pectoris; K21.9 Gastro-esophageal reflux disease without esophagitis; E78.5 Hyperlipidemia, unspecified; I25.2 Old myocardial infarction; F32.9 Major depressive disorder, single episode, unspecified; F41.9 Anxiety disorder, unspecified; M54.5 Low back pain; G40.909 Epilepsy, unspecified, not intractable, without status epilepticus; M47.9 Spondylosis, unspecified; Z79.01 Long term (current) use of anticoagulants; Z79.02 Long term (current) use of antithrombotics/antiplatelets; Z79.811 Long term (current) use of aromatase inhibitors; Z79.4 Long term (current) use of insulin; Z79.899 Other long term (current) drug therapy; Z87.891 Personal history of nicotine dependence; Z86.711 Personal history of pulmonary embolism; Z86.73 Personal history of transient ischemic attack (TIA), and cerebral infarction without residual deficits; Z85.3 Personal history of malignant neoplasm of breast; Z92.3 Personal history of irradiation; Z95.1 Presence of aortocoronary bypass graft; Z86.79 Personal history of other diseases of the circulatory system; Z92.21 Personal history of antineoplastic chemotherapy; Z86.14 Personal history of Methicillin resistant Staphylococcus aureus infection; Z86.19 Personal history of other infectious and parasitic diseases; Z90.49 Acquired absence of other specified parts of digestive tract; Z95.0 Presence of cardiac pacemaker; Z86.718 Personal history of other venous thrombosis and embolism; Z95.9 Presence of cardiac and vascular implant and graft, unspecified; Z96.643 Presence of artificial hip joint, bilateral; Z95.828 Presence of other vascular implants and grafts; Z88.1 Allergy status to other antibiotic agents; Z88.5 Allergy status to narcotic agent; Z88.2 Allergy status to sulfonamides; Z80.3 Family history of malignant neoplasm of breast; Z82.61 Family history of arthritis; Z80.8 Family history of malignant neoplasm of other organs or systems; I48.91 Unspecified atrial fibrillation
CPT/HCPCS: 36415; 71260; 72110; 74177; 80048; 80053; 81001; 82272; 83036; 83605; 83630; 83690; 83735; 85025; 87040; 87045; 87046; 87086; 87177; 87207; 87209; 88305; 88312; 96361; 96365; 96375; 96376; 99284

== ENCOUNTER → 2019-04-11 | Outpatient (CLI) | payer MEDICARE, OTHER ==
[2019-04-11 16:30] LABS: HCT 37.5 % (34.0-46.0); HGB 12.1 gm/dL (11.4-16.0); Hypochromasia Slight; MCH 27.8 pg (25.0-35.0); MCHC 32.3 g/dL (31.0-37.0); MCV 85.8 fL (80.0-100.0); Mean Platelet Volume 7.9; Platelet Count 214 k/uL (150-450); RBC 4.36 m/uL (3.80-5.40); WBC 6.7 k/uL (3.8-10.6)
[2019-04-11 16:41] LABS: Potassium 4.7 mmol/L (3.5-5.1)
== END ==
LOC: LABPAT 15:57
PROVIDERS: ATTEND Internal Medicine Cardiovascular Disease
DX: Z01.812 Encounter for preprocedural laboratory examination (principal); R94.39 Abnormal result of other cardiovascular function study
CPT/HCPCS: 36415; 80051; 82565; 84520; 85027

== ENCOUNTER 2019-04-14 06:26 | Day surgery (SDC) | payer MEDICARE, OTHER ==
[2019-04-11 10:48] VITALS: BMI 32.5
[2019-04-14] MEDS ORDERED: NITROGLYCERIN SL TABS 0.4 MG TAB SUBLINGUAL PRN (06:39)
[2019-04-14] MEDS ORDERED: SODIUM CHLORIDE 0.9% 1,000 ML in EMPTY BAG 1 BAG IV ONE (06:39)
[2019-04-14] MEDS ORDERED: ALPRAZolam 0.25 MG TAB PO PRN (06:39)
[2019-04-14] MEDS ORDERED: ALPRAZolam 0.5 MG TAB PO PRN (06:39)
[2019-04-14] MEDS ORDERED: ASPIRIN 325 MG TAB PO ONE (07:00)
[2019-04-14] MEDS ORDERED: ATORVASTATIN 80 MG TAB PO ONE (07:00)
[2019-04-14 07:08] LABS: Glucose,Whole Blood 180 mg/dL (75-99)
[2019-04-14] MEDS ORDERED: LIDOCAINE 1% INJ 10MG/ML (20 ML MDV) ONE ×2 (07:17→07:52)
[2019-04-14] MEDS ORDERED: VERAPAMIL 2.5 MG/ML 2 ML AMP ONE (07:17)
[2019-04-14] MEDS ORDERED: HEPARIN SODIUM 1,000 UN/ML (10ML VL) ONE (07:18)
[2019-04-14] MEDS ORDERED: fentaNYL (PF) 50 MCG/ML 2 ML AMP ONE (07:18)
[2019-04-14 07:32] VITALS: RESP 16; TEMP 98.2
[2019-04-14] MEDS ORDERED: MIDAZOLAM (PF) 2 MG/2 ML VIAL IVP ONE (07:43)
[2019-04-14] MEDS ORDERED: fentaNYL (PF) 50 MCG/ML 2 ML AMP IV ONE (07:43)
[2019-04-14] MEDS ORDERED: LIDOCAINE 1% INJ 10MG/ML (20 ML MDV) SQ ONE ×2 (07:48→07:53)
[2019-04-14] MEDS ORDERED: IOPAMIDOL-370 50ML BTL INJ ONE (08:34)
[2019-04-14] MEDS ORDERED: IOPAMIDOL-370 125ML BTL INJ ONE (08:34)
[2019-04-14] MEDS ORDERED: RX INFO: IV CONTRAST WAS GIVEN 1 EACH MISC MISCELLANE PRN (08:57)
[2019-04-14] MEDS ORDERED: SODIUM CHLORIDE 0.9% 1,000 ML IV SCH (09:00)
[2019-04-14 09:02] LABS: Glucose,Whole Blood 135 mg/dL (75-99)
[2019-04-14] MEDS ORDERED: PIOGLITAZONE 15 MG TAB PO STA (09:04)
[2019-04-14 11:29] VITALS: PULSE 50
[2019-04-14 11:54] VITALS: BP 172/77
--- NOTE | 2019-04-14 18:18 | P.CARDCATH ---
Date of Procedure: 04/14/19 Preoperative Diagnosis: Ischemic heart disease with previous bypass surgery and stent placement. Positive stress test Postoperative Diagnosis: Stable coronary artery disease with patent grafts and stents Procedure(s) Performed: Left heart catheterization and selective angiography of the 2 vein grafts and HERNANDEZ graft. Aortic root injection Description of Procedure: HISTORY: This is a 59-year-old female with history of ischemic heart disease with previous bypass surgery and also stent placement being followed by Dr. Brunner. Patient also had a permanent pacemaker implantation. Recent stress test showed some evidence of old inferior wall KS with rich-infarct ischemia. Patient is advised to have cardiac catheterization by Dr. Brunner for for definite diagnosis. CONSENT:I have discussed the risks, benefits and alternative therapies for the above-mentioned procedure and for both sedation/analgesia as well as necessary blood product administration, if indicated, as they pertain to this patient. The patient has indicated understanding and acceptance of the risks and procedures discussed. PROCEDURE: Patient was brought to the lab in a fasting state. Patient was given some IV sedation. The right groin is infiltrated with lidocaine and right femoral artery was entered using Seldinger technique. A 6-Danish catheter was left in place and selective coronary arteriography , selective injection of the 3 vein grafts and HERNANDEZ graft and also aortic root injection was performed. Patient tolerated the procedure well. Femoral angiogram was performed and Angio-Seal was applied for hemostasis. No immediate complications were noted and patient was transferred to [facility] in a stable condition Conscious Sedation: Versed 1mg Fentanyl 50 g Duration 57 minutes HEMODYNAMICS: . The aortic pressure is 140/70. Left ventricular end-diastolic pressure was 12-15. There was no gradient across the aortic valve SELECTIVE CORONARY ARTERIOGRAPHY: LEFT MAIN: Long with significant 80-90% stenosis proximally. There is total occlusion of the circumflex and also left anterior descending THE LEFT ANTERIOR DESCENDING CORONARY ARTERY: Totally occluded in the proximal portion THE LEFT CIRCUMFLEX AND IS CORONARY ARTERY: . Totally occluded in the proximal portion THE RIGHT CORONARY ARTERY: . This is fair caliber vessel with a total occlusion of the PDA branch. There is mild diffuse plaque in the proximal and mid RCA without any critical lesions. THE HERNANDEZ GRAFT TO THE LAD:. This graft is patent at the proximal anastomosis. There appears to be mild stenosis of the distal anastomosis which could be related to his suture issue. Beyond that the LAD is moderate in caliber with mild diffuse disease. The lesion of the distal anastomosis, doesn't appear to be significant and probably chronic. No ischemia in the anterior wall and noted on the stress test no THE VEIN GRAFT TO THE DIAGONAL: The vein graft to the diagonal had previous stent placement. This appears to be patent at the proximal and distal anastomosis and also at the site of the stent placement. The diagonal branch is small in caliber and free of any significant occlusive disease. The vein graft to the OM branch: This is patent at the proximal and distal anastomosis. The OM branch is moderate in caliber and seemed to be free of occlusive disease. The vein graft to the right coronary artery, PDA branch: This is patent at the proximal and distal anastomosis. The PDA branch has mild diffuse disease. There is a stent in the body of the right coronary artery which seemed to be patent LEFT VENTRICULOGRAPHY: Not performed AORTIC ROOT INJECTION: This is performed in the left anterior oblique projection. The aortic root appeared to be normal. There is no evidence of an aortic regurgitation. There appeared to be 3 vein grafts patent, which are seen subselectively FINAL IMPRESSION: Stable coronary artery disease with patent HERNANDEZ graft to the LAD, vein graft to the diagonal, vein graft to the OM branch and vein graft to the PDA of the right coronary artery. Patent stents in the vein graft to the diagonal and also vein graft to the PDA of the right coronary artery. Diffuse beaver disease PLAN: Continuation maximum medical therapy and this factor modification PROGNOSIS: Fair
== END 2019-04-14 13:42 | disposition home or self-care (01) ==
LOC: CATHCVL 06:26
PROVIDERS: ATTEND Internal Medicine Cardiovascular Disease
DX: I25.10 Atherosclerotic heart disease of native coronary artery without angina pectoris (principal); I25.82 Chronic total occlusion of coronary artery; I10 Essential (primary) hypertension; I48.1 Persistent atrial fibrillation; Z79.01 Long term (current) use of anticoagulants; E78.5 Hyperlipidemia, unspecified; Z95.1 Presence of aortocoronary bypass graft; Z95.5 Presence of coronary angioplasty implant and graft; Z95.0 Presence of cardiac pacemaker; I25.2 Old myocardial infarction; Q21.1 Atrial septal defect; E11.9 Type 2 diabetes mellitus without complications; Z82.49 Family history of ischemic heart disease and other diseases of the circulatory system; Z72.0 Tobacco use; Z79.4 Long term (current) use of insulin; Z79.899 Other long term (current) drug therapy; Z88.1 Allergy status to other antibiotic agents; Z88.5 Allergy status to narcotic agent; Z88.2 Allergy status to sulfonamides; Z88.8 Allergy status to other drugs, medicaments and biological substances
CPT/HCPCS: 93459; 93567; C1760; C1894; C1769 ×2; J2001; J3010; Q9967 ×2; J2250

== ENCOUNTER 2020-04-16 13:41 | Observation (INO) | payer MEDICARE, OTHER ==
[~2020-04-16 13:41] MED LIST changes: -CLINDAMYCIN 600 MG in SODIUM CHLORIDE 0.9% IRRIGATIO 250 ML IRRIGATION ONE; +SODIUM CHLORIDE 0.9% 1,000 ML IV SCH
[2020-04-16 14:47] LABS: Glucose,Whole Blood 510 mg/dL (75-99)
[2020-04-16] MEDS ORDERED: INSULIN ASPART (NovoLOG) 100 UNIT/ML VIAL SQ ONE ×2 (14:47→16:07)
[2020-04-16 14:49] LABS: Basophils # (A) 0.1 k/uL (0-0.2); Basophils % (A) 1 %; Eosinophils # (A) 0.1 k/uL (0-0.7); Eosinophils % (A) 2 %; HCT 41.7 % (34.0-46.0); HGB 13.5 gm/dL (11.4-16.0); Lymphocytes # (A) 1.4 k/uL (1.0-4.8); Lymphocytes % (A) 17 %; MCHC 32.5 g/dL (31.0-37.0); MCV 89.3 fL (80.0-100.0); Mean Platelet Volume 8.1; Monocytes # (A) 0.5 k/uL (0-1.0); Monocytes % (A) 6 %; Neutrophils # (A) 6.3 k/uL (1.3-7.7); Neutrophils % (A) 74 %; Platelet Count 290 k/uL (150-450); RBC 4.66 m/uL (3.80-5.40); RDW 13.9 % (11.5-15.5); WBC 8.6 k/uL (3.8-10.6)
[2020-04-16 15:05] LABS: Calcium 9.5 mg/dL (8.4-10.2); Potassium 4.2 mmol/L (3.5-5.1)
[2020-04-16 16:01] LABS: Glucose,Whole Blood 386 mg/dL (75-99)
[2020-04-16] MEDS ORDERED: MIDAZOLAM 2 MG/2 ML VIAL ONE (16:52)
[2020-04-16] MEDS ORDERED: ATROPINE SULFATE 0.1 MG/ML 10ML SYRINGE ONE (16:52)
[2020-04-16] MEDS ORDERED: fentaNYL (PF) 50 MCG/ML 2 ML AMP ONE (16:52)
[2020-04-16] MEDS ORDERED: PROPOFOL 10 MG/ML 20 ML VIAL IV ONE (16:52)
[2020-04-16] MEDS ORDERED: IV FLUID CONTINUATION 600 ML IV ONE (17:03)
[2020-04-16] MEDS ORDERED: LIDOCAINE 1% INJ 10MG/ML (20 ML MDV) ONE (17:06)
--- NOTE | 2020-04-16 17:14 | P.HPCAR ---
History of Present Illness This is Dr. Brunner dictating an H/P on this patient The patient was interviewed and examined IMPRESSION / ASSESSMENT: A. fib with RVR Failed Multaq Status post ASD closure Status post biventricular pacemaker implantation CAD status post CABG Hypertension Increased BMI Symptomatic A. fib with RVR recently admitted for shortness of breath PLAN: Electrical cardioversion AV node modification/ablation Reprogramming the biventricular pacemaker thereafter HPI Patient states that since her breakthrough episode of atrial fibrillation she gets short of breath with minimal activities She was admitted to [facility] for A. fib with RVR, symptomatic As the dose of AV franklin blocking drugs or increased she starts experiencing hypotension which is also very symptomatic Currently she is on multiple AV franklin blocking drugs ROS: No fever chills or rigors, no cough, phlegm or expectoration, no nausea, vomiting or diarrhea, no hematuria, dysuria, no musculoskeletal complaints, no strokes or seizures, no skin lesions. EXAMINATION: Afebrile 98.8F, pulse rate 163 beats a minute at rest Blood pressure 135/72 mmHg Breath sounds are reduced bilaterally but there are no rhonchi no crackles Heart sounds are tachycardic Abdomen is soft No lower extremity edema REVIEW OF LABS, ECG & MEDICAL DATA Normal white count 8.6 thousand Hemoglobin 13.5 Sodium 132 potassium 4.2 BUN 16 creatinine 0.91 Elevated glucose level Physical Exam Vitals: Vital Signs Temp Pulse Resp BP Pulse Ox 04/16/20 14:22 98.8 F 163 H 18 135/72 95 Intake and Output 04/16/20 04/16/20 04/16/20 06:59 14:59 22:59 Other: Weight 101 kg Past Medical History Past Medical History: Atrial Fibrillation, Coronary Artery Disease (CAD), Cancer, Chest Pain / Angina, Heart Failure, CVA/TIA, Diabetes Mellitus, Deep Vein Thrombosis (DVT), GERD/Reflux, GI Bleed, Hyperlipidemia, Hypertension, Hever cardial Infarction (IA), Osteoarthritis (OA), Pulmonary Embolus (PE), Seizure Disorder Additional Past Medical History / Comment(s): breast cancer with lumpectomy/radiation and chemo, pulmonary embolism after CABG, PFO with surgery, TIA 2010, last seizure 2014, DJD, DDD, L shoulder rotator cuff tear, syncope twice d/t bradycardia, 2013 MRSA sore in nostril . Last Myocardial Infarction Date:: 2008 History of Any Multi-Drug Resistant Organisms: MRSA Date of last positivie culture/infection: 2012 MDRO Source:: MRSA sore in nostril 2012 Past Surgical History: Appendectomy, Breast Surgery, Cardiac Ablation, Section, Cholecystectomy, Coronary Bypass/CABG, Heart Catheterization, Joint Replacement, Orthopedic Surgery, Pacemaker, Tonsillectomy Additional Past Surgical History / Comment(s): 02/10/18 JIMBO/cardioversion, 4 vessel CABG 2008, PFO surgery in 2010, PCI with 2 stents to graft sites, stage 3 breast Ca LT with lumpectomy/nodes removed, BILAT VICK, EGD/colonoscopy , 2 C- Sections.,ivc filter Past Anesthesia/Blood Transfusion Reactions: No Reported Reaction Additional Past Anesthesia/Blood Transfusion Reaction / Comment(s): Pt has received blood in past with CABG-no reaction. Date of Last Stent Placement:: 2016 Type of Cardiac Device: Permanent Pacemaker Device Placement Date:: 05/11/18 Smoking Status: Former smoker - Past Family History Father Family Medical History: Cancer, Vascular Disorder Additional Family Medical History / Comment(s): MELENOMA Mother Family Medical History: Cancer, Rheumatoid Arthritis (RA) Additional Family Medical History / Comment(s): Mother had breast cancer. Physical Examination Vital Signs Temp Pulse Resp BP Pulse Ox 04/16/20 14:22 98.8 F 163 H 18 135/72 95 Intake and Output 04/16/20 04/16/20 04/16/20 06:59 14:59 22:59 Other: Weight 101 kg Results 04/16/20 14:06 04/16/20 14:06 CBC 04/16/20 Range/Units 14:06 WBC 8.6 (3.8-10.6) k/uL RBC 4.66 (3.80-5.40) m/uL Hgb 13.5 (11.4-16.0) gm/dL Hct 41.7 (34.0-46.0) % Plt Count 290 (150-450) k/uL Comprehensive Metabolic Panel 04/16/20 Range/Units 14:06 Sodium 132 L (137-145) mmol/L Potassium 4.2 (3.5-5.1) mmol/L Chloride 101 (98-107) mmol/L Carbon Dioxide 18 L (22-30) mmol/L BUN 16 (7-17) mg/dL Creatinine 0.91 (0.52-1.04) mg/dL Glucose 496 H (74-99) mg/dL Calcium 9.5 (8.4-10.2) mg/dL Current Medications Generic Name Dose Route Start Last Admin Trade Name Freq PRN Reason Stop Dose Admin Sodium Chloride 1,000 mls @ 20 mls/hr 04/16/20 11:45 Saline 0.9% IV .Q24H BRAD Intake and Output 04/16/20 04/16/20 04/16/20 06:59 14:59 22:59 Other: Weight 101 kg Patient Weight 04/17/20 06:59 Weight 101 kg 04/16/20 14:06 04/16/20 14:06
[2020-04-16] MEDS ORDERED: LIDOCAINE 1% INJ 10MG/ML (20 ML MDV) SQ ONE (17:20)
[2020-04-16 17:41] LABS: Glucose,Whole Blood 269 mg/dL (75-99)
--- NOTE | 2020-04-16 18:10 | P.PCN ---
Preoperative Diagnosis: Procedure: Device interrogation with reprogramming prior to the procedure Cardioversion for atrial fibrillation AV Node Ablation/modification. Device interrogation with reprogramming postprocedure Patient was brought to the EP lab in a fasting state. Written, informed consent was obtained prior to the procedure. Access was obtained, sheath placed in right femoral vein. 1. Preprocedure device interrogation and reprogramming Device interrogation with reprogramming performed. Rate responsiveness was turned off and the pacing rate was reprogrammed to a backup mode prior to ablation. Tachycardia detections turned off. Lead impedance is documented, sensing and pacing thresholds performed prior to the procedure Backup pacing, VVI 40 bpm Patient has a biventricular pacemaker with His bundle pacing. Pacing impedance is before the procedure was stable Excellent His bundle threshold Atrial lead impedance 361 ohms, RV pacing impedance 741 ohms, His bundle pacing impedance 436 ohms His bundle threshold 0.5 V at 1 ms RV pacing threshold 0.5 at 0.4 ms Patient was in A. fib with RVR between 160-180 bpm at rest despite diltiazem and metoprolol 2. Electrical cardioversion A 360 J J biphasic shock was used to cardiovert the patient to sinus rhythm Thereafter mapping of the AV node was performed, His bundle identified and RF ablation performed Patient was on therapeutic anticoagulation 3. AV node ablation A Mapping/Ablation catheter was placed and right-sided AV node radiofrequency ablation/modification was performed. Complete heart block was achieved with escape rhythm at 55 beats a minute IV atropine 1 mg given Patient remained in complete heart block with a junctional escape rhythm, narrow QRS 55 beats a minute 4. Device programming postprocedure Post ablation, device reprogramming was performed. Base Pacing rate was programmed to 90 bpm. Patient's device was reprogrammed and the interrogated. RF mode turned on Vascular sheaths were removed at the end of the procedure, hemostasis was assu red, the patient was then transferred to recovery room/telemetry in stable condition. His bundle threshold 0.5 V at 1 ms His bundle pacing impedance 418 ohms RV pacing threshold 0.5 V at 0.4 ms RV pacing impedance 741 ohms Atrial pacing impedance 361 ohms New device was programmed to DDDR mode with a basal rate of 90 beats a minute AV delay 150/180 ms LV RV offset of 80 ms Conclusions: Successful ablation of the AV node./AV node modification with an escape rhythm of 55 beats a minute narrow QRS Plan: LV pacing at 90-130 bpm for at least 2 weeks. Telemetry monitoring for 24-48 hours. Continue anticoagulation. Patient tolerated the procedure well without any acute complications
[2020-04-16] MEDS ORDERED: ACETAMINOPHEN IV (For NPO) 1,000 MG in EMPTY BAG 1 BAG IVPB ONE (18:14)
[2020-04-16] MEDS ORDERED: ACETAMINOPHEN TAB 325 MG TAB PO PRN (18:14)
--- NOTE | 2020-04-16 18:14 | P.PRLE ---
RE: Laura Glass Dear Dr. rick Sanchez underwent AV node modification for management of atrial fibrillation with RVR despite multiple AV node blocking agents She has previously failed dofetilide as well as Multaq She has an ASD closure device implanted which would make in A. fib ablation in the left atrium somewhat challenging She already has a biventricular pacemaker implanted She will be pacing the His bundle which is excellent thresholds, selective pacing with a narrow QRS Hopefully this maintains a LV function over time I will stop diltiazem I will reduce the dose of metoprolol succinate 200 mg by mouth daily The dose of lisinopril will be increased to 20 mg by mouth daily She will continue Xarelto 20 mg by mouth daily When she came in today her glucose level was in the 500s and she will see you as an outpatient for diabetes management Thank you for entrusting me with the care of the patient Warm regards Sincerely Iván Brunner
[2020-04-16] MEDS ORDERED: ALPRAZolam 0.25 MG TAB PO PRN (18:15)
[2020-04-16] MEDS: HYDROcodone/APAP 10-325MG 1 EACH TAB PO PRN (18:59)
[2020-04-16 19:06] LABS: Glucose,Whole Blood 242 mg/dL (75-99)
[2020-04-16] MEDS: INSULIN DETEMIR (LEVEMIR) 100 UNIT/ML SYR SQ SCH (19:50)
[2020-04-16] MEDS ORDERED: LISINOPRIL 20 MG TAB PO SCH (20:00)
[2020-04-16] MEDS: ALBUTEROL HFA INHALER INHALATION SCH (20:31)
[2020-04-16] MEDS: RIVAROXABAN 20 MG TAB PO SCH (22:10)
[2020-04-16] MEDS: DOXEPIN 10 MG CAP PO SCH (22:10)
[2020-04-16] MEDS: DULoxetine HCL 60 MG CAPSULE.DR PO SCH (22:10)
[2020-04-17] MEDS: CYCLOBENZAPRINE 10 MG TAB PO SCH ×4 (01:46→19:52)
[2020-04-17 07:07] LABS: Glucose,Whole Blood 207 mg/dL (75-99)
[2020-04-17] MEDS: ALBUTEROL HFA INHALER INHALATION SCH ×4 (07:28→19:28)
[2020-04-17] MEDS: EZETIMIBE 10 MG TAB PO SCH (07:49)
[2020-04-17] MEDS: RIVAROXABAN 20 MG TAB PO SCH (07:50)
[2020-04-17] MEDS: METOPROLOL SUCCINATE (ER) 100 MG TAB.ER.24H PO SCH (07:50)
[2020-04-17] MEDS: HYDROcodone/APAP 10-325MG 1 EACH TAB PO PRN ×3 (07:53→19:52)
[2020-04-17] MEDS: INSULIN DETEMIR (LEVEMIR) 100 UNIT/ML SYR SQ SCH (08:30)
[2020-04-17] MEDS: INSULIN ASPART (NovoLOG) 100 UNIT/ML VIAL SQ SCH ×3 (08:30→17:02)
--- NOTE | 2020-04-17 08:57 | P.DS ---
Providers Attending physician: Iván Brunner Primary care physician: Channing Cronin Assessment: Patient is doing very well. She was little dizzy when she got up early this morning Yesterday her blood pressure is low and the lisinopril was held She is now in sinus rhythm with selective His bundle pacing status post AV node modification Residual underlying heart rate of about 50 to, junctional escape rhythm She denies any chest discomfort no shortness of breath no orthopnea PND no palpi tations Blood pressure 143/98 and 155/84 mmHg pulse rate 90 beats a minute afebrile 97.8F Breath sounds are clear no rhonchi no crackles Normal heart sounds regular Extremity warm no edema Right groin is healed well no hematoma Impression Persistent symptomatic atrial fibrillation Coronary artery disease ASD closure percutaneous Status post biventricular pacemaker Yesterday she underwent AV node modification with residual junctional rhythm at 52 beats a minute Bilateral pacing programmed to a rate of 90 beats a minute Plan Stop Cardizem Reduce metoprolol succinate to 100 mg by mouth daily Lisinopril 20 mg daily in the evening Continue xarelto In the future I may consider reduce the dose of metoprolol succinate and if needed increasing the dose of lisinopril Intolerant of statins, is on Zetia Statins cause myopathy and elevated CPK levels Lipid panel today PC SK 9 inhibitors needs to be renewed Her diabetes uncontrolled and she'll be seeing her primary care physician for further diabetes management Patient will be discharged home today Plan - Discharge Summary Discharge Rx Participant: No New Discharge Prescriptions: No Action Nitroglycerin Sl Tabs [Nitrostat] 0.4 mg SUBLINGUAL Q5M PRN PRN Reason: Chest Pain INSULIN ASPART (NovoLOG) [NovoLOG (formulary)] 10 unit SQ AC-TID DULoxetine HCL [Cymbalta] 60 mg PO HS Ezetimibe [Zetia] 10 mg PO DAILY #30 tab Lisinopril [Zestril] 5 mg PO DAILY Metoprolol Succinate [Toprol XL] 100 mg PO BID Insulin Glargine,Hum.rec.anlog [Basaglar Kwikpen U-100] 100 unit SQ DAILY HYDROcodone/APAP 10-325MG [[place] 10-325] 1 tab PO TID PRN PRN Reason: Moderate To Severe Pain Cyclobenzaprine [Flexeril] 20 mg PO TID Diltiazem Cd [Cardizem Cd] 360 mg PO DAILY Melatonin 10 mg PO HS Ezetimibe [Zetia] 10 mg PO HS Doxepin [SINEquan] 10 mg PO HS ALPRAZolam [Xanax] 0.25 mg PO TID PRN PRN Reason: Anxiety Albuterol Inhaler [Ventolin Hfa Inhaler] 2 puff INHALATION RT-QID Rivaroxaban [Xarelto] 20 mg DAILY Discharge Medication List DULoxetine HCL [Cymbalta] 60 mg PO HS 02/09/18 [History] INSULIN ASPART (NovoLOG) [NovoLOG (formulary)] 10 unit SQ AC-TID 02/09/18 [History] Nitroglycerin Sl Tabs [Nitrostat] 0.4 mg SUBLINGUAL Q5M PRN 02/09/18 [History] Ezetimibe [Zetia] 10 mg PO DAILY #30 tab 03/11/18 [Rx] Lisinopril [Zestril] 5 mg PO DAILY 04/20/18 [History] Metoprolol Succinate [Toprol XL] 100 mg PO BID 07/16/18 [History] Insulin Glargine,Hum.rec.anlog [Basaglar Kwikpen U-100] 100 unit SQ DAILY 04/11/19 [History] Cyclobenzaprine [Flexeril] 20 mg PO TID 04/14/19 [History] HYDROcodone/APAP 10-325MG [[place] 10-325] 1 tab PO TID PRN 04/14/19 [History] ALPRAZolam [Xanax] 0.25 mg PO TID PRN 04/16/20 [History] Albuterol Inhaler [Ventolin Hfa Inhaler] 2 puff INHALATION RT-QID 04/16/20 [History] Diltiazem Cd [Cardizem Cd] 360 mg PO DAILY 04/16/20 [History] Doxepin [SINEquan] 10 mg PO HS 04/16/20 [History] Ezetimibe [Zetia] 10 mg PO HS 04/16/20 [History] Melatonin 10 mg PO HS 04/16/20 [History] Rivaroxaban [Xarelto] 20 mg DAILY 04/16/20 [History] Follow up Appointment(s)/Referral(s): Iván Brunner MD [STAFF PHYSICIAN] - 2 Weeks (Device clinic follow-up in 2 weeks, no sooner Groin check in 2 weeks on the same day, in the device clinic) Activity/Diet/Wound Care/Special Instructions: Post EP study - Ablation instructions 1. Keep access sites dry for 2 days. 2. No heavy lifting or straining for 2 days. 3. Avoid bending the hips repeatedly for 2 days. 4. You may go up and down stairs slowly Call if the following is noted 1. Bleeding, increasing swelling or pain at the access sites. 2. Increasing chest discomfort, especially upon taking a deep breath. 3. Increasing shortness of breath, at rest or with exertion. 4. Undue cough / phlegm 5. Difficulty or pain while swallowing. 6. Pain or change in color in the extremities. 7. Fever, chills, rigors. 8. Increasing headache or neurologic symptoms. 9. Dizziness, fainting, palpitations Medication changes Reduce metoprolol succinate to 100 mg by mouth daily in the morning Increase lisinopril to 20 mg by mouth daily in the evening Stop Cardizem Continue Zetia and continue xarelto and other cardiac medications Follow-up in the device clinic in 2 weeks for device reprogramming Discharge Disposition: HOME SELF-CARE
[2020-04-17 09:46] LABS: Cholesterol 315 mg/dL (<200); HDL Cholesterol 41 mg/dL (40-60)
[2020-04-17 10:33] LABS: Glucose,Whole Blood 243 mg/dL (75-99)
[2020-04-17 10:38] LABS: Triglycerides 2054 mg/dL (<150)
[2020-04-17 11:59] LABS: Glucose,Whole Blood 223 mg/dL (75-99)
[2020-04-17 14:48] LABS: African American GFR (CKD) >90 (>60 ml/min/1.73 sqM); Anion Gap 10 mmol/L; Blood Urea Nitrogen 13 mg/dL (7-17); Calcium 8.7 mg/dL (8.4-10.2); Carbon Dioxide 21 mmol/L (22-30); Chloride 101 mmol/L (98-107); Glucose 292 mg/dL (74-99); Non-African American GFR(CKD) 81 (>60 ml/min/1.73 sqM); Potassium 4.2 mmol/L (3.5-5.1); Sodium 132 mmol/L (137-145)
[2020-04-17 16:47] LABS: Glucose,Whole Blood 277 mg/dL (75-99)
[2020-04-17 19:52] LABS: Glucose,Whole Blood 158 mg/dL (75-99)
[2020-04-17] MEDS: DULoxetine HCL 60 MG CAPSULE.DR PO SCH (19:52)
[2020-04-17] MEDS: DOXEPIN 10 MG CAP PO SCH (19:52)
[2020-04-17 20:58] VITALS: RESP 18
[2020-04-17] MEDS ORDERED: LISINOPRIL 20 MG TAB PO SCH (21:00)
[2020-04-18 06:08] LABS: Glucose,Whole Blood 148 mg/dL (75-99)
[2020-04-18] MEDS: ALBUTEROL HFA INHALER INHALATION SCH (07:41)
--- NOTE | 2020-04-18 07:46 | P.PN ---
Subjective Principal diagnosis: Jannet is doing well. She denies any chest discomfort shortness of breath. She is intermittently dizzy but her blood pressures are in the normal range Yesterday she had an apparent fall. She was not orthostatic. There were no injuries After that when I came in and examined she seemed neurologically normal limits and I made her walk around. As she was walking her knees buckled just a little bit but she did not fall. She said she was very uncomfortable going home so she was kept overnight for further observation No arrhythmias were noted heart rates are in the 90s she is His bundle paced following AV node ablation Her blood pressures are excellent I stopped diltiazem completely Reduce the dose of metoprolol I increased the dose of lisinopril Her diabetes is uncontrolled and she is scheduled to see her primary care physician Labs sodium 132 potassium 4.2 BUN 13 creatinine 0.8 calcium 8.7 glucose elevated Impression Atrial fibrillation with RVR status post AV node ablation Status post biventricular pacing/His bundle pacing excellent thresholds device function was normal postprocedure Uncontrolled type 2 diabetes Hypertension Plan Stop diltiazem/Cardizem completely Reduce the dose of metoprolol succinate 200 mg once daily Increase lisinopril to 20 mg by mouth daily in the evening only Device clinic follow-up after 2 weeks Patient go home today in follow-up with primary care physician next few days for diabetes control Objective - Vital Signs Vital signs: Vital Signs Temp 98.3 F 04/18/20 03:53 Pulse 89 04/18/20 03:57 Resp 18 04/18/20 03:57 BP 118/78 04/18/20 03:53 Pulse Ox 93 L 04/18/20 03:53 Intake & Output 04/17/20 04/18/20 04/18/20 18:59 06:59 18:59 Intake Total 880 Balance 880 Intake: Oral 480 Other 400 Other: Voiding Method Toilet Toilet # Voids 2 1 - Labs CBC & Chem 7: 04/16/20 14:06 04/17/20 14:16 Labs: Abnormal Lab Results - Last 24 Hours (Table) 04/16/20 04/17/20 04/17/20 Range/Units 06:00 10:31 11:57 Sodium (137-145) mmol/L Carbon Dioxide (22-30) mmol/L Glucose (74-99) mg/dL POC Glucose (mg/dL) 243 H 223 H (75-99) mg/dL Triglycerides 2054 H (<150) mg/dL Cholesterol 315 H (<200) mg/dL 04/17/20 04/17/20 04/17/20 Range/Units 14:16 16:45 19:51 Sodium 132 L (137-145) mmol/L Carbon Dioxide 21 L (22-30) mmol/L Glucose 292 H (74-99) mg/dL POC Glucose (mg/dL) 277 H 158 H (75-99) mg/dL Triglycerides (<150) mg/dL Cholesterol (<200) mg/dL 04/18/20 Range/Units 06:06 Sodium (137-145) mmol/L Carbon Dioxide (22-30) mmol/L Glucose (74-99) mg/dL POC Glucose (mg/dL) 148 H (75-99) mg/dL Triglycerides (<150) mg/dL Cholesterol (<200) mg/dL
--- NOTE | 2020-04-18 07:47 | P.PN ---
Subjective Progress Note Date: 04/17/20 Patient is doing very well. She was little dizzy when she got up early this morning Yesterday her blood pressure is low and the lisinopril was held She is now in sinus rhythm with selective His bundle pacing status post AV node modification Residual underlying heart rate of about 50 to, junctional escape rhythm She denies any chest discomfort no shortness of breath no orthopnea PND no palpitations Blood pressure 143/98 and 155/84 mmHg pulse rate 90 beats a minute afebrile 97.8F Breath sounds are clear no rhonchi no crackles Normal heart sounds regular Extremity warm no edema Right groin is healed well no hematoma Impression Persistent symptomatic atrial fibrillation Coronary artery disease ASD closure percutaneous Status post biventricular pacemaker Yesterday she underwent AV node modification with residual junctional rhythm at 52 beats a minute Bilateral pacing programmed to a rate of 90 beats a minute Plan Stop Cardizem Reduce metoprolol succinate to 100 mg by mouth daily Lisinopril 20 mg daily in the evening Continue xarelto In the future I may consider reduce the dose of metoprolol succinate and if needed increasing the dose of lisinopril Intolerant of statins, is on Zetia Statins cause myopathy and elevated CPK levels Lipid panel today PC SK 9 inhibitors needs to be renewed Her diabetes uncontrolled and she'll be seeing her primary care physician for further diabetes management Objective - Vital Signs Vital signs: Vital Signs Temp 98.3 F 04/18/20 03:53 Pulse 89 04/18/20 03:57 Resp 18 04/18/20 03:57 BP 118/78 04/18/20 03:53 Pulse Ox 93 L 04/18/20 03:53 Intake & Output 04/17/20 04/18/20 04/18/20 18:59 06:59 18:59 Intake Total 880 Balance 880 Intake: Oral 480 Other 400 Other: Voiding Method Toilet Toilet # Voids 2 1 - Labs CBC & Chem 7: 04/16/20 14:06 04/17/20 14:16 Labs: Abnormal Lab Results - Last 24 Hours (Table) 04/16/20 04/17/20 04/17/20 Range/Units 06:00 10:31 11:57 Sodium (137-145) mmol/L Carbon Dioxide (22-30) mmol/L Glucose (74-99) mg/dL POC Glucose (mg/dL) 243 H 223 H (75-99) mg/dL Triglycerides 2054 H (<150) mg/dL Cholesterol 315 H (<200) mg/dL 04/17/20 04/17/20 04/17/20 Range/Units 14:16 16:45 19:51 Sodium 132 L (137-145) mmol/L Carbon Dioxide 21 L (22-30) mmol/L Glucose 292 H (74-99) mg/dL POC Glucose (mg/dL) 277 H 158 H (75-99) mg/dL Triglycerides (<150) mg/dL Cholesterol (<200) mg/dL 04/18/20 Range/Units 06:06 Sodium (137-145) mmol/L Carbon Dioxide (22-30) mmol/L Glucose (74-99) mg/dL POC Glucose (mg/dL) 148 H (75-99) mg/dL Triglycerides (<150) mg/dL Cholesterol (<200) mg/dL
--- NOTE | 2020-04-18 07:49 | P.DS ---
Providers Expected date of discharge: 04/18/20 Attending physician: Iván Brunner Jannet is doing well. She denies any chest discomfort shortness of breath. She is intermittently dizzy but her blood pressures are in the normal range Yesterday she had an apparent fall. She was not orthostatic. There were no injuries After that when I came in and examined she seemed neurologically normal limits and I made her walk around. As she was walking her knees buckled just a little bit but she did not fall. She said she was very uncomfortable going home so she was kept overnight for further observation No arrhythmias were noted heart rates are in the 90s she is His bundle paced following AV node ablation Her blood pressures are excellent I stopped diltiazem completely Reduce the dose of metoprolol I increased the dose of lisinopril Her diabetes is uncontrolled and she is scheduled to see her primary care physician Labs sodium 132 potassium 4.2 BUN 13 creatinine 0.8 calcium 8.7 glucose elevated Impression Atrial fibrillation with RVR status post AV node ablation Status post biventricular pacing/His bundle pacing excellent thresholds device function was normal postprocedure Uncontrolled type 2 diabetes Hypertension Plan Stop diltiazem/Cardizem completely Reduce the dose of metoprolol succinate 200 mg once daily Increase lisinopril to 20 mg by mouth daily in the evening only Device clinic follow-up after 2 weeks Patient go home today in follow-up with primary care physician next few days for diabetes control Primary care physician: Channing Cronin Assessment: Patient is doing very well. She was little dizzy when she got up early this morning Yesterday her blood pressure is low and the lisinopril was held She is now in sinus rhythm with selective His bundle pacing status post AV node modification Residual underlying heart rate of about 50 to, junctional escape rhythm She denies any chest discomfort no shortness of breath no orthopnea PND no palpitations Blood pressure 143/98 and 155/84 mmHg pulse rate 90 beats a minute afebrile 97.8F Breath sounds are clear no rhonchi no crackles Normal heart sounds regular Extremity warm no edema Right groin is healed well no hematoma Impression Persistent symptomatic atrial fibrillation Coronary artery disease ASD closure percutaneous Status post biventricular pacemaker Yesterday she underwent AV node modification with residual junctional rhythm at 52 beats a minute Bilateral pacing programmed to a rate of 90 beats a minute Plan Stop Cardizem Reduce metoprolol succinate to 100 mg by mouth daily Lisinopril 20 mg daily in the evening Continue xarelto In the future I may consider reduce the dose of metoprolol succinate and if needed increasing the dose of lisinopril Intolerant of statins, is on Zetia Statins cause myopathy and elevated CPK levels Lipid panel today PC SK 9 inhibitors needs to be renewed Her diabetes uncontrolled and she'll be seeing her primary care physician for further diabetes management Patient will be discharged home today Plan - Discharge Summary Discharge Rx Participant: No New Discharge Prescriptions: New Metoprolol Succinate (ER) [Toprol XL] 100 mg PO DAILY tab.er.24h Lisinopril [Zestril] 20 mg PO HS #90 tab Continue Nitroglycerin Sl Tabs [Nitrostat] 0.4 mg SUBLINGUAL Q5M PRN PRN Reason: Chest Pain INSULIN ASPART (NovoLOG) [NovoLOG (formulary)] 10 unit SQ AC-TID DULoxetine HCL [Cymbalta] 60 mg PO HS Ezetimibe [Zetia] 10 mg PO DAILY #30 tab Insulin Glargine,Hum.rec.anlog [Basaglar Kwikpen U-100] 100 unit SQ DAILY HYDROcodone/APAP 10-325MG [[place] 10-325] 1 tab PO TID PRN PRN Reason: Moderate To Severe Pain Cyclobenzaprine [Flexeril] 20 mg PO TID Melatonin 10 mg PO HS Doxepin [SINEquan] 10 mg PO HS ALPRAZolam [Xanax] 0.25 mg PO TID PRN PRN Reason: Anxiety Albuterol Inhaler [Ventolin Hfa Inhaler] 2 puff INHALATION RT-QID Rivaroxaban [Xarelto] 20 mg DAILY Discontinued Lisinopril [Zestril] 5 mg PO DAILY Metoprolol Succinate [Toprol XL] 100 mg PO BID Diltiazem Cd [Cardizem Cd] 360 mg PO DAILY No Action Ezetimibe [Zetia] 10 mg PO HS Discharge Medication List DULoxetine HCL [Cymbalta] 60 mg PO HS 02/09/18 [History] INSULIN ASPART (NovoLOG) [NovoLOG (formulary)] 10 unit SQ AC-TID 02/09/18 [History] Nitroglycerin Sl Tabs [Nitrostat] 0.4 mg SUBLINGUAL Q5M PRN 02/09/18 [History] Ezetimibe [Zetia] 10 mg PO DAILY #30 tab 03/11/18 [Rx] Insulin Glargine,Hum.rec.anlog [Basaglar Kwikpen U-100] 100 unit SQ DAILY 04/11/19 [History] Cyclobenzaprine [Flexeril] 20 mg PO TID 04/14/19 [History] HYDROcodone/APAP 10-325MG [[place] 10-325] 1 tab PO TID PRN 04/14/19 [History] ALPRAZolam [Xanax] 0.25 mg PO TID PRN 04/16/20 [History] Albuterol Inhaler [Ventolin Hfa Inhaler] 2 puff INHALATION RT-QID 04/16/20 [History] Doxepin [SINEquan] 10 mg PO HS 04/16/20 [History] Ezetimibe [Zetia] 10 mg PO HS 04/16/20 [History] Melatonin 10 mg PO HS 04/16/20 [History] Rivaroxaban [Xarelto] 20 mg DAILY 04/16/20 [History] Lisinopril [Zestril] 20 mg PO HS #90 tab 04/17/20 [Rx] Metoprolol Succinate (ER) [Toprol XL] 100 mg PO DAILY tab.er.24h 04/17/20 [Rx] Follow up Appointment(s)/Referral(s): Iván Brunner MD [STAFF PHYSICIAN] - 2 Weeks (Device clinic follow-up in 2 weeks-- April 23, 2020 @ 1:30 pm Groin check- May 01, 2020 @ 2:30 pm) Activity/Diet/Wound Care/Special Instructions: Post EP study - Ablation instructions 1. Keep access sites dry for 2 days. 2. No heavy lifting or straining for 2 days. 3. Avoid bending the hips repeatedly for 2 days. 4. You may go up and down stairs slowly Call if the following is noted 1. Bleeding, increasing swelling or pain at the access sites. 2. Increasing chest discomfort, especially upon taking a deep breath. 3. Increasing shortness of breath, at rest or with exertion. 4. Undue cough / phlegm 5. Difficulty or pain while swallowing. 6. Pain or change in color in the extremities. 7. Fever, chills, rigors. 8. Increasing headache or neurologic symptoms. 9. Dizziness, fainting, palpitations Medication changes Reduce metoprolol succinate to 100 mg by mouth daily in the morning Increase lisinopril to 20 mg by mouth daily in the evening Stop Cardizem Continue Zetia and continue xarelto and other cardiac medications Follow-up in the device clinic in 2 weeks for device reprogramming Discharge Disposition: HOME SELF-CARE
[2020-04-18] MEDS: CYCLOBENZAPRINE 10 MG TAB PO SCH (08:34)
[2020-04-18] MEDS: INSULIN ASPART (NovoLOG) 100 UNIT/ML VIAL SQ SCH (08:34)
[2020-04-18] MEDS: INSULIN DETEMIR (LEVEMIR) 100 UNIT/ML SYR SQ SCH (08:35)
[2020-04-18] MEDS: METOPROLOL SUCCINATE (ER) 100 MG TAB.ER.24H PO SCH (08:35)
[2020-04-18] MEDS: EZETIMIBE 10 MG TAB PO SCH (08:35)
[2020-04-18] MEDS: RIVAROXABAN 20 MG TAB PO SCH (08:35)
[2020-04-18] MEDS: HYDROcodone/APAP 10-325MG 1 EACH TAB PO PRN (08:47)
[2020-04-18 09:16] VITALS: BP 111/70; PULSE 93; TEMP 98.1
== END 2020-04-18 10:33 | disposition home or self-care (01) ==
LOC: CATHEP 13:41 → 1SOBS 18:08 → CATHEP 04-18 07:47
PROVIDERS: ADMIT Family Medicine; ATTEND Internal Medicine Clinical Cardiac Electrophysiology
DX: I48.19 Other persistent atrial fibrillation (principal); I25.10 Atherosclerotic heart disease of native coronary artery without angina pectoris; I11.0 Hypertensive heart disease with heart failure; I50.9 Heart failure, unspecified; E11.65 Type 2 diabetes mellitus with hyperglycemia; K21.9 Gastro-esophageal reflux disease without esophagitis; Z87.19 Personal history of other diseases of the digestive system; E87.5 Hyperkalemia; I25.2 Old myocardial infarction; M19.90 Unspecified osteoarthritis, unspecified site; G40.909 Epilepsy, unspecified, not intractable, without status epilepticus; I95.9 Hypotension, unspecified; R74.8 Abnormal levels of other serum enzymes; Z95.0 Presence of cardiac pacemaker; E78.5 Hyperlipidemia, unspecified; Z90.49 Acquired absence of other specified parts of digestive tract; Z95.5 Presence of coronary angioplasty implant and graft; Z95.1 Presence of aortocoronary bypass graft; Z86.73 Personal history of transient ischemic attack (TIA), and cerebral infarction without residual deficits; Z86.718 Personal history of other venous thrombosis and embolism; Z86.14 Personal history of Methicillin resistant Staphylococcus aureus infection; Z87.891 Personal history of nicotine dependence; Z87.74 Personal history of (corrected) congenital malformations of heart and circulatory system; Z86.711 Personal history of pulmonary embolism; Z85.3 Personal history of malignant neoplasm of breast; Z79.899 Other long term (current) drug therapy; Z79.01 Long term (current) use of anticoagulants; Z80.3 Family history of malignant neoplasm of breast; Z82.49 Family history of ischemic heart disease and other diseases of the circulatory system; Z82.61 Family history of arthritis; Z80.8 Family history of malignant neoplasm of other organs or systems
CPT/HCPCS: 94640 ×4; 92960; 93650; 80061; 80048 ×2; 85025; G0378; C1894; C1769 ×2; C1732; C1893; J2250; J0690; J2001; J0461; J3010; J2704

== ENCOUNTER → 2020-08-30 | Day surgery (SDC) | payer MEDICARE, OTHER ==
[2020-08-14 14:26] VITALS: BMI 31.3
[2020-08-30 10:09] VITALS: RESP 18; TEMP 98.1
[2020-08-30 10:09] LABS: Glucose,Whole Blood 139 mg/dL (75-99)
[2020-08-30 11:32] VITALS: BP 118/56; PULSE 66
--- NOTE | 2020-08-30 15:52 | P.EPPROC ---
- EP Procedure Note Electrophysiology Procedure Note: Diagnosis Recurrent dizzy spells Twelve-lead ECG shows atrial fibrillation His bundle pacing, selective capture Underlying atrial fibrillation Tilt table test for protocol Baseline blood pressure 123/66. His mercury Baseline heart rate 63 beats a minute Patient status Irregular 70 per protocol. She felt dizzy lightheaded and felt her head was spinning on multiple occasions but also the tests heart rate was in the 60s blood pressure remained normal and unchanged She relates supine at the end of the procedure Impression Permanent atrial fibrillation, status post AV node ablation Status post His bundle pacing with selective capture No evidence for dysautonomia on neurocardiogenic syncope Normal blood pressure response to upright tilting
== END ==
LOC: CATHEP 09:50
PROVIDERS: ATTEND Internal Medicine Clinical Cardiac Electrophysiology
DX: R42 Dizziness and giddiness (principal); I48.19 Other persistent atrial fibrillation; I25.10 Atherosclerotic heart disease of native coronary artery without angina pectoris; I49.5 Sick sinus syndrome; I10 Essential (primary) hypertension; E78.5 Hyperlipidemia, unspecified; E11.9 Type 2 diabetes mellitus without complications; E78.1 Pure hyperglyceridemia; Z88.1 Allergy status to other antibiotic agents; Z88.2 Allergy status to sulfonamides; Z88.8 Allergy status to other drugs, medicaments and biological substances; Z95.0 Presence of cardiac pacemaker; Z98.890 Other specified postprocedural states; Z95.1 Presence of aortocoronary bypass graft; Z87.74 Personal history of (corrected) congenital malformations of heart and circulatory system; Z79.899 Other long term (current) drug therapy; Z72.0 Tobacco use; Z79.4 Long term (current) use of insulin; Z79.01 Long term (current) use of anticoagulants; Z88.5 Allergy status to narcotic agent; Z87.39 Personal history of other diseases of the musculoskeletal system and connective tissue; Z95.5 Presence of coronary angioplasty implant and graft; Z82.49 Family history of ischemic heart disease and other diseases of the circulatory system
CPT/HCPCS: 93660

== ENCOUNTER 2022-07-03 10:31 | Emergency (ER) | payer MEDICARE, OTHER ==
[2022-07-03 10:45] VITALS: BP 162/89; PULSE 78; RESP 18; TEMP 98
[2022-07-03 11:19] LABS: Basophils # (A) 0.1 k/uL (0-0.2); Basophils % (A) 1 %; Eosinophils # (A) 0.2 k/uL (0-0.7); Eosinophils % (A) 2 %; HCT 46.8 % (34.0-46.0); HGB 14.8 gm/dL (11.4-16.0); Lymphocytes % (A) 20 %; MCH 25.9 pg (25.0-35.0); MCHC 31.6 g/dL (31.0-37.0); MCV 81.9 fL (80.0-100.0); Mean Platelet Volume 8.1; Monocytes # (A) 0.6 k/uL (0-1.0); Monocytes % (A) 6 %; Neutrophils # (A) 7.3 k/uL (1.3-7.7); Neutrophils % (A) 71 %; Platelet Count 277 k/uL (150-450); RBC 5.71 m/uL (3.80-5.40); WBC 10.3 k/uL (3.8-10.6)
[2022-07-03 11:34] LABS: Albumin 4.8 g/dL (3.5-5.0); Calcium 9.7 mg/dL (8.4-10.2); Potassium 4.1 mmol/L (3.5-5.1); Total Bilirubin 0.6 mg/dL (0.2-1.3); Total Protein 7.8 g/dL (6.3-8.2)
--- NOTE | 2022-07-03 11:36 | XR ---
EXAMINATION TYPE: XR KUB DATE OF EXAM: 07/03/2022 11:29 AM CLINICAL HISTORY: Abdominal pain. TECHNIQUE: Two Upright KUB images of the abdomen are obtained. COMPARISON: CT July 17, 2018. FINDINGS: Metallic hardware from bilateral hip arthroplasties is redemonstrated. There is persistent cardiomegaly with partial visualization of pacemaker wires and atrial septal closure device. Cholecys tectomy clips are redemonstrated. Infrarenal IVC filter again seen right midabdomen. Scattered gas in nondistended small and large bowel loops. No free air. Lung bases are clear. Transit ional type vertebra lumbosacral junction redemonstrated. IMPRESSION: Overall nonobstructive bowel gas pattern. No significant change from prior CT.
[2022-07-03 11:46] LABS: Appearance,Urine Clear (Clear); Bilirubin,Urine Negative (Negative); Blood,Urine Negative (Negative); Color,Urine Yellow; Glucose,Urine (UA) Negative (Negative); Ketones,Urine Negative (Negative); Leukocyte Esterase,Urine Negative (Negative); Nitrite,Urine Negative (Negative); Protein,Urine Negative (Negative); Specific Gravity,Urine 1.015 (1.001-1.035); Urobilinogen,Urine <2.0 mg/dL (<2.0)
== END 2022-07-03 14:39 | disposition left against medical advice (07) ==
LOC: EC 10:31
DX: Z53.21 Procedure and treatment not carried out due to patient leaving prior to being seen by health care provider (principal); R11.10 Vomiting, unspecified; R10.9 Unspecified abdominal pain
CPT/HCPCS: 36415; 74018; 80053; 81003; 82150; 83690; 85025; 99499

== ENCOUNTER → 2022-08-28 | Outpatient (CLI) | payer MEDICARE, OTHER ==
--- NOTE | 2022-08-28 10:09 | CT ---
EXAMINATION TYPE: CT cervical spine wo con CT DLP: 491.2 mGycm, Automated exposure control for dose reduction was used. DATE OF EXAM: 08/28/2022 8:38 AM COMPARISON: Cervical spine radiograph 07/14/2022. CLINICAL INDICATION:Female, 62 years old with history of M54.10 Radiculopathy M48.22 Cervical stenosi s; PHH, radiculopathy, pre op TECHNIQUE: Axial CT images from the skull base to the inferior aspect of T2 we obtained without intra venous contrast. Coronal and sagittal reformatted images were also reviewed. FINDINGS: Fracture: None. Osseous structures: Multilevel degenerative disc disease changes with endplate spurring and disc oste ophyte complex's. Multilevel facet arthropathy. Vertebral alignment: Within normal limits. Spinal canal/Neural Foramina: Disc osteophyte complexes at C5-C6 with at least mild spinal canal sten osis. Uncovertebral joint hypertrophy at C4-C5, C5-C6, and C6-C7 with mild bilateral neural foraminal stenosis. Neck soft tissues: Prevertebral soft tissues are within normal limits. Other: The airway is patent. The lung apices are clear. Medial right apical paraseptal emphysematous changes. Vascular sclerosis. Partial visualization of cardiac pacemaking leads. IMPRESSION: 1. No evidence of cervical spine fracture. 2. Mild multilevel degenerative disc disease.
== END | disposition home or self-care (01) ==
LOC: RADCTMAIN 08:10
PROVIDERS: ATTEND Orthopaedic Surgery
DX: M50.322 Other cervical disc degeneration at C5-C6 level (principal); M48.2 Kissing spine
CPT/HCPCS: 72125

== ENCOUNTER → 2022-09-10 | Outpatient (CLI) | payer MEDICARE, OTHER ==
--- NOTE | 2022-09-10 11:16 | BD ---
EXAMINATION TYPE: Axial Bone Density DATE OF EXAM: 09/10/2022 COMPARISON: NONE CLINICAL HISTORY: 62 years year old Female. ICD-10 CODE: Z78.0 POST MENOPAUSAL WITHOUT HRT Height: 5FT 9IN Weight: 217.5 FRAX RISK QUESTIONS: Alcohol (3 or more units per day): NO Family History (Parent hip fracture): NO Glucocorticoids (More than 3mos): NO (Ex: prednisone, prednisolone, methylprednisolone, dexamethasone, and hydrocortisone). History of Fracture in Adulthood: NO Secondary Osteoporosis: YES 1. Type 1 Diabetes: TYPE 2 2. Hyperthyroidism: NO 3. Menopause before 45: NO 4. Malnutrition: YES, GASTROPARESIS 5. Chronic liver disease: NO Rheumatoid Arthritis: NO Current Tobacco Use: NO RISK FACTORS HISTORY OF: Hip Fracture (Right/Left): When: Spine Fracture: When: History of Wrist Fracture: When: Surgery to Spine/Hip(right/left)/Wrist (right/left): BILATERAL HIP REPLACEMENT/ LUMBAR LAMINECTOMY L5 -S1 IN 2010 When: RIGHT HIP 2011, LEFT HIP 2013 Family History of Osteoporosis: YES Active: YES Diet low in dairy products/other sources of calcium: YES Postmenopausal woman: YES Lost more than 2 inches in height since high school: YES Frequent falls: YES Poor Health: FAIR Hyperparathyroidism: NO Adrenal Insufficiency: STAGE 2 KIDNEY DISEASE MEDICATIONS: Additional Medications: SCANNED MED LIST IN PACS Additional History: PATIENT HAS HX OF BREAST CANCER, CHEMOTHERAPY AND RADIATION EXAM MEASUREMENTS: Bone mineral densitometry was performed using the [employer] System. Bone mineral density as measured about the Lumbar spine is: ----- L1-L4(G/cm2): 1.395 T Score Values are as follows: ----- L1: 0.8 ----- L2: 2.5 ----- L3: 2.5 ----- L4: 1.2 ----- L1-L4: 1.8 PREVIOUS DONE ELSEWHERE Bone mineral density about the L Wrist (g/cm2): 0.724 T Score values are as follows: -----Dist. R+U: 1.4 -----Prox. R+U: 1.6 -----Radius total: 1.4 PREVIOUS DONE ELSEWHERE NO FRAX IMPRESSION: Normal (Values between +1 and -1 indicate normal bone mass). Consider repeating this study in 5 year s or sooner if there is some new clinical indication. NOTE: T-SCORE=SD OF THE YOUNG ADULT MEAN.
--- NOTE | 2022-09-11 14:09 | MM ---
Reason for Exam: Clinical finding. Last mammogram was performed 1 year(s) and 9 month(s) ago. Patient History: Menarche at age 13. First Full-Term at age 21. Postmenopausal. Breast cancer, left, age 53. 2012, Lumpectomy on the Left side. 2012, Radiation Therapy on the left side. 2012, Chemotherapy. Mother had breast cancer, age 40. Tissue Density: There are scattered fibroglandular densities. Findings: Analyzed By CAD. Persistent diminished size with distortion along with scar tissue and clips in the outer portion left breast. Partial visualization of left axillary pacemaker device similar to prior studies. Occasional scattered tiny benign-appearing round calcifications bilaterally. Partial visualization of benign-appearing right axillary lymph nodes on current study. No new suspicious group of microcalcification bilaterally. Overall Assessment: Benign, BI-RAD 2 Management: Screening Mammogram of both breasts in 1 year. A clinical breast exam by your physician is recommended on an annual basis and results should be correlated with mammographic findings. This exam should not preclude additional follow-up of suspicious palpable abnormalities. Results were given to the patient verbally at the time of exam. Electronically signed and approved by: Zaki Matos M.D.
== END | disposition home or self-care (01) ==
LOC: RADMAMWWP 08:04
PROVIDERS: ATTEND Family Medicine
DX: E10.43 Type 1 diabetes mellitus with diabetic autonomic (poly)neuropathy (principal); Z85.3 Personal history of malignant neoplasm of breast; Z78.0 Asymptomatic menopausal state
CPT/HCPCS: 77080; 77066; G0279; 77062

== ENCOUNTER → 2022-09-17 | Outpatient (CLI) | payer MEDICARE, OTHER ==
--- NOTE | 2022-09-17 09:13 | CTL ---
EXAMINATION TYPE: CT Low Dose Lung DATE OF EXAM ORDERED: 09/17/2022 HISTORY: Long-term tobacco use. Lung cancer screening CT DLP: 138.[address] CTDI: 3.9 mGy Automated exposure control for dose reduction was used. SCREENING VISIT: Baseline COMPARISON: Prior whole body CT July 17, 2018 TECHNIQUE: Low dose computed tomography scan was performed through the chest at 1 mm thick sections a nd reconstructed images in multiple planes at 1 mm and [address] DIAGNOSTIC QUALITY: Satisfactory FINDINGS: LUNG NODULES: None. No significant greater than 5 mm noncalcified pulmonary nodules. LUNGS: COPD: Severity: Mild to moderate Fibrosis: Severity: Mild linear scarring anterior left mid lung Lymph nodes: Non- Other findings: Post-CABG changes with sternal wires and mediastinal clips. There is dual lead pacema ker. RIGHT PLEURAL SPACE: Effusion: None Calcification: None Thickening: None Pneumothorax: None LEFT PLEURAL SPACE: Effusion: None Calcification: None Thickening: None Pneumothorax: None HEART: Heart Size: Normal Coronary Calcification: None Pericardial Effusion: None OTHER FINDINGS: Upper abdomen: Cholecystectomy clips noted on localizer Bony thorax: Slight scoliotic curvature upper thoracic spine. Supraclavicular region: None Other: Lumpectomy changes to the left breast on axial image 27 are noted. Correlate with patient's hi story of left-sided breast cancer. IMPRESSION: No significant nodules. CT LUNG RAD AND CT CHEST RECOMMENDATION: Lung-Rad 1 Negative: Continue annual screening with LDCT in 12 months. S Modifier (other clinically significant findings): None
== END | disposition home or self-care (01) ==
LOC: RADCTMAIN 08:30
PROVIDERS: ATTEND Family Medicine
DX: Z12.2 Encounter for screening for malignant neoplasm of respiratory organs (principal); Z87.891 Personal history of nicotine dependence
CPT/HCPCS: 71271

== ENCOUNTER → 2022-09-23 | Outpatient (CLI) | payer MEDICARE, OTHER ==
[2022-09-23 14:22] LABS: Basophils # (A) 0.06 X 10*3/uL (0.00-0.10); Basophils % (A) 0.7 %; Eosinophils # (A) 0.66 X 10*3/uL (0.04-0.35); Eosinophils % (A) 7.5 %; HCT 37.8 % (37.2-46.3); HGB 11.9 g/dL (12.0-15.0); Immature Grans, Automated 0.5 %; Lymphocytes # (A) 1.91 X 10*3/uL (0.90-5.00); Lymphocytes % (A) 21.7 %; MCH 26.6 pg (27.0-32.0); MCHC 31.5 g/dL (32.0-37.0); MCV 84.6 fL (80.0-97.0); Mean Platelet Volume 10.2 fL (9.5-12.2); Monocytes # (A) 0.64 X 10*3/uL (0.20-1.00); Monocytes % (A) 7.3 %; NRBC Per 100 WBC 0 /100 WBCS (0.0-0.0); Neutrophils % (A) 62.3 %; Platelet Count 233 X 10*3/uL (140-440); RBC 4.47 X 10*6/uL (4.10-5.20); RDW 16.3 % (11.5-14.5); WBC 8.81 X 10*3/uL (4.50-10.00)
[2022-09-23 14:43] LABS: INR 0.98 (0.90-1.11); Prothrombin Time 11.1 sec (9.9-11.9)
[2022-09-23 14:48] LABS: African American GFR (CKD) 64.9 (60.0-200.0); Anion Gap 11.7 mmol/L (10.00-18.00); BUN/Creat Ratio 14.3 Ratio (12.00-20.00); Blood Urea Nitrogen 15.3 mg/dL (9.0-27.0); Calcium 9.5 mg/dL (8.7-10.3); Carbon Dioxide 26.7 mmol/L (20.0-27.5); Potassium 5.1 mmol/L (3.5-5.5)
== END | disposition home or self-care (01) ==
LOC: LABPAT 08:31
PROVIDERS: ATTEND Orthopaedic Surgery
DX: Z01.812 Encounter for preprocedural laboratory examination (principal); M47.812 Spondylosis without myelopathy or radiculopathy, cervical region; M48.02 Spinal stenosis, cervical region; Z22.322 Carrier or suspected carrier of Methicillin resistant Staphylococcus aureus
CPT/HCPCS: 80048; 85025; 85610; 87070

== ENCOUNTER 2022-10-02 11:38 | Observation (INO) | payer MEDICARE, OTHER ==
--- NOTE | 2022-10-02 08:49 | P.HPOR ---
History of Present Illness H&P Date: 09/08/22 .D:Date: 09/08/22 : 10:40am .T:Title: [facility] History and Physical Date of :[birth year] Age: 62 year Height: 5'9.5" Weight: 228 lbs BMI: 33.19 kg/m2 Occupation: unemployed VAS: 8 CHIEF COMPLAINT: Recheck cervical pain DOI:Chronic DOS: N/A Duration of current treatment regiment: 1 month HISTORY: Xrays brought xrays from outside facility which were reviewed No new xrays taken in office Trauma or injury No Work-Related No Pain description aching, sharp. Location posterior Patient notes that their pain radiates to bilateral upper extremities Activity Modification yes Hand Dominance right TREATMENTS COMPLETED: 6 weeks of PT completed? Month and Year of last PT date? None recent Yes, approximately 8 years ago How many sessions? 12 Did it help? No Physician directed home exercise completed? Patient has trialed the physician directed home exercise program with slight relief of their symptoms. Medications yes List: Robaxin and Fioricet without relief Tylenol OTC PRN without relief Alternative interventions Chiropractic: No Massage therapy: No R.I.C.E: yes Brace: No Injections Yes How many? multiple Did they help? No RFA: No SUBJECTIVE: Ms. Glass returns to the office for a recheck of their low back pain. Patient reports worsening, sharp, burning cervical pain. She notes that since the last appointment she did fall again, landing on the left side. She notes that she has seen an increase in left upper extremity numbness/tingling along with diffuse pain. Overall the patient has seen a progressive increase in symptoms since their onset. Ms. Glass symptoms are exacerbated with any use of the left arm or movement of the neck, due to this they notes that it is increasingly difficult for Ms. Glass to complete many of their daily tasks. Patient is having severe sleep disturbances as well due to their ongoing pain and associated symptoms. Regarding treatments, the patient has previously trialed all abovementioned treatment modalities without relief. Patient denies trialing any other modalities at this time. For their symptoms, the patient has been taking Tylenol, Xeralto, Robaxin, Fioricet all without relief. Otherwise the patient denies any f/c/sob/cp, no incision concerns, no bladder or bowel retention/incontinence, no perineal numbness/tingling, and ambulates independently. HISTORY: Ms. Glass returns to the office on 08/04/2022 for a recheck of their cervical spondylosis. Since the time of the last appointment the patient reports no impr ovements, noting continued cervicalpain ongoing for 6 months with no known injury or trauma to indicate an exact onset of their symptoms. In addition to their cervicalpain, they do report that it radiates into the left upper extremity, associated withnumbness and tingling through the C4-C7 dermatomal distribution. Overall the patient has seen a progressive increase in symptoms since their onset. Ms. Glass symptoms are exacerbated with prolonged standing and ambulation, due to this they notes that it is increasingly difficult for Ms. Glass to complete many of their daily tasks. Patient is having severe sleep disturbances as well(due to their ongoing pain and associated symptoms. Regarding treatments, the patient has previously trialed PT, home exercises for greater than 3 months, heat/ice, injections, and medications all without relief. Patient denies trialing any other modalities at this time. For their symptoms, the patient has been taking Tylenol PRN without any relief of her symptoms. Otherwise the patient denies any f/c/sob/cp, no incision concerns, no bladder or bowel retention/incontinence, no perineal numbness/tingling, and ambulates independently. Ms. Glass was last seen on 07/14/2022 regarding chronic neck pain that has persisted for 10 years and worsened over the last 6 months. Patient describes a constant aching with intermittent sharp neck pain that radiates into bilateral upper extremities with associated numbness and tingling that includes all of her fingers. Patient states the pain, numbness and tingling is worse in the left more than the right upper extremity. Due to patient's symptoms she is having difficulty performing her ADLs. Patient reports moderate sleep disturbance. Patient states she has trialed physical therapy and JOVAN injections approximately 8 years ago with no relief. Patient states her PCP, Dr. Morton, does not want patient receiving any additional injections due to her medical history. Patient does have a history of breast cancer and reports having a lumbar surgery performed by Dr. Walter In 2010. Patient is currently taking Robaxin and Fioricet for pain management. Otherwise patient denies any f/c/sob/cp, no bladder or bowel retention/incontinence, no perineal numbness/tingling, and ambulates independently. The patients' past social, medical, family, surgical history, as well as review of systems, have been reviewed. Please refer to the Neurosurgery History and Physical form that has been scanned in to our electronic medical record system. 16 points review of systems completed and as stated in HPI, all other systems reviewed are negative. Social History: Reviewed, see appropriate section of the chart for details. P3 Social History: Smoking: former smoker, cannabis 3 times per day P3 Alcohol: none P3 Family History: Reviewed, see appropriate section of the chart for details. P2 Past Medical History: Reviewed, see appropriate section of the chart for details. [id number] Medications: Rx: aspirin 81 mg tablet,delayed release Ref: 0 Rx: butalbitaL 50 mg-acetaminophen 325 mg-caffeine 40 mg-codeine 30 mg cap Ref: 0 Rx: ezetimibe 10 mg tablet Ref: 0 Rx: famotidine 40 mg tablet Ref: 0 Rx: Lantus U-100 Insulin Ref: 0 Rx: lisinopriL 20 mg tablet Ref: 0 Rx: melatonin 10 mg capsule Ref: 0 Rx: methocarbamoL 500 mg tablet Ref: 0 Rx: metoprolol succinate ER 25 mg tablet,extended release 24 hr Ref: 0 Rx: NovoLOG PenFill U-100 Insulin Ref: 0 Rx: pantoprazole 40 mg tablet,delayed release Ref: 0 Rx: Repatha Syringe 140 mg/mL subcutaneous syringe Ref: 0 Rx: Rybelsus 7 mg tablet Ref: 0 Rx: sertraline 100 mg tablet Ref: 0 Rx: Xarelto 20 mg tablet Ref: 0 Rx: Zofran Ref: 0 Rx: Cannabis , Ref: 0 Rx: TylenoL 325 mg tablet Ref: 0 PHYSICAL EXAMINATION: General: Awake, alert, appropriate for age, in no acute distress. HEENT: No unusual neck masses around region of lateral neck triangle, thyroid, supraclavicular groove Heart: Regular rate and rhythm, normal S1, S2 and no murmur/gallop. Lungs: Clear to auscultation bilaterally with no use of accessory muscles. Extremities: Skin warm and dry without acute lesions, coloration, temperature, skin intact, no tenderness or erythema Integument: Hairy patches: ABSENT Dorsal skin dimples: ABSENT Cafe au lait spots: ABSENT Surgical incisions: NONE Palpation: Please see Pain drawing on Intake sheet for further detail. Midline spinal tenderness: No E6 Cervical Tenderness: No E6 Paralumbar tenderness: No E6 Parathoracic tenderness: No E6 Buttocks tenderness: No E6 POSTURAL and MUSCULO-SKELETAL EVALUATION: Coronal Balance: NEUTRAL Recumbent testing: Patient is able to lay flat on back Sagittal Balance: NEUTRAL Shoulder Profile: LEVEL Pelvic Girdle: LEVEL Neck ROM: RESTRICTED Lumbar ROM: UNRESTRICTED Shoulder ROM: Symmetrical Hip ROM: Symmetrical Knee ROM: Symmetrical Hands: Normal appearance, symmetrical Feet: Normal appearance, Symmetrical VASCULAR STATUS : LEFT RIGHT Wrist Pulses INTACT INTACT Pedal Pulses (Dors. pedis & post.tibialis) INTACT INTACT Color NORMAL NORMAL Edema Absent Absent NEUROLOGIC EXAMINATION: Mental Status:Awake and alert, fully oriented, with normal attention, concentration and memory, and fluent, appropriate speech. Cranial Nerves: I: Olfactory not tested. II: Visual acuity normal, no visual field deficit noted with confrontation. III,IV: Normal pupillary reflexes & intact extraocular movements without nystagmus. V,: Intact symmetrical facial sensation. VII: Intact symmetrical facial motor movement VIII: Hearing intact. IX,X: Intact gag, swallow, & normal voice. XI: Sternocleidomastoid, trapezius function intact. XII: Tongue midline with normal movements. L'hermitte's Sign: Negative / absent Spurling'Sign: Absent bilaterally. Cubital percussion test: Absent bilaterally. Martínez-Tinel sign - Carpal region: Absent bilaterally. Straight Leg Raising: Absent bilaterally. Crossed straight leg raise: negative O8 MOTOR EXAM (0-5/5, N/T) UPPER EXTREMITY Shoulder Abduction Biceps Triceps Wrist Extension Hand Intrinsics Level Vial Setter Right 5/5 5/5 5/5 5/5 5/5 5/5 Left 4/5 4/5 4/5 4-/5 4-/5 4-/5 LOWER EXTREMITY Hip Flexion Knee Extension Knee Flexion DF PF EHL FHL Right 5/5 5/5 5/5 5/5 5/5 5/5 5/5 Left 4/5 4/5 4/5 4/5 4/5 4/5 4/5 REFLEXES(0-4/2, NT)Upper ExtremityLower Extremity Right 2 2 Left 2 2 Pathological Reflexes RIGHT LEFT Martínez's Present Absent Clonus Absent Absent Babinski Absent Absent # Indicates mechanical impairment Muscle appearance: Symmetrical, without signs of atrophy or dystrophy. Rectal Tone:Deferred Sensory system (0-4, N/T) Test type RU RUSTAM RL LL Joint-Position 2 2 2 2 Vibration 2 2 2 2 Pain & LT sense 2 2 2 2 Dermatomal Deficit: None C4-C7 None None Gait and Functional Evaluation: Ambulatory aids: Independent Romberg's test: Intact bilaterally Toe heel walk / heel-toe walk intact while maintaining satisfactory balance? yes Squatting/straightening w/o assistance to a min of 60 degree knee flexion? No Single leg stance: intact Hand and finger dexterity intact bilaterally? yes Disdiadochokinesis examination negative bilaterally? yes RADIOGRAPHIC STUDIES: XRay Cervical multiview (Lateral, Flexion, Extension, AP, Oblique) 5 views taken at [facility] on 07/14/22 of Cervical Spine: Images are reviewed with the pt and demonstrate severe cervical spondylosis from C4-C7 with severe disc collapse, anterior osteophyte formations that are large and severe there is flattening of the normal cervical lordosis secondary to this collapse. There is facet arthrosis noted that is severe. No fracture. No dislocation. CT without contrast obtained at [facility] from 08/28/2022 of Cervical spine: Images reviewed with the patient. There is spondylosis from C4-7 with severe facet arthrosis. There is disc collapse at each level contributing to foraminal as well as central stenosis. There are osteophytes seen posteriorly and anteriorly due to this collapse and the severe spondylosis. Flattening of the normal cervical lordosis noted secondary to these changes. No fractures. No lesions noted. [facility] Cerv[facility] Spine: This is reviewed and demonstrates again severe spondylosis then the cervical spine from C4 through C7 with disc desiccation and disc collapse anterior osteophyte formation as well as posterior disc bulges causing varying degrees of stenosis from moderate to severe from C4 through C7. There is bilateral foraminal stenosis. There is flattening of the normal cervical lordosis. No acute fracture or dislocations noted no lesions noted. IMPRESSION: It was my pleasure to have seen and examined Laura. I reviewed the patient's clinical syndrome, physical findings, and imaging studies during the appointment today. It is my impression that the patient has a diagnosis of. 1. cervical spondylosis with stenosis 2. disc spur complex C3-C6 3. bilateral upper extremity radiculopathy 4. Left upper extremity weakness 5. C4-C7 spondylosis with stenosis I outlined the natural course history without intervention and various interventional options. PLAN: Based on my findings I suggest the following course of action: -Advised patient to continue with supplements, health maintenance, and home exercise programs. Patient expressed understanding and will continue with these modalities. -I discussed treatment options with the patient, including operative and non- operative options, and they have elected to proceed with the following surgical procedure: cervical (C4-C7) ACDF The indications, risks, benefits, and alternatives to surgery were discussed with the patient at length. Specifically (but not limited to) the risks of infection, stiffness, recurrence of symptoms, need for revision surgery, local numbness, neurovascular injury, and blood clots were discussed. The patient's questions were answered. The decision to proceed was made. Consent will be obtained for the procedure. Spine Surgery Risk Review Ms. Glass is presenting for evaluation of cervical pain and weakness. It was my pleasure to have seen and examined Ms. Glass. In our visit today we have had a chance to go over subjective complaints, physical examination findings and treatments including the natural course history without intervention and various interventional options. The patients imaging demonstrates: XRay Cervical multiview (Lateral, Flexion, Extension, AP, Oblique) 5 views taken at [facility] on 07/14/22 of Cervical Spine: Images are reviewed with the pt and demonstrate severe cervical spondylosis from C4-C7 with severe disc collapse, anterior osteophyte formations that are large and severe there is flattening of the normal cervical lordosis secondary to this collapse. There is facet arthrosis noted that is severe. No fracture. No dislocation. CT without contrast obtained at [facility] from 08/28/2022 of Cervical spine: Images reviewed with the patient. There is spondylosis from C4-7 with severe facet arthrosis. There is disc collapse at each level contributing to foraminal as well as central stenosis. There are osteophytes seen posteriorly and anteriorly due to this collapse and the severe spondylosis. Flattening of the normal cervical lordosis noted secondary to these changes. No fractures. No lesions noted. [facility] Spine: This is reviewed and demonstrates again severe spondylosis then the cervical spine from C4 through C7 with disc desiccation and disc collapse anterior osteophyte formation as well as posterior disc bulges causing varying degrees of stenosis from moderate to severe from C4 through C7. There is bilateral foraminal stenosis. There is flattening of the normal cervical lordosis. No acute fracture or dislocations noted no lesions noted. On physical exam, Ms. Glass demonstrates severely restricted cervical ROM with global left side weakness. Patient does also demonstrate C4-C7 dermatomal deficits with reduced fine motor function. Overall patient is very limited physically due to her pathology. I have explained to the patient that as their condition progresses it will cause further neurological deficits and eventual paralysis. Based on the patients imaging, physical exam, and the rapid progression and disabling nature of their symptoms, at this time I recommend surgery in the form or a: cervical (C4-C7) ACDF. I discussed the risk and benefits of this procedure at length with Ms. Glass. The patient agreed to considered pursuing the procedure abovementioned. Prior to surgery, she should follow up with her PCP (Cardio, ID, IM etc) for clearance. Questions were invited and answered, and the patient wishes to proceed as outlined below. Currently, I am recommendin.cervical (C4-C7) ACDF 2.Follow up with PCP for surgical clearance 3.Review of surgical risks and benefits as well as an educational packet on the proposed surgical procedure. Risks: All surgical procedures come with inherent risks, including those related to positioning, anesthesia, intraoperative findings, and postoperative complications. It is important to understand that surgery does not come with any guarantee of a successful outcome as complications and adverse events are always possible. The patient was given a handout in office today discussing the surgical procedure and risks associated with the intervention, both of which were discussed with the patient. These risks include but are not limited to the following: * Experiencing same, different or even worse symptoms in back, neck, arms, or legs compared to before surgery. Requiring further surgery or other forms of treatment presently or at some time in the future at same or other levels of the intended spine surgery. On an extreme but fortunately relatively rare basis severe complication such as blindness, stroke, heart attack, temporary and/or permanent nerve injury, paralysis, coma, or may occur, sometimes without known explanation. Surgical complications may include but are not limited to risk of infection, fluid accumulation in the surgical dissection site, including a seroma or hematoma, that requires additional surgery, wound drainage, bleeding, new numbness or weakness, vision changes/loss, spinal fluid leakage, non-healing and/or infected incision, headaches, difficulty or inability to swallow, ho arseness, hemopneumothorax, pneumothorax, impotence, retrograde ejaculation, vaginal dryness; injury to nerves, spinal cord, blood vessels, lymphatics or other vital organs (i.e., bowel injury, injury to the great vessels); heterotopic bone formation; complications related to the hardware such as screws, rods, cages including misplaced hardware, device failure, instrumentation at the wrong spine level, hardware fracture/breakage, or hardware loosening; vertebral failure of the spinal column above or below the newly placed hardware; retained surgical instrumentations or devices and the need for further surgery. * Medical risks of the planned spine surgery include but are not limited to generalized Infections to the whole body or local areas outside of the surgical site (sepsis), heart attack, bleeding, anaphylaxis, meningitis, seizure, epilepsy, hearing loss, burn elias, laceration of the head or other areas of the body, bruising, hypersensitivity of the skin, bladder over diste nsion; allergic reaction; shoulder injury related to positioning; fat, blood and air clots to other areas of the body like heart, lungs, brain; failure of internal organs such as lungs, kidneys, liver and excessive bleeding. If blood transfusions are necessary, note that transfusions may cause intolerance reactions such as anaphylaxis or other complex reactions. Despite best efforts, the results of spine surgery might not heal in terms of bone, soft tissues such as skin, fascia, ligaments, and joints. Additionally, in order to achieve best possible results, spine surgery may be carried out b eyond the initially planned levels and involve decompression, fusion including insertion of hardware at levels other than the original intended area of surgical interest change some portions of the procedure in order to ensure the best possible outcomes. With spine surgery and spinal fusion, there are different off label uses of instrumentation (devices, implants and hardware) as well as biological substances (bone morphogenic proteins, demineralized bone matrix) as well as using extra bone from allograft sources (i.e. cadaver bone) or autograft (iliac crest bone, ribs, or the spine itself). The patient has been given information about these practices and their inherent risks and benefits. [facility] is an educational center that serves as a training facility for neurosurgical and orthopedic CARE T[employer]ER and Nursing students. Physician assistants are medically trained surgical providers who function in the outpatient, inpatient, and operating room setting under the direct supervision of the attending surgeon. [facility] has multiple operating rooms with single and overlapping rooms running daily. They currently function under the required guidelines as produced by the [facility] Finance Committee with regards to the overlapping rooms and will continue to comply with changes to this policy as they occur. The requirements include and are complied with as follows: (1) the critical portions of the overlapping rooms will not occur at the same time, (2) the attending physician will be physically present during the critical portions of the procedure and immediately available during the entire case, and (3) a back-up attending is designated should the primary attending not be immediately available. The patient has had a chance to review all the listed information, has been given print outs detailing this information, and has had all his/her questions answered to their satisfaction. It was my pleasure to have seen and examined Ms. Glass. In our visit today we h ave had a chance to go over my understanding of our patient's current condition, the natural course history without intervention and various interventional options. Questions were invited and answered, and the patient wishes to proceed as outlined above. I have seen and examined the patient for 25 minutes and we have spent more than 50% of the time in repeat and detailed counseling about the patient's condition, its natural course history with out and as much as can be predicted with surgery and re-review of various surgical treatment options. In conclusion, Ms. Glass requested we proceed with the above suggested surgery and are willing to accept risks and limitations of the suggested surgery as nature of the disease process and our best attempts at treatment for the co ndition. Thank you again for allowing us to be part of your patient's care. Please don't hesitate to contact me if you have any further questions. Signed and authenticated by: Follow- up: 1 week pre-op Patient Education: (Informational booklet, instructions, etc) given at today's appointment: Yes .ED:Patient Education: Y Plan at next visit:review planned procedure Medications Reviewed: YES In our visit today Ms. Glass and I have had a chance to go over my understanding of the patient's current condition, the natural course history without intervention and various interventional options. Questions were invited and answered, and the patient wishes to proceed as outlined above. I will be sure to keep you updated afterMsDorinda Glass returns here for further follow-up. Thank you again for your referral. Please do not hesitate to contact me if you have any further questions. Signed and authenticated by: Zack Randolph [facility] [address], [place] [address] [place] [address] This message is confidential, intended only for the named recipient(s) and may contain information that is privileged or exempt from disclosure under applicable law. If you are not the intended recipient(s), you are notified that the dissemination, distribution or copying of this information is strictly prohibited. If you received this message in error, please notify the sender then delete this message. Patient verbalizes understanding of the information discussed. The above note was initiated by Zack Anderson, physician recording nurses medical assistants phlebotomists for Dr. Zack Pham. This note has been reviewed by Dr. Pham, who has made his personal changes and impressions for this document. # SIGNED BY Zack Pham (GOO)09/11/2022 08:21AM Past Medical History Past Medical History: Atrial Fibrillation, Coronary Artery Disease (CAD), Cancer, Chest Pain / Angina, Heart Failure, CVA/TIA, Diabetes Mellitus, Deep Vein Thrombosis (DVT), GERD/Reflux, GI Bleed, Hyperlipidemia, Hypertension, Myocardial Infarction ([place]), Osteoarthritis (OA), Pulmonary Embolus ([place]), Renal Disease, Seizure Disorder, Syncope Additional Past Medical History / Comment(s): breast cancer with lumpectomy/radiation and chemo 2012, DVT/pulmonary embolism after CABG, PFO with surgery, TIA 2010-slight left sided weakness, 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, DJD, DDD, syncope twice d/t bradycardia, gastroparesis, possible stage 2 kidney disease Last Myocardial Infarction Date:: 2008 History of Any Multi-Drug Resistant Organisms: MRSA Date of last positivie culture/infection: 2012 MDRO Source:: MRSA sore in nostril 2012 Past Surgical History: Appendectomy, Back Surgery, Breast Surgery, Cardiac Ablation, Section, Cholecystectomy, Coronary Bypass/CABG, Heart Catheterization, Heart Catheterization With Stent, Joint Replacement, Orthopedic Surgery, Pacemaker, Tonsillectomy Additional Past Surgical History / Comment(s): JIMBO/cardioversion, 4 vessel CABG 2008, PFO surgery in 2010, PCI with 2 stents to graft sites, stage 3 breast Ca LT with lumpectomy/nodes removed, BILAT VICK, EGD/colonoscopy , 2 C-Sections.,ivc filter, laminectomy, flap surgery over sternal plating after a fall 2008 Past Anesthesia/Blood Transfusion Reactions: No Reported Reaction Additional Past Anesthesia/Blood Transfusion Reaction / Comment(s): Pt has received blood in past with CABG-no reaction. Date of Last Stent Placement:: 2016 Type of Cardiac Device: Permanent Pacemaker Device Placement Date:: 05/11/18 Smoking Status: Former smoker - Past Family History Father Family Medical History: Cancer, Vascular Disorder Additional Family Medical History / Comment(s): MELENOMA Mother Family Medical History: Cancer, Rheumatoid Arthritis (RA) Additional Family Medical History / Comment(s): Mother had breast cancer. Medications and Allergies Home Medications Medication Instructions Recorded Confirmed Type INSULIN ASPART (NovoLOG) [NovoLOG 3 unit SQ AC-TID 02/09/18 09/29/22 History (formulary)] Nitroglycerin Sl Tabs [Nitrostat] 0.4 mg SUBLINGUAL Q5M PRN 02/09/18 09/29/22 History Cyclobenzaprine [Flexeril] 10 mg PO TID 04/14/19 09/29/22 History ALPRAZolam [Xanax] 0.25 mg PO TID PRN 04/16/20 09/29/22 History Ezetimibe [Zetia] 10 mg PO HS 04/16/20 09/29/22 History Melatonin [Melatonin Dissolving 10 mg PO HS PRN 04/16/20 09/29/22 History Tablet] Rivaroxaban [Xarelto] 20 mg PO HS 04/16/20 09/29/22 History lisinopriL [Zestril] 20 mg PO HS #90 tab 04/17/20 09/29/22 Rx Famotidine [Pepcid] 40 mg PO DAILY 08/14/20 09/29/22 History Metoclopramide [Reglan] 5 mg PO ACHS PRN 08/14/20 09/29/22 History dilTIAZem HCL [Cardizem CD] 360 mg PO QAM 08/14/20 09/29/22 History Evolocumab [Repatha Syringe] 140 mg SQ Q14D 09/29/22 09/29/22 History HYDROcodone/APAP 5-325MG [[place] 1 tab PO Q6HR PRN 09/29/22 09/29/22 History 5-325] Insulin Glargine [Lantus Vial] 35 unit SQ HS 09/29/22 09/29/22 History Insulin Glargine [Lantus Vial] 40 unit SQ DAILY 09/29/22 09/29/22 History Metoprolol Succinate [Metoprolol 25 mg PO BID 09/29/22 09/29/22 History Succinate ER] Ondansetron [Zofran] 4 mg PO Q8HR PRN 09/29/22 09/29/22 History Pantoprazole [Protonix] 40 mg PO DAILY 09/29/22 09/29/22 History Semaglutide [Rybelsus] 7 mg PO DAILY 09/29/22 09/29/22 History Sertraline [Zoloft] 100 mg PO HS 09/29/22 09/29/22 History Allergies Allergy/AdvReac Type Severity Reaction Status Date / Time ciprofloxacin [From Cipro] Allergy Anaphylaxis Verified 09/29/22 12:26 sulfamethoxazole Allergy Anaphylaxis Verified 09/29/22 12:26 [From Bactrim] ticagrelor [From Brilinta] Allergy Dyspnea Verified 09/29/22 12:26 trimethoprim [From Bactrim] Allergy Anaphylaxis Verified 09/29/22 12:26 vortioxetine Allergy LOW HEART Verified 09/29/22 12:26 [From Brintellix] RATE morphine [From MS Contin] AdvReac Hallucinati Verified 09/29/22 12:26 ons pegfilgrastim [From Neulasta] AdvReac Nausea & Verified 09/29/22 12:26 Vomiting Physical Examination Osteopathic Statement: *. No significant issues noted on an osteopathic structural exam other than those noted in the History and Physical/Consult.
[~2022-10-02 11:38] MED LIST changes: -SODIUM CHLORIDE 0.9% 1,000 ML IV SCH; +TRANEXAMIC ACID IN NACL,ISO-OS 1,000 MG in SALINE 1 100ML.BAG IVPB PRN
[2022-10-02] MEDS ORDERED: LIDOCAINE 1% (10MG/ML) FOR IV START INTRADERMA PRN (11:56)
[2022-10-02] MEDS ORDERED: ONDANSETRON 4 MG/2 ML VIAL IVP ONE (11:56)
[2022-10-02] MEDS ORDERED: DEXAMETHASONE SOD PHOSPHATE 4 MG/ML 1 ML VIAL IV ONE (11:56)
[2022-10-02] MEDS ORDERED: MIDAZOLAM 2 MG/2 ML VIAL IV PRN (11:56)
[2022-10-02 12:19] LABS: Glucose,Whole Blood 111 mg/dL (70-110)
[2022-10-02] MEDS ORDERED: LACTATED RINGERS 1,000 ML IV ONE ×2 (12:29→18:00)
[2022-10-02] MEDS ORDERED: MIDAZOLAM 2 MG/2 ML VIAL ONE (16:25)
[2022-10-02] MEDS ORDERED: fentaNYL (PF) 50 MCG/ML 2 ML AMP ONE (16:25)
[2022-10-02] MEDS ORDERED: LIDOCAINE 2% INJ 20 MG/ML (2 ML VIAL) ONE (16:25)
[2022-10-02] MEDS ORDERED: KETAMINE 10 MG/ML 20 ML VIAL ONE (16:25)
[2022-10-02] MEDS ORDERED: ePHEDrine 50 MG/ML 1 ML VIAL ONE (16:25)
[2022-10-02] MEDS ORDERED: PHENYLEPHRINE-0.9% NACL SYG 1,000 MCG/10 ML SYRINGE ONE (16:25)
[2022-10-02] MEDS ORDERED: PROPOFOL 10 MG/ML 20 ML VIAL IV ONE (16:25)
[2022-10-02] MEDS ORDERED: ALBUTEROL HFA INHALER INHALATION ONE (16:25)
[2022-10-02] MEDS ORDERED: SUCCINYLCHOLINE CHLORIDE 200 MG/10 ML VIAL IV ONE (16:25)
[2022-10-02] MEDS ORDERED: THROMBIN (BOVINE) 5,000 UNIT VIAL TOPICAL ONE (17:08)
[2022-10-02] MEDS ORDERED: GELATIN SPONGE,ABSORB (LARGE) 1 EACH SPONGE MISCELLANE ONE (17:08)
--- NOTE | 2022-10-02 19:25 | XR ---
EXAMINATION TYPE: XR cervical spine limited DATE OF EXAM: 10/02/2022 COMPARISON: NONE HISTORY: Surgery TECHNIQUE: 2 fluoroscopic images. FINDINGS: 28 seconds of fluoroscopy time was recorded. There is placement of plate and screws fusing anteriorly the cervical spine from the level of C4-C7. There is disc prosthesis from C4 to C7. IMPRESSION: No complicating process seen.
[2022-10-02] MEDS ORDERED: CYCLOBENZAPRINE 10 MG TAB PO PRN (19:26)
[2022-10-02] MEDS ORDERED: ACETAMINOPHEN TAB 325 MG TAB PO PRN (19:26)
[2022-10-02] MEDS ORDERED: SENNOSIDES-DOCUSATE SODIUM 1 EACH TAB PO PRN (19:26)
[2022-10-02] MEDS ORDERED: MAGNESIUM HYDROXIDE 2,400 MG/10 ML CUP PO PRN (19:26)
[2022-10-02] MEDS ORDERED: ONDANSETRON 4 MG/2 ML VIAL IVP PRN (19:26)
[2022-10-02 19:54] VITALS: RESP 16
[2022-10-02] MEDS: HYDROmorphone 0.5 MG/0.5 ML SYRINGE IVP PRN ×2 (19:55→20:00)
[2022-10-02 20:07] LABS: Glucose,Whole Blood 240 mg/dL (70-110)
[2022-10-02] MEDS ORDERED: hydrALAZINE HCL 20 MG/ML 1 ML VIAL IV ONE (20:13)
[2022-10-02] MEDS ORDERED: INSULIN ASPART (NovoLOG) 100 UNIT/ML VIAL SQ ONE (20:24)
[2022-10-02] MEDS: GABAPENTIN 300 MG CAP PO SCH (22:01)
[2022-10-02] MEDS: HYDROcodone/APAP 10-325MG 1 EACH TAB PO SCH (22:01)
[2022-10-03] MEDS: LACTATED RINGERS 1,000 ML IV SCH ×2 (00:47→20:01)
[2022-10-03] MEDS: HYDROmorphone 0.5 MG/0.5 ML SYRINGE IVP PRN ×6 (00:50→23:01)
[2022-10-03] MEDS: HYDROcodone/APAP 5-325MG 1 EACH TAB PO SCH ×3 (01:09→14:06)
[2022-10-03] MEDS: HYDROcodone/APAP 10-325MG 1 EACH TAB PO SCH ×3 (03:23→14:03)
[2022-10-03] MEDS: GABAPENTIN 300 MG CAP PO SCH ×3 (08:36→23:01)
[2022-10-03 09:23] LABS: Basophils # (A) 0.09 X 10*3/uL (0.00-0.10); Basophils % (A) 0.7 %; Eosinophils # (A) 0.02 X 10*3/uL (0.04-0.35); Eosinophils % (A) 0.2 %; HCT 38.6 % (37.2-46.3); HGB 11.9 g/dL (12.0-15.0); Immature Grans, Automated 0.5 %; Lymphocytes # (A) 1.14 X 10*3/uL (0.90-5.00); Lymphocytes % (A) 8.8 %; MCHC 30.8 g/dL (32.0-37.0); MCV 84.5 fL (80.0-97.0); Mean Platelet Volume 10.6 fL (9.5-12.2); Monocytes # (A) 0.81 X 10*3/uL (0.20-1.00); Monocytes % (A) 6.3 %; NRBC Per 100 WBC 0 /100 WBCS (0.0-0.0); Neutrophils % (A) 83.5 %; Platelet Count 236 X 10*3/uL (140-440); RBC 4.57 X 10*6/uL (4.10-5.20); WBC 12.92 X 10*3/uL (4.50-10.00)
--- NOTE | 2022-10-03 09:23 | P.PN ---
Subjective Progress Note Date: 10/03/22 Principal diagnosis: Cervical spondylosis with stenosis Left upper extremity radiculopathy Patient seen and examined at bedside. Patient was resting in bed, with soft cervical collar intact. She states that her pain is managed on current regimen. Surgical dressing has been changed with DAKOTA drain removed. Surgical incision is well approximated with glue intact. Patient states that her symptom of numbness and tingling to the left upper extremity has resolved since procedure. Overall patient is extremely happy with plan of care. She will be discharged home tomorrow with home care. She currently denies any fevers/chills, nausea/vomiting, or chest pain. Objective - Vital Signs Vital signs: Vital Signs Temp 98.3 F 10/03/22 05:02 Pulse 16 L 10/03/22 05:02 Resp 16 10/03/22 05:02 BP 119/66 10/03/22 05:02 Pulse Ox 94 L 10/03/22 05:02 FiO2 Intake & Output 10/02/22 10/03/22 10/03/22 18:59 06:59 18:59 Intake Total 1650 100 Output Total 1340 Balance 1650 -1240 Weight 99 kg Intake: IV 1650 100 Output: Drainage 15 Anterior Neck 15 Urine 1250 Estimated Blood Loss 75 - Exam Physical Examination General: The patient is awake and alert, in no acute distress Skin: Skin is warm and dry with no obvious rashes or lesions. Hairy patches absent, no dorsal skin dimples, no cafe au lait spots. Surgical incision to anterior cervical region. Dressing CDI Eye: Pupils are equal, round and reactive to light, extra-ocular movements are intact; there is normal conjunctiva bilaterally. Neck: The neck is supple, there is slight tenderness and limited ROM r/t procedure. Cardiovascular: There is a regular rate and rhythm. No murmur, rub or gallop is appreciated. Respiratory: Lungs are clear to auscultation, respirations are non-labored, breath sounds are equal. Gastrointestinal: Soft, non-distended, non-tender abdomen. Back: There is no tenderness to palpation in the midline, paralumbar, parathoracic or buttocks region. There is no obvious deformity . Musculoskeletal: ROM limited secondary to pain and stiffness from surgical procedure. Muscle strength in all major muscle groups of bilateral upper extremities 4/5, bilateral lower extremities 5/5. Neurological: CN 2-12 intact. There are no obvious motor or sensory deficits. Movement and coordination equal and intact. Sensory exam to light touch intact C5-T1 and intact from L2-S1. Reflexes 2/4 in bilateral upper and lower extremities. Negative Hoffmans, babinski, and clonus signs. Psychiatric: Cooperative, appropriate mood & affect, normal judgment. - Labs Labs: Abnormal Lab Results - Last 24 Hours (Table) 10/02/22 10/02/22 Range/Units 12:15 20:06 POC Glucose (mg/dL) 111 H 240 H (70-110) mg/dL Assessment and Plan Assessment: Postop day 1: C4-C7 ACDF Plan: Plan: -Appreciate qa consultant and team management. -Activity: Ambulate QID, OOB all meals, up and about, limit lifting bending twisting to less than 5 lbs. No overhead activity, pushing, or pulling. Use walker or cane if needed for stability. -Daily PT/OT, increase ambulation strength and balance. -Soft collar when up and about, not needed in bed or chair -Pain control: Adequate at this time -Meds: reviewed -GI ppx: senna, Miralax -DVT PPX: OK to restart Heparin tonight -Hygiene: Shower today. Maintain dressing clean and dry. -Encourage IS 10x/hr -Dispo: Anticipate discharge home tomorrow with homecare *I reviewed and discussed this case with my attending Dr. Pham, whom has reviewed this chart and films and is in agreement with assessment and plan of care as outlined above. I have personally seen and examined the patient, performed the documentation and the assessment and plan as written. Number of minutes spent on the visit: 20m.
[2022-10-03 09:50] LABS: African American GFR (CKD) 72.1 (60.0-200.0); Anion Gap 13.4 mmol/L (10.00-18.00); BUN/Creat Ratio 18.65 Ratio (12.00-20.00); Blood Urea Nitrogen 18.3 mg/dL (9.0-27.0); Carbon Dioxide 22.4 mmol/L (20.0-27.5); Non-African American GFR(CKD) 62.2 (60.0-200.0); Potassium 4.8 mmol/L (3.5-5.5)
--- NOTE | 2022-10-03 12:41 | CT ---
EXAMINATION TYPE: CT cervical spine wo con DATE OF EXAM: 10/03/2022 COMPARISON: 08/28/2022 HISTORY: 62-year-old female postop assessment after cervical fusion TECHNIQUE: Contiguous axial scanning of the cervical spine without IV contrast. Coronal and sagittal reconstructions performed. CT DLP: 619.6 mGycm Automated exposure control for dose reduction was used. FINDINGS: No craniocervical junction abnormalities, predental space widening, or prevertebral soft tissue swell ing. Some postsurgical swelling, edema, and foci of air are present within the anterior soft tissues relat ing to recent operation. Interval placement of C4-C7 ACDF. Some residual left paracentral endplate spurring is present along t he superior endplate of C6. This minimally encroaches onto the left ventral spinal canal but the prev ious overall canal narrowing at C5-C6 shows considerable improvement. Scattered facet and uncovertebral joint arthropathy. At C4-C5, changes contributing to mild right neuroforaminal narrowing. At C5-C6, changes contribute to mild to moderate right neural foraminal stenosis. At C6/C7, changes contribute to a mild left neuroforaminal stenosis. IMPRESSION: 1. RECENT POSTOPERATIVE CHANGES OF C4-C7 ACDF. NO EVIDENT HARDWARE COMPLICATION. 2. RESIDUAL LEFT PARACENTRAL ENDPLATE SPURRING IS PRESENT ALONG THE SUPERIOR ENDPLATE OF C6. THIS MIN IMALLY ENCROACHES ONTO THE LEFT VENTRAL SPINAL CANAL BUT THE PREVIOUS OVERALL CANAL NARROWING HERE AT C5-C6 SHOWS CONSIDERABLE IMPROVEMENT.
[2022-10-03] MEDS ORDERED: NITROGLYCERIN SL TABS 0.4 MG TAB SUBLINGUAL PRN (13:37)
[2022-10-03] MEDS ORDERED: METOCLOPRAMIDE 5 MG TAB PO PRN (13:37)
[2022-10-03] MEDS ORDERED: MELATONIN 5 MG TABLET PO PRN (13:37)
[2022-10-03] MEDS ORDERED: NON FORMULARY DRUG (Evolocumab [Repatha Syringe] 140 MG/ML Each) SQ SCH (13:45)
[2022-10-03] MEDS: DILTIAZEM CD 180 MG CAP.ER.24H PO SCH (14:12)
[2022-10-03] MEDS: PANTOPRAZOLE 40 MG TABLET PO SCH (14:12)
[2022-10-03] MEDS: ALPRAZolam 0.25 MG TAB PO PRN ×2 (14:12→20:30)
[2022-10-03] MEDS: METOPROLOL SUCCINATE (ER) 25 MG TAB.ER.24H PO SCH ×2 (14:12→20:01)
[2022-10-03] MEDS ORDERED: HYDROcodone/APAP 5-325MG 1 EACH TAB PO PRN (17:39)
[2022-10-03 17:42] LABS: Glucose,Whole Blood 201 mg/dL (70-110)
[2022-10-03] MEDS: INSULIN ASPART (NovoLOG) 100 UNIT/ML VIAL SQ SCH (18:12)
[2022-10-03] MEDS: HYDROcodone/APAP 10-325MG 1 EACH TAB PO PRN (20:00)
[2022-10-03 20:33] LABS: Glucose,Whole Blood 198 mg/dL (70-110)
[2022-10-03] MEDS ORDERED: SERTRALINE 100 MG TAB PO SCH (21:00)
[2022-10-03] MEDS ORDERED: RIVAROXABAN 20 MG TAB PO SCH (21:00)
[2022-10-03] MEDS ORDERED: INSULIN DETEMIR (LEVEMIR) 100 UNIT/ML SYR SQ SCH (21:00)
[2022-10-03] MEDS ORDERED: lisinopriL 20 MG TAB PO SCH (21:00)
[2022-10-03] MEDS ORDERED: EZETIMIBE 10 MG TAB PO SCH (21:00)
[2022-10-04 00:55] LABS: Glucose,Whole Blood 159 mg/dL (70-110)
--- NOTE | 2022-10-04 01:54 | CONS ---
CONSULTATION REASON FOR CONSULTATION: Advice regarding atrial fibrillation and other medical issues requested by Surgery. HISTORY OF PRESENT ILLNESS: This is a 62-year-old woman with a past medical history of multiple medical problems, including CVA, TIA, atrial fibrillation, being followed by Dr. Morton in the outpatient setting, underwent cervical diskectomy and fusion by Dr. Pham. There is no history of any fever or rigors. There is no history of any headache, loss of consciousness, or seizures at this time. PAST MEDICAL HISTORY: Reviewed include atrial fibrillation, history of CAD, CVA, TIA, diabetes mellitus type 2. HOME MEDICATIONS: Again reviewed include Zofran. Does and rest of medication noted. ALLERGIES: Reviewed, include Cipro. FAMILY HISTORY: No history of heart disease. History of vascular disease in the family, melanoma in the family. SOCIAL HISTORY: Previous history of smoking. REVIEW OF SYSTEMS: A 14-point review of systems is negative except as mentioned earlier. PHYSICAL EXAMINATION: VITAL SIGNS: Pulse 70, blood pressure is 140/64, respirations 16. HEENT: Conjunctivae normal. NECK: Status post surgery. CARDIOVASCULAR: S1, S2 muffled. RESPIRATIONS: No rhonchi. No crackles. ABDOMEN: Soft, nontender. LEGS: No edema. NERVOUS SYSTEM: No focal deficits. SKIN: No ulcer, rash, bleeding. JOINTS: No active deforming arthropathy. LABS: Reviewed. WBC 12.9. ASSESSMENT: 1. Status post cervical fusion for degenerative joint disease. 2. Atrial fibrillation. 3. Diabetes mellitus, type 2. 4. Hypertension. 5. Hyperlipidemia. 6. History of pulmonary embolism. 7. Multiple medical issues. RECOMMENDATIONS AND DISCUSSION: This is a 62-year-old woman, who presented with multiple complex medical issues. I recommend to continue the current medications and symptomatic treatment. I would also recommend DVT prophylaxis. Otherwise, resume the home medications. Incentive spirometry. We will follow the patient closely with you. Thank you for letting us participate in the care of this patient. We will monitor blood sugars closely. MMODL / IJN: [id number] /
[2022-10-04] MEDS: HYDROmorphone 0.5 MG/0.5 ML SYRINGE IVP PRN (03:35)
[2022-10-04 07:13] LABS: Glucose,Whole Blood 147 mg/dL (70-110)
[2022-10-04] MEDS: INSULIN ASPART (NovoLOG) 100 UNIT/ML VIAL SQ SCH (07:41)
[2022-10-04] MEDS: HYDROcodone/APAP 10-325MG 1 EACH TAB PO PRN (07:41)
[2022-10-04] MEDS: PANTOPRAZOLE 40 MG TABLET PO SCH (07:41)
[2022-10-04 08:08] LABS: Basophils # (A) 0.1 k/uL (0-0.2); Basophils % (A) 1 %; Eosinophils # (A) 0.4 k/uL (0-0.7); Eosinophils % (A) 3 %; HCT 40.2 % (34.0-46.0); HGB 12.9 gm/dL (11.4-16.0); Hypochromasia Slight; Lymphocytes % (A) 18 %; MCH 27.7 pg (25.0-35.0); MCHC 32.1 g/dL (31.0-37.0); MCV 86.2 fL (80.0-100.0); Mean Platelet Volume 8.6; Monocytes # (A) 0.8 k/uL (0-1.0); Monocytes % (A) 7 %; Neutrophils # (A) 7.8 k/uL (1.3-7.7); Neutrophils % (A) 69 %; Platelet Count 207 k/uL (150-450); RBC 4.66 m/uL (3.80-5.40); RDW 15.8 % (11.5-15.5); WBC 11.3 k/uL (3.8-10.6)
[2022-10-04] MEDS ORDERED: NON FORMULARY DRUG (Semaglutide [Rybelsus] 7 MG Tablet) PO SCH (09:00)
[2022-10-04] MEDS ORDERED: FAMOTIDINE 20 MG TAB PO SCH (09:00)
[2022-10-04] MEDS ORDERED: INSULIN DETEMIR (LEVEMIR) 100 UNIT/ML SYR SQ SCH (09:00)
[2022-10-04] MEDS: GABAPENTIN 300 MG CAP PO SCH (09:57)
[2022-10-04] MEDS: METOPROLOL SUCCINATE (ER) 25 MG TAB.ER.24H PO SCH (09:58)
[2022-10-04] MEDS: DILTIAZEM CD 180 MG CAP.ER.24H PO SCH (09:58)
[2022-10-04 11:25] LABS: Anion Gap 11.5 mmol/L (10.00-18.00); Blood Urea Nitrogen 14.4 mg/dL (9.0-27.0); Calcium 9.1 mg/dL (8.7-10.3); Carbon Dioxide 26.5 mmol/L (20.0-27.5)
[2022-10-04 11:29] LABS: Glucose,Whole Blood 228 mg/dL (70-110)
[2022-10-04 11:30] LABS: Appearance,Urine Clear (Clear); Bilirubin,Urine Negative (Negative); Blood,Urine Negative (Negative); Color,Urine Yellow; Glucose,Urine (UA) Negative (Negative); Ketones,Urine Negative (Negative); Leukocyte Esterase,Urine Negative (Negative); Nitrite,Urine Negative (Negative); PH, Urine 5.5 (5.0-8.0); Protein,Urine Negative (Negative); Specific Gravity,Urine 1.019 (1.001-1.035); Urobilinogen,Urine <2.0 mg/dL (<2.0)
[2022-10-04 11:56] VITALS: BP 144/76; PULSE 64; TEMP 98.3
--- NOTE | 2022-10-04 12:12 | P.PN ---
Subjective Progress Note Date: 10/04/22 Principal diagnosis: Status post ACDF C4-C7 patient exam today bedside, she is resting comfortably in her hospital bed. She is utilizing a soft collar. Patient states she feels really good and is ready to be discharged home. She's having no issues with swallowing at this time. She denies headaches, lightheadedness, chest pain or shortness of breath. Objective - Vital Signs Vital signs: Vital Signs Temp 98.3 F 10/04/22 11:42 Pulse 64 10/04/22 11:42 Resp 16 10/04/22 11:42 BP 144/76 10/04/22 11:42 Pulse Ox 95 10/04/22 11:42 FiO2 Intake & Output 10/03/22 10/04/22 10/04/22 18:59 06:59 18:59 Intake Total 990 Output Total 600 Balance 390 Intake: Oral 990 Output: Urine 600 Other: # Voids 2 - Exam Gen: AOx3, NAD VSS stable at this time Integument: Incision is clean, dry and intact Palpation: Mild tenderness with palpation near surgical incision, no fluctuance appreciated ROM: Full range of motion in all major muscle groups of bilateral upper and lower extremities, no focal deficits Sensory Exam: [place] exam to light touch is intact C5-T1 [place] exam to light touch is intact L2-S1 Motor: Muscle strength in all major muscle groups of bilateral upper extremities 4/5, bilateral lower extremities 5/5. Reflexes: 2/4 in all UE and LE Negative, Babinski, clonus bilaterally - Labs CBC & Chem 7: 10/04/22 07:33 10/04/22 07:36 Labs: Abnormal Lab Results - Last 24 Hours (Table) 10/03/22 10/03/22 10/04/22 Range/Units 17:40 20:31 00:53 WBC (3.8-10.6) k/uL RDW (11.5-15.5) % Neutrophils # (1.3-7.7) k/uL Glucose (70-110) mg/dL POC Glucose (mg/dL) 201 H 198 H 159 H (70-110) mg/dL 10/04/22 10/04/22 10/04/22 Range/Units 07:12 07:33 07:36 WBC 11.3 H (3.8-10.6) k/uL RDW 15.8 H (11.5-15.5) % Neutrophils # 7.8 H (1.3-7.7) k/uL Glucose 115 H (70-110) mg/dL POC Glucose (mg/dL) 147 H (70-110) mg/dL 10/04/22 Range/Units 11:28 WBC (3.8-10.6) k/uL RDW (11.5-15.5) % Neutrophils # (1.3-7.7) k/uL Glucose (70-110) mg/dL POC Glucose (mg/dL) 228 H (70-110) mg/dL Assessment and Plan Assessment: Postoperative day #2 status post C4-C7 ACDF Plan: Pain control, patient will be discharged home on [place] Flexeril and gabapentin for pain control. Wound care instructions, we discussed showering along with Barry bandages Patient will utilize soft c-collar, no bendin, lifting, twisting Medical recommendations appreciated Plan for follow-up at [facility] 2 weeks for follow-up Time with Patient: Less than 30
--- NOTE | 2022-10-04 12:15 | P.DS ---
Providers Date of admission: 10/03/22 08:57 Expected date of discharge: 10/04/22 Attending physician: Zack Pham DO Consults: 10/02/22 19:28 Consult Physician Routine Consulting Provider: Khloe Morton Consult Reason/Comments: medical management Do you want consulting provider notified?: Yes Primary care physician: Khloe Morton Hospital Course: Date of admission: 10/02/2022 Date of discharge: 10/04/2022 Admission diagnosis: Status post ACDF C4-C7 Discharge diagnosis: Same Attending physician: Dr. Pham Surgical procedures: ACDF C4-C7 Brief history: Patient is a 62-year-old female who was initially evaluated in the outpatient setting by Dr. Pham for cervical spondylosis with stenosis along with bilateral upper extremity radiculopathy and weakness. Conservative measures did not relieve symptoms, she was scheduled for a elective C4-C7 ACDF. Hospital course: Details of patient's surgery can be found in operative report. Patient tolerated the procedure well and was subsequently transported to orthopedic floor. Patient's orthopeidc and medical care was provided daily. Patient had daily laboratory tests performed for evaluation of overall blood counts. Patient had daily physical therapy to include strengthening range of motion as well as education with walker ambulation. Patient was treated with RAFAT hose and compression stockings for their postoperative DVT prophylaxis during their inpatient stay. Patient was noted to have a relatively uneventful postoperative course. Patient reported satisfactory pain control with oral pain medications by postoperative day 0. Patient showed satisfactory progress with physical therapy. Patient moved steadily through the program and had no difficulty meeting the goals by postoperative day 2. Given patient's otherwise satisfactory course and having met physical therapy goals, plan is to discharge patient [home] on postoperative day 2. Discharge condition/disposition: Patient will be discharged [home] in stable condition. Discharge medications: Instructions are given on resumption of patient's normal daily medications per primary care recommendation, in addition patient will be prescribed Blanco 10 mg/325 mg, Flexeril 10 mg, gabapentin 300 mg, Duricef 500 mg. Spine Discharge and Recovery Instructions Medications: See medication list All medication refills should be obtained through your primary care doctor or your clinic spine surgeon. Please discuss prescription refills at your follow up appointment. Do not call the hospital for medication refills. Dressing: Leave your dressing in place for a total of 5 days post operatively. Then you may remove your dressing and leave open to air. Keep the area clean and if not able to keep area clean, then cover with sterile gauze and tape. Showering: You may shower 3 days after your procedure allowing soap and water to run over incision. Do not scrub. Do not soak. Blot dry. Follow up: Please confirm a follow up appointment with your surgeon 3 weeks post operatively. Please make an appointment to follow up with your PCP in 1-2 weeks after surgery for evaluation 3 phase, 3-week plan POST OP WEEKS 1-3 1. Lifting/carrying/pushing/pulling limited to less than 5 pounds. 2. Do not sit for longer than 15 minutes at one time. Get up and walk around. Prolonged sitting is NOT advised. If you lay down, see if you can tolerate laying down on you front (belly side) 3. Walk for periods of 15 minutes = 1 mile but no longer; do it multiple times times each day. 4. Ice your low back after activity. POST OP WEEKS 3-6 1. Lifting limited to less than 20 pounds. 2. Do not sit for longer than 30 minutes at a time. Frequently change positions. Use a sit-to stand workstation or take frequent breaks from sitting if you have returned to work. 3. Walk for 30 minutes each day. If possible, do these three or more times a day POST OP WEEKS 6+ At your 6-week appointment we will give you a physical therapy referral to focus on a core stabilization and strengthening program. You should also work on leg & buttock strengthening, hamstring & quadriceps stretching, and continue a low impact aerobic activity program such as swimming, walking, or riding a stationary bicycle. During the initial 6 weeks after your surgery, you are at the highest risk of re-injuring your spine. You should generally avoid BLTs (bending, lifting and twisting combination motions) and follow the above guidelines to reduce the chance of reinjury. You can anticipate post op appointments in our office at approximately 3 weeks and 6 weeks after your surgery. INCISION CARE: If your incision is not draining you do NOT need to cover it with a dressing. Keep your incision clean, dry and intact. In most cases, we apply skin glue, vikash or sutures to the incision at the time of surgery. This will be like a crust or have the appearance of a scab and will fall off in time on its own. The stitches or vikash need to be removed at 3 weeks post op appointment. You may begin to shower 3 days after surgery (this allows the glue to carbajal well). However, please avoid scrubbing the incision site or peeling off any of the skin glue. This will ensure optimal healing of your incision. Also, during this time avoid soaking the incision area in water - this includes swimming pools, hot tubs or baths. No ointments, lotions or oils on the incision until your surgeon allows. Leave vikash, sutures or glue in place. Neurological dysfunction that comes on suddenly can also be a sign of a stroke. Below some common symptoms of a stroke are listed: B - balance difficulty such as sudden onset walking or leaning to one side - NEW E - eye problem such as sudden double vision or trouble seeing on one side - NEW F - Facial weakness or numbness on one side - NEW A - Arm or leg weakness or numbness on one side - NEW S - Slurred speech or difficulty with word finding - NEW T - Time is BRAIN! Call 911 as soon as you recognize these symptoms Diet: Consume a regular diet rich in vegetables and lean protein such as chicken or fish. You should consume in a ratio of approximately 20% fats|40% carbohydrates|40%protein. Vegetables, sweet potatoes, brown rice or quinoa are examples of good carbohydrates. Chips, white bread, cookies and sweets/sugar are examples of bad carbohydrates. Limit your bad carbs, go wild with good carbs. "Life's Simple 7" Guidelines as per [place] [employer] These will help you reclaim your life after surgery and pugger helper in your recovery, keeping in mind your restrictions. (1) Get Active. Physical activity can help people lose weight, control high blood pressure and cholesterol, feel emotionally better, and sleep better. (2) Control Cholesterol. Avoid a diet high in saturated fat, trans fat, & cholesterol. Limit whole milk & cream, ice cream, butter, egg yolks, processed meats (like sausage and hot dogs), and fatty meats. Choose healthy foods that are low in saturated fat, trans fat and cholesterol which include: Fruits and vegetables, fiber rich grain products (like whole grain pasta and brown rice), lean meat such as chicken, fish, nuts, seeds, and legumes. (3) Eat Better. Eat small portions. Shop at the grocery with a list and do not stray from it. Tips for a healthy diet include: Limit sodium intake to less than 1500mg daily, avoid prepackaged, processed, and fast foods, choose a diet rich in fruits, vegetables, and whole grain, high fiber foods, and limit saturated & cholesterol in your diet. (4) Manage Blood Pressure. If you have high blood pressure, you should have a cuff at home so that you can check your blood pressure regularly. Be sure you have a good cuff. An arm one is generally better than a wrist one. Bring the cuff to a doctor's appointment to validate that the measurements that your cuff are taking are accurate. Take your blood pressure twice daily when you are sitting down and relaxing. Record the numbers in a log and bring this log with you to your doctors' appointments. (5) Lose Weight if your BMI is above 25. A healthy BMI is between 19-25. To calculate Your BMI, you may use a Standard BMI Calculator on the NIH BMI website: <www.nhlbi.nih.gov/guidelines/obesity/BMI/bmicalc.htm>. Weigh oneself daily. If you are overweight, set a goal to lose weight. A pound a week loss if needed is a good target. (6) Reduce Blood Sugar. Limit foods and liquids with "added sugars." (Added sugars include sucrose, fructose, glucose, maltose, dextrose, high fructose corn syrup, corn syrup, concentrated fruit juice and honey). (7) Stop Smoking. If you smoke, quitting smoking is one of the best things that you can do for your health. Smoking increases your risk of heart attack, stroke, and peripheral vascular disease, which is a build-up of plaque in your arteries. Please discard all the cigarettes and lighters in your house. Have a plan for what you will do when you have the urge to smoke. Direct and second- hand smoke shortens your life as well as the lives of your family, friends and others around you. For your health and the health of those around you, please consider quitting! Proper Bending Body Mechanics: Maintain a wide stance with one foot slightly in front of the other. Keep your back straight. Bend utilizing the strength in your hips and knees. Do not bend at the waist. Maintain the lifted object at your waist-level close to your body. Avoid lifting weight that causes immediately pain or pain anywhere in the body afterwards. Smoking/Nicotine If there was ever one thing that you could do to increase your overall health, decrease your risk of cardiovascular problems by about 39% the second you make the choice, it is to STOP SMOKING. Your body's most instant gratification is the second you stop smoking. We have all heard the studies, read the articles but it is true, smoking is extremely bad for your overall health, and moreover it is detrimental to your bone health. Nicotine, IN ANY FORM, kills bone cells, prevents your body from healing fractures, and significantly prolongs healing after surgery. In spine surgery specifically, it increases your risk of not healing your bones to create a fusion and increases your risk of having a revision surgery due to this up to 60%. I know it is hard. I know it feels impossible. But there are ways. Take control of your life. We are here to help you through it. And when you are ready, ask us and we can direct you to help if you desire. Use the START Plan to Quit Smoking (please visit the Helpguide.org website listed below for more information): S = Set a quit date. Choose a date within the next 2 weeks, so you have enough time to prepare without losing your motivation to quit. If you mainly smoke at work, quit on the weekend, so you have a few days to adjust to the change. T = Tell family, friends, and co-workers that you plan to quit. Let your friends and family in on your plan to quit smoking and tell them you need their support and encouragement to stop. Look for a quit mitzi who wants to stop smoking as well. You can help each other get through the rough times. A = Anticipate and plan for the challenges you'll face while quitting. Most people who begin smoking again do so within the first 3 months. You can help yourself make it through by preparing ahead for common challenges, such as nicotine withdrawal and cigarette cravings. R = Remove cigarettes and other tobacco products from your home, car, and work. Throw away all your cigarettes (no emergency pack!), lighters, ashtrays, and matches. Wash your clothes and freshen up anything that smells like smoke. Shampoo your car, clean your drapes and carpet, and steam your furniture. T = Talk to your doctor about getting help to quit. Your doctor can prescribe medication to help with withdrawal and suggest other alternatives. If you can't see a doctor, you can get many products over the counter at your local pharmacy or grocery store, including the nicotine patch, nicotine lozenges, and nicotine gum. Resources for Quitting Smoking: <https://www.[place].gov/documents/catholic health/Quit_Tobacco_Resources_for_patients_313 480_7.pdf> Supplementation: Take recommended dosages of Vitamin D and Calcium to help fortify your bones and help them to heal. See your health maintenance packet for dosages and recommended levels. DVT/VTE prophylaxis: You will be given compression stockings from the hospital. Wear these daily for the first two weeks after surgery. You may take them off at night. You may be prescribed a medication to help thin your blood. Take this as directed. If you are not prescribed this medication, early and frequent ambulation has been shown to be the best prophylaxis to deep vein thrombosis and sequelae related to this event. Procedures: ACDF C4-C7 Patient Condition at Discharge: Good Plan - Discharge Summary Discharge Rx Participant: Yes New Discharge Prescriptions: New cefaDROXiL [Duricef] 500 mg PO Q12HR 5 Days #10 cap Cyclobenzaprine [Flexeril] 10 mg PO TID #90 tab HYDROcodone/APAP 10-325MG [Blanco 10-325] 1 tab PO Q4-6H PRN #56 tab PRN Reason: Pain Gabapentin 300 mg PO TID 3 Days #9 cap No Action Nitroglycerin Sl Tabs [Nitrostat] 0.4 mg SUBLINGUAL Q5M PRN PRN Reason: Chest Pain INSULIN ASPART (NovoLOG) [NovoLOG (formulary)] 3 unit SQ AC-TID Cyclobenzaprine [Flexeril] 10 mg PO TID Melatonin [Melatonin Dissolving Tablet] 10 mg PO HS PRN PRN Reason: Insomnia Ezetimibe [Zetia] 10 mg PO HS ALPRAZolam [Xanax] 0.25 mg PO TID PRN PRN Reason: Anxiety Rivaroxaban [Xarelto] 20 mg PO HS lisinopriL [Zestril] 20 mg PO HS #90 tab Metoclopramide [Reglan] 5 mg PO ACHS PRN PRN Reason: abd. pain Famotidine [Pepcid] 40 mg PO DAILY dilTIAZem HCL [Cardizem CD] 360 mg PO QAM Semaglutide [Rybelsus] 7 mg PO DAILY Ondansetron [Zofran] 4 mg PO Q8HR PRN PRN Reason: Nausea Sertraline [Zoloft] 100 mg PO HS Pantoprazole [Protonix] 40 mg PO DAILY Insulin Glargine [Lantus Vial] 35 unit SQ HS HYDROcodone/APAP 5-325MG [Blanco 5-325] 1 tab PO Q6HR PRN PRN Reason: Pain Metoprolol Succinate [Metoprolol Succinate ER] 25 mg PO BID Evolocumab [Repatha Syringe] 140 mg SQ Q14D Insulin Glargine [Lantus Vial] 40 unit SQ DAILY Discharge Medication List INSULIN ASPART (NovoLOG) [NovoLOG (formulary)] 3 unit SQ AC-TID 02/09/18 [History] Nitroglycerin Sl Tabs [Nitrostat] 0.4 mg SUBLINGUAL Q5M PRN 02/09/18 [History] Cyclobenzaprine [Flexeril] 10 mg PO TID 04/14/19 [History] ALPRAZolam [Xanax] 0.25 mg PO TID PRN 04/16/20 [History] Ezetimibe [Zetia] 10 mg PO HS 04/16/20 [History] Melatonin [Melatonin Dissolving Tablet] 10 mg PO HS PRN 04/16/20 [History] Rivaroxaban [Xarelto] 20 mg PO HS 04/16/20 [History] lisinopriL [Zestril] 20 mg PO HS #90 tab 04/17/20 [Rx] Famotidine [Pepcid] 40 mg PO DAILY 08/14/20 [History] Metoclopramide [Reglan] 5 mg PO ACHS PRN 08/14/20 [History] dilTIAZem HCL [Cardizem CD] 360 mg PO QAM 08/14/20 [History] Evolocumab [Repatha Syringe] 140 mg SQ Q14D 09/29/22 [History] HYDROcodone/APAP 5-325MG [Blanco 5-325] 1 tab PO Q6HR PRN 09/29/22 [History] Insulin Glargine [Lantus Vial] 35 unit SQ HS 09/29/22 [History] Insulin Glargine [Lantus Vial] 40 unit SQ DAILY 09/29/22 [History] Metoprolol Succinate [Metoprolol Succinate ER] 25 mg PO BID 09/29/22 [History] Ondansetron [Zofran] 4 mg PO Q8HR PRN 09/29/22 [History] Pantoprazole [Protonix] 40 mg PO DAILY 09/29/22 [History] Semaglutide [Rybelsus] 7 mg PO DAILY 09/29/22 [History] Sertraline [Zoloft] 100 mg PO HS 09/29/22 [History] Cyclobenzaprine [Flexeril] 10 mg PO TID #90 tab 10/03/22 [Rx] HYDROcodone/APAP 10-325MG [Blanco 10-325] 1 tab PO Q4-6H PRN #56 tab 10/03/22 [Rx] cefaDROXiL [Duricef] 500 mg PO Q12HR 5 Days #10 cap 10/03/22 [Rx] Gabapentin 300 mg PO TID 3 Days #9 cap 10/04/22 [Rx] Follow up Appointment(s)/Referral(s): Khloe Morton MD [Primary Care Provider] - 1 Week Zack Pham DO [Doctor of Osteopathic Medicine] - 2 Weeks Activity/Diet/Wound Care/Special Instructions: Spine Discharge and Recovery Instructions Date of Surgery: 10/02/2022 Diagnosis: Cervical spondylosis with stenosis Procedure: C4-C7 ACDF Medications: See medication list All medication refills should be obtained through your primary care doctor or your clinic spine surgeon. Please discuss prescription refills at your follow up appointment. Do not call the hospital for medication refills. Dressing: Leave your dressing in place for a total of 5 days post operatively. Then you may remove your dressing and leave open to air. Keep the area clean and if not able to keep area clean, then cover with sterile gauze and tape. Showering: You may shower 3 days after your procedure allowing soap and water to run over incision. Do not scrub. Do not soak. Blot dry. Follow up: Please confirm a follow up appointment with your surgeon 3 weeks post operatively. Please make an appointment to follow up with your PCP in 1-2 weeks after surgery for evaluation 3 phase, 3-week plan POST OP WEEKS 1-3 1. Lifting/carrying/pushing/pulling limited to less than 5 pounds. 2. Do not sit for longer than 15 minutes at one time. Get up and walk around. Prolonged sitting is NOT advised. If you lay down, see if you can tolerate laying down on you front (belly side) 3. Walk for periods of 15 minutes = 1 mile but no longer; do it multiple times times each day. 4. Ice your low back after activity. POST OP WEEKS 3-6 1. Lifting limited to less than 20 pounds. 2. Do not sit for longer than 30 minutes at a time. Frequently change positions. Use a sit-to stand workstation or take frequent breaks from sitting if you have returned to work. 3. Walk for 30 minutes each day. If possible, do these three or more times a day POST OP WEEKS 6+ At your 6-week appointment we will give you a physical therapy referral to focus on a core stabilization and strengthening program. You should also work on leg & buttock strengthening, hamstring & quadriceps stretching, and continue a low impact aerobic activity program such as swimming, walking, or riding a stationary bicycle. During the initial 6 weeks after your surgery, you are at the highest risk of re-injuring your spine. You should generally avoid BLTs (bending, lifting and twisting combination motions) and follow the above guidelines to reduce the chance of reinjury. You can anticipate post op appointments in our office at approximately 3 weeks and 6 weeks after your surgery. INCISION CARE: If your incision is not draining you do NOT need to cover it with a dressing. Keep your incision clean, dry and intact. In most cases, we apply skin glue, vikash or sutures to the incision at the time of surgery. This will be like a crust or have the appearance of a scab and will fall off in time on its own. The stitches or vikash need to be removed at 3 weeks post op appointment. You may begin to shower 3 days after surgery (this allows the glue to carbajal well). However, please avoid scrubbing the incision site or peeling off any of the skin glue. This will ensure optimal healing of your incision. Also, during this time avoid soaking the incision area in water - this includes swimming pools, hot tubs or baths. No ointments, lotions or oils on the incision until your surgeon allows. Leave vikash, sutures or glue in place. Neurological dysfunction that comes on suddenly can also be a sign of a stroke. Below some common symptoms of a stroke are listed: B - balance difficulty such as sudden onset walking or leaning to one side - NEW E - eye problem such as sudden double vision or trouble seeing on one side - NEW F - Facial weakness or numbness on one side - NEW A - Arm or leg weakness or numbness on one side - NEW S - Slurred speech or difficulty with word finding - NEW T - Time is BRAIN! Call 911 as soon as you recognize these symptoms Diet: Consume a regular diet rich in vegetables and lean protein such as chicken or fish. You should consume in a ratio of approximately 20% fats|40% carbohydrates|40%protein. Vegetables, sweet potatoes, brown rice or quinoa are examples of good carbohydrates. Chips, white bread, cookies and sweets/sugar are examples of bad carbohydrates. Limit your bad carbs, go wild with good carbs. "Life's Simple 7" Guidelines as per [place] [employer] These will help you reclaim your life after surgery and pugger helper in your recovery, keeping in mind your restrictions. (1) Get Active. Physical activity can help people lose weight, control high blood pressure and cholesterol, feel emotionally better, and sleep better. (2) Control Cholesterol. Avoid a diet high in saturated fat, trans fat, & cholesterol. Limit whole milk & cream, ice cream, butter, egg yolks, processed meats (like sausage and hot dogs), and fatty meats. Choose healthy foods that are low in saturated fat, trans fat and cholesterol which include: Fruits and vegetables, fiber rich grain products (like whole grain pasta and brown rice), lean meat such as chicken, fish, nuts, seeds, and l egumes. (3) Eat Better. Eat small portions. Shop at the grocery with a list and do not stray from it. Tips for a healthy diet include: Limit sodium intake to less than 1500mg daily, avoid prepackaged, processed, and fast foods, choose a diet rich in fruits, vegetables, and whole grain, high fiber foods, and limit saturated & cholesterol in your diet. (4) Manage Blood Pressure. If you have high blood pressure, you should have a cuff at home so that you can check your blood pressure regularly. Be sure you have a good cuff. An arm one is generally better than a wrist one. Bring the cuff to a doctor's appointment to validate that the measurements that your cuff are taking are accurate. Take your blood pressure twice daily when you are sitting down and relaxing. Record the numbers in a log and bring this log with you to your doctors' appointments. (5) Lose Weight if your BMI is above 25. A healthy BMI is between 19-25. To calculate Your BMI, you may use a Standard BMI Calculator on the NIH BMI website: <www.nhlbi.nih.gov/guidelines/obesity/BMI/bmicalc.htm>. Weigh oneself daily. If you are overweight, set a goal to lose weight. A pound a week loss if needed is a good target. (6) Reduce Blood Sugar. Limit foods and liquids with "added sugars." (Added sugars include sucrose, fructose, glucose, maltose, dextrose, high fructose corn syrup, corn syrup, concentrated fruit juice and honey). (7) Stop Smoking. If you smoke, quitting smoking is one of the best things that you can do for your health. Smoking increases your risk of heart attack, stroke, and peripheral vascular disease, which is a build-up of plaque in your arteries. Please discard all the cigarettes and lighters in your house. Have a plan for what you will do when you have the urge to smoke. Direct and second- hand smoke shortens your life as well as the lives of your family, friends and others around you. For your health and the health of those around you, please consider quitting! Proper Bending Body Mechanics: Maintain a wide stance with one foot slightly in front of the other. Keep your back straight. Bend utilizing the strength in your hips and knees. Do not bend at the waist. Maintain the lifted object at your waist-level close to your body. Avoid lifting weight that causes immediately pain or pain anywhere in the body afterwards. Smoking/Nicotine If there was ever one thing that you could do to increase your overall health, decrease your risk of cardiovascular problems by about 39% the second you make the choice, it is to STOP SMOKING. Your body's most instant gratification is the second you stop smoking. We have all heard the studies, read the articles but it is true, smoking is extremely bad for your overall health, and moreover it is detrimental to your bone health. Nicotine, IN ANY FORM, kills bone cells, prevents your body from healing fractures, and significantly prolongs healing after surgery. In spine surgery specifically, it increases your risk of not healing your bones to create a fusion and increases your risk of having a revision surgery due to this up to 60%. I know it is hard. I know it feels impossible. But there are ways. Take control of your life. We are here to help you through it. And when you are ready, ask us and we can direct you to help if you desire. Use the START Plan to Quit Smoking (please visit the Helpguide.org website listed below for more information): S = Set a quit date. Choose a date within the next 2 weeks, so you have enough time to prepare without losing your motivation to quit. If you mainly smoke at work, quit on the weekend, so you have a few days to adjust to the change. T = Tell family, friends, and co-workers that you plan to quit. Let your friends and family in on your plan to quit smoking and tell them you need their support and encouragement to stop. Look for a quit mitzi who wants to stop smoking as well. You can help each other get through the rough times. A = Anticipate and plan for the challenges you'll face while quitting. Most people who begin smoking again do so within the first 3 months. You can help yourself make it through by preparing ahead for common challenges, such as nicotine withdrawal and cigarette cravings. R = Remove cigarettes and other tobacco products from your home, car, and work. Throw away all your cigarettes (no emergency pack!), lighters, ashtrays, and matches. Wash your clothes and freshen up anything that smells like smoke. Shampoo your car, clean your drapes and carpet, and steam your furniture. T = Talk to your doctor about getting help to quit. Your doctor can prescribe medication to help with withdrawal and suggest other alternatives. If you can't see a doctor, you can get many products over the counter at your local pharmacy or grocery store, including the nicotine patch, nicotine lozenges, and nicotine gum. Resources for Quitting Smoking: <https://www.[place].gov/documents/catholic health/Quit_Tobacco_Resources_for_patients_313 480_7.pdf> Supplementation: Take recommended dosages of Vitamin D and Calcium to help fortify your bones and help them to heal. See your health maintenance packet for dosages and recommended levels. DVT/VTE prophylaxis: You will be given compression stockings from the hospital. Wear these daily for the first two weeks after surgery. You may take them off at night. You may be prescribed a medication to help thin your blood. Take this as directed. If you are not prescribed this medication, early and frequent ambulation has been shown to be the best prophylaxis to deep vein thrombosis and sequelae related to this event. Discharge Disposition: HOME WITH HOME HEALTH SERVICES
--- NOTE | 2022-10-04 21:19 | PN ---
PROGRESS NOTE DATE OF SERVICE: 10/04/2022 SUBJECTIVE: This 62-year-old woman, who was admitted after a cervical fusion surgery, is improving significantly. No chest pain. No palpitations. No fever. OBJECTIVE: VITAL SIGNS: Pulse is 64, blood pressure NTD, respirations 16. HEENT: Conjunctivae normal. CARDIOVASCULAR: S1, S2 ABDOMEN: Soft. NERVOUS SYSTEM: NTD LABORATORY DATA: Reviewed. ASSESSMENT: 1. Status post cervical fusion for degenerative joint disease. 2. Atrial fibrillation. 3. Diabetes mellitus, type 2. 4. Hypertension. 5. Hyperlipidemia. 6. Multiple medical issues. RECOMMENDATIONS: I recommend to continue current medications and symptomatic treatment. Otherwise at this time, I recommend to resume the home medications and monitor blood sugars closely. Closely follow with primary physician, Dr. Morotn in the outpatient setting. MMODL / IJN: [id number] / MTDD
--- NOTE | 2022-10-06 08:25 | P.OP ---
Date of Procedure: 10/02/22 Preoperative Diagnosis: 1. C4-7 spondylosis with stenosis 2. UE radiculopathy 3. UE weakness 4. Mechanical neck pain Postoperative Diagnosis: 1. C4-7 spondylosis with stenosis 2. UE radiculopathy 3. UE weakness 4. Mechanical neck pain Procedure(s) Performed: 1. C4-5, C5-6, C6-7 anterior cervical discectomy and fusion (10581, [id number]) 2. C4-5, C5-6, C6-7 insertion of interbody, biomechanical device ([id number]) 3. Application of nonintegrated anterior plate C4-5, C5-6, C6-7 ([id number]) Use of IONM Use of microscope Implants: -[place] 12 deg lordotic, 8mm, 8mm, 9mm -Choice spine Boomerang plates x3 -Bio4 -Autograft -Allograft Anesthesia: EVANA Surgeon: Zack Pham Broadcast Journalist #1: Ricardo Hart (Was present and assisted in all aspects of the case) Estimated Blood Loss (ml): 50 IV fluids (ml): 1,200 Urine output (ml): 250 Pathology: none sent Condition: stable Disposition: PACU Indications for Procedure: Ms. Glass is presenting for evaluation of cervical pain and weakness. It was my pleasure to have seen and examined Ms. Glass. In our visit today we have had a chance to go over subjective complaints, physi patricia examination findings and treatments including the natural course history without intervention and various interventional options. The patients imaging demonstrates: XRay Cervical multiview (Lateral, Flexion, Extension, AP, Oblique) 5 views taken at [facility] on 07/14/22 of Cervical Spine: Images are reviewed with the pt and demonstrate severe cervical spondylosis from C4-C7 with severe disc collapse, anterior osteophyte formations that are large and severe there is flattening of the normal cervical lordosis secondary to this collapse. There is facet arthrosis noted that is severe. No fracture. No dislocation. CT without contrast obtained at [facility] from 08/28/2022 of Cervical spine: Images reviewed with the patient. There is spondylosis from C4-7 with severe facet arthrosis. There is disc collapse at each level contributing to foraminal as well as central stenosis. There are osteophytes seen posteriorly and anteriorly due to this collapse and the severe spondylosis. Flattening of the normal cervical lordosis noted secondary to these changes. No fractures. No lesions noted. MRI scan [facility] at [facility]22 of Cervical Spine: This is reviewed and demonstrates again severe spondylosis then the cervical spine from C4 through C7 with disc desiccation and disc collapse anterior osteophyte formation as well as posterior disc bulges causing varying degrees of stenosis from moderate to severe from C4 through C7. There is bilateral foraminal stenosis. There is flattening of the normal cervical lordosis. No acute fracture or dislocations noted no lesions noted. On physical exam, Ms. Glass demonstrates severely restricted cervical ROM with global left side weakness. Patient does also demonstrate C4-C7 dermatomal deficits with reduced fine motor function. Overall patient is very limited physically due to her pathology. I have explained to the patient that as their condition progresses it will cause further neurological deficits and eventual paralysis. Based on the patients imaging, physical exam, and the rapid progression and disabling nature of their symptoms, at this time I recommend surgery in the form or a: cervical (C4-C7) ACDF. I discussed the risk and benefits of this procedure at length with Ms. Glass. The patient agreed to considered pursuing the procedure abovementioned. Prior to surgery, she should follow up with her PCP (Cardio, ID, IM etc) for clearance. Questions were invited and answered, and the patient wishes to proceed as outlined below. Currently, I am recommendin.cervical (C4-C7) ACDF Description of Procedure: The patient was seen and examined in the preoperative area. All preoperative protocols were followed. Informed consent was obtained risks and benefits of the procedure were discussed at length. Risks including bleeding infection damage to the surrounding tissue and risk of reoperation were discussed with the patient. Risk of anesthesia up to and including was a discussed with the patient. These are outlined in the risk review. They were willing to accept these risks and all of the risks of surgery. The patient was given a weight- based dose of antibiotics in the form of 2 g Ancef. The patient was seen and evaluated by the anesthesia team who deemed them fit for surgery. The site was marked, the patient was willing to proceed with the procedure. The patient was transferred to the operative suite by the Department of anesthesia. They were then drifted off to sleep by the department anesthesia and GETAwas performed. The patient tolerated this well. [Gonzlaez catheter was placed by nursing staff, atraumatically]. Once confirmation of lines and ventilation the patient was transferred to a supine flat top trios table. Shoulder roll was placed and shoulders gently taped to table. All bony prominences including wrists, elbows, axilla, chest, hips, and thighs, and feet were padded very well. Special attention was paid to the genitalia and these were padded accordingly. SCDs were placed on bilateral lower extremities and were connected. Arms were well padded and placed [on arm boards up and out in the 90/90 position]. Once in position, again we confirmed good ventilation capabilities and that lines were running appropriately. The patient's anterior cervical spine was then exposed. 1010s were placed outlining the incision site. Standard alcohol was used to clean the incision site and allowed to dry. C-arm was used to biomark the patient and confirm level for incision which was marked with a skin marker. Operative briefing was performed with all teams and everyone in agreement to proceed. The patient was then prepped and draped in a normal sterile fashion. Timeout was then performed and all parties were in agreement with the procedure to be performed. 4 cm incision was made on the right side of the pts neck transverse and a standard Porter-Gutiérrez approach to the anterior cervical spine was performed. Levels were identified with lateral xray and a blunt probe and then marked. Oilton pins were placed into C6 and C7 bodies and gentle distraction taken out. Microscope was brought in for visualization. Subperiosteal dissection was done of the longissimus muscles to visualize uncovertebral joints b/l. Complete discectomy was performed using high speed bailey, rongures, curette and kerrisons. PLL was identified and resected using 6-0 upbiting curette and 2 kerrison. B/l foraminotomies were performed using kerrison. Meticulous hemostasis was then achieved. The wound was irrigated. bailey was used to removed osteophytes posteriorly. Under lateral imaging the space was sized with trial implants. Once appropriate size was achieved, the final implant was selected, packed with graft and impacted into place under lateral image. Motors before and after remained stable. The implant was stable. A plate was then selected and placed over the space and secured with screws. The locking mechanism was set for the plate. Oilton pin was then removed from C7 and bone wax placed in its void. We then repeated this process at C5-6 and then C4-5 respectively. Complete discectomies at each level along with PLL resection, b/l foraminotomies and decompression. Cages were placed under imaging and IONM remained stable the entire case. Plates were placed at each level, secured with screws and locked in place. All remained stable. Oilton pins were removed and bone wax placed in their void. Meticulous hemostasis was achieved at each level. Once complete, final images showed good placement of hardware C4-7 with good alignment and height resotration as well as decompression. The wound was copiously irrigated with NSS. Surgicel placed deep. A deep drain was placed and secured to the skin. The incision was then closed in a layered fashion first in the Platysmal layer with 3-0 vicryl followed by subq. 4-0 stratafix was placed in the subcuticular layer and glue placed on the skin. Once dry, the wound was covered with an opifoam dressing, 4x4 and tegaderm. The patient was placed in a soft collar. The patient was transferred back to their hospital bed atraumatically. [Drain continued to hold suction and were in good position]. Patient was then awakened and extubated by the department of anesthesia having tolerated the procedure very well with no complications. They were transferred to the postoperative care unit in stable condition.
== END 2022-10-04 14:11 | disposition home health service (06) ==
LOC: OR 11:38 → 5NMEDONC 17:38 → OR 10-03 08:57
PROVIDERS: ADMIT Orthopaedic Surgery; ATTEND Orthopaedic Surgery
DX: M47.812 Spondylosis without myelopathy or radiculopathy, cervical region (principal); M48.02 Spinal stenosis, cervical region; M25.78 Osteophyte, vertebrae; I48.91 Unspecified atrial fibrillation; I25.10 Atherosclerotic heart disease of native coronary artery without angina pectoris; E11.9 Type 2 diabetes mellitus without complications; I11.0 Hypertensive heart disease with heart failure; I50.9 Heart failure, unspecified; E78.5 Hyperlipidemia, unspecified; K21.9 Gastro-esophageal reflux disease without esophagitis; I25.2 Old myocardial infarction; M19.90 Unspecified osteoarthritis, unspecified site; I69.354 Hemiplegia and hemiparesis following cerebral infarction affecting left non-dominant side; Z56.0 Unemployment, unspecified; Z85.3 Personal history of malignant neoplasm of breast; Z86.711 Personal history of pulmonary embolism; Z86.718 Personal history of other venous thrombosis and embolism; Z87.891 Personal history of nicotine dependence; Z92.21 Personal history of antineoplastic chemotherapy; Z92.3 Personal history of irradiation; Z95.5 Presence of coronary angioplasty implant and graft; Z79.4 Long term (current) use of insulin; Z79.899 Other long term (current) drug therapy; Z79.01 Long term (current) use of anticoagulants; Z88.1 Allergy status to other antibiotic agents; Z88.2 Allergy status to sulfonamides; Z88.5 Allergy status to narcotic agent
CPT/HCPCS: 97161; 86900; 86901; 80048 ×2; 85025 ×2; 86850; 81003; 72040; 72125; 22551; 22552 ×2; 22853 ×3; 20930; 20936; 22845; G0378 ×2; L0120; C1713; C1762; J2250; J0330; J0360; J1100; J0690 ×3; J2405; J3010; J2370; J2704; J1170 ×3; J2001

== ENCOUNTER 2023-11-05 06:47 | Day surgery (SDC) | payer MEDICARE, OTHER ==
[2023-10-30 15:11] VITALS: BMI 28.3
[2023-11-05] MEDS ORDERED: LACTATED RINGERS 1,000 ML IV SCH (07:17)
--- NOTE | 2023-11-05 07:36 | P.GSHP ---
History of Present Illness H&P Date: 11/05/23 CHIEF COMPLAINT: GERD and colon screen HISTORY OF PRESENT ILLNESS: The patient is a 63-year-old female who presents with gastroesophageal reflux disease and need for colon screen. Upper and lower endoscopy were offered for further evaluation and management. PAST MEDICAL HISTORY: Please see list. PAST SURGICAL HISTORY: Please see list. MEDICATIONS: Please see list. ALLERGIES: Please see list. SOCIAL HISTORY: No illicit drug use FAMILY HISTORY: No reports of Crohn disease or ulcerative colitis. REVIEW OF ORGAN SYSTEMS: CONSTITUTIONAL: No reports of fevers or chills. GI: Denies any blood in stools or constipation. PHYSICAL EXAM: VITAL SIGNS: Stable GENERAL: Well-developed pleasant in no acute distress. HEENT: No scleral icterus. Extraocular movements grossly intact. Moist buccal mucosa. NECK: Supple without lymphadenopathy. CHEST: Unlabored respirations. Equal bilateral excursions. CARDIOVASCULAR: Regular rate and rhythm. Distal 2+ pulses. ABDOMEN: Soft, nondistended. MUSCULOSKELETAL: No clubbing, cyanosis, or edema. ASSESSMENT: 1. Gastroesophageal reflux disease 2. Colon screen. PLAN: 1. Recommend proceeding with an upper and lower endoscopy Past Medical History Past Medical History: Atrial Fibrillation, Coronary Artery Disease (CAD), Cancer, Chest Pain / Angina, Heart Failure, CVA/TIA, Diabetes Mellitus, Deep Vein Thrombosis (DVT), GERD/Reflux, GI Bleed, Hyperlipidemia, Hypertension, Myocardial Infarction (NV), Osteoarthritis (OA), Pulmonary Embolus (PE), Renal Disease, Seizure Disorder, Syncope Additional Past Medical History / Comment(s): breast cancer with lumpectomy/ radiation and chemo 2012, DVT/pulmonary embolism after CABG, PFO with surgery, TIA 2010-slight left sided weakness, last seizure 2014, DJD, DDD, syncope twice d/t bradycardia, syncope episodes recently-last episode Thursday08-13-20, see Dr. Brunner H & P, pacemaker stage 3 kidney failure due to gastroparesis Last Myocardial Infarction Date:: 2008 History of Any Multi-Drug Resistant Organisms: MRSA Date of last positivie culture/infection: 2012 MDRO Source:: MRSA sore in nostril 2012 Past Surgical History: Appendectomy, Back Surgery, Breast Surgery, Cardiac Ablation, Section, Cholecystectomy, Coronary Bypass/CABG, Heart Catheterization, Heart Catheterization With Stent, Joint Replacement, Orthopedic Surgery, Pacemaker, Tonsillectomy Additional Past Surgical History / Comment(s): 02/10/18 JIMBO/cardioversion, 4 vessel CABG 2008, PFO surgery in 2010, PCI with 2 stents to graft sites, stage 3 breast Ca LT with lumpectomy/nodes removed, BILAT VICK, EGD/colonoscopy , 2 C- Sections.,ivc filter, laminectomy, flap surgery over sternal plating after a fall 2008, clear for breast cancer since 2012. amputation 3rd and 4th toe on right foot Past Anesthesia/Blood Transfusion Reactions: No Reported Reaction Additional Past Anesthesia/Blood Transfusion Reaction / Comment(s): Pt has received blood in past with CABG-no reaction. Date of Last Stent Placement:: 2015 Type of Cardiac Device: Permanent Pacemaker Device Placement Date:: 05/11/18 Smoking Status: Former smoker - Past Family History Father Family Medical History: Cancer, Deep Vein Thrombosis (DVT), Vascular Disorder Additional Family Medical History / Comment(s): MELENOMA Mother Family Medical History: Cancer, Rheumatoid Arthritis (RA) Additional Family Medical History / Comment(s): Mother had breast cancer. Medications and Allergies Home Medications Medication Instructions Recorded Confirmed Type INSULIN ASPART (NovoLOG) [NovoLOG 3 unit SQ AC-TID 02/09/18 11/05/23 History (formulary)] Nitroglycerin Sl Tabs [Nitrostat] 0.4 mg SUBLINGUAL Q5M PRN 02/09/18 11/05/23 History Ezetimibe [Zetia] 10 mg PO HS 04/16/20 11/05/23 History Melatonin [Melatonin Dissolving 10 mg PO HS PRN 04/16/20 11/05/23 History Tablet] Rivaroxaban [Xarelto] 20 mg PO HS 04/16/20 11/05/23 History dilTIAZem HCL [Cardizem CD] 360 mg PO QAM 08/14/20 11/05/23 History Evolocumab [Repatha Syringe] 140 mg SQ Q14D 09/29/22 11/05/23 History Insulin Glargine [Lantus Vial] 35 unit SQ HS 09/29/22 11/05/23 History Insulin Glargine [Lantus Vial] 40 unit SQ DAILY 09/29/22 11/05/23 History Metoprolol Succinate [Metoprolol 25 mg PO BID 09/29/22 11/05/23 History Succinate ER] Ondansetron [Zofran] 4 mg PO Q8HR PRN 09/29/22 11/05/23 History Pantoprazole [Protonix] 40 mg PO DAILY 09/29/22 11/05/23 History Semaglutide [Rybelsus] 7 mg PO DAILY 09/29/22 11/05/23 History Sertraline [Zoloft] 100 mg PO HS 09/29/22 11/05/23 History Cyclobenzaprine [Flexeril] 10 mg PO TID #90 tab 10/03/22 11/05/23 Rx Dicyclomine [Bentyl] 10 mg PO TID 10/30/23 11/05/23 History Furosemide [Lasix] 1 tab PO DAILY 10/30/23 11/05/23 History Potassium Chloride 10 meq PO DAILY 10/30/23 11/05/23 History Promethazine [Phenergan] 12.5 mg PO Q6HR 10/30/23 11/05/23 History Sucralfate [Carafate] 1 gm PO BID 10/30/23 11/05/23 History lisinopriL [Zestril] 20 mg PO BID 10/30/23 11/05/23 History Allergies Allergy/AdvReac Type Severity Reaction Status Date / Time ciprofloxacin [From Cipro] Allergy Anaphylaxis Verified 11/05/23 07:25 sulfamethoxazole Allergy Anaphylaxis Verified 11/05/23 07:25 [From Bactrim] ticagrelor [From Brilinta] Allergy Dyspnea Verified 11/05/23 07:25 trimethoprim [From Bactrim] Allergy Anaphylaxis Verified 11/05/23 07:25 vortioxetine Allergy LOW HEART Verified 11/05/23 07:25 [From Brintellix] RATE morphine [From MS Contin] AdvReac Hallucinati Verified 11/05/23 07:25 ons pegfilgrastim [From Neulasta] AdvReac Nausea & Verified 11/05/23 07:25 Vomiting
[2023-11-05 07:44] LABS: Glucose,Whole Blood 92 mg/dL (70-110)
[2023-11-05 07:48] VITALS: RESP 16; TEMP 96.8
[2023-11-05] MEDS ORDERED: LIDOCAINE 1% INJ 10MG/ML (20 ML MDV) ONE (07:52)
[2023-11-05] MEDS ORDERED: PROPOFOL 10 MG/ML 20 ML VIAL IV ONE (07:52)
--- NOTE | 2023-11-05 08:20 | P.PCN ---
Date of Procedure: 11/05/23 Description of Procedure: PREOPERATIVE DIAGNOSIS: Gastroesophageal reflux disease. Dysphagia Gastroparesis POSTOPERATIVE DIAGNOSIS: Gastroesophageal reflux disease. Gastritis. OPERATION: Esophagogastroduodenoscopy with biopsies along esophagram, antrum and duodenum SURGEON: Samia Arias MD ANESTHESIA: MAC. INDICATIONS: The patient is a 63-year-old female who presents with reflux disease. Benefits and risks of the procedure were described. Informed consent was obtained. DESCRIPTION: The patient was brought into the endoscopy suite and laid in the left lateral decubitus position. An Olympus gastroscope was passed along the posterior oropharynx down to the distal esophagus where the squamocolumnar junction was encountered at 40 cm from the incisors. The stomach was entered and no bile reflux was found. Additional findings are listed below. Biopsies with cold forceps were obtained of the antrum. The first through third portion of the duodenum was examined. Retroflexion of the scope confirmed Hill grade 2 lower esophageal valve. The squamocolumnar junction demonstrated LA grade B erosive esophagitis. The stomach was desufflated. The patient tolerated the procedure well. FINDINGS: Squamocolumnar junction 40 cm from the incisors. Diaphragmatic hiatus at 40 cm. Hill grade 2 lower esophageal valve. LA grade B erosive esophagitis. Biopsies obtained Biopsies obtained of the duodenum. Chronic gastritis with biopsies obtained. RECOMMENDATIONS: Upper endoscopy as needed.
--- NOTE | 2023-11-05 08:24 | P.PCN ---
Date of Procedure: 11/05/23 Description of Procedure: PREOPERATIVE DIAGNOSIS: Colonoscopy screening. POSTOPERATIVE DIAGNOSIS: Colonoscopy screening. Diverticulosis, scattered. OPERATION: Colonoscopy to the cecum, ileocecal valve and appendiceal orifice. SURGEON: Samia Arias MD. ANESTHESIA: MAC. INDICATIONS: The patient is a 63-year-old female who presents for colonoscopy screening. Benefits and risks were described and informed consent was obtained. DESCRIPTION OF PROCEDURE: The patient had undergone Golytely prep. The patient had been brought into the operating room and laid in the left lateral decubitus position. After adequate intravenous sedation, the rectum was examined with 2% lidocaine jelly. No external hemorrhoids were encountered. The rectal tone was within normal limits. No lesions were palpated in the rectal vault. An Olympus colonoscope was advanced until the cecum, ileocecal valve and appendiceal orifice were clearly viewed. The prep was fair. Scattered diverticulosis was encountered. No colonic polyps were found. No evidence of focal colitis was found. Retroflexion of the scope demonstrated grade 1 internal hemorrhoids without active bleeding or inflammation. The colon was desufflated. The patient had tolerated the procedure well. Withdrawal time was over 6 minutes. FINDINGS: Aronchick preparation quality scale 3 (1-5) Internal hemorrhoids, grade 1 External prolapsed hemorrhoids, grade 1 No arteriovenous malformations. No adenomatous polyps. Pandiverticulosis No focal colitis. RECOMMENDATIONS: Lower endoscopy 5 years, 2028 Plan - Discharge Summary Discharge Rx Participant: No New Discharge Prescriptions: Continue Nitroglycerin Sl Tabs [Nitrostat] 0.4 mg SUBLINGUAL Q5M PRN PRN Reason: Chest Pain INSULIN ASPART (NovoLOG) [NovoLOG (formulary)] 3 unit SQ AC-TID Melatonin [Melatonin Dissolving Tablet] 10 mg PO HS PRN PRN Reason: Insomnia Ezetimibe [Zetia] 10 mg PO HS Rivaroxaban [Xarelto] 20 mg PO HS dilTIAZem HCL [Cardizem CD] 360 mg PO QAM Semaglutide [Rybelsus] 7 mg PO DAILY Ondansetron [Zofran] 4 mg PO Q8HR PRN PRN Reason: Nausea Sertraline [Zoloft] 100 mg PO HS Pantoprazole [Protonix] 40 mg PO DAILY Insulin Glargine [Lantus Vial] 35 unit SQ HS Cyclobenzaprine [Flexeril] 10 mg PO TID #90 tab lisinopriL [Zestril] 20 mg PO BID Promethazine [Phenergan] 12.5 mg PO Q6HR Furosemide [Lasix] 1 tab PO DAILY Metoprolol Succinate [Metoprolol Succinate ER] 25 mg PO BID Evolocumab [Repatha Syringe] 140 mg SQ Q14D Insulin Glargine [Lantus Vial] 40 unit SQ DAILY Sucralfate [Carafate] 1 gm PO BID Potassium Chloride 10 meq PO DAILY Dicyclomine [Bentyl] 10 mg PO TID Discharge Medication List INSULIN ASPART (NovoLOG) [NovoLOG (formulary)] 3 unit SQ AC-TID 02/09/18 [History] Nitroglycerin Sl Tabs [Nitrostat] 0.4 mg SUBLINGUAL Q5M PRN 02/09/18 [History] Ezetimibe [Zetia] 10 mg PO HS 04/16/20 [History] Melatonin [Melatonin Dissolving Tablet] 10 mg PO HS PRN 04/16/20 [History] Rivaroxaban [Xarelto] 20 mg PO HS 04/16/20 [History] dilTIAZem HCL [Cardizem CD] 360 mg PO QAM 08/14/20 [History] Evolocumab [Repatha Syringe] 140 mg SQ Q14D 09/29/22 [History] Insulin Glargine [Lantus Vial] 35 unit SQ HS 09/29/22 [History] Insulin Glargine [Lantus Vial] 40 unit SQ DAILY 09/29/22 [History] Metoprolol Succinate [Metoprolol Succinate ER] 25 mg PO BID 09/29/22 [History] Ondansetron [Zofran] 4 mg PO Q8HR PRN 09/29/22 [History] Pantoprazole [Protonix] 40 mg PO DAILY 09/29/22 [History] Semaglutide [Rybelsus] 7 mg PO DAILY 09/29/22 [History] Sertraline [Zoloft] 100 mg PO HS 09/29/22 [History] Cyclobenzaprine [Flexeril] 10 mg PO TID #90 tab 10/03/22 [Rx] Dicyclomine [Bentyl] 10 mg PO TID 10/30/23 [History] Furosemide [Lasix] 1 tab PO DAILY 10/30/23 [History] Potassium Chloride 10 meq PO DAILY 10/30/23 [History] Promethazine [Phenergan] 12.5 mg PO Q6HR 10/30/23 [History] Sucralfate [Carafate] 1 gm PO BID 10/30/23 [History] lisinopriL [Zestril] 20 mg PO BID 10/30/23 [History] Follow up Appointment(s)/Referral(s): Samia Arias MD [STAFF PHYSICIAN] - 12/22/23 1:00 pm Patient Instructions/Handouts: Diverticulosis Diet (GEN), Diverticulosis (GEN) Activity/Diet/Wound Care/Special Instructions: Repeat colonoscopy 5 years, 2028 Discharge Disposition: HOME SELF-CARE
[2023-11-05 09:04] VITALS: BP 123/68; PULSE 60
== END 2023-11-05 08:53 | disposition home or self-care (01) ==
LOC: ORWHC2ENDO 06:47
PROVIDERS: ATTEND Surgery Plastic and Reconstructive Surgery
DX: Z12.11 Encounter for screening for malignant neoplasm of colon (principal); K21.00 Gastro-esophageal reflux disease with esophagitis, without bleeding; K57.30 Diverticulosis of large intestine without perforation or abscess without bleeding; K29.50 Unspecified chronic gastritis without bleeding; K22.10 Ulcer of esophagus without bleeding; K31.84 Gastroparesis; K64.0 First degree hemorrhoids; K64.8 Other hemorrhoids; I48.91 Unspecified atrial fibrillation; I25.10 Atherosclerotic heart disease of native coronary artery without angina pectoris; I13.0 Hypertensive heart and chronic kidney disease with heart failure and stage 1 through stage 4 chronic kidney disease, or unspecified chronic kidney disease; I50.9 Heart failure, unspecified; E11.43 Type 2 diabetes mellitus with diabetic autonomic (poly)neuropathy; E11.22 Type 2 diabetes mellitus with diabetic chronic kidney disease; I25.2 Old myocardial infarction; G40.909 Epilepsy, unspecified, not intractable, without status epilepticus; M19.90 Unspecified osteoarthritis, unspecified site; E78.5 Hyperlipidemia, unspecified; Z86.711 Personal history of pulmonary embolism; Z86.718 Personal history of other venous thrombosis and embolism; Z85.3 Personal history of malignant neoplasm of breast; Z79.51 Long term (current) use of inhaled steroids; Z86.73 Personal history of transient ischemic attack (TIA), and cerebral infarction without residual deficits; Z95.0 Presence of cardiac pacemaker; Z95.1 Presence of aortocoronary bypass graft; Z95.5 Presence of coronary angioplasty implant and graft; Z98.890 Other specified postprocedural states; Z87.891 Personal history of nicotine dependence; Z80.3 Family history of malignant neoplasm of breast; Z79.4 Long term (current) use of insulin; Z79.1 Long term (current) use of non-steroidal anti-inflammatories (NSAID); Z79.899 Other long term (current) drug therapy; Z88.1 Allergy status to other antibiotic agents; Z88.2 Allergy status to sulfonamides; Z88.5 Allergy status to narcotic agent; Z87.442 Personal history of urinary calculi
CPT/HCPCS: 88305; 43239; J2001; J2704; G0121

== ENCOUNTER → 2024-03-08 | Outpatient (CLI) | payer MEDICARE, OTHER ==
--- NOTE | 2024-03-09 13:36 | CTL ---
EXAMINATION TYPE: CT Low Dose Lung DATE OF EXAM: 03/08/2024 11:12 AM CLINICAL INDICATION:Female, 64 years old with history of Z12.2 LUNG CA SCR Z87.891 FORMER SMOKER; H/O TOBACCO USE X44 YEARS QUIT 4 YEARS AGO IN 2019 , history of tobacco use. COMPARISON: CT Low Dose Lung 09/17/2022 TECHNIQUE: Multiple axial non-contrast scans were obtained from approximately the lung apices through the upper abdomen. Coronal and sagittal reformatted images were obtained. Low dose technique was uti lized. CT DLP: 138.5 mGycm, Automated exposure control for dose reduction was used. CT Contrast: Contrast used: None Oral contrast used: None FINDINGS: ======== Lack of intravenous contrast and low dose technique limits the evaluation of the vascular and soft ti ssue structures. LUNGS: No evidence of pulmonary fibrosis. No evidence of focal consolidation, pneumothorax or pleural effusion. Nodules: RUL: None. RML: None. RLL: None. KATHIE: None. LLL: None. AIRWAY: Patent and unremarkable. HEART: Size within normal limits. Stigmata of CABG present MEDIASTINUM: No gross evidence of adenopathy. VASCULATURE: No aortic aneurysm. MUSCULOSKELETAL: No acute osseous abnormalities SOFT TISSUES/LYMPH NODES: Unremarkable. LOWER NECK: No significant findings. UPPER ABDOMEN: No significant findings. IMPRESSION: 1. No clinically significant pulmonary nodules. CT LUNG RAD AND CT CHEST RECOMMENDATION: 1: Negative. Recommendation: Routine annual follow-up low-do se CT lung screening S Modifier (other clinically significant findings): None. Recommend smoking cessation (if current smoker), or continuation of smoking cessation (if prior smoke r). Annual screening for lung cancer with low-dose computed tomography is recommended in adults ages 55 to 77 years who have a 30 pack-year smoking history and currently smoke or have quit within the pa st 15 years. Screening should be discontinued once a person has not smoked for 15 years or develops a health problem that substantially limits life expectancy or the ability or willingness to have curat artemio lung surgery. Lung rads 2021 [email or web address]
== END | disposition home or self-care (01) ==
LOC: RADCTMAIN 10:30
PROVIDERS: ATTEND Internal Medicine Geriatric Medicine
DX: Z12.2 Encounter for screening for malignant neoplasm of respiratory organs (principal); Z87.891 Personal history of nicotine dependence
CPT/HCPCS: 71271

== ENCOUNTER → 2024-03-08 | Outpatient (CLI) | payer MEDICARE, OTHER ==
--- NOTE | 2024-03-10 08:51 | MM ---
Reason for Exam: Screening (asymptomatic). Last mammogram was performed 1 year(s) and 6 month(s) ago. Patient History: Menarche at age 13. First Full-Term at age 21. Postmenopausal. Breast cancer, left, age 53. 2012, Lumpectomy on the Left side. 2012, Radiation Therapy on the left side. 2012, Chemotherapy. Mother had breast cancer, age 40. Prior Study Comparison: 12/08/2018 Bilateral MG diagnostic mammo BI wo CAD, [facility]. 12/24/2020 Bilateral MG diagnostic mammo w CAD [facility] - 2, [facility]. 09/10/2022 Bilateral MG 3D diag mammo w/cad [facility], [facility]. Tissue Density: The breasts are heterogeneously dense, which may obscure small masses. Findings: Analyzed By CAD. There is no suspicious group of microcalcifications or new suspicious mass in either breast. Postsurgical changes with distortion of the left breast are stable. Cardiac device obscures portion of the left breast. Benign calcifications are noted. Overall Assessment: Benign, BI-RAD 2 Management: Screening Mammogram of both breasts in 1 year. . Patient should continue monthly self-breast exams. A clinical breast exam by your physician is recommended on an annual basis. This exam should not preclude additional follow-up of suspicious palpable abnormalities. Note on Mary scores and lifetime risk: 1. A Mary score greater than 3% is considered moderate risk. If this is the case, consider specialist referral to assess eligibility for a risk reducing agent. 2. If overall lifetime risk for the development of breast cancer is 20% or higher, the patient may qualify for future screening with alternating mammogram and breast MRI. Electronically signed and approved by: Antolin Ly M.D. Radiologis
== END | disposition home or self-care (01) ==
LOC: RADMAMWWP 10:52
PROVIDERS: ATTEND Family Medicine
DX: Z12.31 Encounter for screening mammogram for malignant neoplasm of breast (principal); Z80.3 Family history of malignant neoplasm of breast; Z78.0 Asymptomatic menopausal state
CPT/HCPCS: 77063; 77067

== ENCOUNTER → 2024-05-06 | Outpatient (CLI) | payer MEDICARE, OTHER ==
--- NOTE | 2024-05-06 13:06 | XR ---
EXAMINATION TYPE: XR knee complete LT DATE OF EXAM: 05/06/2024 COMPARISON: None HISTORY: 64-year-old female M25.562, left knee pain TECHNIQUE: 3 views FINDINGS: Surgical clips medial aspect of the knee. There is medial and patellofemoral compartment degenerative spurring. Anterior soft tissue swelling. Moderate knee joint effusion. No acute fracture, subluxatio n, dislocation seen. IMPRESSION: Anterior soft tissue swelling with moderate joint effusion but no acute osseous abnormality seen. If concern for internal derangement, consider MRI.
== END | disposition home or self-care (01) ==
LOC: RADXRMAIN 10:34
PROVIDERS: ATTEND Family Medicine
DX: M25.562 Pain in left knee (principal); M25.462 Effusion, left knee

== ENCOUNTER → 2025-05-26 | Outpatient (CLI) | payer MEDICARE, OTHER ==
[2025-05-26 15:26] LABS: HCT 40.6 % (37.2-46.3); HGB 12.5 g/dL (12.0-15.0); MCH 26.0 pg (27.0-32.0); MCHC 30.8 g/dL (32.0-37.0); MCV 84.4 FL (80.0-97.0); NRBC Per 100 WBC 0 X 10*3/uL (0.00-0.01); Platelet Count 283 X 10*3/uL (140-440); RBC 4.81 X 10*6/uL (4.10-5.20); RDW 14.9 % (11.5-14.5); WBC 9.03 X 10*3/uL (4.50-10.00)
[2025-05-26 15:27] LABS: Basophils # (A) 0.06 X 10*3/uL (0.00-0.10); Basophils % (A) 0.7 %; Eosinophils # (A) 1.18 X 10*3/uL (0.04-0.35); Eosinophils % (A) 13.1 %; Immature Grans, Automated 0.20 %; Lymphocytes # (A) 2.31 X 10*3/uL (0.90-5.00); Lymphocytes % (A) 25.6 %; Monocytes # (A) 0.55 X 10*3/uL (0.20-1.00); Monocytes % (A) 6.1 %; Neutrophils # (A) 4.91 X 10*3/uL (1.80-7.70); Neutrophils % (A) 54.3 %
[2025-05-26 16:01] LABS: ALT 14 U/L (8-44); AST 16 U/L (13-35); Albumin 4.1 g/dL (3.8-4.9); Albumin/Globulin Ratio 1.71 Ratio (1.60-3.17); Alkaline Phosphatase 72 U/L (41-126); Anion Gap 11.50 mmol/L (4.00-12.00); BUN/Creat Ratio 15.64 Ratio (12.00-20.00); Blood Urea Nitrogen 17.2 mg/dL (9.0-27.0); Calcium 9.1 mg/dL (8.7-10.3); Carbon Dioxide 26.5 mmol/L (21.6-31.8); Chloride 101 mmol/L (96-109); Cholesterol 143.00 mg/dL (0.00-200.00); Globulin 2.4 g/dL (1.6-3.3); Glucose 175 mg/dL (70-110); HDL Cholesterol 46.50 mg/dL (40.00-60.00); Potassium 5.1 mmol/L (3.5-5.5); Sodium 139 mmol/L (135-145); T4, Free (Free Thyroxine) 0.80 ng/dL (0.80-1.80); Total Protein 6.5 g/dL (6.2-8.2); Triglycerides 428.00 mg/dL (0.00-149.00); VLDL Calculation 85.60 mg/dL (5.00-40.00)
[2025-05-26 16:02] LABS: Vitamin B12 377.0 pg/mL (200.0-944.0)
[2025-05-26 16:14] LABS: LDL Cholesterol,Direct Reflex 35.80 mg/dL (0.00-129.00)
== END | disposition home or self-care (01) ==
LOC: LABWHC1 08:25
PROVIDERS: ATTEND Physician Assistant
DX: E78.5 Hyperlipidemia, unspecified (principal); E11.59 Type 2 diabetes mellitus with other circulatory complications; R94.6 Abnormal results of thyroid function studies; E53.8 Deficiency of other specified B group vitamins
CPT/HCPCS: 36415; 80053; 80061; 82607; 83036; 83721; 84439; 84443; 85025